=== PATIENT | female | born 1990 | race Caucasian/White ===

== ENCOUNTER 2022-09-09 09:25 | Outpatient (REF) | payer OTHER, SELFPAY ==
[2022-09-09 11:44] LABS: Influenza A PCR NEGATIVE (Negative); Influenza B PCR NEGATIVE (Negative); Resp Syncy Virus RNA Qual PCR NEGATIVE (Negative); SARS COV2 PCR INHOUSE NEGATIVE (Negative)
== END 2022-09-09 09:26 | disposition home or self-care (01) ==
LOC: HO.LAB 09:25
PROVIDERS: Visit Provider Nurse Practitioner Family
DX: Z20.822 Contact with and (suspected) exposure to COVID-19 (principal); R09.89 Other specified symptoms and signs involving the circulatory and respiratory systems
CPT/HCPCS: 0241U

== ENCOUNTER 2022-09-17 08:45 | Outpatient (REF) | payer OTHER, SELFPAY ==
[2022-09-17 11:15] LABS: MANUAL DIFF FLAG NO
[2022-09-17 11:39] LABS: Basophils Percent Auto 0.5 % (0-2); Eosinophils Absolute Auto 0.6 X10*3/uL (0.0-0.4); Eosinophils Percent Auto 9.4 % (0-4); Hematocrit 44.1 % (37.0-47.0); Hemoglobin 14.7 g/dl (12.0-16.0); Imm Gran Abs Auto 0.01 X10*3/uL (0.00-0.03); Imm Gran Pct Auto 0.2 % (0.0-0.4); Lymphocytes Absolute Auto 3.3 X10*3/uL (1.2-4.9); Lymphocytes Percent Auto 50.2 % (20-40); Mean Corpuscular HGB Conc 33.3 g/dl (31.0-35.0); Mean Corpuscular Hemoglobin 29.8 pg (27.0-33.0); Mean Corpuscular Volume 89.3 fL (80.0-98.0); Monocytes Absolute Auto 0.5 X10*3/uL (0.1-1.2); Monocytes Percent Auto 7.4 % (2-11); Neutrophils Absolute Auto 2.1 x10*3/uL (2.0-8.3); Neutrophils Percent Auto 32.3 % (45-73); Platelet Count 370 X10*3/uL (160-400); Red Blood Count 4.94 X10*6/uL (4.20-5.50); Red Cell Distribution Width 13.1 % (11.0-16.0); White Blood Count 6.5 X10*3/uL (4.8-10.8)
[2022-09-17 12:27] LABS: Alanine Aminotransferase 29 U/L (0-31); Alkaline Phosphatase 89 U/L (39-117); Anion Gap 13 (12-20); Aspartate Amino Transferase 28 U/L (5-31); Bilirubin Total 0.3 mg/dL (0.0-1.0); Blood Urea Nitrogen 7 mg/dL (9-16); Calcium 9.2 mg/dL (8.4-10.2); Carbon Dioxide 25 mmol/L (22-29); Chloride 109 mmol/L (96-108); Cholesterol 187 mg/dL; Estimated Glomerular Filt Rate > 60; Glucose Fasting 100 mg/dL (60-99); HDL Cholesterol 52 mg/dL; LDL Cholesterol Calculated 118 mg/dl; Potassium 4.5 mmol/L (3.3-5.1); Sodium 142 mmol/L (135-145); TSH reflex Free T4 1.92 uIU/mL (0.32-4.0); Total Protein 6.1 g/dL (6.5-8.0); Triglycerides 88 mg/dL
[2022-09-18 04:43] LABS: Syphilis Screen Nonreactive (Nonreactive)
[2022-09-18 07:20] LABS: HBS Num1 24.63 mIU/mL (0-7.99); HBc Num1 0.17 S/CO (0.00-0.79); HBsAGNum1 0.34 S/CO (0.00-0.99); HIV AB/AG Nonreactive (Nonreactive); HIV Num 1 0.08 S/CO (0.00-0.99); Hepatitis B Core Antibody Nonreactive (Nonreactive); Hepatitis B Surface Antigen Negative (Negative); ~Hepatitis B Surface Antibody REACTIVE (Nonreactive); ~Hepatitis C Antibody Nonreactive (Nonreactive)
== END 2022-09-17 08:46 | disposition home or self-care (01) ==
LOC: HO.WFDLDS 08:45
PROVIDERS: Visit Provider Family Medicine
DX: Z00.00 Encounter for general adult medical examination without abnormal findings (principal); Z11.3 Encounter for screening for infections with a predominantly sexual mode of transmission; Z11.4 Encounter for screening for human immunodeficiency virus [HIV]
CPT/HCPCS: 36415; 80053; 80061; 84443; 85025; 86704; 86706; 86780; 86803; 87340; 87389

== ENCOUNTER 2022-09-22 10:48 | Outpatient (REF) | payer OTHER, SELFPAY ==
[2022-09-23 11:17] LABS: Appearance Urine Clear; Color Urine Yellow; Glucose Urine UA Negative (Negative); Leukocyte Esterase Urine Negative (Negative); Nitrite Urine Negative (Negative); PH 7.5 (5.0-9.0); Specific Gravity - Urine 1.015 (1.005-1.025); Urine Blood Negative (Negative); Urine Ketones Negative (Negative); Urine Protein Negative (Neg-Trace)
[2022-09-23 12:10] LABS: Creatinine Urine 76.97 mg/dL; Microalbum/Creatinine Ratio Ur 11.6 ug/mg cr
== END 2022-09-22 10:49 | disposition home or self-care (01) ==
LOC: HO.LNP 10:48
PROVIDERS: Visit Provider Family Medicine
DX: Z00.00 Encounter for general adult medical examination without abnormal findings (principal); I10 Essential (primary) hypertension
CPT/HCPCS: 81003; 82043

== ENCOUNTER 2022-09-25 15:24 | Outpatient (REF) | payer OTHER, SELFPAY ==
--- NOTE | ~2022-09-25 | XR_ITS ---
EXAMINATION: XR cervical spine 2V CLINICAL INFORMATION: Cervicalgia COMPARISON: None TECHNIQUE: 4 views of the cervical spine were obtained. FINDINGS: The cervical spine is visualized to the level of C7-T1 on the lateral view. Reversal of usual cervical spine lordosis centered at C6-C7. Vertebral body heights are maintained. Mild to moderate degenerative disc disease at C6-C7, manifested by loss of disc space height and degenerative endplate spurring. Lateral masses of C1 are well aligned on C2. Visualized portion of the dens is intact. No prevertebral soft tissue swelling. XR/XR cervical spine 2V IMPRESSION: * Mild to moderate spondylosis of the cervical spine at C6-C7 with reversal of the usual cervical spine lordosis.
--- NOTE | ~2022-09-25 | XR_ITS ---
EXAMINATION: XR LUMBOSACRAL SPINE CLINICAL INFORMATION: Reason for Exam M54.16 - Radiculopathy, lumbar region COMPARISON: Lumbar spine radiographs 08/07/2021 TECHNIQUE: 3 views of the lumbar spine FINDINGS: 5 nonrib-bearing lumbar-type vertebral bodies. Status post L4-L5 posterior spinal fusion with interbody disc spacer fixating stable grade 1 anterolisthesis of L4 on L5. There is no alycia bony fusion across the vertebral bodies. No hardware fracture or perihardware lucency. Vertebral body heights are maintained. Alignment is otherwise maintained. Disc space heights are otherwise maintained. Paravertebral soft tissues are unremarkable. XR/XR lumbar spine 2-3V IMPRESSION: * Status post L4-L5 posterior spinal fusion with interbody disc spacer fixating stable grade 1 anterolisthesis of L4 on L5. No evidence of hardware fracture or complication. * Remainder of disc space heights are maintained.
--- NOTE | ~2022-09-25 | XR_ITS ---
EXAMINATION: XR CHEST CLINICAL INFORMATION: Reason for Exam F17.200 - Nicotine dependence, unspecified, uncomplicated COMPARISON: None TECHNIQUE: 2 views of the chest FINDINGS: Clear lungs. No pneumothorax or pleural effusion. Normal cardiomediastinal silhouette. XR/XR chest 2V IMPRESSION: * Clear lungs.
== END 2022-09-25 15:25 | disposition home or self-care (01) ==
LOC: HO.XRAY 15:24
PROVIDERS: PCP Family Medicine; Referring Provider Surgery Plastic and Reconstructive Surgery; Visit Provider Family Medicine
DX: M54.16 Radiculopathy, lumbar region (principal); M54.9 Dorsalgia, unspecified; F17.200 Nicotine dependence, unspecified, uncomplicated; M54.12 Radiculopathy, cervical region; M54.2 Cervicalgia
CPT/HCPCS: 71046; 72040; 72100

== ENCOUNTER 2022-10-06 09:41 | Outpatient (REF) | payer OTHER, SELFPAY ==
[2022-10-06 11:14] LABS: Partial Thromboplastin Time 36.1 SEC (26.0-36.4)
== END 2022-10-06 09:42 | disposition home or self-care (01) ==
LOC: HO.WFDLDS 09:41
PROVIDERS: Visit Provider Family Medicine
DX: Z01.818 Encounter for other preprocedural examination (principal)
CPT/HCPCS: 36415; 85610; 85730

== ENCOUNTER 2023-11-03 08:43 | Outpatient (AMB) | payer OTHER, SELFPAY ==
[2023-11-03 09:00] VITALS: BP 124/80; PULSE 109; RESP 14; TEMP 36.7; O2SAT 96; BMI 27.7
--- NOTE | 2023-11-03 09:00 | MHC.OFFWIV ---
Intake Vital Signs 11/03/23 09:00 Height 5 ft 6 in Weight 171 lb 8 oz BMI 27.7 BP 124/80 Blood Pressure Location Rt brachial Position Sitting Respiration 14 Pulse 109 H Pulse Source Pulse Oximeter Temp 98.1 F Temp Source Temporal Artery Scan Pulse Oximetry (%) 96 Oxygen Delivery Method Room Air Intake Visit Reasons: ongoing sinus issues Intake Note: Patient reports sinus concerns x6 weeks. Patient states she has seen teledoc and has tried amoxicillin, Augmentin, and benzonatate tablets with no relief. Patient reports she has also tried OTC meds sucha mucinex with no relief. Patient reports symptoms of productive cough with green mucinex, wheezing and trouble catching breath. Patient reports she has had 4 sinus infections June. 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 Reports episode in June tx w/ Augmentin In Jul got COVID and sinus infection. Tx w/ Doxy. October treated w/ Augmentin and Prednisone Augmentin 10/08/23 with Prednisone 50mg Doxycycline 07/27/23 + vaping Tessalon w/o relief for cough Using flonase and Zicam nasal spray taking allergy medication QD Today sx are wheezing, cough with sputum, green nasal discharge, feeling SOB Used KELVIN in the past but does not have on hand right now. No maintenance inhalers. [facility] Surgical History (Updated 08/14/22 @ 13:03 by Wil Nguyễn) H/O spinal fusion Social History Housing: House Patient Tobacco Use Status: Current everyday Tobacco user e-Cigarette/Vaping Use: Never Used Second Hand Smoke Exposure: No service: No Current occupational status: employed Cognitive needs: No Hearing needs: No Vision needs: No Review of Systems Const All systems reviewed & are unremarkable except as noted in HPI and below Physical Exam Vital Signs: Last Vital Signs Temp 98.1 F 11/03/23 09:00 Pulse 109 H 11/03/23 09:00 Resp 14 11/03/23 09:00 BP 124/80 11/03/23 09:00 Pulse Ox 96 11/03/23 09:00 Oxygen Delivery Method Room Air 11/03/23 09:00 BMI result Body Mass Index 27.7 Const Other: Awake alert NAD Sclera and conjunctiva clear bilat TM intact trace fluid L, clear on R Nares w/ thick mucoid d/c bilat, + frontal and max sinus tenderness bilat MMM, pharynx WNL RRR LS ins/exp wheeze throughout Assessment & Plan Assessment & Plan (1) Recurrent acute sinusitis: Comment: . Code(s): J01.91 - Acute recurrent sinusitis, unspecified Qualifiers: Sinusitis location: pansinusitis Qualified Code(s): J01.41 - Acute recurrent pansinusitis Plan: . (2) Mild intermittent asthma: Code(s): J45.20 - Mild intermittent asthma, uncomplicated Qualifiers: Asthma complication type: with acute exacerbation Qualified Code(s): J45.21 - Mild intermittent asthma with (acute) exacerbation Plan: . Plan Advised to immediately stop Flonase as she will be getting a rhinoplasty and just a few weeks. Viral swab obtained today & negative. We will treat sinus symptoms with azithromycin. We will treat her wheezing with Asmanex and as needed albuterol. This note is constructed using voice recognition software. While every effort has been made to ensure accuracy in application systems architect, still errors may have been included Sometimes, these errors may affect the content or meaning of the given sentence . Total time spent caring for the patient today was 30 minutes. This includes time spent before the visit reviewing the chart, time spent during the visit, and time spent after the visit on documentation Orders: Orders SARS-CoV2/FLU/RSV Today R09.89 - Other specified symptoms and signs involving the circulatory and respiratory systems Medications: New albuterol sulfate 90 mcg/actuation 2 puffs inhalation Q4-6H PRN 8.5 grams 0RF shortness of breath or wheezing 30 days azithromycin For 250 mg dose pack: take 500 mg today (day 1), then 250 mg for 4 days (days 2-5) PO 6 tabs 0RF 5 days mometasone 100 mcg/actuation (Asmanex HFA) 1 puff inhalation BID 13 grams 0RF Coding Level of Care Code Est Pt Level 4 (40006) Diagnoses Acute recurrent pansinusitis J01.41 Sinusitis location: pansinusitis Mild intermittent asthma with acute exacerbation J45.21 Asthma complication type: with acute exacerbation
== END 2023-11-03 09:23 | disposition home or self-care (01) ==
PROVIDERS: PCP Family Medicine; Visit Provider Nurse Practitioner Family
DX: J01.41 Acute recurrent pansinusitis (principal); J45.21 Mild intermittent asthma with (acute) exacerbation
CPT/HCPCS: 99214

== ENCOUNTER 2023-11-03 09:23 | Outpatient (REF) | payer OTHER, SELFPAY ==
[2023-11-03 12:38] LABS: Influenza A PCR NEGATIVE (Negative); Influenza B PCR NEGATIVE (Negative); Resp Syncy Virus RNA Qual PCR NEGATIVE (Negative); SARS COV2 PCR INHOUSE NEGATIVE (Negative)
== END 2023-11-03 09:24 | disposition home or self-care (01) ==
LOC: HO.LAB 09:23
PROVIDERS: Visit Provider Nurse Practitioner Family
DX: Z11.52 Encounter for screening for COVID-19 (principal); R09.89 Other specified symptoms and signs involving the circulatory and respiratory systems
CPT/HCPCS: 0241U

== ENCOUNTER 2023-11-03 11:24 | Outpatient (REF) | payer OTHER, SELFPAY | END 2023-11-03 11:25 | disposition home or self-care (01) | LOC: HO.LNP 11:24 | PROVIDERS: Visit Provider Nurse Practitioner Family | DX: Z13.89 Encounter for screening for other disorder (principal) ==

== ENCOUNTER 2023-12-23 08:23 | Outpatient (AMB) | payer OTHER, SELFPAY ==
--- NOTE | 2023-12-23 08:27 | A.OFFPC_ITS ---
Vital Signs 12/23/23 08:34 Height 5 ft 5 in Weight 162 lb 8 oz BMI 27.0 BP 117/76 Blood Pressure Location Lt brachial Position Sitting Respiration 14 Pulse 110 H Pulse Source Palpation Temp 98.7 F Temp Source Oral Pulse Oximetry (%) 97 Oxygen Delivery Method Room Air Intake Visit Reasons: Sinus Intake Note: Sore throat, sinus congestion, headache. Applied Psychology Professor Required: No Allergies No Known Allergies Allergy (Verified 12/23/23 08:28) Medication List - Last Reconciled 12/23/23 by María Hancock PA-C albuterol sulfate 90 mcg/actuation 2 puffs inhalation Q4-6H PRN 30 days atomoxetine 25 mg PO QAM budesonide 90 mcg/actuation (Pulmicort Flexhaler) 1 inh inhalation BID duloxetine (Cymbalta) 120 mg PO DAILY gabapentin 800 mg PO BEDTIME meloxicam 15 mg PO DAILY 30 days promethazine 25 mg PO Q8H PRN Tobacco use date assessed: 09/22/22 HPI Sinus HPI Details Patient is a 33-year-old female with a significant past medical history of asthma and anxiety presenting today with sinus congestion and a sore throat. She states that she is worried that she has strep throat again. She tells me it is very painful to swallow. For the last 5 days she has felt awful. She states that she has had congestion in her sinuses but also recently had a rhinoplasty 10 days ago. She states that she is having pain with swallowing, lymph nodes were swollen and she has been feverish. She is borderline tearful today in the office because she has felt sick for so long. She states that since June she has been sick every month in multiple times a month. She says it started in June with a sinus infection in which she went on antibiotics and then she had strep throat. She states that then in July she developed COVID and at some point also had the flu. She has been on antibiotics every month since August. This last month she went to [place] f or a rhinoplasty and states that when she landed she knew she had strep throat. She believes she got it from the airplane but prior to going there she had just been treated for sinus infection. She states that they delayed her surgery by a few days and gave her ?an injection of an antibiotic ?. She does not think that that was penicillin but can not tell me what she took. She says that they then gave her antibiotics while she was in the hospital for her rhinoplasty and during her surgery and then they discharged her on a form of amoxicillin. She states that she just finished her antibiotics about a week ago and then developed this sore throat and sinus congestion and feeling sick again. She also in the interim developed thrush and was given oral nystatin. She states that she still has the medication and today is her last day with a but she can still feel thrush on the tip of her tongue. She denies ever having routine illnesses like this before. She states that she knows she does not necessarily live the healthiest lifestyle with smoking but she has cut back. She does not drink alcohol. She tries to live a relatively healthy lifestyle. No unintentional weight loss, bruising, chest pain or shortness a breath. No nausea, vomiting or abdominal pain. [facility] Medical History (Updated 12/23/23 @ 10:08 by María Hancock PA-C) History of frequent upper respiratory infection Recurrent streptococcal pharyngitis Surgical History (Updated 08/14/22 @ 13:03 by Wil Nguyễn) H/O spinal fusion Social History Housing: House Patient Tobacco Use Status: Current everyday Tobacco user e-Cigarette/Vaping Use: Never Used Second Hand Smoke Exposure: No service: No Current occupational status: employed Cognitive needs: No Hearing needs: No Vision needs: No Questionnaire Thrive Questionnaire Date Thrive assessed: 08/14/22 SARAH-7 AMB Questionnaire SARAH-7 Date SARAH - 7 assessed: 08/14/22 Source: Developed by Drs. Adonay Asencio, Latesha Martel, Bairon Stanford and colleagues, with an educational elizabeth from [employer] [facility]. Physical exam (Primary Care) Vital Signs: Last Vital Signs Temp 98.7 F 12/23/23 08:34 Pulse 110 H 12/23/23 08:34 Resp 14 12/23/23 08:34 BP 117/76 12/23/23 08:34 Pulse Ox 97 12/23/23 08:34 Oxygen Delivery Method Room Air 12/23/23 08:34 BMI result Body Mass Index 27.0 Tobacco/Smoking Status: Tobacco use Status Tobacco use date assessed 09/22/22 12/23/23 08:30 Patient Tobacco Use Status Current everyday Tobacco 12/23/23 08:30 e-Cigarette/Vaping Use Never Used 12/23/23 08:30 Thrive Assessment: Date of Thrive Assessment Date Thrive assessed 08/14/22 12/23/23 08:30 Const Orientation/consciousness: patient oriented x3 HENMT Ears: hearing grossly normal bilaterally and TM's normal bilaterally General nose exam: Abnormal external nose present nasal swelling, Abnormal mucous membranes and turbinates present erythematous and Nasal discharge present clear Face and sinus: Yes sinus tenderness (Maxillary sinus tenderness present) Mouth: tongue abnormal (There is a white coating noted on the distal aspect of the tongue) Throat: Yes uvula midline, Yes abnormal tonsil (Erythematous and hypertrophied) and Yes posterior oropharynx abnormal (Erythematous) Neck Thyroid: Thyroid normal Lymphatic: lymphadenopathy (Tonsillar and cervical lymphadenopathy noted) Resp Auscultation: clear to auscultation bilaterally Cardio Rate: regular rate Rhythm: regular rhythm Heart sounds: S1 normal heart sound present and S2 normal heart sound present GI Inspection: Yes normal to inspection Palpation (GI): Soft to palpation and Other GI palpation findings present (nontender, no cva tenderness) Auscultation: normoactive bowel sounds Rectal Exam - Female: deferred Skin General skin exam: no rashes or lesions noted Neuro General: patient oriented x3, gait normal and no focal motor deficits Assessment and Plan Assessment & Plan (1) Recurrent acute sinusitis: Comment: . Code(s): J01.91 - Acute recurrent sinusitis, unspecified Qualifiers: Sinusitis location: pansinusitis Qualified Code(s): J01.41 - Acute recurrent pansinusitis (2) Recurrent streptococcal pharyngitis: Code(s): J02.0 - Streptococcal pharyngitis (3) History of frequent upper respiratory infection: Code(s): Z87.09 - Personal history of other diseases of the respiratory system (4) Thrush, oral: Code(s): B37.0 - Candidal stomatitis Plan I have referred her to ENT and Allergy and immunology. We did discuss that she may have an immune deficiency. We also discussed that with her recurrent strep she may need to be considered by ENT. Labs ordered today including CBC, CMP and TSH we will follow up pending test results. We did discuss that the CBC will likely be abnormal given her positive strep. I will start her on Levaquin for the recurrent infection. Discussed with her the risks and benefits and adverse effects of this medication including increased risk of Achilles tendon rupture, QTC prolongation, GI upset, C diff (with the numerous antibiotics) and yeast infections. Discussed that she needs to take probiotics and cannot miss this. We discussed sanitation and hygiene at home and advised her to get multiple disp osable toothbrushes and travel tothpastes and discard them and to clean her sinks, door handles etc.. Given that she still has thrush on exam I will start her on Diflucan. Again, reviewed risks and benefits and adverse effects. Advised to follow up in a couple of months to be seen in for a physical exam. Patient understands and agrees with the plan. Orders: Orders Complete Blood Count Auto Diff Today J01.41 - Acute recurrent pansinusitis, J02.0 - Streptococcal pharyngitis, Z87.09 - Personal history of other diseases of the respiratory system Comprehensive Met. Panel Today J01.41 - Acute recurrent pansinusitis, J02.0 - Streptococcal pharyngitis, Z87.09 - Personal history of other diseases of the respiratory system TSH reflex Free T4 Today J01.41 - Acute recurrent pansinusitis, J02.0 - Streptococcal pharyngitis, Z87.09 - Personal history of other diseases of the respiratory system Referrals Allergy & Immunology Referral J01.41 - Acute recurrent pansinusitis, J02.0 - Streptococcal pharyngitis, Z87.09 - Personal history of other diseases of the respiratory system Ear/Nose/Throat Referral J01.41 - Acute recurrent pansinusitis, J02.0 - S treptococcal pharyngitis, Z87.09 - Personal history of other diseases of the respiratory system Medications: New levofloxacin 750 mg PO DAILY 10 days 10 tabs 0RF fluconazole 150 mg PO DAILY 10 days 10 tabs 0RF Coding Level of Care Code Est Pt Level 4 (84634) Complex EM visit Add On G2211 Diagnoses Acute recurrent pansinusitis J01.41 Sinusitis location: pansinusitis Recurrent streptococcal pharyngitis J02.0 History of frequent upper respiratory infection Z87.09 Thrush, oral B37.0
[2023-12-23 08:34] VITALS: BP 117/76; PULSE 110; RESP 14; TEMP 37.1; O2SAT 97; BMI 27.0
== END 2023-12-23 09:21 | disposition home or self-care (01) ==
PROVIDERS: PCP Family Medicine; Visit Provider Physician Assistant
DX: J01.41 Acute recurrent pansinusitis (principal); J02.0 Streptococcal pharyngitis; Z87.09 Personal history of other diseases of the respiratory system; B37.0 Candidal stomatitis; J02.9 Acute pharyngitis, unspecified
CPT/HCPCS: 87880; 99214; G2211

== ENCOUNTER 2023-12-23 09:27 | Outpatient (REF) | payer OTHER, SELFPAY ==
[2023-12-23 11:26] LABS: MANUAL DIFF FLAG NO
[2023-12-23 11:36] LABS: Basophils Percent Auto 0.3 % (0-2); Eosinophils Absolute Auto 0.4 X10*3/uL (0.0-0.4); Eosinophils Percent Auto 3.5 % (0-4); Hemoglobin 13.6 g/dl (12.0-16.0); Imm Gran Abs Auto 0.04 X10*3/uL (0.00-0.03); Imm Gran Pct Auto 0.4 % (0.0-0.4); Lymphocytes Absolute Auto 1.6 X10*3/uL (1.2-4.9); Lymphocytes Percent Auto 13.8 % (20-40); Mean Corpuscular HGB Conc 33.2 g/dl (31.0-35.0); Mean Corpuscular Hemoglobin 30.5 pg (27.0-33.0); Mean Corpuscular Volume 91.9 fL (80.0-98.0); Mean Platelet Volume 10.2 fL (9.4-12.3); Monocytes Absolute Auto 1.1 X10*3/uL (0.1-1.2); Monocytes Percent Auto 9.9 % (2-11); Neutrophils Absolute Auto 8.2 x10*3/uL (2.0-8.3); Neutrophils Percent Auto 72.1 % (45-73); Platelet Count 399 X10*3/uL (160-400); Red Blood Count 4.46 X10*6/uL (4.20-5.50); Red Cell Distribution Width 13.1 % (11.0-16.0); White Blood Count 11.3 X10*3/uL (4.8-10.8)
[2023-12-23 12:49] LABS: Alanine Aminotransferase 12 U/L (0-31); Alkaline Phosphatase 77 U/L (39-117); Anion Gap 12 (12-20); Aspartate Amino Transferase 14 U/L (5-31); Bilirubin Total 0.3 mg/dL (0.0-1.0); Blood Urea Nitrogen 5 mg/dL (9-16); Carbon Dioxide 26 mmol/L (22-29); Chloride 107 mmol/L (96-108); Estimated Glomerular Filt Rate > 60; Glucose Random 83 mg/dL (60-115); Potassium 4.3 mmol/L (3.3-5.1); Sodium 141 mmol/L (135-145); TSH reflex Free T4 0.68 uIU/mL (0.32-4.0); Total Protein 6.7 g/dL (6.5-8.0)
== END 2023-12-23 09:28 | disposition home or self-care (01) ==
LOC: HO.WFDLDS 09:27
PROVIDERS: Visit Provider Physician Assistant
DX: J02.9 Acute pharyngitis, unspecified (principal); Z87.09 Personal history of other diseases of the respiratory system; J01.41 Acute recurrent pansinusitis
CPT/HCPCS: 36415; 80053; 84443; 85025

== ENCOUNTER 2024-09-21 10:54 | Outpatient (AMB) | payer OTHER, SELFPAY ==
--- NOTE | 2024-09-21 11:06 | A.OFFPC_ITS ---
Vital Signs 09/21/24 11:07 Height 5 ft 5 in Weight 197 lb 4 oz BMI 32.8 BP 110/64 Blood Pressure Location Lt brachial Position Sitting Respiration 14 Pulse 102 H Pulse Source Pulse Oximeter Pulse Oximetry (%) 99 Oxygen Delivery Method Room Air Intake Visit Reasons: Lumps on both legs Intake Note: Lumps on legs from knee down, both sides. 23 weeks . Supervisor Phosphoric Acid Required: No Allergies No Known Allergies Allergy (Verified 09/21/24 11:06) Medication List - Last Reconciled 09/21/24 by María Hancock PA-C albuterol sulfate 90 mcg/actuation 2 puffs inhalation Q4-6H PRN 30 days budesonide 90 mcg/actuation (Pulmicort Flexhaler) 1 inh inhalation BID duloxetine (Cymbalta) 120 mg PO DAILY gabapentin 800 mg PO BEDTIME Tobacco use date assessed: 09/21/24 Dental Screening Dental Screen Date: 10/11/24 Did you have a dental visit in the last 12 months?: Yes Did you have a dental problem in the last 6 months where you did not have access to dental care?: No Was dental information given to patient?: Patient has dentist HPI Lumps on both legs HPI Details History of Present Illness The patient is a 33-year-old female presenting with bilateral red lumps on her lower legs. The patient reports that these lumps began appearing approximately two to three months ago, coinciding with her . The nodular lesions are located on the lower legs, from the knees down, and have a tendency to resolve spontaneously, only to reappear in different areas. She describes the consistency of the lumps as hard, almost bone-like, and notes that they can be painful. The lesions sometimes resemble bruises as they fade. The patient's senior interaction designer-die stamper suggested a dermatological evaluation. The patient's medical history includes episodes of severe urticaria in the past, which were characterized by hives affecting her joints, causing pain and mobility issues. Urticaria episodes occurred twice several years ago and were significant enough to impact her daily activities, but resolved spontaneously without a definitive diagnosis or known trigger. The patient also recounts a history of pancreatitis at age 25 linked to alcohol consumption, which has since ceased. She expresses concern about potential liver damage from past alcohol use but reports no current symptoms suggestive of liver disease. She indicates experiencing severe sinus infections in the past, often requiring antibiotics, but notes improved immune function over the current year. Health Maintenance - Baby aspirin started due to age-relate d risk during . - Plan to check liver function and elect rolytes, tsh and cbc - Ensured cardiovascular risk prevention through medication review. - Discussed referral to dermatology for further evaluation and potential biopsy for erythema nodosum confirmation. 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 - Engaged, milk-li-yq- to sonia amos h a 10-year-old son. - Experiencing significant life changes due to quick engagement and . - Discusses mental health challenges dur ing early . Review of Systems - Dermatological: Reports painful, red l umps on lower legs that fade into bruise-like discolorations. - Endocrine: Denies recent weight loss o r symptoms suggestive of thyroid dysfunction. - Musculoskeletal: Denies other joint or musculoskeletal issues aside from leg lumps. Physical Exam General: Well developed, well nourished, in no acute distress. Appears stated age. Cardiac: RRR, no murmurs Lungs: clear, equal breath sounds Abdomen: soft, nontender, no CVA tenderness Extremities: no edema, There is a marble sized, firm, slightly blanching erythematous lump noted on the left anterior lower leg Neuro: alert, oriented x3, mood appropriate Plan - Conduct laboratory tests including com plete blood count, liver function tests, kidney function tests, and electrolytes to rule out systemic causes and ensure no underlying complications. - Referral to dermatology for further ev aluation of suspected erythema nodosum and potential skin biopsy for confirmation. - Monitor -related symptoms, em phasizing the management and observation of leg nodules and ensuring no obstetric complications arise. - Maintain baby aspirin usage to mitigat e age-related risk factors during . - Discussed the significance of keeping a photographic log of lesions to aid dermatological assessment and management. [facility] Medical History (Updated 09/21/24 @ 11:18 by María Hancock PA-C) Sore throat History of frequent upper respiratory infection Recurrent streptococcal pharyngitis Surgical History (Updated 08/14/22 @ 13:03 by Wil Nguyễn) H/O spinal fusion Social History Housing: House Patient Tobacco Use Status: Former Tobacco user Cigarettes Per Day: 2 Years Smoked: 17 e-Cigarette/Vaping Use: Currently Using Second Hand Smoke Exposure: No service: No Current occupational status: employed Cognitive needs: No Hearing needs: No Vision needs: No Questionnaire PHQ-9 Over the last 2 weeks, how often have you been bothered by any of the following problems? 1. Little interest or pleasure in doing things: not at all 2. Feeling down, depressed, or hopeless: not at all 3. Trouble falling or staying asleep, or sleeping too much: more than half the days 4. Feeling tired or having little energy: nearly every day 5. Poor appetite or overeating: not at all 6. Feeling bad about yourself - or that you are a failure or have let yourself or your family down: not at all 7. Trouble concentrating on things, such as reading the newspaper or watching television: several days 8. Moving or speaking so slowly that other people could have noticed. Or the opposite - being so fidgety or restless that you have been moving around a lot more than usual: not at all 9. Thoughts that you would be better off or of hurting yourself in some way: not at all Total score: 6 Source: Developed by Drs. Adonay Asencio, Latesha Martel, Bairon Stanford and colleagues, with an educational elizabeth from [employer]. Thrive Questionnaire Date Thrive assessed: 08/14/22 I am a: Patient What is your living situation today?: I have a steady place to live Within the past 12 months, did the food you bought not last and you didn't have the money to get more?: Never true Within the past 12 months, did you worry whether your food would run out before you got money to buy more?: Never true Do you have trouble paying for medicines?: No Do you have trouble getting transportation to medical appointments?: No Do you have trouble paying your heating and electricity bill?: No Do you have trouble taking care of your child, family member or friend?: No Do you have trouble with day-to-day activities such as bathing, preparing meals, shopping, managing finances, etc.?: No Are you currently unemployed and looking for a job?: No Are you interested in more education?: No Please select the resources that you would like help with: None Currently or been in a relationship where the following occur: No concerns reported THRIVE Score: 0 AUDIT C Alcohol Use Questionnaire (AUDIT-C) 1. How often do you have a drink containing alcohol?: Never Total Score: 0 SARAH-7 AMB Questionnaire SARAH-7 Date SARAH - 7 assessed: 08/14/22 Feeling nervous, anxious, or on edge: 1 = Several days Not being able to stop or control worryin = Several days Worrying too much about different things: 1 = Several days Trouble relaxin = Several days Being so restless that it is hard to sit still: 1 = Several days Becoming easily annoyed or irritable: 1 = Several days Feeling afraid as if something awful might happen: 0 = Not at all Total SARAH-7 score (0-4 normal; 5-9 mild; 10-14 moderate; 15-21 severe): 6 Source: Developed by Drs. Adonay Asencio, Latesha Martel, Bairon Stanford and colleagues, with an educational elizabeth from [employer]. Physical exam (Primary Care) Vital Signs: Last Vital Signs Pulse 102 H 09/21/24 11:07 Resp 14 09/21/24 11:07 BP 110/64 09/21/24 11:07 Pulse Ox 99 09/21/24 11:07 Oxygen Delivery Method Room Air 09/21/24 11:07 BMI result Body Mass Index 32.8 Tobacco/Smoking Status: Tobacco use Status Tobacco use date assessed 09/21/24 09/21/24 11:09 Patient Tobacco Use Status Former Tobacco user 09/21/24 11:09 e-Cigarette/Vaping Use Currently Using 09/21/24 11:09 PHQ-9: PHQ-9 Score PHQ-9: Total score 6 09/21/24 11:09 Thrive Assessment: Date of Thrive Assessment Date Thrive assessed 08/14/22 09/21/24 11:09 Currently or been in a relationship where the following occur: No concerns reported Coding Level of Care Code Est Pt Level 4 (18144) Diagnoses Skin lesion of left leg L98.9 23 weeks gestation of Z3A.23 Assessment & Plan Assessment & Plan (1) Skin lesion of left leg: Code(s): L98.9 - Disorder of the skin and subcutaneous tissue, unspecified Category: Medical Plan: Physical exam consistent with erythema nodosum. Referral to derm. Labs ordered. She will keep track of her lesions as they pop up with pictures and follow with dermatology. She will follow up sooner if anything worsens or changes or she develops any constitutional symptoms. (2) 23 weeks gestation of : Code(s): Z3A.23 - 23 weeks gestation of Category: Medical Plan: Congratulated her on . Following closely with OBGYN. Thyroid function and complete blood count. Thyroid function Orders: Orders Comprehensive Met. Panel Today L98.9 - Disorder of the skin and subcutaneous tissue, unspecified, Z3A.23 - 23 weeks gestation of Complete Blood Count Auto Diff Today L98.9 - Disorder of the skin and subcutaneous tissue, unspecified, Z3A.23 - 23 weeks gestation of TSH reflex Free T4 Today L98.9 - Disorder of the skin and subcutaneous tissue, unspecified, Z3A.23 - 23 weeks gestation of UA CC w/rflx Micro + Cult Today L98.9 - Disorder of the skin and subcutaneous tissue, unspecified, Z13.220 - Encounter for screening for lipoid disorders, Z3A.23 - 23 weeks gestation of Referrals Dermatology Referral L98.9 - Disorder of the skin and subcutaneous tissue, unspecified
[2024-09-21 11:07] VITALS: BP 110/64; PULSE 102; RESP 14; O2SAT 99; BMI 32.8
--- OUTSIDE RECORDS SUMMARY | 2024-09-21 11:39 | XMS_ITS | Encounter Summary ---
Author Organization [facility] Address [address] [place] [address] Care Team Providers Care Chair Post Machine Operator Name Role Phone Miguel Angel Cuellar MD Primary Care Provide r Reason for Visit * Reason Comments Routine Visit Encounter Details Date Type Department Care Team (Latest Contact Info) Description 09/07/2024 11:00 AM EST Routine Obstetrics and Gynecology - [address] [phone] Adrian Bird CN [address] [place] [phone] Supervision of other high risk pregnancies, second trimester (Primary Dx); Placenta previa in second trimester; 21 weeks gestation of Social History Tobacco Use Types Packs/Day Years Used Date Smoking Tobacco: Former Cigarettes Smokeless Tobacco: Never Alcohol Use Standard Drinks/Week Comments No 0 (1 standard drink = 0.6 oz pur e alcohol) Estimated Date of Delivery Comme nts Yes 01/16/2025 Based on last me nstrual period of 04/11/2024 (Exact Date) Sex and Gender Information Value Date Recorded Sex Assigned at Not on file Legal Sex Female 1:39 PM EDT Gender Identity Not on file Sexual Orientation Not on file 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 on file Not on file Not on file documented as of this encounter Last Filed Vital Signs Vital Sign Reading Time Taken Comments Blood Pressure 126/80 09/07/2024 11:08 AM EST Pulse 119 09/07/2024 11:08 AM EST Temperature - - Respiratory Rate 14 09/07/2024 11:08 AM EST Oxygen Saturation - - Inhaled Oxygen Concentration - - Weight 87.2 kg (192 lb 3.2 oz) 09/07/2024 11:08 AM EST Height - - Body Mass Index 31.02 06/20/2024 1:05 PM EST documented in this encounter Progress Notes * Adrian Bird CNM - 09/07/2024 11:00 AM EST OB Visit: Vitals BP: 126/80 Weight: 87.2 kg (192 lb 3.2 oz) Assessment Heart Rate: 140 Fundal Height (cm): 21 cm Movement: Present 33 y.o. old female at 21w2d. Doing well. Active FM. No LOF/VB/cramping. Her only new concern is none, feeling well. Discussed her follow up U/S was normal. She does have previa and declines any bleeding, she is using pelvic rest. She has follow up U/S at 32 weeks. Otherwise healthy . We dicussed her need for anesthesia consult for her spinal fusion history and this was scheduled for Tuesday 09/12 at 10:00 AM. Her BP is reviewed and is Normal. Aneuploidy screening reviewed; it is Normal. MSAFP deferred by patient. She does not require a urine drug screen. Signs and symptoms of labor reviewed including reasons to call triage. Problem List reviewed and updated. RTO 4 weeks or PRN 1. Supervision of other high risk pregnancies, second trimester 2. Placenta previa in second trimester 3. 21 weeks gestation of Adrian Bird CNM on 09/07/2024 at 11:22 AM EST documented in this encounter Plan of Treatment Upcoming Encounters Date Type Department Care Team (Late st Contact Info) Description 10/06/2024 11:00 AM EST Routine Obstetrics and Gynecology - [place] [address] [place] [phone] Adrian Bird CNM [address] [place] [address] 11/21/2024 9:00 AM EDT Ancillary Procedure Maternal Medicine [address] [phone] documented as of this encounter Visit Diagnoses Diagnosis Supervision of other high risk pregnancies, second trimester- Primary Placenta previa in second trimester 21 weeks gestation of documented in this encounter Care Teams Chair Post Machine Operator Relationship Specialty Start Date End Date Miguel Angel Cuellar MD [address] [place] [address] PCP - General Internal Medicine 03/16/19 documented as of this encounter
--- OUTSIDE RECORDS SUMMARY | 2024-09-21 11:39 | XMS_ITS | Data Portability ---
Author Organization [place] [facility] Former[facility], Allergy Address [address] [address] Care Team Providers Care Research Associate Molecular Biology Name Role Phone ANGUS BRUNSON Primary Care Provider Assessment Encounter Date Assessment Date Assessment LastModified by Organization Details LastModified Time 05/31/2024 05/31/2024 Patient with recurrent sinus and pharyngeal infections which were persisted before she had a septorhinoplasty in [place] in December. Over the summer she was well. Recent trip to [facility] and increased congestion. Examination shows no polyps or colored nasal discharge. She is now 7 weeks so we cannot perform any radiographs and try to avoid antibiotics. At the present time I do not see any need for any antibiotics have suggested saline irrigations twice daily with distilled water. We will check an immune panel. She will discuss with the cutter operator helper whether she can utilize budesonide nasal spray. [email or web address] Not available 05/31/2024 15:52:05 Plan of Treatment Reminders Order Date Submit Date Provider Last Modified By Organization Details Last Modified Time Details Appointments None recorded. Lab haemophilus influenzae B IgG Ab, quantitativ e, serum, immunoassay 2023 MAGNUS [facility], [address] [facility] , [address], [place], [address], 11:45:58 unlisted lab - pneumococca l Ab (23 serotype) 2023 MAGNUS [facility], [address] [facility] [facility] , [address], [place], [address], 11:45:58 unlisted lab - tetanus toxoid Ag response* 2023 [email or web address] [facility], [address], [address], [place], [address], 12:24:19 CBC w/ auto diff 2023 MAGNUS [facility], [address], [address], [place], [address], 11:45:57 ige, total, serum 2023 MAGNUS [facility], [address], [address], [place], [address], 11:45:59 immunoglobu sujatha iga+igg+igm , quantitativ e, serum 2023 MAGNUS [facility], [address], [address], [place], [address], 11:45:58 Referral None recorded. Procedures None recorded. Surgeries None recorded. Imaging None recorded. Medication Orders None recorded. Patient TargetsNo targets recorded. Patient InstructionsNo instructions recorded. Reason for Referral None Reported. Results Created Date Observation Date Name Description Value Unit Range Abnormal Flag Note LastModifiedBy Organization Detail LastModifiedTime 05/31/2006/01/2024 CBC WITH DIFFE RENTI AL/PL ATELE T WBC 9.9 x10e3 /uL 3.4-10 .8 normal Not Available [facility] ([facility]) [address] [place], [address], 06/07/2024 11:45:57 05/31/2006/01/2024 CBC WITH DIFFE RENTI AL/PL ATELE T RBC 4.29 x10e6 /uL 3.77-5 .28 normal Not Available [facility] ([facility]) [address] [place], [address], 06/07/2024 11:45:57 05/31/2006/01/2024 CBC WITH DIFFE RENTI AL/PL ATELE T hemoglobin 13.0 g/dL 11.1-1 5.9 normal Not Available [facility] ([facility]) [address] [facility], [place], [address], 06/07/2024 11:45:57 05/31/2006/01/2024 CBC WITH DIFFE RENTI AL/PL ATELE T hematocrit 39.3 % 34.0-4 6.6 normal Not Available [facility] ([facility]) [address] [place], [address], 06/07/2024 11:45:57 05/31/2006/01/2024 CBC WITH DIFFE RENTI AL/PL ATELE T MCV 92 fL 79-97 normal Not Available [facility] ([facility]) [address] [place], [address], 06/07/2024 11:45:57 05/31/2006/01/2024 CBC WITH DIFFE RENTI AL/PL ATELE T MCH 30.3 pg 26.6-3 3.0 normal Not Available [facility] ([facility]) [address] [place], [address], 06/07/2024 11:45:57 05/31/2006/01/2024 CBC WITH DIFFE RENTI AL/PL ATELE T MCHC 33.1 g/dL 31.5-3 5.7 normal Not Available [facility] ([facility]) [address] [place], [address], 06/07/2024 11:45:57 05/31/2006/01/2024 CBC WITH DIFFE RENTI AL/PL ATELE T RDW 12.8 % 11.7-1 5.4 Not Available [facility] ([facility]) [address] [place], [address], 06/07/2024 11:45:57 05/31/2006/01/2024 CBC WITH DIFFE RENTI AL/PL ATELE T platelets 354 x10e3 /uL 150-45 0 normal Not Available [facility] ([facility]) [address] [facility], [place], [address], 06/07/2024 11:45:57 05/31/2006/01/2024 CBC WITH DIFFE RENTI AL/PL ATELE T neutrophils 57 % not estab. normal Not Available [facility] ([facility]) [address] [facility], [place], [address], 06/07/2024 11:45:57 05/31/2006/01/2024 CBC WITH DIFFE RENTI AL/PL ATELE T lymphs 29 % not estab. normal Not Available [facility] ([facility]) [address] [facility], [place], [address], 06/07/2024 11:45:57 05/31/2006/01/2024 CBC WITH DIFFE RENTI AL/PL ATELE T monocytes 9 % not estab. normal Not Available [facility] ([facility]) [address] [facility], [place], [address], 06/07/2024 11:45:57 05/31/2006/01/2024 CBC WITH DIFFE RENTI AL/PL ATELE T eos 5 % not estab. normal Not Available [facility] ([facility]) [address] [facility], [place], [address], 06/07/2024 11:45:57 05/31/2006/01/2024 CBC WITH DIFFE RENTI AL/PL ATELE T basos 0 % not estab. normal Not Available [facility] ([facility]) [address] [facility], [place], [address], 06/07/2024 11:45:57 05/31/2006/01/2024 CBC WITH DIFFE RENTI AL/PL ATELE T immature cells DIRECTOR OF HOUSING AND ENERGY SERVICES Not Available [facility] ([facility]) [address] [facility], [place], [address], 06/07/2024 11:45:57 05/31/2006/01/2024 CBC WITH DIFFE RENTI AL/PL ATELE T neutrophils (absolute) 5.6 x10e3 /uL 1.4-7. 0 normal Not Available [facility] ([facility]) [address] [facility], [place], [address], 06/07/2024 11:45:57 05/31/2006/01/2024 CBC WITH DIFFE RENTI AL/PL ATELE T lymphs (absolute) 2.9 x10e3 /uL 0.7-3. 1 normal Not Available [facility] ([facility]) [address] [facility], [place], [address], 06/07/2024 11:45:57 05/31/2006/01/2024 CBC WITH DIFFE RENTI AL/PL ATELE T monocytes(ab solute) 0.9 x10e3 /uL 0.1-0. 9 normal Not Available [facility] ([facility]) [address] [place], [address], 06/07/2024 11:45:57 05/31/2006/01/2024 CBC WITH DIFFE RENTI AL/PL ATELE T eos (absolute) 0.5 x10e3 /uL 0.0-0. 4 above high normal Not Available [facility] ([facility]) [address] [place], [address], 06/07/2024 11:45:57 05/31/2006/01/2024 CBC WITH DIFFE RENTI AL/PL ATELE T baso (absolute) 0.0 x10e3 /uL 0.0-0. 2 normal Not Available [facility] ([facility]) [address] [place], [address], 06/07/2024 11:45:57 05/31/2006/01/2024 CBC WITH DIFFE RENTI AL/PL ATELE T immature granulocytes 0 % not estab. Not Available [facility] ([facility]) [address] [facility], [place], [address], 06/07/2024 11:45:57 05/31/2006/01/2024 CBC WITH DIFFE RENTI AL/PL ATELE T immature grans (abs) 0.0 x10e3 /uL 0.0-0. 1 Not Available [facility] ([facility]) [address] [facility], [place], [address], 06/07/2024 11:45:57 05/31/2006/01/2024 CBC WITH DIFFE RENTI AL/PL ATELE T NRBC DIRECTOR OF HOUSING AND ENERGY SERVICES Not Available [facility] ([facility]) [address] [facility], [place], [address], 06/07/2024 11:45:57 05/31/2006/01/2024 CBC WITH DIFFE RENTI AL/PL ATELE T hematology comments: DIRECTOR OF HOUSING AND ENERGY SERVICES Not Available [facility] ([facility]) [address] [facility], [place], [address], 06/07/2024 11:45:57 05/31/2006/07/2024 PNEUM OCOCC AL AB (23 SEROT YPE) pneumo Ab type 1* <0.1 ug/mL >1.3 below low normal Not Available [facility] [address] [place], [address], 06/07/2024 11:45:58 05/31/2006/07/2024 PNEUM OCOCC AL AB (23 SEROT YPE) pneumo Ab type 3* <0.1 ug/mL >1.3 below low normal Not Available [facility] [address] [place], [address], 06/07/2024 11:45:58 05/31/2006/07/2024 PNEUM OCOCC AL AB (23 SEROT YPE) pneumo Ab type 4* <0.1 ug/mL >1.3 below low normal Not Available [facility] [address] [place], [address], 06/07/2024 11:45:58 05/31/2006/07/2024 PNEUM OCOCC AL AB (23 SEROT YPE) pneumo Ab type 8* <0.3 ug/mL >1.3 below low normal Not Available [facility] [address] [place], [address], 06/07/2024 11:45:58 05/31/2006/07/2024 PNEUM OCOCC AL AB (23 SEROT YPE) pneumo Ab type 9 (9N)* <0.1 ug/mL >1.3 below low normal Not Available [facility] [address] [place], [address], 06/07/2024 11:45:58 05/31/2006/07/2024 PNEUM OCOCC AL AB (23 SEROT YPE) pneumo Ab type 12 (12F)* <0.1 ug/mL >1.3 below low normal Not Available [facility] [address] [place], [address], 06/07/2024 11:45:58 05/31/2006/07/2024 PNEUM OCOCC AL AB (23 SEROT YPE) pneumo Ab type 14* 7.4 ug/mL >1.3 Not Available [facility] [address] [place], [address], 06/07/2024 11:45:58 05/31/2006/07/2024 PNEUM OCOCC AL AB (23 SEROT YPE) pneumo Ab type 17 (17F)* <0.1 ug/mL >1.3 below low normal Not Available [facility] [address] [place], [address], 06/07/2024 11:45:58 05/31/2006/07/2024 PNEUM OCOCC AL AB (23 SEROT YPE) pneumo Ab type 19 (19F)* 0.4 ug/mL >1.3 below low normal Not Available [facility] [address] [place], [address], 06/07/2024 11:45:58 05/31/2006/07/2024 PNEUM OCOCC AL AB (23 SEROT YPE) pneumo Ab type 2* <0.2 ug/mL >1.3 below low normal Not Available [facility] [address] [place], [address], 06/07/2024 11:45:58 05/31/2006/07/2024 PNEUM OCOCC AL AB (23 SEROT YPE) pneumo Ab type 20* <0.2 ug/mL >1.3 below low normal Not Available [facility] [place], [address], 06/07/2024 11:45:58 05/31/2006/07/2024 PNEUM OCOCC AL AB (23 SEROT YPE) pneumo Ab type 22 (22F)* <0.1 ug/mL >1.3 below low normal Not Available [facility] [place], [address], 06/07/2024 11:45:58 05/31/2006/07/2024 PNEUM OCOCC AL AB (23 SEROT YPE) pneumo Ab type 23 (23F)* 0.8 ug/mL >1.3 below low normal Not Available [facility] [address] [place], [address], 06/07/2024 11:45:58 05/31/20 24 06/07/2024 PNEUM OCOCC AL AB (23 SEROT YPE) pneumo Ab type 26 (6B)* <0.1 ug/mL >1.3 below low normal Not Available [facility] [address] [place], [address], 06/07/2024 11:45:58 05/31/2006/07/2024 PNEUM OCOCC AL AB (23 SEROT YPE) pneumo Ab type 34 (10A)* 0.1 ug/mL >1.3 below low normal Not Available [facility] [address] [place], [address], 06/07/2024 11:45:58 05/31/2006/07/2024 PNEUM OCOCC AL AB (23 SEROT YPE) pneumo Ab type 43 (11A)* 0.2 ug/mL >1.3 below low normal Not Available [facility] [place], [address], 06/07/2024 11:45:58 05/31/2006/07/2024 PNEUM OCOCC AL AB (23 SEROT YPE) pneumo Ab type 5* <0.1 ug/mL >1.3 below low normal Not Available [facility] [address] [place], [address], 06/07/2024 11:45:58 05/31/2006/07/2024 PNEUM OCOCC AL AB (23 SEROT YPE) pneumo Ab type 51 (7F)* <0.1 ug/mL >1.3 below low normal Not Available [facility] [address] [place], [address], 06/07/2024 11:45:58 05/31/2006/07/2024 PNEUM OCOCC AL AB (23 SEROT YPE) pneumo Ab type 54 (15B)* 11.1 ug/mL >1.3 Not Available [facility] [address] [place], [address], 06/07/2024 11:45:58 05/31/2006/07/2024 PNEUM OCOCC AL AB (23 SEROT YPE) pneumo Ab type 56 (18C)* <0.1 ug/mL >1.3 below low normal Not Available [facility] [address] [place], [address], 06/07/2024 11:45:58 05/31/2006/07/2024 PNEUM OCOCC AL AB (23 SEROT YPE) pneumo Ab type 57 (19A)* 0.2 ug/mL >1.3 below low normal Not Available [facility] [address] [place], [address], 06/07/2024 11:45:58 05/31/2006/07/2024 PNEUM OCOCC AL AB (23 SEROT YPE) pneumo Ab type 68 (9V)* <0.1 ug/mL >1.3 below low normal Not Available [facility] [address] [place], [address], 06/07/2024 11:45:58 05/31/2006/07/2024 PNEUM OCOCC AL AB (23 SEROT YPE) pneumo Ab type 70 (33F)* 0.1 ug/mL >1.3 below low normal *This test was devel oped and its perfo rmanc e marina cteri stics deter mined by [employer]. It has not been clear ed or appro christy by the U.S. Food and Drug Admin istra tion. FLAG Inter preta tion: A = Abnor mal, H = High, L = Low Not Available [facility] [address] [place], [address], 06/07/2024 11:45:58 05/31/2006/01/2024 IMMUN OGLOB ULINS A/G/M , QN, SER immunoglobul in g, qn, serum 803 mg/dL 586-16 02 Not Available [facility] ([facility]) [address], [place], [address], 06/07/2024 11:45:58 05/31/2006/01/2024 IMMUN OGLOB ULINS A/G/M , QN, SER immunoglobul in A, qn, serum 160 mg/dL 87-352 normal Not Available [facility] ([facility]) [address] [place], [address], 06/07/2024 11:45:58 05/31/2006/01/2024 IMMUN OGLOB ULINS A/G/M , QN, SER immunoglobul in M, qn, serum 234 mg/dL 26-217 above high normal Not Available [facility] ([facility]) [address] [place], [address], 06/07/2024 11:45:58 05/31/2006/01/2024 HAEMO PHILU S INFLU ENZAE B IGG haemophilus influenzae B IgG <0.15 ug/mL NOTE: An anti- Hib level of 0.15 ug/mL is gener ally accep sachi as the minim um level for prote ction . Optim al prote ction post- vacci natio n requi res a level great er than 1.00 ug/mL . Not Available [facility] ([facility]) [address] [facility], [place], [address], 06/07/2024 11:45:58 05/31/2006/06/2024 IMMUN OGLOB ULIN E, TOTAL immunoglobul in E, total 66 IU/mL 6-495 Not Available [facility]) [address] [place], [address], 06/07/2024 11:45:59 05/31/2006/07/2024 TETAN US TOXOI D AG RESPO NSE* tetanus toxoid Ag response* COMMEN T %_X_1 00 Test Not Perfo rmed. The reque sted test was omitt tarik aguilar the billet recorder proce ss and the speci men is no longe r avail able for testi ng. [facility] will conta ct your patie nt to sched ule a time for recol lecti on. Shoul d we be unabl e to make conta ct with your patie nt, your offic e will be notif ied. Not Available [facility] [address] [place], [address], 06/07/2024 14:13:14 05/31/2006/07/[address] PROBL EM request problem COMMEN T Test Not Perfo rmed. The reque sted test was omitt tarik aguilar the billet recorder proce ss and the speci men is no longe r avail able for testi ng. [facility] will conta ct your patie nt to sched ule a time for recol lecti on. Maryul d we be unabl e to make conta ct with your patie nt, your offic e will be notif ied. TEST: [id number] Tetan us Toxoi d Ag respo nse* Not Available [facility] ([facility]) [address] [facility], [place], [address], 06/07/2024 14:13:16 06/08/2006/14/2024 TETAN US TOXOI D AG RESPO NSE* tetanus toxoid Ag response* COMMEN T %_x_1 00 Test not perfo rmed Test Not Perfo rmed; Speci men recei christy >30 hours due to late nuvia ing cynthia castillo. Notif ied kimmy munoz via email . SANJUANA RSDAVID 2023 FLAG Inter preta tion: A = Abnor mal, H = High, L = Low Not Available [facility] [address] [place], [address], 06/14/2024 14:25:50 Result Notes None recorded. Problems Name Problem SNOMED Code Status Onset Date Resolution Date Notes Provider Name and Address Organization Details Recorded Time Chronic rhinitis 95328137 Active 2023 HA SCHAEFFER MD [address] [place] [address], [facility] [place], [address], [facility] - [facility] [place] 15:50:02 Chronic sinusitis 18849322 Active 2023 HA SCHAEFFER MD [address] [address], [place], [address], [facility] - [facility] [place] 15:50:34 Immunodeficien cy disorder 814167494 Active 2023 HA SCHAEFFER MD [address] [address], [place], [address], [facility] - [facility] [place] 12:51:35 Problem Notes None recorded. Procedures Surgical History Date Name Laterality Status Provider Name and Address Organization Details Recorded Time lumbar spinal fusion completed Love valera [place] - [facility] 05/31/2024 15:35:22 Breast reduction completed Love Dillard [place] - [facility] 05/31/2024 15:35:28 rhinoseptoplasty completed Love Dillard [facility] [place] 05/31/2024 15:35:38 Imaging Results None recorded. Procedure Notes None recorded. Medical Equipment None Reported. Allergies No known drug allergies Medications Name Sig Start Date Stop Date Status Note LastModified by Organization Details LastModified Time nystatin 100,000 unit/mL oral suspension TAKE 5 ML BY MOUTH 4 TIMES A DAY USE FOR 7 DAYS DIRECTED 05/31 completed Not Available Not Available Not Available azithromyci n 250 mg tablet TAKE 2 TABLETS BY MOUTH TODAY, THEN TAKE 1 TABLET DAILY FOR 4 DAYS DIRECTED 05/31 completed Not Available Not Available Not Available fluconazole 150 mg tablet TAKE 1 TABLET BY MOUTH DAILY FOR 10 DAYS 05/31 completed Not Available Not Available Not Available benzonatate 200 mg capsule TAKE 1 CAPSULE BY MOUTH THREE TIMES A DAY NEEDED 05/31 completed Not Available Not Available Not Available meloxicam 15 mg tablet TAKE 1 TABLET BY MOUTH EVERY DAY 05/31 completed Not Available Not Available Not Available doxycycline monohydrate 100 mg tablet TAKE 1 TAB(S) ORAL 2 TIMES A DAY 05/31 completed Not Available Not Available Not Available gabapentin 800 mg tablet TAKE 1 TABLET BY MOUTH THREE TIMES A DAY 2023 active Not Available Not Available Not Avai lable prednisone 50 mg tablet TAKE 1 TABLET BY MOUTH EVERY DAY 05/31 completed Not Available Not Available Not Available levofloxaci n 750 mg tablet TAKE 1 TABLET BY MOUTH EVERY DAY FOR 10 DAYS 05/31 completed Not Available Not Available Not Available fluticasone propionate 50 mcg/actuati on nasal spray,suspe nsion SPRAY 1 SPRAY INTO EACH NOSTRIL EVERY DAY 05/31 completed Not Available Not Available Not Available amoxicillin 875 mg-potassiu m clavulanate 125 mg tablet TAKE 1 TABLET BY MOUTH EVERY 12 HOURS 05/31 completed Not Available Not Available Not Available Ventolin HFA 90 mcg/actuati on aerosol inhaler USE 2 PUFFS INHALED EVERY 4 TO 6 HOURS NEEDED FOR SHORTNESS OF BREATH OR WHEEZING FOR 30 DAYS 05/31 completed Not Available Not Available Not Available oxycodone 5 mg tablet TAKE 2 TABLETS BY MOUTH EVERY 6 HOURS NEEDED FOR PAIN FOR 3 DAYS 05/31 completed Not Available Not Available Not Available nitrofurant oin monohydrate /macrocryst als 100 mg capsule TAKE 1 CAPSULE BY MOUTH TWICE A DAY 05/31 completed Not Available Not Available Not Available duloxetine 60 mg capsule,del ayed release TAKE 2 CAPSULES BY MOUTH EVERY DAY active Not Available Not Available No t Available active Not Available Not Avai lable Not Available Pulmicort Flexhaler 90 mcg/actuati on breath activated TAKE 1 PUFF INHALED 2 TIMES A DAY 05/31 completed Not Available Not Available Not Available Allergy 25 mg tablet Take 1 tablet every 4 hours by oral route. active Not Available Not Available No t Available Vitals Date Recorded Body height Body weight Provider Name and Address Organization Details Last Updated DateTime 05/31/2024 167.64 cm 08401.26 g Love Dillard [place] [facility] 05/31/2024 15:32:53 Social History None recorded. Functional Status None recorded. Mental Status None recorded. Family History Nothing Reported. Medical History Condition Response Arthritis Y Anxiety Y Depression Y Gynecological HistoryNo gynecological history recorded. Obstetrics History GPAL:G 0 P 0 0 0 0 Past Encounters Encounter ID Performer Location Encounter Start Date Encounter Closed Date Diagnosis/Indication Diagnosis SNOMED-CT Code Diagnosis ICD10 Code Diagnosis Note [id number] HA RODRIGUEZ MD [facility] [address] [place] [address] 05/31/2024 14:49:47 05/31/2024 15:55:16 Chronic rhinitis 55319227 J31.0 82710090 Z33.1 Chronic sinusitis 893866 00 J32.9 Health Concerns Section Related Observation LastModified by Organization Detai ls LastModified Time None Recorded Concern Status LastModified by Organization Details LastModified Time None Recorded Advance Directives Directive None Recorded Payers Encounter Date Sequence Insurance Name Policy Number Policy Billy Covered Member ID Billy Member ID Guarantor Name 05/31/2024 1 [facility] NET PLAN (MEDICAID HMO) [id number] Stacia Conde [id number] Stacia Conde Notes Date Note Type Note Provider Name and Address Organization Details Recorded Time 05/31/2024 text/html Hx of septorhino plasty in [place] December 08, 2023. Sinus infections monthly before the SRP in [place]. Had been treated with multiple abx. Hx of strep around the time of surgery. [facility] well [facility] [facility] Now 7 weeks . Seeing OBHaving morning sickness HA BRYANT MD [address] [address], [place], [address], [facility] - [facility] 05/31/2024 15:54:09 OBGyn Episode No OBEpisode recorded.
--- OUTSIDE RECORDS SUMMARY | 2024-09-21 11:39 | XMS_ITS | Clinical Summary ---
Author Organization [facility] Address [address] [place] [address] Care Team Providers Care Automobile Bumper Straightener Name Role Phone Tatiana Bauer APRN Primary Care Provider [phone] Allergies No known active allergies Medications Medication Sig Dispensed Refills Start Date End Date Status diclofenac enteric coated (VOLTAREN) 50 MG EC tablet 04/06/2021 Active DULoxetine (CYMBALTA) 30 MG capsule Take 30 mg by mouth. Active gabapentin (NEURONTIN) 800 MG tablet 03/30/2021 Active norethindrone-ethinyl estradiol (ORTHO-NOVUM 1-35 TAB,NORTREL 1-35 TAB) 1-35 MG-MCG per tablet Take 1 tablet by mouth. Active oxyCODONE-acetaminophe n (PERCOCET) 5-325 mg per tablet Take 1 tablet by mouth every 4 (four) hours as needed. 05/03/2020 Active sertraline (ZOLOFT) 100 MG tablet Take 100 mg by mouth. Active traMADol (ULTRAM) 50 MG tablet 03/23/2021 Active TiZANidine (ZANAFLEX) 4 MG capsule Take 4 mg by mouth. 05/03/2020 Active Active Problems Problem Noted Date Diagnosed Date Lumbar radiculopathy 04/18/2021 Lumbar spondylosis 04/18/2021 Social History Tobacco Use Types Packs/Day Years Used Date Smoking Tobacco: Every Day Cigarettes Sex and Gender Information Value Date Recorded Sex Assigned at Not on file Gender Identity Not on file Sexual Orientation Not on file Last Filed Vital Signs Vital Sign Reading Time Taken Comments Blood Pressure - - Pulse - - Temperature 36.9 ??C (98.5 ??F) 04/18/2021 10:25 AM E DT Respiratory Rate - - Oxygen Saturation - - Inhaled Oxygen Concentration - - Weight 78.9 kg (174 lb) 04/18/2021 10:25 AM EDT Height 165.1 cm (5' 5 ) 04/18/2021 10:25 AM EDT Body Mass Index 28.96 04/18/2021 10:25 AM EDT Plan of Treatment Health Maintenance Due Date Last Done Comments Hepatitis C Virus Screening 1988 HIV Screening 2001 DTaP/Tdap/Td Vaccines (1 - Tdap) 10/20/2007 Hepatitis B Vaccines (1 of 3 - 19+ 3-dose series) 10/20/2007 Pap Smear (Ages 21-65) 2009 Influenza Vaccine 03/09/2024 05/11/2020 COVID-19 Vaccine (1 - 2023-2 5 season) 2024 HPV Vaccines Aged Out No longer eligi ble based on patient's age to complete this topic Pneumococcal Vaccine: Pediat giselle (0-5 Years) and At-Risk Patients (6 to 49 Years) Aged Out No longer eligible b ased on patient's age to complete this topic Care Teams Automobile Bumper Straightener Relationship Specialty Start Date End Date Tatiana Bauer APRN PCP - General Emergency Medicine 02/28/21
--- OUTSIDE RECORDS SUMMARY | 2024-09-21 11:39 | XMS_ITS | Encounter Summary ---
Author Organization [facility] Address [address] [place] [address] Care Team Providers Care Custom Feed Mill Operator Helper Name Role Phone Miguel Angel Cuellar MD Primary Care Provide r Reason for Visit * Imaging (Routine) - Pending Review Specialty Diagnoses / Procedures Referred By Dax munoz Referred To Contact Radiology Diagnoses Encounter for anatomic survey Procedures US OB Detailed Single or First Gestation Adrian Bird, RIKKI [address] [place] [address] Phone: tel: fax: [address] Phone: tel: Referral ID Status Reason Start Date Expiration Date V isits Requested Visits Authorized [id number] Pending Review 07/04/2024 07/04/2025 1 1 Encounter Details Date Type Department Care Team (Latest Contact Info) Description 08/23/2024 8:00 AM EST Ancillary Procedure Maternal Medicine - [address] [phone] Encounter for anatomic survey Social History Tobacco Use Types Packs/Day Years [...] 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 [address] [place] [address] 11/21/2024 9:00 AM EDT Ancillary Procedure Maternal Medicine - [address] [phone] documented as of this encounter Procedures Procedure Name Priority Date/Time Associated Diagnosis Comments US OB DETAILED SINGLE OR FIRST GESTATION Routine 08/23/2024 9:07 AM EST Encounter for anatomic survey documented in this encounter Results * US OB Detailed Single or First Gestation (08/23/2024 9:07 AM EST) Anatomical Region Laterality Modality Body Ultrasound 08/23/2024 8:06 AM EST Narrative 08/23/2024 9:44 AM EST OBSTETRICS REPORT ? (Signed Final 08/23/2024 09:44 am) PATIENT INFO: ID #: ? [id number] ? : ??[birth year] (33 yrs)(F) Name: ? ROSALVA SANDHU ? Visit Date: 08/23/2024 08:06 am PERFORMED BY: Attending: ?Christy Morgan MD Performed By: ? Aiden Valdivia RDMS Referred By: ?Adrian Bird CNM Ref. Address: ? [address] ? [place] [address] Location: ? [facility] SERVICE(S) PROVIDED: US Level II complete (Targeted OB) ?55135 INDICATIONS: Advanced maternal age in nullipara, second ?O09.512 trimester Complete placenta previa without ?O44.02 hemorrhage, 2nd trimester Drug use complicating , second ? O99.322 trimester Smoking (tobacco) complicating , ? O99.332 second trimester Medication exposure, second trimester ? O09.892 Encounter for screening for ? Z36.3 malformations 19 weeks gestation of ? Z3A.19 TECHNIQUE/SCAN QUALITY: Technique: ?? Transabdominal & Transvaginal Scan ? Satisfactory Quality: OB HISTORY: : ?1 ? Term: ?? 0 VITAL SIGNS: Weight (lb) ?? Height ?BMI 174 ? 5'6 ?28.08 EVALUATION: Number Of Fetuses: ? 1 Cardiac Activity: ?Observed Presentation: ?Breech Placenta Location: ?Posterior Appearance: ?Grade 1 Relation to CVX: ? Previa- See comments Cord Insertion: ?Normal appearance Amniotic Fluid HERACLIO FV: ?Within Normal Limits Comment: ?A 2 x 2 cm pocket of fluid is noted. BIOMETRY: BPD: ?47.4 ??mm ? G.Age: ?? 20w 2d ?91 ?? % HC: ?171.4 ??mm ? G.Age: ?? 19w 5d ?71 ?? % AC: ?144 ??mm ? G.Age: ?? 19w 5d ?66 ?? % FL: ? 29.9 ??mm ? G.Age: ?? 19w 2d ?46 ?? % HUM: ?29.6 ??mm ? G.Age: ?? 19w 5d ?65 ?? % CER: ?19.2 ??mm ? G.Age: ?? 18w 4d ?35 ?? % NFT: ?3.86 ??mm LV: ?7.4 ??mm CM: ?5.6 ??mm CI: ? 76.73 ??% ? 70 - 86 FL/HC: ? 17.4 ??% ? 16.1 - 18.3 HC/AC: ? 1.19 ?1.09 - 1.39 FL/BPD: ?63.1 ??% FL/AC: ? 20.8 ??% ? Est. FW: ? 299 ?? gm ?0 lb 11 oz ? 70 ??% GESTATIONAL AGE: LMP: ? 19w 1d ?Date: ??04/11/24 ? DEANNE: ?01/16/25 U/S Today: ? 19w 5d ?DEANNE: ?01/12/25 Best: ?19w 1d ?? Det. By: ??LMP ??(04/11/24) ?DEANNE: ?01/16/25 DETAILED ANATOMY: Head / Neck Cranial Vault: ? Normal appearance Cavum Septi Pellucidi: ?? Normal appearance Parenchyma: ?Normal appearance R. Lat. Ventricle: ? Normal appearance L. Lat. Ventricle: ? Normal appearance Corpus Callosum: ? Normal appearance Midline Falx: ?Normal appearance R. Choroid Plexus: ? Normal appearance L. Choroid Plexus.: ?Normal appearance Cerebellum: ?Normal appearance CCisterna Magna: ? Normal appearance Nuchal Fold: ? Normal appearance Neck: ?Normal appearance Face Face Profile: ?Suboptimal views Nasal Bone: ?Suboptimal views Coronal Face: ?Suboptimal views Lips: ?Suboptimal views Nose: ?Suboptimal views Lenses: ?Suboptimal views Orbits: ?Suboptimal views Palate: ?Suboptimal views Heart Cardiac Activity: ?Normal appearance Cardiac Rhythm: ?Normal appearance 4 Chamber View: ?Suboptimal views R. Outflow Tract: ?Suboptimal views L. Outflow Tract: ?Suboptimal views Interventr. Septum: ?Normal appearance 3 Vessel View: ? Suboptimal views 3V Trachea View: ? Suboptimal views Cardiac Situs: ? Normal appearance Aortic ??Arch: ?Normal appearance SVC: ? Normal appearance IVC: ? Normal appearance Ductal ??Arch: ?Normal appearance Crossing G. Ves.: ?Normal appearance Thorax Lungs: ? Normal appearance Cardiac [place]: ?Suboptimal views Diaphragm: ? Suboptimal views Thoracic Contour: ?Normal appearance Abdomen Situs: ? Normal appearance Stomach: ? Normal appearance Bowel: ? Normal appearance Liver: ? Normal appearance Abdominal Wall: ?Normal appearance Urinary Bladder: ? Normal appearance R. Kidney: ? Normal appearance L. Kidney: ? Normal appearance R. Renal Artery: ? Normal appearance L. Renal Artery: ? Normal appearance Umbilical Cord: ?Normal Appearance UC Vessel Num.: ?Normal 3VC Cord Insertion: ?Normal appearance Spine Cervical: ?Normal appearance Thoracic: ?Normal appearance Lumbar: ?Normal appearance Sacral: ?Normal appearance Shape / Curvature: ? Normal appearance Over. Soft Tissue: ? Normal appearance Vertebral Body: ?Normal appearance Extremities R. Humerus: ?Normal appearance L. Humerus: ?Normal appearance R. Forearm: ?Normal appearance L. Forearm: ?Normal appearance R. Hand: ? Normal appearance L. Hand: ? Normal appearance R. Femur: ?Normal appearance L. Femur: ?Normal appearance R. Lower Leg: ?Normal appearance L. Lower Leg: ?Normal appearance R. Foot: ? Normal appearance L. Foot: ? Normal appearance Other Genitalia: ? Female CERVIX UTERUS ADNEXA: Cervix Length: ? 3.78 ??cm. Long and closed Uterus Myometrium homogeneous, no lesions identified. Right Ovary Not visualized. Left Ovary Not visualized. COMMENTS: Ms. Sandhu is being seen for a detailed ultrasound for advanced maternal age. - Her medical history is significant for history of chronic back pain, spinal fusion surgery, prior history of alcohol abuse, cigarette smoking, vapes nicotine, marijuana use, anxiety, depression, ADHD, and asthma. She was taking trizepatide and stopped after she found out that she was . She takes Kratom, 120mg Cymbalta and 800 mg Gabapentin daily. Her surgical history is significant for breast reduction, cervical and lumbar spinal fusions. - She had cell free DNA screening. ??Results were low-risk for all conditions assessed. - Ultrasound findings: The biometry is appropriate for the gestational age. ??Views of the heart, face and diaphragm are suboptimal. ??The remainder of the detailed ultrasound seen is normal. ??- The cervix was assessed for risk of and placental location with vaginal ultrasound. ??The cervix is long and closed without funneling or dynamic changes. ??The placenta is a previa at this time. There is an anterior and posterior lobe, with a thin bridge of tissue connecting them over the cervix. The placental cord insertion is on the posterior lobe and appears normal. - Counseling: A placenta previa was seen on today's ultrasound. There is an anterior and posterior lobe of the placenta, and the two lobes are connected with a thin tissue bridge over the cervix. While most placenta previas seen at this gestational age resolve by term, this is a complete previa and there is an increased chance of this persisting. In addition, due to the small amount of tissue in the bridge over the cervix, there is the possibility of this evolving into a vasa previa. If the placenta previa were to persist or evolve into a vasa previa, then delivery would be recommended. Ms. Sandhu has already been planning to deliver via electively. Pelvic rest is recommended. Ms. Sandhu should present to triage in the event of bleeding. If this were to becoem a vasa previa, then inpatient admission for several weeks prior to delivery would be recommended. - Ms. Sandhu reports using Kratom. While data on Kratom use in is sparse, there is concern for withdrawal. In addition, as it is a stimulant, there is the theoretical concern for maternal vasoconstriction leading to impaired placental perfusion. The patient reports that she is cutting down on Kratom, has quit cigarettes, and is cutting down on vaping. She was congratulated for her efforts and encouraged to continue quitting. She states that the Kratom is an analgesic that has been helpful for her chronic back pain. We discussed stretching, yoga, and physical therapy, which Ms. Sandhu states she will try. - Plan: She has been scheduled to return in 2 weeks to complete the detailed ultrasound. - She also has been scheduled to return at 32 weeks to reassess placental location. - Continued cutting down and cessation of Kratom, vaping, and marijuana. - anesthesiology consult is recommended due to spinal fusion surgery. - Christy Morgan MD Electronically Signed Final Report ?? 08/23/2024 09:44 am Procedure Note Christy Morgan MD - 08/23/2024 OBSTETRICS REPORT (Signed Final 08/23/2024 09:44 am) PATIENT INFO: ID #: [id number] : [birth year] (33 yrs)(F) Name: ROSALVA SANDHU Visit Date: 08/23/2024 08:06 am PERFORMED BY: Attending: Christy Morgan MD Performed By: Aiden Valdivia [facility] Referred By: Adrian Bird [facility] Ref. Address: [address] [place] [address] Location: [facility] SERVICE(S) PROVIDED: Level II complete (Targeted OB) 95175 INDICATIONS: Advanced maternal age in nullipara, second O09.512 trimester Complete placenta previa without O44.02 hemorrhage, 2nd trimester Drug use complicating , second O99.322 trimester Smoking (tobacco) complicating , O99.332 second trimester Medication exposure, second trimester O09.892 Encounter for screening for Z36.3 malformations 19 weeks gestation of Z3A.19 TECHNIQUE/SCAN QUALITY: Technique: Transabdominal & Transvaginal Scan Satisfactory Quality: OB HISTORY: : 1 Term: 0 VITAL SIGNS: Weight (lb) Height BMI 174 5'6 28.08 EVALUATION: Number Of Fetuses: 1 Cardiac Activity: Observed Presentation: Breech Placenta Location: Posterior Appearance: Grade 1 Relation to CVX: Previa- See comments Cord Insertion: Normal appearance Amniotic Fluid HERACLIO FV: Within Normal Limits Comment: A 2 x 2 cm pocket of fluid is noted. BIOMETRY: BPD: 47.4 mm G.Age: 20w 2d 91 % HC: 171.4 mm G.Age: 19w 5d 71 % AC: 144 mm G.Age: 19w 5d 66 % FL: 29.9 mm G.Age: 19w 2d 46 % HUM: 29.6 mm G.Age: 19w 5d 65 % CER: 19.2 mm G.Age: 18w 4d 35 % NFT: 3.86 mm LV: 7.4 mm CM: 5.6 mm CI: 76.73 % 70 - 86 FL/HC: 17.4 % 16.1 - 18.3 HC/AC: 1.19 1.09 - 1.39 FL/BPD: 63.1 % FL/AC: 20.8 % 20 - 24 Est. FW: 299 gm 0 lb 11 oz 70 % GESTATIONAL AGE: LMP: 19w 1d Date: 04/11/24 DEANNE: 01/16/25 U/S Today: w 5d DEANNE: 01/12/25 Best: 19w 1d Det. By: LMP (04/11/24) DEANNE: 01/16/25 DETAILED ANATOMY: Head / Neck Cranial Vault: Normal appearance Cavum Septi Pellucidi: Normal appearance Parenchyma: Normal appearance R. Lat. Ventricle: Normal appearance L. Lat. Ventricle: Normal appearance Corpus Callosum: Normal appearance Midline Falx: Normal appearance R. Choroid Plexus: Normal appearance L. Choroid Plexus.: Normal appearance Cerebellum: Normal appearance CCisterna Magna: Normal appearance Nuchal Fold: Normal appearance Neck: Normal appearance Face Face Profile: Suboptimal views Nasal Bone: Suboptimal views Coronal Face: Suboptimal views Lips: Suboptimal views Nose: Suboptimal views Lenses: Suboptimal views Orbits: Suboptimal views Palate: Suboptimal views Heart Cardiac Activity: Normal appearance Cardiac Rhythm: Normal appearance 4 Chamber View: Suboptimal views R. Outflow Tract: Suboptimal views L. Outflow Tract: Suboptimal views Interventr. Septum: Normal appearance 3 Vessel View: Suboptimal views 3V Trachea View: Suboptimal views Cardiac Situs: Normal appearance Aortic Arch: Normal appearance SVC: Normal appearance IVC: Normal appearance Ductal Arch: Normal appearance Crossing G. Ves.: Normal appearance Thorax Lungs: Normal appearance Cardiac [place]: Suboptimal views Diaphragm: Suboptimal views Thoracic Contour: Normal appearance Abdomen Situs: Normal appearance Stomach: Normal appearance Bowel: Normal appearance Liver: Normal appearance Abdominal Wall: Normal appearance Urinary Bladder: Normal appearance R. Kidney: Normal appearance L. Kidney: Normal appearance R. Renal Artery: Normal appearance L. Renal Artery: Normal appearance Umbilical Cord: Normal Appearance UC Vessel Num.: Normal 3VC Cord Insertion: Normal appearance Spine Cervical: Normal appearance Thoracic: Normal appearance Lumbar: Normal appearance Sacral: Normal appearance Shape / Curvature: Normal appearance Over. Soft Tissue: Normal appearance Vertebral Body: Normal appearance Extremities R. Humerus: Normal appearance L. Humerus: Normal appearance R. Forearm: Normal appearance L. Forearm: Normal appearance R. Hand: Normal appearance L. Hand: Normal appearance R. Femur: Normal appearance L. Femur: Normal appearance R. Lower Leg: Normal appearance L. Lower Leg: Normal appearance R. Foot: Normal appearance L. Foot: Normal appearance Other Genitalia: Female CERVIX UTERUS ADNEXA: Cervix Length: 3.78 cm. Long and closed Uterus Myometrium homogeneous, no lesions identified. Right Ovary Not visualized. Left Ovary Not visualized. COMMENTS: Ms. Sandhu is being seen for a detailed ultrasound for advanced maternal age. - Her medical history is significant for history of chronic back pain, spinal fusion surgery, prior history of alcohol abuse, cigarette smoking, vapes nicotine, marijuana use, anxiety, depression, ADHD, and asthma. She was taking trizepatide and stopped after she found out that she was . She takes Kratom, 120mg Cymbalta and 800 mg Gabapentin daily. Her surgical history is significant for breast reduction, cervical and lumbar spinal fusions. - She had cell free DNA screening. Results were low-risk for all conditions assessed. - Ultrasound findings: The biometry is appropriate for the gestational age. Views of the heart, face and diaphragm are suboptimal. The remainder of the detailed ultrasound seen is normal. - The cervix was assessed for risk of and placental location with vaginal ultrasound. The cervix is long and closed without funneling or dynamic changes. The placenta is a previa at this time. There is an anterior and posterior lobe, with a thin bridge of tissue connecting them over the cervix. The placental cord insertion is on the posterior lobe and appears normal. - Counseling: A placenta previa was seen on today's ultrasound. There is an anterior and posterior lobe of the placenta, and the two lobes are connected with a thin tissue bridge over the cervix. While most placenta previas seen at this gestational age resolve by term, this is a complete previa and there is an increased chance of this persisting. In addition, due to the small amount of tissue in the bridge over the cervix, there is the possibility of this evolving into a vasa previa. If the placenta previa were to persist or evolve into a vasa previa, then delivery would be recommended. Ms. Sandhu has already been planning to deliver via electively. Pelvic rest is recommended. Ms. Sandhu should present to triage in the event of bleeding. If this were to becoem a vasa previa, then inpatient admission for several weeks prior to delivery would be recommended. - Ms. Sandhu reports using Kratom. While data on Kratom use in is sparse, there is concern for withdrawal. In addition, as it is a stimulant, there is the theoretical concern for maternal vasoconstriction leading to impaired placental perfusion. The patient reports that she is cutting down on Kratom, has quit cigarettes, and is cutting down on vaping. She was congratulated for her efforts and encouraged to continue quitting. She states that the Kratom is an analgesic that has been helpful for her chronic back pain. We discussed stretching, yoga, and physical therapy, which Ms. Sandhu states she will try. - Plan: She has been scheduled to return in 2 weeks to complete the detailed ultrasound. - She also has been scheduled to return at 32 weeks to reassess placental location. - Continued cutting down and cessation of Kratom, vaping, and marijuana. - anesthesiology consult is recommended due to spinal fusion surgery. - Christy Morgan MD Electronically Signed Final Report 08/23/2024 09:44 am us Adrian Bird [facility] IMG OB US PROCEDURES Final Res ult documented in this encounter Visit Diagnoses Diagnosis Encounter for anatomic survey documented in this encounter Care Teams Custom Feed Mill Operator Helper Relationship Specialty Start Date End Date Miguel Angel Cuellar MD [address] [place] [address] PCP - General Internal Medicine 03/16/19 documented as of this encounter
--- OUTSIDE RECORDS SUMMARY | 2024-09-21 11:39 | XMS_ITS | Encounter Summary ---
Author Organization [facility] Address [address] [place] [address] Care Team Providers Care Confectionery Drops Machine Operator Name Role Phone Miguel Angel Cuellar MD Primary Care Provide r Reason for Visit * Imaging (Routine) - Pending Review Specialty Diagnoses / Procedures Referred By Dax munoz Referred To Contact Radiology Diagnoses Follow-up exam Procedures US OB Followup per Fetus Adrian Bird, [facility] [place] [address] Phone: tel: fax: [facility] [address] [place] [address] Phone: tel: Referral ID Status Reason Start Date Expiration Date V isits Requested Visits Authorized [id number] Pending Review 08/23/2024 08/23/2025 1 1 Encounter Details Date Type Department Care Team (Late Contact Info) Description 09/05/2024 9:00 AM EST Ancillary Procedure Maternal Medicine - [address] [phone] Follow-up exam Social History Tobacco Use Types Packs/Day Years [...] 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 Not on file documented as of this encounter Plan of Treatment Upcoming Encounters Date Type Department Care Team (Late st Contact Info) Description 10/06/2024 11:00 AM EST Routine Obstetrics and Gynecology - [place] [address] [place] [address] Pelon Adrian, [facility] [address] [place] [address] 11/21/2024 9:00 AM EDT Ancillary Procedure Maternal Medicine - [address] [address] documented as of this encounter Procedures Procedure Name Priority Date/Time Associated Diagnosis Comments US OB FOLLOWUP PER FETUS Routine 09/05/2024 12:25 PM EST Follow-up exam documented in this encounter Results * US OB Followup per Fetus (09/05/2024 12:25 PM EST) Anatomical Region Laterality Modality Body Ultrasound 09/05/2024 12:2 5 PM EST Narrative 09/05/2024 2:22 PM EST OBSTETRICS REPORT ?(Signed Final 09/05/2024 02:22 pm) PATIENT INFO: ID #: ? [id number] ? : ??[birth year] (33 yrs)(F) Name: ? ROSALVA SANDHU ? Visit Date: 09/05/2024 12:25 pm PERFORMED BY: Attending: ?Michelle Flores MD Performed By: ? Christy Robles RDMS Referred By: ?Adrian Bird CNM Ref. Address: ? [address] ? [place] [address] Location: ? [facility] SERVICE(S) PROVIDED: OB Follow up ?[id number] INDICATIONS: Advanced maternal age in multigravida, ? O09.522 second trimester Medication exposure, second trimester ?O09.892 Smoking (tobacco) complicating , ?O99.332 second trimester Drug use complicating , second ?O99.322 trimester Encounter for other screening ?Z36.2 follow-up 21 weeks gestation of ?Z3A.21 TECHNIQUE/SCAN QUALITY: Technique: ?? Transabdominal Scan ? Satisfactory Quality: OB HISTORY: : ?1 ? Term: ?? 0 VITAL SIGNS: Weight (lb) ?? Height ?BMI 174 ? 5'6 ?28.08 EVALUATION: Number Of Fetuses: ? 1 Heart Rate(bpm): ?? 138 Cardiac Activity: ?Regular rhythm Presentation: ?Vertex Placenta Location: ?Posterior Appearance: ?Grade 1 Relation to CVX: ? Previa- See comments Amniotic Fluid HERACLIO FV: ?Within Normal Limits BIOMETRY: OOD: ?33.9 ??mm ? G.Age: ?? 20w 2d ?48 ??% GESTATIONAL AGE: LMP: ? 21w 0d ?Date: ??04/11/24 ? DEANNE: ?? 01/16/25 Best: ?21w 0d ?? Det. By: ??LMP ??(04/11/24) ?DEANNE: ?? 01/16/25 DETAILED ANATOMY: Head / Neck Cranial Vault: ?Normal appearance Cavum Septi Pellucidi: ??Normal appearance Face Face Profile: ? Normal appearance Nasal Bone: ? Normal appearance Lips: ? Normal appearance Lenses: ? Normal appearance Orbits: ? Normal appearance Heart 4 Chamber View: ? Normal appearance R. Outflow Tract: ? Normal appearance L. Outflow Tract: ? Normal appearance Interventr. Septum: ? Normal appearance 3 Vessel View: ?Normal appearance 3V Trachea View: ?Normal appearance Aortic ??Arch: ? Normal appearance SVC: ?Normal appearance IVC: ?Normal appearance Thorax Diaphragm: ?Normal appearance Abdomen Stomach: ?Normal appearance COMMENTS: Ms. Sandhu is being seen to complete the detailed ultrasound (4CH, RVOT, LVOT, 3VTV, diaphragm, profile/NB, nose/lips and lenses/orbits). - This is complicated by placenta previa. - Her medical history is significant for chronic back pain, spinal fusion surgery, prior [...] for all conditions assessed. - Ultrasound findings: biometry was not obtained on today's ultrasound. The amniotic fluid volume is appropriate for the gestational age. Views of 4CH, RVOT, LVOT, 3VTV, diaphragm, profile/NB, nose/lips and lenses/orbits were obtained and appeared normal. The detailed ultrasound is now complete. - Plan: The patient has been scheduled to return at 32 weeks for a follow-up assessment of growth and placental location. Michelle Flores MD Electronically Signed Final Report ?? 09/05/2024 02:22 pm Procedure Note Michelle Flores MD - 09/05/2024 OBSTETRICS REPORT (Signed Final 09/05/2024 02:22 pm) PATIENT INFO: ID #: [id number] : [birth year] (33 yrs)(F) Name: ORSALVA Hall Date: 09/05/2024 12:25 pm PERFORMED BY: Attending: Michelle Flores MD Performed By: Christy Robles [facility] Referred By: Adrian Bird [facility] Ref. Address: [address] [place] [id number] Location: [facility] SERVICE(S) PROVIDED: [place] [id number] INDICATIONS: Advanced maternal age in multigravida, O09.522 second trimester Medication exposure, second trimester O09.892 Smoking (tobacco) complicating , O99.332 second trimester Drug use complicating , second O99.322 trimester Encounter for other screening Z36.2 follow-up 21 weeks gestation of Z3A.21 TECHNIQUE/SCAN QUALITY: Technique: Transabdominal Scan Satisfactory Quality: OB HISTORY: : 1 Term: 0 VITAL SIGNS: Weight (lb) Height BMI 174 5'6 28.08 EVALUATION: Number Of Fetuses: 1 Heart Rate(bpm): 138 Cardiac Activity: Regular rhythm Presentation: Vertex Placenta Location: Posterior Appearance: Grade 1 Relation to CVX: Previa- See comments Amniotic Fluid HERACLIO FV: Within Normal Limits BIOMETRY: OOD: 33.9 mm G.Age: 20w 2d 48 % GESTATIONAL AGE: LMP: 21w 0d Date: 04/11/24 DEANNE: 01/16/25 Best: 21w 0d Det. By: LMP (04/11/24) DEANNE: 01/16/25 DETAILED ANATOMY: Head / Neck Cranial Vault: Normal appearance Cavum Septi Pellucidi: Normal appearance Face Face Profile: Normal appearance Nasal Bone: Normal appearance Lips: Normal appearance Lenses: Normal appearance Orbits: Normal appearance Heart 4 Chamber View: Normal appearance R. Outflow Tract: Normal appearance L. Outflow Tract: Normal appearance Interventr. Septum: Normal appearance 3 Vessel View: Normal appearance 3V Trachea View: Normal appearance Aortic Arch: Normal appearance SVC: Normal appearance IVC: Normal appearance Thorax Diaphragm: Normal appearance Abdomen Stomach: Normal appearance COMMENTS: Ms. Sandhu is being seen to complete the detailed ultrasound (4CH, RVOT, LVOT, 3VTV, diaphragm, profile/NB, nose/lips and lenses/orbits). - This is complicated by placenta previa. - Her medical history is significant for chronic back pain, spinal fusion surgery, prior [...] for all conditions assessed. - Ultrasound findings: biometry was not obtained on today's ultrasound. The amniotic fluid volume is appropriate for the gestational age. Views of 4CH, RVOT, LVOT, 3VTV, diaphragm, profile/NB, nose/lips and lenses/orbits were obtained and appeared normal. The detailed ultrasound is now complete. - Plan: The patient has been scheduled to return at 32 weeks for a follow-up assessment of growth and placental location. Michelle Flores MD Electronically Signed Final Report 09/05/2024 02:22 pm us Adrian Bird CN IMG OB US PROCEDURES Final Res ult documented in this encounter Visit Diagnoses Diagnosis Follow-up exam Unspecified follow-up examination documented in this encounter Orders Imaging Orders Without Results Count Last Order ed Date First Ordered Date US OB TRANSVAGINAL 1 09/05/2024 documented in this encounter Care Teams Confectionery Drops Machine Operator Relationship Specialty Start Date End Date Miguel Angel Cuellar MD [address] [place] [address] PCP - General Internal Medicine 03/16/19 documented as of this encounter
--- OUTSIDE RECORDS SUMMARY | 2024-09-21 11:39 | XMS_ITS | Encounter Summary ---
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 Pt agrees. Has follow up u/s and next OB visit scheduled. All questions answered. * Eunice Corinna - 08/24/2024 9:07 AM EST Call from pt, states she had an ultrasound yesterday and may have placenta previa? Pt is traveling next month and is concerned if ok to travel? Please advise documented in this encounter Plan of Treatment Upcoming Encounters Date Type Department Care Team (Late st Contact Info) Description 10/06/2024 11:00 AM EST Routine Obstetrics and Gynecology - [place] [address] [place] [address] Adrian Bird, [facility] [address] [place] [address] 11/21/2024 9:00 AM EDT Ancillary Procedure Maternal Medicine - [address] [address] documented as of this encounter Visit Diagnoses Not on filedocumented in this encounter Care Teams Hydroelectric Plant Operator Relationship Specialty Start Date End Date Miguel Angel Cuellar MD [address] [place] [address] PCP - General Internal Medicine 03/16/19 documented as of this encounter
--- OUTSIDE RECORDS SUMMARY | 2024-09-21 11:39 | XMS_ITS | Encounter Summary ---
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 30 tablet 7 06/22/2024 DULoxetine (CYMBALTA) [address] capsule Take 1 capsule (60 mg total) by mouth 2 (two) times a day. DULoxetine (CYMBALTA) [address] capsule 2 capsules (120 mg total). 06/07/2021 fluticasone propionate (FLONASE) 50 mcg/actuation nasal spray Administer 1 spray into each nostril 1 (one) time each day. 06/24/2023 gabapentin (NEURONTIN) 800 mg tablet Take 1 Tab by mouth 4 times daily for 360 days. 05/02/2019 gabapentin (NEURONTIN) 800 mg tablet Take by mouth. 08/31/2018 Pulmicort Flexhaler 90 mcg/actuation inhaler TAKE 1 PUFF INHALED 2 TIMES A DAY 02/28/2024 Ventolin HFA 90 mcg/actuation inhaler USE 2 PUFFS INHALED EVERY 4 TO 6 HOURS NEEDED FOR SHORTNESS OF BREATH OR WHEEZING FOR 30 DAYS 11/03/2023 documented as of this encounter Discharge Disposition Disposition Code Departure Means Destination Home or Self Care documented in this encounter Progress Notes * Christy Morgan MD - 08/23/2024 8:30 AM EST Ms. Conde is being seen at 19w1d for a detailed ultrasound for advanced maternal age. - Her medical history is significant for history of chronic back pain, spinal fusion surgery, prior history of alcohol abuse, cigarette smoking, vapes nicotine, marijuana use, anxiety, depression, ADHD, and asthma. She was taking trizepatide and stopped after she found out that she was . She takes Kratom,120mg Cymbalta and 800 mg Gabapentin daily. Her [...] thin bridge of tissue connecting them over thecervix. The placental cord insertion is on the [...] a complete previa and there is an in creased chance of this persisting. In addition, due to the small amount of tissue in the bridge over the cervix, there is the possibility of this evolving into a vasa previa. If the placenta previa were to persist or evolve into a vasa previa, then delivery would be recommended. Ms. Conde has already been planning to deliver via electively. Pelvic rest is recommended. Ms. Conde should present to triage in the event of bleeding. If this were to becoem a vasa previa, then inpatient admission for several weeks prior to delivery would be recommended. - Ms. Conde reports using Kratom. While data on Kratom [...] that the Kratom is an analgesic that hasbeen helpful for her chronic back pain. We discussed stretching, yoga, and physical therapy, which Ms. Conde states she will try. - Plan: She has been scheduled to return in 2 weeks to complete the detailed ultrasound. - She also has been scheduled to return at 32 weeks to reassess placental location. - Continued cutting down and cessation of Kratom, vaping, and marijuana. - anesthesiology consult is recommended due to spinal fusion surgery. - 20 minutes were spent on counseling and documentation ([id number]). 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
--- OUTSIDE RECORDS SUMMARY | 2024-09-21 11:40 | XMS_ITS | Clinical Summary ---
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 Referred By: Adrian Bird CNM Ref. Address: [address] [place] [address] Location: [facility] SERVICE(S) PROVIDED: US Level II complete (Targeted OB) 51102 INDICATIONS: Advanced maternal age in nullipara, second [...] 1.39 FL/BPD: 63.1 % FL/AC: 20.8 % Est. FW: 299 gm 0 lb 11 oz 70 % GESTATIONAL AGE: LMP: 19w 1d Date: 04/11/24 DEANNE: 01/16/25 U/S Today: 5d DEANNE: 01/12/25 Best: 19w 1d Det. [...] Normal appearance Thorax Lungs: Normal appearance Cardiac Perry: Suboptimal views Diaphragm: Suboptimal views Thoracic Contour: [...] stretching, yoga, and physical therapy, which Ms. Sadnhu states she will try. - Plan: She [...] Electronically Signed Final Report 08/23/2024 09:44 am Adrian Bird CNM IMG OB US PROCEDURES Final Res ult * Trichomonas vaginalis antigen (07/07/2024 10:25 AM EST) Trichomonas vaginalis Negative Negative 07/07/2024 6:13 PM EST [facility] Swab Vaginal structure / Unknown Non-blood Collection / Unknown 07/07/2024 10:25 AM EST 07/07/2024 10:26 AM EST Adrian Bird CNM LAB MICROBIOLOGY - GENERAL ORD ERABLES Final Result [facility] [address] [place] [address], [place] [phone] * Chlamydia trachomatis and Neisseria gonorrhoeae molecular study (07/07/2024 10:25 AM EST) Neisseria gonorrhoeae PCR Negative Negative LAB MOLECULAR DIAGNOSTICS METHOD 07/08/2024 9:07 AM EST [facility] Chlamydia trachomatis PCR Negative Negative LAB MOLECULAR DIAGNOSTICS METHOD 07/08/2024 9:07 AM [facility] Swab Cervix uteri structure / Unknown Non-blood Collection / Unknown 07/07/2024 10:25 AM EST 07/07/2024 10:26 AM EST us Adrian CONKILN LAB MICROBIOLOGY - GENERAL ORD ERABLES Final Result [facility] [address] [place] [address], [place] [phone] * US OB Less 14 Wks Nuchal Measurement (07/04/2024 10:05 AM EST) Anatomical Region Laterality Modality Body Ultrasound 07/04/2024 9:52 AM EST Narrative 07/04/2024 12:15 PM EST OBSTETRICS REPORT ?(Signed Final 07/04/2024 12:15 pm) PATIENT INFO: ID #: ? [id number] ? : ??[birth year] (33 yrs)(F) Name: ? STACIA SANDHU ? Visit Date: 07/04/2024 09:52 am PERFORMED BY: Attending: ?Michelle Flores MD Performed By: ? Aiden Valdivia RDMS Referred By: ?Adrian Bird CNM Ref. Address: ? [address] ? [place] [address] Location: ? [facility]) SERVICE(S) PROVIDED: US < 14 weeks Abdominal Ultrasound ?47435 US Nuchal Translucency ?21759 INDICATIONS: Advanced Maternal Age in multigravida, first ?? O09.521 trimester Medication exposure, first trimester ? O09.891 Smoking (tobacco) complicating , ?O99.331 first trimester Drug use complicating , first ? O99.321 trimester Encounter for screening for nuchal ?? Z36.82 translucency Encounter for screening for ?Z36.3 malformations 12 weeks gestation of ?Z3A.12 TECHNIQUE/SCAN QUALITY: Technique: ?? Transabdominal Scan ? Satisfactory Quality: OB HISTORY: : ?1 ? Term: ?? 0 VITAL SIGNS: Weight (lb) ?? Height ?BMI 162 ? 5'6 ?26.14 EVALUATION: Number Of Fetuses: ? 1 Heart Rate(bpm): ?? 154 Cardiac Activity: ?Observed Presentation: ?Variable Placenta Location: ?Posterior Appearance: ?Grade 0 Cord Insertion: ?Visualized BIOMETRY: GESTATIONAL AGE: LMP: ? 12w 0d ?Date: ??04/11/24 ? DEANNE: ?? 01/16/25 Best: ?12w 0d ?? Det. By: ??LMP ??(04/11/24) ?DEANNE: ?? 01/16/25 1ST TRIMESTER GENETIC SONOGRAM SCREENING: CRL: ? 65.68 ??mm ? G.Age: ?? 12w 6d ? DEANNE: ?? 01/10/25 Nuc Trans: ? 1.4 ??mm STANDARD ANATOMY: Cranium: ?Normal appearance Choroid Plexus: ? Normal appearance Stomach: ?Normal appearance Abdominal Wall: ? Normal appearance Cord Vessels: ? Normal 3-Vessel Cord Bladder: ?Normal appearance Upper Extremities: ?Seen Lower Extremities: ?Seen CERVIX UTERUS ADNEXA: Uterus Size(cm) ? 10.8 ?? x ?? 8.22 ?? x ??7.75 Uterus Vol(ml): ?360.24 Anteverted, anteflexed. Myometrium homogeneous, no lesions identified. Right Ovary Size(cm) ? 2.55 ?? x ?? 2.32 ?? x ??1.7 ? Vol(ml): 5.27 Normal in size and appearance. It is found between the uterus and the pelvic sidewall. Left Ovary Size(cm) ? 1.43 ?? x ?? 1.61 ?? x ??0.74 ?Vol(ml): 0.89 Normal in size and appearance. It is found between the uterus and the pelvic sidewall. Cul De Sac There is no free fluid in the cul de sac. Adnexa Both adnexae appear unremarkable. COMMENTS: Ms. Sandhu is being seen for first trimester screening for aneuploidy. - Her medical history is significant for history of alcohol abuse, cigarette smoker, vapes nicotine, marijuana use, anxiety, depression, advanced maternal age, ADHD and asthma. She was taking trizepatide and stopped after she found out that she was . She takes Kratom, 120mg Cymbalta and 800 mg Gabapentin daily. Her surgical history is significant for breast reduction, cervical and lumbar spinal fusions. - She had cell free DNA screening. ??Results were low-risk for all conditions assessed. - Ultrasound findings: The nuchal translucency measurement is < 95th% for the gestational age. - biometry is consistent with dates. ??Assessment of the anatomy is appropriate for the gestational age. There are no ultrasound findings to suggest aneuploidy. - Plan: 1. A detailed ultrasound (AMA & medication exposure) and cervical length screening for risk of have been scheduled. - 2. The patient should be offered second trimester MSAFP only, to assess for risk of an open neural tube defect. Michelle Flores MD Electronically Signed Final Report ?? 07/04/2024 12:15 pm Procedure Note Michelle Flores MD - 07/04/2024 OBSTETRICS REPORT (Signed Final 07/04/2024 12:15 pm) PATIENT INFO: ID #: [id number] : [birth year] (33 yrs)(F) Name: STACIA SANDHU Visit Date: 07/04/2024 09:52 am PERFORMED BY: Attending: Michelle Flores MD Performed By: Aiden Valdivia RDCA Referred By: Adrian Bird [facility] Ref. Address: [address] [place], [place] [address] Location: [facility]) SERVICE(S) PROVIDED: US < 14 weeks Abdominal Ultrasound 80261 US Nuchal Translucency 95395 INDICATIONS: Advanced Maternal Age in multigravida, first O09.521 trimester Medication exposure, first trimester O09.891 Smoking (tobacco) complicating , O99.331 first trimester Drug use complicating , first O99.321 trimester Encounter for screening for nuchal Z36.82 translucency Encounter for screening for Z36.3 malformations 12 weeks gestation of Z3A.12 TECHNIQUE/SCAN QUALITY: Technique: Transabdominal Scan Satisfactory Quality: OB HISTORY: : 1 Term: 0 VITAL SIGNS: Weight (lb) Height BMI 162 5'6 26.14 EVALUATION: Number Of Fetuses: 1 Heart Rate(bpm): 154 Cardiac Activity: Observed Presentation: Variable Placenta Location: Posterior Appearance: Grade 0 Cord Insertion: Visualized BIOMETRY: GESTATIONAL AGE: LMP: 12w 0d Date: 04/11/24 DEANNE: 01/16/25 Best: 12w 0d Det. By: LMP (04/11/24) DEANNE: 01/16/25 1ST TRIMESTER GENETIC SONOGRAM SCREENING: CRL: 65.68 mm G.Age: 12w 6d DEANNE: 01/10/25 Nuc Trans: 1.4 mm STANDARD ANATOMY: Cranium: Normal appearance Choroid Plexus: Normal appearance Stomach: Normal appearance Abdominal Wall: Normal appearance Cord Vessels: Normal 3-Vessel Cord Bladder: Normal appearance Upper Extremities: Seen Lower Extremities: Seen CERVIX UTERUS ADNEXA: Uterus Size(cm) 10.8 x 8.22 x 7.75 Uterus Vol(ml): 360.24 Anteverted, anteflexed. Myometrium homogeneous, no lesions identified. Right Ovary Size(cm) 2.55 x 2.32 x 1.7 Vol(ml): 5.27 Normal in size and appearance. It is found between the uterus and the pelvic sidewall. Left Ovary Size(cm) 1.43 x 1.61 x 0.74 Vol(ml): 0.89 Normal in size and appearance. It is found between the uterus and the pelvic sidewall. Cul De Sac There is no free fluid in the cul de sac. Adnexa Both adnexae appear unremarkable. COMMENTS: Ms. Sandhu is being seen for first trimester screening for aneuploidy. - Her medical history is significant for history of alcohol abuse, cigarette smoker, vapes nicotine, marijuana use, anxiety, depression, advanced maternal age, ADHD and asthma. She was taking trizepatide and stopped after she found out that she was . She takes Kratom, 120mg Cymbalta and 800 mg Gabapentin daily. Her surgical history is significant for breast reduction, cervical and lumbar spinal fusions. - She had cell free DNA screening. Results were low-risk for all conditions assessed. - Ultrasound findings: The nuchal translucency measurement is < 95th% for the gestational age. - biometry is consistent with dates. Assessment of the anatomy is appropriate for the gestational age. There are no ultrasound findings to suggest aneuploidy. - Plan: 1. A detailed ultrasound (AMA & medication exposure) and cervical length screening for risk of have been scheduled. - 2. The patient should be offered second trimester MSAFP only, to assess for risk of an open neural tube defect. Michelle Flores MD Electronically Signed Final Report 07/04/2024 12:15 pm us Adrian Bird CNM IMG OB US PROCEDURES Final Res ult * US OB Less 14 Wks Single or First Gestation (07/04/2024 10:05 AM EST) Anatomical Region Laterality Modality Body Ultrasound 07/04/2024 9:52 AM EST Narrative 07/04/2024 12:15 PM EST OBSTETRICS REPORT ?(Signed Final 07/04/2024 12:15 pm) PATIENT INFO: ID #: ? [id number] ? : ??[birth year] (33 yrs)(F) Name: ? STACIA SANDHU ? Visit Date: 07/04/2024 09:52 am PERFORMED BY: Attending: ?Michelle Flores MD Performed By: ? Aiden Valdivia RDMS Referred By: ?Adrian Bird CNM Ref. Address: ? [address] ? [place] [address] Location: ? [facility] SERVICE(S) PROVIDED: US < 14 weeks Abdominal Ultrasound ?52936 US Nuchal Translucency ?59204 INDICATIONS: Advanced Maternal Age in multigravida, first ?? O09.521 trimester Medication exposure, first trimester ? O09.891 Smoking (tobacco) complicating , ?O99.331 first trimester Drug use complicating , first ? O99.321 trimester Encounter for screening for nuchal ?? Z36.82 translucency Encounter for screening for ?Z36.3 malformations 12 weeks gestation of ?Z3A.12 TECHNIQUE/SCAN QUALITY: Technique: ?? Transabdominal Scan ? Satisfactory Quality: OB HISTORY: : ?1 ? Term: ?? 0 VITAL SIGNS: Weight (lb) ?? Height ?BMI 162 ? 5'6 ?26.14 EVALUATION: Number Of Fetuses: ? 1 Heart Rate(bpm): ?? 154 Cardiac Activity: ?Observed Presentation: ?Variable Placenta Location: ?Posterior Appearance: ?Grade 0 Cord Insertion: ?Visualized BIOMETRY: GESTATIONAL AGE: LMP: ? 12w 0d ?Date: ??04/11/24 ? DEANNE: ?? 01/16/25 Best: ?12w 0d ?? Det. By: ??LMP ??(04/11/24) ?DEANNE: ?? 01/16/25 1ST TRIMESTER GENETIC SONOGRAM SCREENING: CRL: ? 65.68 ??mm ? G.Age: ?? 12w 6d ? DEANNE: ?? 01/10/25 Nuc Trans: ? 1.4 ??mm STANDARD ANATOMY: Cranium: ?Normal appearance Choroid Plexus: ? Normal appearance Stomach: ?Normal appearance Abdominal Wall: ? Normal appearance Cord Vessels: ? Normal 3-Vessel Cord Bladder: ?Normal appearance Upper Extremities: ?Seen Lower Extremities: ?Seen CERVIX UTERUS ADNEXA: Uterus Size(cm) ? 10.8 ?? x ?? 8.22 ?? x ??7.75 Uterus Vol(ml): ?360.24 Anteverted, anteflexed. Myometrium homogeneous, no lesions identified. Right Ovary Size(cm) ? 2.55 ?? x ?? 2.32 ?? x ??1.7 ? Vol(ml): 5.27 Normal in size and appearance. It is found between the uterus and the pelvic sidewall. Left Ovary Size(cm) ? 1.43 ?? x ?? 1.61 ?? x ??0.74 ?Vol(ml): 0.89 Normal in size and appearance. It is found between the uterus and the pelvic sidewall. Cul De Sac There is no free fluid in the cul de sac. Adnexa Both adnexae appear unremarkable. COMMENTS: Ms. Sandhu is being seen for first trimester screening for aneuploidy. - Her medical history is significant for history of alcohol abuse, cigarette smoker, vapes nicotine, marijuana use, anxiety, depression, advanced maternal age, ADHD and asthma. She was taking trizepatide and stopped after she found out that she was . She takes Kratom, 120mg Cymbalta and 800 mg Gabapentin daily. Her surgical history is significant for breast reduction, cervical and lumbar spinal fusions. - She had cell free DNA screening. ??Results were low-risk for all conditions assessed. - Ultrasound findings: The nuchal translucency measurement is < 95th% for the gestational age. - biometry is consistent with dates. ??Assessment of the anatomy is appropriate for the gestational age. There are no ultrasound findings to suggest aneuploidy. - Plan: 1. A detailed ultrasound (AMA & medication exposure) and cervical length screening for risk of have been scheduled. - 2. The patient should be offered second trimester MSAFP only, to assess for risk of an open neural tube defect. Michelle Flores MD Electronically Signed Final Report ?? 07/04/2024 12:15 pm Procedure Michelle Felder MD - 07/04/2024 OBSTETRICS REPORT (Signed Final 07/04/2024 12:15 pm) PATIENT INFO: ID #: [id number] : [birth year] (33 yrs)(F) Name: STACIA SANDHU Visit Date: 07/04/2024 09:52 am PERFORMED BY: Attending: Michelle Flores MD Performed By: Aiden Valdivia [facility] Referred By: Adrian CONKLIN Ref. Address: [address] [place] [address] Location: [facility] SERVICE(S) PROVIDED: US < 14 weeks Abdominal Ultrasound 80066 US Nuchal Translucency 55790 INDICATIONS: Advanced Maternal Age in multigravida, first O09.521 trimester Medication exposure, first trimester O09.891 Smoking (tobacco) complicating , O99.331 first trimester Drug use complicating , first O99.321 trimester Encounter for screening for nuchal Z36.82 translucency Encounter for screening for Z36.3 malformations 12 weeks gestation of Z3A.12 TECHNIQUE/SCAN QUALITY: Technique: Transabdominal Scan Satisfactory Quality: OB HISTORY: : 1 Term: 0 VITAL SIGNS: Weight (lb) Height BMI 162 5'6 26.14 EVALUATION: Number Of Fetuses: 1 Heart Rate(bpm): 154 Cardiac Activity: Observed Presentation: Variable Placenta Location: Posterior Appearance: Grade 0 Cord Insertion: Visualized BIOMETRY: GESTATIONAL AGE: LMP: 12w 0d Date: 04/11/24 DEANNE: 01/16/25 Best: 12w 0d Det. By: LMP (04/11/24) DEANNE: 01/16/25 1ST TRIMESTER GENETIC SONOGRAM SCREENING: CRL: 65.68 mm G.Age: 12w 6d DEANNE: 01/10/25 Nuc Trans: 1.4 mm STANDARD ANATOMY: Cranium: Normal appearance Choroid Plexus: Normal appearance Stomach: Normal appearance Abdominal Wall: Normal appearance Cord Vessels: Normal 3-Vessel Cord Bladder: Normal appearance Upper Extremities: Seen Lower Extremities: Seen CERVIX UTERUS ADNEXA: Uterus Size(cm) 10.8 x 8.22 x 7.75 Uterus Vol(ml): 360.24 Anteverted, anteflexed. Myometrium homogeneous, no lesions identified. Right Ovary Size(cm) 2.55 x 2.32 x 1.7 Vol(ml): 5.27 Normal in size and appearance. It is found between the uterus and the pelvic sidewall. Left Ovary Size(cm) 1.43 x 1.61 x 0.74 Vol(ml): 0.89 Normal in size and appearance. It is found between the uterus and the pelvic sidewall. Cul De Sac There is no free fluid in the cul de sac. Adnexa Both adnexae appear unremarkable. COMMENTS: Ms. Sandhu is being seen for first trimester screening for aneuploidy. - Her medical history is significant for history of alcohol abuse, cigarette smoker, vapes nicotine, marijuana use, anxiety, depression, advanced maternal age, ADHD and asthma. She was taking trizepatide and stopped after she found out that she was . She takes Kratom, 120mg Cymbalta and 800 mg Gabapentin daily. Her surgical history is significant for breast reduction, cervical and lumbar spinal fusions. - She had cell free DNA screening. Results were low-risk for all conditions assessed. - Ultrasound findings: The nuchal translucency measurement is < 95th% for the gestational age. - biometry is consistent with dates. Assessment of the anatomy is appropriate for the gestational age. There are no ultrasound findings to suggest aneuploidy. - Plan: 1. A detailed ultrasound (AMA & medication exposure) and cervical length screening for risk of have been scheduled. - 2. The patient should be offered second trimester MSAFP only, to assess for risk of an open neural tube defect. Michelle Flores MD Electronically Signed Final Report 07/04/2024 12:15 pm Adrian Bird CNM IMG OB US PROCEDURES Final Res ult * Hepatitis C antibody (06/20/2024 2:16 PM EST) Pathologist [facility] Hepatitis C Antibody Negative Negative LAB CHEMISTRY METHOD 06/20/2024 5:16 PM EST [facility] Blood Venous blood specimen / Unknown Venipuncture / Unknown 06/20/2024 2:16 PM EST 06/20/2024 2:16 PM EST Adrian Bird CNM LAB BLOOD ORDERABLES Final Res ult [facility] [address] [place] [address], * HIV 1,2 antibody, p24 antigen with reflex to differentiation (06/20/2024 2:16 PM EST) Pathologist [facility] HIV Combo AB/AG Negative Negative LAB CHEMISTRY METHOD 06/20/2024 5:17 PM EST [facility] Blood Venous blood specimen / Unknown Venipuncture / Unknown 06/20/2024 2:16 PM EST 06/20/2024 2:16 PM EST Narrative [facility] - 06/20/2024 5:17 PM EST This assay is a 4th generation assay allowing for earlier detection of HIV infection by detecting the presence of the HIV-1 p24 antigen as well as the traditional antibodies to HIV type 1 (including group O) and type 2. ??Use of a 4th generation assay is the current CDC recommendation for HIV screening. Adrian Bird CN LAB BLOOD ORDERABLES Final Res ult [facility] [address] [place] [address], [place] [phone] * Cervical Cancer Screening: HPV (11/11/2023) Pathologist [facility] Cervical Cancer Screening: HPV abstracted, negative Historical Provider HEALTH MAINTENANCE Final Result * (ABNORMAL) Lipid panel (09/05/2015) LDL/HDL Ratio 3 0 - 4 Triglycerides 108 0 - 150 mg/dL Cholesterol 195 0 - 200 mg/dL HDL 66 >=40 mg/dL LDL Cholesterol 107(A) 0 - 100 mg/dL Blood Venous blood specimen / Unknown Historical Provider LAB BLOOD ORDERABLES Jessica l Result from Last 3 Months or Most Recently Relevant to Health Maintenance Insurance [facility] Care Teams 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
--- OUTSIDE RECORDS SUMMARY | 2024-09-21 11:40 | XMS_ITS | Clinical Summary ---
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 30 g 1 04/22/2020 Active DULoxetine (CYMBALTA) DR capsule 60 mg 120 mg daily. 0 06/07/2021 Active gabapentin (NEURONTIN) 800 MG tablet 800 mg 4 (four) times a day. 0 05/12/2021 Active methocarbamol (ROBAXIN) 750 MG tablet Take 1 tablet (750 mg total) by mouth every 6 (six) hours as needed. 56 tablet 0 06/18/2021 Active oxyCODONE-acetamino phen (PERCOCET) 7.5-325 MG per tablet 0 07/11/2021 Active hydrOXYzine (VISTARIL) 25 MG capsule Take 1 capsule (25 mg total) by mouth 3 (three) times a day as needed for itching. 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 Family History Medical History Relation Name Comments Anxiety disorder Brother Drug abuse Brother Arthritis Father Bipolar disorder Father Depression Father Kidney disease Father No Sig Med Hx Mother Relation Name Status Comments Brother Alive Father Alive Maternal Grandfather Maternal Grandmother Mother Alive Paternal Grandfather Paternal Grandmother Alive Social History Tobacco Use Types Packs/Day Years Used Date Smoking Tobacco: Former Cigarettes 1 Nicotine Inhalation Smokeless Tobacco: Never Comments:2 drags mikayla aguilar 06/17/21 Alcohol Use Standard Drinks/Week Comments No 0 (1 standard drink = 0.6 oz pur e alcohol) Sex and Gender Information Value Date Recorded Sex Assigned at Female 05/09/2019 10:46 AM EDT Gender Identity Not on file Sexual Orientation Not on file Job Start Date Occupation Industry Not on file Not on file Not on file Last Filed Vital Signs Vital Sign Reading Time Taken Comments Blood Pressure 151/106 07/25/2021 9:25 AM EST Pulse 112 07/25/2021 9:25 AM EST Temperature 36.4 ??C (97.6 ??F) 07/25/2021 9:25 AM ES T Respiratory Rate 16 06/18/2021 9:37 AM EST Oxygen Saturation 97% 07/25/2021 9:25 AM EST Inhaled Oxygen Concentration - - Weight 81.9 kg (180 lb 8.9 oz) 07/25/2021 9:25 A M EST Height 167.6 cm (5' 6 ) 07/25/2021 9:25 AM EST Body Mass Index 29.14 07/25/2021 9:25 AM EST Plan of Treatment Health Maintenance Due Date Last Done Comments Hepatitis B Vaccines (1 of 3 - 3-dose series) 1988 Hepatitis C Screening 1988 COVID-19 Vaccine (#1) 04/21/1989 Pneumococcal Vaccine (1 of 2 - PCV) 1994 DTap / Tdap / Td (1 - Tdap) 10/20/2007 Cervical Cancer Screening (P ap Smear) 2009 BMI Counseling 07/27/2020 07/27/2019 Depression Screening 07/27/2020 07/27/2019 Preventative Health Evaluation 07/27/2020 07/27/2019 Tobacco Cessation Counseling 07/27/2020 07/27/2019 Influenza Vaccine (#1) 2024 RSV Ped < 20 months Aged Out No longe r eligible based on patient's age to complete this topic Medical Devices Implanted Type Area Assistant Professor Of Radiology Device Identifier Shelf Expiration Date Model / Serial / Lot Shell Short Flarehawk 25mm Fh9 Intg-Manu [id number] - [id number] Implanted:Qty: 1 on 06/17/2021 by Asa Guaman MD at [facility] [place] [facility] Posterior: Spine Lumbar [employer] [id number] / / Cage Spinal Flarehawk 6 D L23 [id number] - [id number] Implanted:Qty: 1 on 06/17/2021 by Asa Guaman MD at [facility] [place] [facility] Posterior: Spine Lumbar [employer] [id number] / / Bone Alrgft Canc Chip 1-8 15cc Stry-Obio [id number] - [id number] Implanted:Qty: 1 on 06/17/2021 by Asa Guaman MD at [facility] [place] [facility] Posterior: Spine Lumbar [employer] 11/03/2025 [id number] / [id number] / Erick Spnl Contr 5.5x45mm Stry-K2m [id number] - [id number] Implanted:Qty: 2 on 06/17/2021 by Asa Guaman MD at [facility] [place] and Med Posterior: Spine Lumbar [employer] [id number] / / Screw Set Cylinder Stry-K2m [id number] - [id number] Implanted:Qty: 4 on 06/17/2021 by Asa Guaman MD at [facility] [place] and Med Posterior: Spine Lumbar [employer] [id number] / / Screw Spnl Poly 6.5x45mm Stry-K2m [id number] - [id number] Implanted:Qty: 2 on 06/17/2021 by Asa Guaman MD at [facility] [place] and Med Posterior: Spine Lumbar [employer] [id number] / / Screw Spnl Poly 6.5x50mm Stry-K2m [id number] - [id number] Implanted:Qty: 2 on 06/17/2021 by Asa Guaman MD at [facility] [place] and Med Posterior: Spine Lumbar [employer] [id number] / / Explanted Type Area Assistant Professor Of Radiology Device Identifier Shelf Expiration Date Model / Serial / Lot Screw Schanz Disposable Ao 4mm [facility] [id number] - [id number] Explanted:Qty: 2 on 06/17/2021 by Asa Guaman MD at [facility] [place] [facility] Right Posterior: Hip [id number] / / Advance Directives For more information, please contact: [phone] Latest Code Status on File Code Status Date Activated Date Inactivated Comments Full Code 06/17/2021 9:31 AM 06/18/2021 7:00 PM This code status was ascertained in the following way: discussion with patient .
--- OUTSIDE RECORDS SUMMARY | 2024-09-21 11:40 | XMS_ITS ---
Author Name [facility] Organization Unknown History of Medication Use Medication Directions Dispensed Refills Start Date End Date Stat us fluticasone propionate (FLONASE) 50 mcg/actuation nasal spray Administer 1 spray into each nostril 1 (one) time each day. 06/24/2023 active DULoxetine (CYMBALTA) [address] capsule Take 1 capsule (60 mg total) by mouth 2 (two) times a day. active gabapentin (NEURONTIN) 800 mg tablet Take 1 Tab by mouth 4 times daily for 360 days. 08/31/2018 active Pulmicort Flexhaler 90 mcg/actuation inhaler TAKE 1 PUFF INHALED 2 TIMES A DAY 02/28/2024 active aspirin 81 mg EC tablet Take 1 tablet (81 mg total) by mouth 1 (one) time each day. 06/22/2024 active Ventolin HFA 90 mcg/actuation inhaler USE 2 PUFFS INHALED EVERY 4 TO 6 HOURS NEEDED FOR SHORTNESS OF BREATH OR WHEEZING FOR 30 DAYS 11/03/2023 active DULoxetine (CYMBALTA) [address] capsule 2 capsules (120 mg total). 06/07/2021 active Problems Problem Status Onset Date Problem Type Date of Resolution Source Lumbar degenerative disc disease active 2024-06-20 ProblemAct [facility] Placenta previa in second trimester active 2024-08-23 ProblemAct [facility] Rash, skin active 2024-06-20 ProblemAct [facility] Tobacco use disorder active 2011-02-06 ProblemAct [facility] ADHD (attention deficit hyperactivity disorder) active 2011-01-23 ProblemAct [facility] Anxiety disorder active 2024-06-20 ProblemAct C T_THSFRAN Depression active 2013-11-08 ProblemAct [facility] Radiculopathy, multiple sites in spine active 2007-10-10 ProblemAct [facility] Vapes nicotine containing substance active 2024-07-04 ProblemAct [facility] Arthralgia active 2024-06-20 ProblemAct [facility] Encounter for supervision of normal first in first trimester active 2024-06-20 ProblemAct [facility] Multigravida of advanced maternal age in first trimester active 2024-06-20 ProblemAct [facility] Cervical radiculopathy active 2024-05-25 ProblemAct [facility] Lumbago active 2007-10-05 ProblemAct [facility] AN Thyroid nodule active 2019-04-24 ProblemAct [facility]_ THS[facility] Chronic rhinitis active 2024-05-31 ProblemAct C T_THSFRAN Lumbar spondylosis active 2021-04-18 ProblemAct [facility] 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, antepartum (CMS/HCC) active EncounterDiagnosisAct CT_THSFRAN Idiopathic scoliosis and kyphoscoliosis active 2024-05-25 ProblemAct [facility]_THSFRA N Lumbar radiculopathy active 2021-04-18 ProblemAct [facility] Alcohol abuse, episodic drinking behavior active 2016-11-17 ProblemAct [facility] Multinodular goiter active 2024-06-20 ProblemAct [facility] H/O spinal fusion active 2024-07-07 ProblemAct [facility] 19 weeks gestation of active EncounterDiagnosisAct CT_THS CHET Asthma active 2024-05-25 ProblemAct [facility] AN Immunizations Vaccine Date Source Lot Number Status Influenza trivalent, with pr eservative (Fluzone; Afluria) 6mo and older 06/05/2015 [facility]_THSFRAN [id number] completed Influenza Quadravalent, MDCK , 0.5ml, preservative free (Flucelvax) 6mo and older 06/17/2022 [facility]_THSFRAN [id number] completed OPV 02/19/1989 [facility]_THS[facility]AN completed MMR, measles mumps and rubel la Live (Priorix; M-M-R II) 12mo and older 01/26/1990 [facility]_THSFRAN completed Varicella live (Varivax) 12mo and older 08/09/1991 [facility]_THSF RAN completed DTP 1988 CT_SFRAN completed Influenza trivalent, with pr eservative (Fluzone; Afluria) 6mo and older 07/24/2013 CT_SFRAN [id number] completed DTP 04/29/1990 CT_ROBERTSFRAN completed Influenza trivalent, MDCK, 0 .5mL, preservative free (Flucelvax) 6mo and older 07/07/2024 CT_SFRAN [id number] completed Hepatitis B Pediatric (Enger ix B; Recombivax HB) to less than 20 yo 11/15/2000 [facility]_THSFRAN completed Influenza Quadrivalent, 0.5m l, preservative free (Fluarix; FluLaval; Fluzone) ages 6mo and older (Afluria) 3yo and older 05/17/2021 CT_SFRLIZANDRO [id number] completed Td Tetanus diptheria (Tdvax) 7yo and older 11/15/2000 CT_T HSFRAN completed Hepatitis B Pediatric (Enger ix B; Recombivax HB) to less than 20 yo 06/16/2001 [facility]_SFRAN completed Tdap Tetanus diptheria acell ular pertussis (Boostrix; Adacel) 7yo and older 03/11/2007 CT_SFRLIZANDRO [id number] completed OPV 1988 CT_SFRAN completed [id number]-[id number]-GQD (Pentacel) 2mo to less than 5yo 04/29/1990 [facility]_SFRAN completed Hepatitis B Pediatric (Enger ix B; Recombivax HB) to less than 20 yo 07/09/2000 CT_THSFRAN completed DTP 02/19/1989 [facility]_SFRAN completed Influenza trivalent, with pr eservative (Fluzone; Afluria) 6mo and older 08/23/2012 [facility]_SFRLIZANDRO [id number] completed HPV, Quadrivalent 11/08/2006 CT_SFRAN [id number] complet ed OPV 12/09/1993 CT_SFRAN completed HPV, Quadrivalent 03/11/2007 CT_SFRAN 0927U complet ed PPD Test 07/09/2010 CT_SFRLIZANDRO [id number] completed Hib (HbOC) 04/29/1990 CT_SFRAN completed DTP 12/09/1993 [facility]_S[facility]AN completed Meningococcal MCV4P 03/11/2007 CT_SFRLIZANDRO [id number] compl eted DTP 04/23/1989 CT_SFRLIZANDRO completed MMR, measles mumps and rubel la Live (Priorix; M-M-R II) 12mo and older 12/21/1995 [facility]_SFRLIZANDRO completed HPV, Quadrivalent 09/08/2006 CT_SFRLIZANDRO [id number] complet ed Influenza Quadrivalent, 0.5m l, preservative free (Fluarix; FluLaval; Fluzone) ages 6mo and older (Afluria) 3yo and older 05/25/2023 CT_SFRLIZANDRO [id number] completed OPV 04/29/1990 CT_MAHSA completed
--- OUTSIDE RECORDS SUMMARY | 2024-09-21 11:40 | XMS_ITS | Encounter Summary ---
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 Pt agrees. * Nery Jc - 09/20/2024 10:32 AM EST Pt is 23 weeks states she used a foot peel the other day and noticed it had loki acid in it- has questions about this- please call documented in this encounter Plan of Treatment Upcoming Encounters Date Type Department Care Team (Late st Contact Info) Description 10/06/2024 11:00 AM EST Routine Obstetrics and Gynecology - [place] [address] [place] [address] Adrian Bird [facility] [address] [place] [address] 11/21/2024 9:00 AM EDT Ancillary Procedure Maternal Medicine - [address] [address] documented as of this encounter Visit Diagnoses Not on filedocumented in this encounter Care Teams Corn Chip Maker Relationship Specialty Start Date End Date Miguel Angel Cuellar MD [address] [place] [address] PCP - General Internal Medicine 03/16/19 documented as of this encounter
--- OUTSIDE RECORDS SUMMARY | 2024-09-21 11:40 | XMS_ITS | Encounter Summary ---
Author Organization 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 Pt agrees. * Joanie Axel - 09/07/2024 2:29 PM EST Chief Complaint/problem: patient was in this morning to see Adrian Bird this morning and she forgot to ask about getting an order for a breast pump. Please call How long has the patient had this problem? - Pt???s DOOR CLAMP OPERATOR provider: Adrian Bird CNM Last menstrual period (LMP) or EDC (due date): - documented in this encounter Plan of Treatment Upcoming Encounters Date Type Department Care Team (Late st Contact Info) Description 10/06/2024 11:00 AM EST Routine Obstetrics and Gynecology - [place] [address] [place] [address] Adrian Bird, [facility] [address] [place] [address] 11/21/2024 9:00 AM EDT Ancillary Procedure Maternal Medicine - [address] [address] documented as of this encounter Visit Diagnoses Not on filedocumented in this encounter Care Teams Cartography Teacher Relationship Specialty Start Date End Date Miguel Angel Cuellar MD [address] [place] [address] PCP - General Internal Medicine 03/16/19 documented as of this encounter
--- OUTSIDE RECORDS SUMMARY | 2024-09-21 11:40 | XMS_ITS | Encounter Summary ---
Author Organization [facility] Address [address] [place] [address] Care Team Providers Care Technology Applications Engineer Name Role Phone Miguel Angel Cuellar MD Primary Care Provide r Encounter Details Date Type Department Care Team (Latest Contact Info) Description 09/12/2024 10:00 AM EST - 09/12/2024 11:59 PM [facility] Hospital Encounter [facility] L&D Procedure [address] [place] [address] Discharge Disposition: Home or Self Care Anesthesia Record Procedure Summary Procedure Name Responsible Anesthesiologist Anesthesia Start Time Anesthesia Stop Time Labor Consult Events No events on file. Meds * Agents No agents on file. * Blood No blood administrations on file. Lines, Drains, and Airways No LDAs on file. 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 Not [...] or Self Care documented in this encounter Plan of Treatment Upcoming Encounters Date Type Department Care Team (Late st Contact Info) Description 10/06/2024 11:00 AM EST Routine Obstetrics and Gynecology - [place] [address] [place] [address] Adrian Bird, [facility] [address] [place] [address] 11/21/2024 9:00 AM EDT Ancillary Procedure Maternal Medicine - [address] [address] documented as of this encounter Visit Diagnoses Not on filedocumented in this encounter Care Teams Technology Applications Engineer Relationship Specialty Start Date End Date Miguel Angel Cuellar MD [address] [place] [address] PCP - General Internal Medicine 03/16/19 documented as of this encounter
== END 2024-09-21 11:22 | disposition home or self-care (01) ==
PROVIDERS: PCP Family Medicine; Visit Provider Physician Assistant
DX: L98.9 Disorder of the skin and subcutaneous tissue, unspecified (principal); Z3A.23 23 weeks gestation of pregnancy

== ENCOUNTER → 2024-09-21 10:54 | Outpatient (BNVA) | payer OTHER, SELFPAY | PROVIDERS: PCP Family Medicine; Visit Provider Physician Assistant | DX: O09.512 Supervision of elderly primigravida, second trimester (principal); O26.892 Other specified pregnancy related conditions, second trimester; L98.9 Disorder of the skin and subcutaneous tissue, unspecified; Z3A.23 23 weeks gestation of pregnancy | CPT/HCPCS: 99212 ==

== ENCOUNTER 2024-09-21 11:51 | Outpatient (REF) | payer OTHER, SELFPAY ==
--- OUTSIDE RECORDS SUMMARY | 2024-09-21 12:18 | XMS_ITS | Encounter Summary ---
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 [...] AM EST Routine Obstetrics and Gynecology - [place] [address] [place] [phone] Adrian Bird CNM [address] [place] [address] 11/21/2024 9:00 AM EDT Ancillary Procedure Maternal Medicine [address] [address] documented as of this encounter Visit Diagnoses Diagnosis Supervision of other high risk pregnancies, second trimester- Primary Placenta previa in second trimester 21 weeks gestation of documented in this encounter Care Teams Rack Room Worker Relationship Specialty Start Date End Date Miguel Angel Cuellar MD [address] [place] [address] PCP - General Internal Medicine 03/16/19 documented as of this encounter
--- OUTSIDE RECORDS SUMMARY | 2024-09-21 12:18 | XMS_ITS | Clinical Summary ---
Author Organization [facility] Address [address] [place] [address] Care Team Providers Care Cota Name Role Phone Tatiana Bauer APRN Primary Care Provider [phone] Allergies No known active allergies Medications Medication [...] age to complete this topic Care Teams Cota Relationship Specialty Start Date End Date Tatiana Bauer APRN PCP - General Emergency Medicine 02/28/21
--- OUTSIDE RECORDS SUMMARY | 2024-09-21 12:18 | XMS_ITS | Clinical Summary ---
Author Organization [facility] Address [address] [place] [address] Care Team Providers Care Technology Solutions Architect Name Role Phone Unavailable Primary Care Provider [...] this topic Medical Devices Implanted Type Area Coil Winder Repair Device Identifier Shelf Expiration Date Model / Serial / Lot Shell Short Flarehawk 25mm Fh9 Intg-Manu [id number] - [id number] Implanted:Qty: 1 on 06/17/2021 by Asa Guaman MD at [facility] and [facility] Posterior: Spine Lumbar [employer]TE[employer] [id number] / / Cage Spinal Flarehawk 6 D L23 IntOhio State University Wexner Medical [id number] - [id number] Implanted:Qty: 1 on 06/17/2021 by Asa Guaman MD at [facility] and [facility] Posterior: Spine Lumbar [employer] IM[employer]ANT[employer] [id number] / / Bone Alrgft Canc Chip 1-8 15cc Stry-Obio [id number] - [id number] Implanted:Qty: 1 on 06/17/2021 by Asa Guaman MD at [facility] and [facility] Posterior: Spine Lumbar [employer] 11/03/2025 [id number] / [id number] / Erick Spnl Contr 5.5x45mm Stry-K2m [id number] - [id number] Implanted:Qty: 2 on 06/17/2021 by Asa Guaman MD at [facility] and Med Posterior: Spine Lumbar VIN [employer]INE [id number] / / Screw Set [place] Stry-K2m [id number] - [id number] Implanted:Qty: 4 on 06/17/2021 by Asa Guaman MD at [facility] and Med Posterior: Spine Lumbar V[employer]INE [id number] / / Screw Spnl Poly 6.5x45mm Stry-K2m [id number] - [id number] Implanted:Qty: 2 on 06/17/2021 by Asa Guaman MD at [facility] and Med Posterior: Spine Lumbar VIN [employer]INE [id number] / / Screw Spnl Poly 6.5x50mm Stry-K2m [id number] - [id number] Implanted:Qty: 2 on 06/17/2021 by Asa Guaman MD at [facility] and Med Posterior: Spine Lumbar VIN SPINE [id number] / / Explanted Type Area Coil Winder Repair Device Identifier Shelf Expiration Date Model / Serial / Lot Screw Schanz Disposable Ao 4mm [facility] [id number] - [id number] Explanted:Qty: 2 on 06/17/2021 by Asa Guaman MD at [facility] and [facility] Right Posterior: Hip [employer] [id number] / / Advance Directives For more information, please contact: [phone] Latest Code Status on File Code Status Date Activated Date Inactivated Comments Full Code 06/17/2021 9:31 AM 06/18/2021 7:00 PM This code status was ascertained in the following way: discussion with patient .
--- OUTSIDE RECORDS SUMMARY | 2024-09-21 12:18 | XMS_ITS | Encounter Summary ---
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
--- OUTSIDE RECORDS SUMMARY | 2024-09-21 12:18 | XMS_ITS | Encounter Summary ---
Author Organization [facility] Address [address] [place] [address] Care Team Providers Care Lithopone Charger Name Role Phone Miguel Angel Cuellar MD Primary Care Provide r Encounter Details Date Type Department Care Team (Latest Contact Info) Description 08/23/2024 8:30 AM EST - 08/23/2024 11:59 PM EST Hospital Encounter [facility] OB Ultrasound [address] [place] [phone] Christy Morgan MD [address] [address] Placenta previa in second trimester (Primary Dx); [...] minutes were spent on counseling and documentation ([id number]). 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
--- OUTSIDE RECORDS SUMMARY | 2024-09-21 12:18 | XMS_ITS | Encounter Summary ---
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 - Pt???s INSIDE SALES TRAINER provider: Adrian Bird CNM Last menstrual period (LMP) or EDC (due date): - documented in this encounter Plan of Treatment Upcoming Encounters Date Type Department Care Team (Late st Contact Info) Description 10/06/2024 11:00 AM EST Routine Obstetrics and Gynecology - [place] [address] [place] [address] Adrian Bird, [facility] [address] [place] [address] 11/21/2024 9:00 AM EDT Ancillary Procedure Maternal Medicine - [address] [address] documented as of this encounter Visit Diagnoses Not on filedocumented in this encounter Care Teams Tunnel Drier Operator Relationship Specialty Start Date End Date Miguel Angel Cuellar MD [address] [place] [address] PCP - General Internal Medicine 03/16/19 documented as of this encounter
--- OUTSIDE RECORDS SUMMARY | 2024-09-21 12:18 | XMS_ITS | Clinical Summary ---
Author Organization [facility] [address] [facility] lding Address [address] [place] [address] Phone Care Team Providers Care Pants Cutter Name Role Phone Miguel Angel Cuellar MD [...] in first trimester 06/20/2024 Overview (07/07/2024): 1. [facility] site: [place] 2. Delivery site: [facility] 3. Mobile Mommas: NO 4. Dating criteria: [...] Team Description 09/20/2024 Telephone Obstetrics and Gynecology [address] [address] Julianne Mckeon CNM Problem 09/12/2024 10:00 AM EST - 09/12/2024 11:59 PM EST Hospital Encounter [facility] L&D Procedure [address] [place] [address] Discharge Disposition: Home or Self Care 09/07/2024 11:00 AM EST Routine Obstetrics and Gynecology - [place] [address] [place] [address] Adrian Bird CNM Supervision of other high risk pregnancies, second trimester (Primary Dx); Placenta previa in second trimester; 21 weeks gestation of 09/07/2024 Telephone Obstetrics and Gynecology - [place] [address] [place] [address] Adrian Bird CNM Request For Order(s) 09/05/2024 9:00 AM EST Ancillary Procedure Maternal Medicine - [place] [address] [place] [address] Follow-up exam 08/24/2024 Telephone Obstetrics and Gynecology - [place] [address] [place] [address] Julianne Mckeon CNM Results 08/23/2024 8:30 AM EST - 08/23/2024 11:59 PM EST Hospital Encounter [facility] OB Ultrasound [address] [place] [address] Christy Morgan MD Placenta previa in second trimester (Primary Dx); 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, antepartum ([facility] 19 weeks gestation of Discharge Disposition: Home or Self Care 08/23/2024 8:00 AM EST Ancillary Procedure Maternal Medicine - [place] [address] [place] [address] Encounter for anatomic survey 08/01/2024 10:15 AM EST Routine Obstetrics and Gynecology - [place] [address] [place] [address] Julianne Mckeon CNM Supervision of high risk in second trimester (Primary Dx); 16 weeks gestation of 07/19/2024 Telephone Obstetrics and Gynecology - [place] [address] [place] [address] Julianne Mckeon CNM 07/07/2024 9:30 AM EST Initial Obstetrics and Gynecology - [address] [phone] Adrian Bird CNM GA: 12w3d 07/05/2024 Telephone Obstetrics and Gynecology - [address] [phone] Renea Eid [place] 07/04/2024 9:00 AM EST Ancillary Procedure Maternal Medicine - [address] [address] Encounter for supervision of normal first in first trimester from Last 3 Months Immunizations Name Administration Dates Next Due DTP 12/09/1993, 0,04/23/1989,02/19,1988 [id number] (Pentacel) 2mo to less than 5yo 04/29/1990 [...] Surgery Date Site/Laterality Comments APPENDECTOMY 2018 PROCEDURE: [place] APPENDECTOMY OTHER SURGICAL HISTORY 2017 PROCEDURE: DECOMPRESS DISC RF LUMBAR BREAST REDUCTION 04/2023 Bilateral PROCEDURE: [place] BREAST REDUCTION OTHER SURGICAL HISTORY PROCEDURE: [place] RHINOPLASTY PRIMARY W/MAJOR SEPTAL REPAIR OTHER SURGICAL HISTORY PROCEDURE: [place] UNLISTED PROCEDURE EYELIDS; COMMENT: eyelid lift OTHER SURGICAL HISTORY 2023 PROCEDURE: [place] SUCTION ASSISTED LIPECTOMY TRUNK Medical History Medical [...] Status Comments Brother 1 Brother 2 Alive [id number] [place] Father Alive [id number] Father's side Aunt Alive Maternal Grandfather Maternal Grandmother Mother Alive [id number] Paternal Grandfather Paternal Grandmother Alive Social History [...] 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 Progress Notes - Routine Pre - 08/01/2024 [...] NOT received a flu vaccine for the 3968-6232 YES ?? Denies history of Guillain-[place]umpy Point Syndrome (severe muscle weakness). YES ?? Acknowledges [...] the first trimester and how to contact gerontology aide provider. Discussed the benefits of breast feeding and strongly encouraged to consider this. Counseled regarding the diagnosis of anomalies. She was offered a referral to maternal medicine for nuchal lucency/[place] testing. She accepted the referral. RTO 4 weeks. She has her anatomy scan on 08/23/2023 and should be having an MFM consult as well. The patient does require anesthesia consult. For spinal fusion history This patient's VTE risk status is low. Flint Depression Scale: In the Past 7 Days [...] harming myself has occurred to me.: Never [place] Depression Scale Total: 14 Feeling much better, [...] Sandhu has also been informed of the flanger provider recommendation for first trimester nuchal lucency testing to be performed during her . Stacia Sandhu has also been made aware of the time sensitive nature for this testing to be completed. . The patient now has a gestational age of 23w3d. The patient has agreed that she does want nuchal lucency testing. Ethnicity Based Genetic Testing has been reviewed and the [employer] information sheet has been provided to the [...] AM EST Routine Obstetrics and Gynecology - [place] [address] [place] [address] Adrian Bird, [facility] [address] [place] [address] 11/21/2024 9:00 AM EDT Ancillary Procedure Maternal Medicine - [place] [address] [place] [address] Health Maintenance Due Date Last Done Comments [...] this topic Medical Devices Implanted Type Area Microfilm Clerk Device Identifier Shelf Expiration Date Model / Serial / Lot Shell Short Flarehawk 25mm Fh9 Intg-Manu [id number] Implanted:Qty: 1 on 06/17/2021 by Asa Guaman MD N/A: Spine Lumbar [employer] [id number] / / Cage Spinal Flarehawk 6 D L23 Intg-Manu [id number] Implanted:Qty: 1 on 06/17/2021 by Asa Guaman MD N/A: Spine Lumbar [employer] [id number] / / Bone Alrgft Can Chip 1-8 15cc Stry-Obio [id number] - [id number] Implanted:Qty: 1 on 06/17/2021 by Asa Guaman MD N/A: Spine Lumbar [employer] 11/03/2025 [id number] / [id number] / Erick Spnl Contr 5.5x45mm Stry-K2m [id number] Implanted:Qty: 2 on 06/17/2021 by Asa Guaman MD N/A: Spine Lumbar [employer] [id number] / / Screw Set [place]ab Stry-K2m [id number] Implanted:Qty: 4 on 06/17/2021 by Asa Guaman MD N/A: Spine Lumbar [employer] [id number] / / Screw Spnl Poly 6.5x45mm Stry-K2m [id number] Implanted:Qty: 2 on 06/17/2021 by Asa Guaman MD N/A: Spine Lumbar [employer] [id number] / / Screw Spnl Poly 6.5x50mm Stry-K2m [id number] Implanted:Qty: 2 on 06/17/2021 by Asa Guaman MD N/A: Spine Lumbar [employer] [id number] / / Procedures Procedure Name Priority Date/Time [...] 02:22 pm) PATIENT INFO: ID #: ? [id number] ? : ??[birth year] (33 yrs)(F) Name: ? STACIA SANDHU ? Visit Date: 09/05/2024 12:25 pm PERFORMED BY: Attending: ?Michelle Flores MD Performed By: ? Christy Robles RDMS Referred By: ?Adrian Bird CNM Ref. Address: ? [address] ? [place] [address] Location: ? [place] [facility] ([facility]) SERVICE(S) PROVIDED: OB Follow up ?[address]96 INDICATIONS: Advanced maternal age in multigravida, ? [...] 09/05/2024 02:22 pm) PATIENT INFO: ID #: [id number] : [birth year] (33 yrs)(F) Name: STACIA SANDHU Visit Date: 09/05/2024 12:25 pm PERFORMED BY: Attending: Michelle Flores MD Performed By: Christy Robles RDMS Referred By: Adrian Bird [facility] Ref. Address: [address] [place] [address] Location: [place] [facility] ([facility]) SERVICE(S) [place]: [place] [address] INDICATIONS: Advanced maternal age in multigravida, O09.522 [...] follow-up assessment of growth and placental location. Mihcelle Flores MD Electronically Signed Final Report 09/05/2024 02:22 pm us Adrian Bird CNM IMG OB US PROCEDURES Final Res ult * US OB Detailed Single or First Gestation (08/23/2024 9:07 AM EST) Anatomical Region Laterality Modality Body Ultrasound 08/23/2024 8:06 AM EST Narrative 08/23/2024 9:44 AM EST OBSTETRICS REPORT ? (Signed Final 08/23/2024 09:44 am) PATIENT INFO: ID #: ? [id number] ? : ??[birth year] (33 yrs)(F) Name: ? STACIA SANDHU ? Visit Date: 08/23/2024 08:06 am PERFORMED BY: Attending: ?Christy Morgan MD Performed By: ? Aiden Valdivia RDMS Referred By: ?Adrian Bird CNM Ref. Address: ? [address] ? [place] [address] Location: ? [place] [facility] ([facility]) SERVICE(S) PROVIDED: US Level II complete (Targeted OB) ?80984 INDICATIONS: Advanced maternal age in nullipara, second [...] appearance Thorax Lungs: ? Normal appearance Cardiac Radford: ?Suboptimal views Diaphragm: ? Suboptimal views Thoracic [...] 08/23/2024 09:44 am) PATIENT INFO: ID #: [id number] : [birth year] (33 yrs)(F) Name: STACIA SANDHU Visit Date: 08/23/2024 08:06 am PERFORMED BY: Attending: Christy Morgan MD Performed By: Aiden Valdivia RDMS Referred By: Adrian Bird CNM Ref. Address: [address] [place] [address] Location: [place] [facility] ([facility]) SERVICE(S) PROVIDED: US Level II complete (Targeted OB) 53863 INDICATIONS: Advanced maternal age in nullipara, second [...] Normal appearance Thorax Lungs: Normal appearance Cardiac Radford: Suboptimal views Diaphragm: Suboptimal views Thoracic Contour: [...] vaginalis Negative Negative 07/07/2024 6:13 PM EST [facility] Swab Vaginal structure / Unknown Non-blood Collection / Unknown 07/07/2024 10:25 AM EST 07/07/2024 10:26 AM EST Ardian Bird CNM LAB MICROBIOLOGY - GENERAL ORD ERABLES Final Result [facility] [address] [place] [address], [place] [phone] * Chlamydia trachomatis and Neisseria gonorrhoeae molecular study (07/07/2024 10:25 AM EST) Neisseria gonorrhoeae PCR Negative Negative LAB MOLECULAR DIAGNOSTICS METHOD 07/08/2024 9:07 AM EST [facility] Chlamydia trachomatis PCR Negative Negative LAB MOLECULAR DIAGNOSTICS METHOD 07/08/2024 9:07 AM [facility] Swab Cervix uteri structure / Unknown Non-blood Collection / Unknown 07/07/2024 10:25 AM EST 07/07/2024 10:26 AM EST us Adrian CONKLIN LAB MICROBIOLOGY - GENERAL ORD ERABLES Final Result [facility] [address] [place] [address], [place] [phone] * US OB Less 14 Wks Nuchal Measurement (07/04/2024 10:05 AM EST) Anatomical Region Laterality Modality Body Ultrasound 07/04/2024 9:52 AM EST Narrative 07/04/2024 12:15 PM EST OBSTETRICS REPORT ?(Signed Final 07/04/2024 12:15 pm) PATIENT INFO: ID #: ? [id number] ? : ??[birth year] (33 yrs)(F) Name: ? STACIA SANDHU ? Visit Date: 07/04/2024 09:52 am PERFORMED BY: Attending: ?Michelle Flores MD Performed By: ? Aiden Valdivia RDMS Referred By: ?Adrian Bird CNM Ref. Address: ? [address] ? [place] [address] Location: ? [place] [facility] ([facility]) SERVICE(S) PROVIDED: US < 14 weeks Abdominal Ultrasound ?55224 US Nuchal Translucency ?60145 INDICATIONS: Advanced Maternal Age in multigravida, first [...] 07/04/2024 12:15 pm) PATIENT INFO: ID #: [id number] : [birth year] (33 yrs)(F) Name: STACIA SANDHU Visit Date: 07/04/2024 09:52 am PERFORMED BY: Attending: Michelle Flores MD Performed By: Aiden Valdivia RDID Referred By: Adrian Bird [facility] Ref. Address: [address] [place], [place] [address] Location: [place] [facility] ([facility]) SERVICE(S) PROVIDED: US < 14 weeks Abdominal Ultrasound 60317 US Nuchal Translucency 96955 INDICATIONS: Advanced Maternal Age in multigravida, first [...] 12:15 pm) PATIENT INFO: ID #: ? [id number] ? : ??[birth year] (33 yrs)(F) Name: ? STACIA SANDHU ? Visit Date: 07/04/2024 09:52 am PERFORMED BY: Attending: ?Michelle Flores MD Performed By: ? Aiden Valdivia RDMS Referred By: ?Adrian Bird CNM Ref. Address: ? [address] ? [place] [address] Location: ? [place] [facility] ([facility]) SERVICE(S) PROVIDED: US < 14 weeks Abdominal Ultrasound ?95009 US Nuchal Translucency ?74875 INDICATIONS: Advanced Maternal Age in multigravida, first [...] 07/04/2024 12:15 pm) PATIENT INFO: ID #: [id number] : [birth year] (33 yrs)(F) Name: STACIA SANDHU Visit Date: 07/04/2024 09:52 am PERFORMED BY: Attending: Michelle Flores MD Performed By: Aiden Valdivia [facility] Referred By: Adrian CONKLIN Ref. Address: [address] [place] [address] Location: [place] [facility] ([facility]) SERVICE(S) PROVIDED: US < 14 weeks Abdominal Ultrasound 86899 US Nuchal Translucency 42121 INDICATIONS: Advanced Maternal Age in multigravida, first [...] C antibody (06/20/2024 2:16 PM EST) Pathologist [facility] Hepatitis C Antibody Negative Negative LAB CHEMISTRY METHOD 06/20/2024 5:16 PM EST [facility] Blood Venous blood specimen / Unknown Venipuncture / Unknown 06/20/2024 2:16 PM EST 06/20/2024 2:16 PM EST Adrian Bird CNM LAB BLOOD ORDERABLES Final Res ult [facility] [address] [place] [address], * HIV 1,2 antibody, p24 antigen with reflex to differentiation (06/20/2024 2:16 PM EST) Pathologist [facility] HIV Combo AB/AG Negative Negative LAB CHEMISTRY METHOD 06/20/2024 5:17 PM EST [facility] Blood Venous blood specimen / Unknown Venipuncture / Unknown 06/20/2024 2:16 PM EST 06/20/2024 2:16 PM EST Narrative [facility] - 06/20/2024 5:17 PM EST [...] LAB BLOOD ORDERABLES Final Res ult [facility] [address] [place] [address], [place] [phone] * Cervical Cancer Screening: HPV (11/11/2023) Pathologist [facility] Cervical Cancer Screening: HPV abstracted, negative [...] Most Recently Relevant to Health Maintenance Insurance [facility] [employer] [facility] Care Teams Pants Cutter Relationship Specialty Start Date End Date Miguel Angel Cuellar MD [address] [place] [address] PCP - General Internal Medicine 03/16/19
--- OUTSIDE RECORDS SUMMARY | 2024-09-21 12:18 | XMS_ITS | Encounter Summary ---
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
--- OUTSIDE RECORDS SUMMARY | 2024-09-21 12:18 | XMS_ITS | Encounter Summary ---
Author Organization [facility] Address [address] [place] [address] Care Team Providers Care Miller First Name Role Phone Miguel Angel Cuellar MD Primary Care Provide r Reason for Visit * Imaging (Routine) - Pending Review Specialty Diagnoses / Procedures Referred By Dax munoz Referred To Contact Radiology Diagnoses Encounter for anatomic survey Procedures US OB Detailed Single or First Gestation Adrian Bird, [facility] [address] [place] [address] Phone: tel: fax: [address] Phone: tel: Referral ID Status Reason Start Date Expiration Date V isits Requested Visits Authorized [id number] Pending Review 07/04/2024 07/04/2025 1 1 Encounter Details Date Type Department Care Team (Latest Contact Info) Description 08/23/2024 8:00 AM EST Ancillary Procedure Maternal Medicine - [address] [phone] Encounter for anatomic survey Social History Tobacco [...] 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 [id number] ? : ??[birth year] (33 yrs)(F) Name: ? ROSALVA SANDHU ? Visit Date: 08/23/2024 08:06 am PERFORMED BY: Attending: ?Christy Morgan MD Performed By: ? Aiden Valdivia RDMS Referred By: ?Adrian Bird CNM Ref. Address: ? [address] ? [place] [address] Location: ? [place] [facility] (RVB) SERVICE(S) PROVIDED: US Level II complete (Targeted OB) ?11929 INDICATIONS: Advanced maternal age in nullipara, second [...] appearance Thorax Lungs: ? Normal appearance Cardiac Warner: ?Suboptimal views Diaphragm: ? Suboptimal views Thoracic [...] 08/23/2024 09:44 am) PATIENT INFO: ID #: [id number] : [birth year] (33 yrs)(F) Name: ROSALVA SANDHU Visit Date: 08/23/2024 08:06 am PERFORMED BY: Attending: Christy Morgan MD Performed By: Aiden Valdivia [facility] Referred By: Adrian Bird [facility] Ref. Address: [address] [place] [address] Location: [place] [facility] (RVB) SERVICE(S) PROVIDED: Level II complete (Targeted OB) 28915 INDICATIONS: Advanced maternal age in nullipara, second [...] Normal appearance Thorax Lungs: Normal appearance Cardiac Warner: Suboptimal views Diaphragm: Suboptimal views Thoracic Contour: [...] Report 08/23/2024 09:44 am us Adrian Bird [facility] IMG OB US PROCEDURES Final Res ult documented in this encounter Visit Diagnoses Diagnosis Encounter for anatomic survey documented in this encounter Care Teams Miller First Relationship Specialty Start Date End Date Miguel Angel Cuellar MD [address] [place] [address] PCP - General Internal Medicine 03/16/19 documented as of this encounter
--- OUTSIDE RECORDS SUMMARY | 2024-09-21 12:18 | XMS_ITS | Encounter Summary ---
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
--- OUTSIDE RECORDS SUMMARY | 2024-09-21 12:18 | XMS_ITS | Encounter Summary ---
Author Organization [facility] Address [address] [place] [address] Care Team Providers Care Recenterer Name Role Phone Miguel Angel Cuellar MD Primary Care Provide r Reason for Visit * Imaging (Routine) - Pending Review Specialty Diagnoses / Procedures Referred By Dax munoz Referred To Contact Radiology Diagnoses Follow-up exam Procedures US OB Followup per Fetus Adrian Bird, [place] [address] [place] [address] Phone: tel: fax: [facility] [address] [place] [address] Phone: tel: Referral ID Status Reason Start Date Expiration Date V isits Requested Visits Authorized [id number] Pending Review 08/23/2024 08/23/2025 1 1 Encounter Details Date Type Department Care Team (Late Contact Info) Description 09/05/2024 9:00 AM EST Ancillary Procedure Maternal Medicine - [address] [phone] Follow-up exam Social History Tobacco Use Types [...] AM EST Routine Obstetrics and Gynecology - [place] [address] [place] [address] Pelon Adrian, [facility] [address] [place] [address] 11/21/2024 9:00 AM EDT Ancillary Procedure Maternal Medicine - [address] [address] documented as of this encounter Procedures Procedure [...] 02:22 pm) PATIENT INFO: ID #: ? [id number] ? : ??[birth year] (33 yrs)(F) Name: ? ROSALVA SANDHU ? Visit Date: 09/05/2024 12:25 pm PERFORMED BY: Attending: ?Michelle Flores MD Performed By: ? Christy Robles RDMS Referred By: ?Adrian Bird CNM Ref. Address: ? [address] ? [facility] [address] Location: ? [place] [facility] (RVB) SERVICE(S) PROVIDED: [place] up ?[address] INDICATIONS: Advanced maternal age in multigravida, ? [...] 09/05/2024 02:22 pm) PATIENT INFO: ID #: [id number] : [birth year] (33 yrs)(F) Name: ROSALVA Hall Date: 09/05/2024 12:25 pm PERFORMED BY: Attending: Michelle Flores MD Performed By: Christy Robles [facility] Referred By: Adrian Bird [facility] Ref. Address: [address] [place] [address] Location: [place] [facility] ([facility]) SERVICE(S) PROVIDED: [place] [address] INDICATIONS: Advanced maternal age in multigravida, O09.522 [...] 09/05/2024 documented in this encounter Care Teams Recenterer Relationship Specialty Start Date End Date Miguel Angel Cuellar MD [address] [place] [address] PCP - General Internal Medicine 03/16/19 documented as of this encounter
[2024-09-21 14:05] LABS: MANUAL DIFF FLAG NO
[2024-09-21 14:06] LABS: Appearance Urine Clear; Color Urine Yellow; Glucose Urine UA Negative (Negative); Leukocyte Esterase Urine Negative (Negative); Nitrite Urine Negative (Negative); PH 7.5 (5.0-9.0); Urine Blood Negative (Negative); Urine Ketones Negative (Negative); Urine Protein Negative (Neg-Trace)
[2024-09-21 14:16] LABS: Basophils Percent Auto 0.3 % (0-2); Eosinophils Absolute Auto 0.4 X10*3/uL (0.0-0.4); Eosinophils Percent Auto 3.9 % (0-4); Hematocrit 36.2 % (37.0-47.0); Imm Gran Abs Auto 0.09 X10*3/uL (0.00-0.03); Imm Gran Pct Auto 0.8 % (0.0-0.4); Lymphocytes Absolute Auto 1.7 X10*3/uL (1.2-4.9); Lymphocytes Percent Auto 15.3 % (20-40); Mean Corpuscular HGB Conc 33.1 g/dl (31.0-35.0); Mean Corpuscular Hemoglobin 30.3 pg (27.0-33.0); Mean Corpuscular Volume 91.4 fL (80.0-98.0); Mean Platelet Volume 10.7 fL (9.4-12.3); Monocytes Absolute Auto 0.8 X10*3/uL (0.1-1.2); Monocytes Percent Auto 7.3 % (2-11); Neutrophils Absolute Auto 8.3 x10*3/uL (2.0-8.3); Neutrophils Percent Auto 72.4 % (45-73); Platelet Count 260 X10*3/uL (160-400); Red Blood Count 3.96 X10*6/uL (4.20-5.50); White Blood Count 11.4 X10*3/uL (4.8-10.8)
[2024-09-21 14:36] LABS: Alanine Aminotransferase 12 U/L (0-31); Albumin Level 3.1 g/dL (3.5-5.0); Alkaline Phosphatase 74 U/L (39-117); Anion Gap 10 (12-20); Aspartate Amino Transferase 21 U/L (5-31); Bilirubin Total 0.3 mg/dL (0.0-1.0); Blood Urea Nitrogen 7 mg/dL (9-16); Calcium 8.8 mg/dL (8.4-10.2); Carbon Dioxide 24 mmol/L (22-29); Chloride 107 mmol/L (96-108); Estimated Glomerular Filt Rate > 60; Glucose Random 77 mg/dL (60-115); Sodium 137 mmol/L (135-145); Total Protein 6.2 g/dL (6.5-8.0)
[2024-09-21 14:53] LABS: TSH reflex Free T4 1.18 uIU/mL (0.32-4.0)
== END 2024-09-21 11:52 | disposition home or self-care (01) ==
LOC: HO.WFDLDS 11:51
PROVIDERS: Visit Provider Physician Assistant
DX: L98.9 Disorder of the skin and subcutaneous tissue, unspecified (principal); Z3A.23 23 weeks gestation of pregnancy; Z13.220 Encounter for screening for lipoid disorders
CPT/HCPCS: 36415; 80053; 81003; 84443; 85025

== ENCOUNTER 2025-01-23 13:15 | Outpatient (REF) | payer OTHER, SELFPAY ==
[2025-01-23 17:34] LABS: MANUAL DIFF FLAG NO
[2025-01-23 17:52] LABS: Basophils Percent Auto 0.3 % (0-2); Eosinophils Absolute Auto 0.7 X10*3/uL (0.0-0.4); Eosinophils Percent Auto 11.4 % (0-4); Hematocrit 38.7 % (37.0-47.0); Hemoglobin 12.5 g/dl (12.0-16.0); Imm Gran Abs Auto 0.01 X10*3/uL (0.00-0.03); Imm Gran Pct Auto 0.2 % (0.0-0.4); Lymphocytes Absolute Auto 2.1 X10*3/uL (1.2-4.9); Lymphocytes Percent Auto 35.8 % (20-40); Mean Corpuscular HGB Conc 32.3 g/dl (31.0-35.0); Mean Corpuscular Hemoglobin 27.9 pg (27.0-33.0); Mean Corpuscular Volume 86.4 fL (80.0-98.0); Mean Platelet Volume 10.2 fL (9.4-12.3); Monocytes Absolute Auto 0.8 X10*3/uL (0.1-1.2); Neutrophils Absolute Auto 2.2 x10*3/uL (2.0-8.3); Neutrophils Percent Auto 38.3 % (45-73); Platelet Count 350 X10*3/uL (160-400); Red Blood Count 4.48 X10*6/uL (4.20-5.50); Red Cell Distribution Width 14.8 % (11.0-16.0); White Blood Count 5.8 X10*3/uL (4.8-10.8)
[2025-01-23 18:13] LABS: Iron 64 mcg/dL (30-160); Percent Iron Saturation 22 % (15-50); Total Iron Binding Capacity 292 mcg/dL (228-428); Unsaturated Iron Binding 228 ug/dL
[2025-01-23 18:20] LABS: TSH reflex Free T4 0.92 uIU/mL (0.32-4.0)
== END 2025-01-23 13:16 | disposition home or self-care (01) ==
LOC: HO.WFDLDS 13:15
PROVIDERS: PCP Family Medicine; Visit Provider Internal Medicine
DX: L73.2 Hidradenitis suppurativa (principal); L74.9 Eccrine sweat disorder, unspecified; G56.03 Carpal tunnel syndrome, bilateral upper limbs; F42.4 Excoriation (skin-picking) disorder
CPT/HCPCS: 36415; 83540; 84443; 85025; 99212

== ENCOUNTER 2025-01-23 13:15 | Outpatient (AMB) | payer OTHER, SELFPAY ==
--- NOTE | 2025-01-23 13:18 | MHC.PC.OV ---
Vital Signs 01/23/25 13:25 Height 5 ft 5 in Weight 194 lb BMI 32.3 BP 138/84 Blood Pressure Location Lt brachial Respiration 12 Pulse 100 Pulse Source Pulse Oximeter Temp 97.3 F Temp Source Oral Pulse Oximetry (%) 97 Oxygen Delivery Method Room Air Intake Visit Reasons: wound check Intake Note: Wound check. Was recently discharged from [facility]. Wound is on caesarean section. Spots on left arm pit. Nasal congestion, daughter was diagnowsed on 01/18/25 with the flu. Senior Cytogenetic Technologist Required: No Allergies No Known Allergies Allergy (Verified 01/23/25 13:23) Tobacco use date assessed: 01/23/25 Dental Screening Dental Screen Date: 01/23/25 Did you have a dental visit in the last 12 months?: Yes Did you have a dental problem in the last 6 months where you did not have access to dental care?: No Was dental information given to patient?: Patient has dentist HPI HPI Comments History of Present Illness Details 34 year old with a past medical history of asthma, skin picking, post op wound dehinscene/hematoma presenting for follow up Wound check. Was recently discharged from [facility]. Wound is on caesarean section. This is healed She developed painful lumps/spots on left arm pit consistent with HS. Has used hibiclens in the past She has anxiety/ocd, is following with psych. 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 She is using ketamine infusion for post which is helping tremendously She has severe CTS. Taking care of her infant increasing the pain. Did receive shots with some relief. Would like a refill on oxycodone. ROS see HPI PHYSICAL EXAM: GENERAL: Alert and oriented x 3. NAD EYES: EOMI. Anicteric. HENT: Moist mucous membranes. No scleral icterus. No cervical lymphadenopathy. LUNGS: Clear to auscultation bilaterally. CARDIOVASCULAR: Regular rate and rhythm. No murmur. No JVD. ABDOMEN: Soft, non-tender +bs. low traverse c/s well healing EXTREMITIES: No edema. Non-tender. SKIN:left axillary hidradenitis NEUROLOGIC: No focal neurological deficits. CN II-XII grossly intact PSYCHIATRIC: Cooperative. Appropriate mood and affect [facility] Medical History (Updated 01/23/25 @ 13:49 by Ewelina Chau MD) Sore throat History of frequent upper respiratory infection Recurrent streptococcal pharyngitis Surgical History (Updated 01/23/25 @ 13:33 by Cynthia Sabillon CMA) H/O section H/O spinal fusion Social History Housing: House Alcohol intake: current Patient Tobacco Use Status: Former Tobacco user Cigarettes Per Day: 2 Years Smoked: 17 e-Cigarette/Vaping Use: Currently Using Second Hand Smoke Exposure: No Substance Use Type: Marijuana service: No Current occupational status: employed Cognitive needs: No Hearing needs: No Vision needs: No Questionnaire Thrive Questionnaire Date Thrive assessed: 09/21/24 I am a: Patient What is your living situation today?: I have a steady place to live Within the past 12 months, did the food you bought not last and you didn't have the money to get more?: Never true Within the past 12 months, did you worry whether your food would run out before you got money to buy more?: Never true Do you have trouble paying for medicines?: No Do you have trouble getting transportation to medical appointments?: No Do you have trouble paying your heating and electricity bill?: No Do you have trouble taking care of your child, family member or friend?: No Do you have trouble with day-to-day activities such as bathing, preparing meals, shopping, managing finances, etc.?: No Are you currently unemployed and looking for a job?: No Are you interested in more education?: No Please select the resources that you would like help with: None Currently or been in a relationship where the following occur: No concerns reported THRIVE Score: 0 AUDIT C Alcohol Use Questionnaire (AUDIT-C) 3. How often do you have six or more drinks on one occasion?: Never Total Score: 0 SARAH-7 AMB Questionnaire SARAH-7 Date SARAH - 7 assessed: 08/14/22 Source: Developed by Drs. Adonay Asencio, Latesha Martel, Bairon Stanford and colleagues, with an educational elizabeth from [employer]. Physical exam (Primary Care) Vital Signs: Last Vital Signs Temp 97.3 F 01/23/25 13:25 Pulse 100 01/23/25 13:25 Resp 12 01/23/25 13:25 BP 138/84 01/23/25 13:25 Pulse Ox 97 01/23/25 13:25 Oxygen Delivery Method Room Air 01/23/25 13:25 BMI result Body Mass Index 32.3 Tobacco/Smoking Status: Tobacco use Status Tobacco use date assessed 09/21/24 09/21/24 11:09 Patient Tobacco Use Status Former Tobacco user 09/21/24 11:09 e-Cigarette/Vaping Use Currently Using 09/21/24 11:09 Thrive Assessment: Date of Thrive Assessment Date Thrive assessed 09/21/24 01/16/25 12:16 Currently or been in a relationship where the following occur: No concerns reported Coding Level of Care Code Est Pt Level 4 (55182) Complex EM visit Add On G2211 Diagnoses Sweating abnormality L74.9 Bilateral carpal tunnel syndrome G56.03 Laterality: bilateral Hidradenitis suppurativa L73.2 Assessment & Plan Assessment & Plan (1) Sweating abnormality: Code(s): L74.9 - Eccrine sweat disorder, unspecified Category: Medical (2) CTS (carpal tunnel syndrome): Code(s): G56.00 - Carpal tunnel syndrome, unspecified upper limb Category: Medical Qualifiers: Laterality: bilateral Qualified Code(s): G56.03 - Carpal tunnel syndrome, bilateral upper limbs (3) Hidradenitis suppurativa: Code(s): L73.2 - Hidradenitis suppurativa Category: Medical Plan HS-doxycycline x 10 days then transition to minocycline at lower dose Hyperhidrosis-check iron r/o HH. TSH CTS-oxycodone refilled. Advised against long term care pharmacist use Orders: Orders IRON PROFILE Today L74.9 - Eccrine sweat disorder, unspecified Complete Blood Count Auto Diff Today L74.9 - Eccrine sweat disorder, unspecified TSH reflex Free T4 Today L74.9 - Eccrine sweat disorder, unspecified Medications: New oxycodone Partial Fill upon patient request. 5 mg PO BID 28 days PRN 56 tabs 0RF pain G56.00 - Carpal tunnel syndrome, unspecified upper limb doxycycline hyclate then start minocycline 100 mg PO BID 20 tabs 0RF minocycline 50 mg PO BID 180 tabs 3RF
[2025-01-23 13:25] VITALS: BP 138/84; PULSE 100; RESP 12; TEMP 36.3; O2SAT 97; BMI 32.3
--- OUTSIDE RECORDS SUMMARY | 2025-01-23 15:08 | XMS_ITS | Clinical Summary ---
Author Organization [facility] Address [address] [place] [address] Care Team Providers Care Federal Agent Name Role Phone Juancarlos Tatiana Cruz APRN Primary Care Provider [phone] Allergies No known active allergies Medications diclofenac enteric coated (VOLTAREN) 50 MG EC tablet 04/06/2021 Active DULoxetine (CYMBALTA) 30 MG capsule Take 30 mg by mouth. Active gabapentin (NEURONTIN) 800 MG tablet 03/30/2021 Active norethindrone-et hinyl estradiol (ORTHO-NOVUM 1-35 TAB,NORTREL 1-35 TAB) 1-35 MG-MCG per tablet Take 1 tablet by mouth. Active oxyCODONE-acetam inophen (PERCOCET) 5-325 mg per tablet Take 1 [...] Used Date Smoking Tobacco: Every Day Cigarettes Comments Unknown Sex and Gender Information Value Date Recorded Sex Assigned at Not on file Legal Sex Female 1:40 PM EDT Gender Identity Not on file [...] series) 10/20/2007 Pap Smear (Ages 21-65) 2009 COVID-19 Vaccine ( - 2023-2 5 season) 2024 Influenza Vaccine 03/09/2025 05/11/2020 HPV Vaccines Aged Out No longer eligi ble based on patient's age to complete this topic Pneumococcal Vaccine: Pediat giselle (0-5 Years) and At-Risk Patients (6 to 49 Years) Aged Out No longer eligible b ased on patient's age to complete this topic Insurance [facility] - O BLUE CROSS OUT [facility] - PPO Care Teams Federal Agent Relationship Specialty Start Date End Date Tatiana Bauer, LEAD MANUFACTURING TECHNICIAN PCP - General Emergency Medicine 02/28/21
== END 2025-01-23 13:46 | disposition home or self-care (01) ==
LOC: HO.HMCFM 13:17
PROVIDERS: PCP Family Medicine; Visit Provider Internal Medicine
DX: L74.9 Eccrine sweat disorder, unspecified (principal); G56.03 Carpal tunnel syndrome, bilateral upper limbs; L73.2 Hidradenitis suppurativa

== ENCOUNTER 2025-04-02 13:37 | Outpatient (REF) | payer OTHER, SELFPAY ==
[2025-04-03 04:18] LABS: Bacterial Vaginosis PCR POSITIVE (Negative); Candida Group PCR NOT DETECTED (Not Detect); Candida glab krusei PCR NOT DETECTED (Not Detect); Trichomonas vaginalis PCR NOT DETECTED (Not Detect)
== END 2025-04-02 13:38 | disposition home or self-care (01) ==
LOC: HO.LAB 13:37
PROVIDERS: PCP Family Medicine; Visit Provider Nurse Practitioner Family
DX: M54.16 Radiculopathy, lumbar region (principal); R30.0 Dysuria; R39.15 Urgency of urination; Z32.02 Encounter for pregnancy test, result negative; Z79.899 Other long term (current) drug therapy
CPT/HCPCS: 81025; 81515; 87086; 99212

== ENCOUNTER 2025-04-02 13:37 | Outpatient (AMB) | payer OTHER, SELFPAY ==
--- NOTE | 2025-04-02 13:41 | MHC.OFFWIV ---
Intake Vital Signs 04/02/25 13:44 Height 5 ft 5 in Weight 191 lb 2 oz BMI 31.8 BP 132/72 Blood Pressure Location Lt brachial Position Sitting Respiration 12 Pulse 76 Pulse Source Pulse Oximeter Temp 97.2 F Temp Source Oral Pulse Oximetry (%) 99 Oxygen Delivery Method Room Air Intake Visit Reasons: UTI Sx Intake Note: Patient c/o burning when urinating x 4days. Patient Tobacco Use Status: Former Tobacco user Metal Furrer Required: No Is last menstrual period known: Yes Last menstrual period: 03/23/25 Allergies No Known Allergies Allergy (Verified 04/02/25 14:01) Medication List - Last Reconciled 04/02/25 by Chana Peraza, COMPENSATION SPECIALIST- albuterol sulfate 90 mcg/actuation 2 puffs inhalation Q4-6H PRN 30 days budesonide 90 mcg/actuation (Pulmicort Flexhaler) 1 inh inhalation BID doxycycline hyclate 100 mg PO BID duloxetine (Cymbalta) 120 mg PO DAILY gabapentin 800 mg PO TID PRN minocycline 50 mg PO BID oxycodone 5 mg PO BID PRN 28 days Do you need a note to return to daycare/school/sports/work: No HPI HPI Comments History of Present Illness Details History of Present Illness - The patient is a 34-year-old female presenting with urinary tract infection symptoms. - Symptoms [place] the [place] , characterized by urgenc, dysuria & some itching. - No fever, chills, nausea, vomiting, or flank pain. - Notable obstetric history with recent delivery in December. Regular periods. - No vaginal discharge, itching, or concern for STD. 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 Last RX x 2 Dr Santillan Review of Systems - Genitourinary: Reports dysuria, urinary urgency; Denies fever, chills, nausea, vomiting, flank pain, vaginal discharge, and itching. - Musculoskeletal: Reports chronic lower back pain exacerbated recently. - Neurological: Denies radicular symptoms. Physical Exam General: Well developed, well nourished, in no acute distress. Appears stated age. Head: Normocephalic, atraumatic. Eyes: Pupils are equal, round and reactive to light and accommodation. Conjunctivae are clear. Lungs: Clear to auscultation bilaterally. No rales, rhonchi or wheeze noted. Good air flow in all pillai. Heart: Regular rate and rhythm. No murmurs, click, rubs or gallops are noted. Abdomen: Bowel sounds present in all quadrants. The abdomen is soft, nontender, with no masses or organomegaly noted. No hernias are noted. No suprapubic tenderness or CVAT bilat Musculoskeletal: Joints are nontender, without swelling, redness, or effusions. Reports chronic back pain, possibly related to mattress use and previous lumbar surgery. Psych: Mood and affect appropriate. Results - Labs: Urine dipstick normal; culture pending. - BV self collected; results pending Discussion Notes I advised sending the urine sample for culture to ensure accurate diagnosis. We reviewed the patient?s chronic lower back pain management. I acknowledged her concerns regarding medication management, confirming I would send a request for a refill of oxycodone to Dr. Chau. I also provided instructions for self-swabbing to rule out bacterial vaginosis or yeast infection. Arrangements were made to communicate urine culture results via the patient portal, enabling timely treatment if required. Patient was given time to ask questions. All questions were answered to their satisfaction. Assessment and Plan 1. Urinary Tract Infection Symptoms - Urine culture sent; treat with antibiotics if results are positive. - BV swab obtained, results pending 2. Chronic Lower Back Pain - Gabapentin continuation; oxycodone requested from Dr. Chau. Patient Instructions - Watch for symptoms of worsening infection like fever or severe pain. - Use portal to check results, contact office if necessary. - Hydrate liberally; Vaginal hygeine. Consent Patient was informed and verbally consented to the use of an ambient scribe for clinic note documentation during this visit. Total time spent caring for the patient today was 30 minutes. This includes time spent before the visit reviewing the chart, time spent during the visit, and time spent after the visit on documentation, reviewing laboratory results, diagnostic imaging, medications, performing a medically necessary evaluation, counseling on diagnoses, care coordination, ordering appropriate tests, ordering appropriate medications, review of tests performed by other providers, reporting test results with the patient, communication with other healthcare providers. [facility] Medical History (Updated 04/02/25 @ 14:07 by Chana Peraza, [facility]) History of frequent upper respiratory infection Recurrent streptococcal pharyngitis Sore throat Surgical History (Updated 01/23/25 @ 13:33 by Cynthia Sabillon CMA) H/O section H/O spinal fusion Social History (Updated 01/23/25 @ 13:33 by Cynthia Sabillon CMA) Housing: House Alcohol intake: current Patient Tobacco Use Status: Former Tobacco user Cigarettes Per Day: 2 Years Smoked: 17 e-Cigarette/Vaping Use: Currently Using Second Hand Smoke Exposure: No Substance Use Type: Marijuana service: No Current occupational status: employed Cognitive needs: No Hearing needs: No Vision needs: No Female Reproductive History Menstrual Date of last menstrual period: 03/23/25 Physical Exam Vital Signs: Last Vital Signs Temp 97.2 F 04/02/25 13:44 Pulse 76 04/02/25 13:44 Resp 12 04/02/25 13:44 BP 132/72 04/02/25 13:44 Pulse Ox 99 04/02/25 13:44 Oxygen Delivery Method Room Air 04/02/25 13:44 BMI result Body Mass Index 31.8 Results AMB Urinalysis, Automated UA Leukoctes 0 Gage/uL Last Edit by Cristo Marvin MA on 04/02/25 14:03 UA Nitrite Negative Last Edit by Cristo Marvin MA on 04/02/25 14:03 UA Urobilinogen 3.5 mg/dL Last Edit by Cristo Marvin MA on 04/02/25 14:03 UA Protein 0 mg/dL Last Edit by Cristo Marvin MA on 04/02/25 14:03 UA pH 7.0 Last Edit by Cristo Marvin MA on 04/02/25 14:03 UA Blood 0 Carlos/uL Last Edit by Cristo Marvin MA on 04/02/25 14:03 UA Specific [place] 1.010 Last Edit by Cristo Marvin MA on 04/02/25 14:03 UA Ketone Negative Last Edit by Cristo Marvin MA on 04/02/25 14:03 UA Bilirubin 0 mg/dL Last Edit by Cristo Marvin MA on 04/02/25 14:03 UA Glucose 0 mg/dL Last Edit by Cristo Marvin MA on 04/02/25 14:03 AMB Test Urine AMB Test Urine Negative Last Edit by Cristo Marvin MA on 04/02/25 14:04 Assessment & Plan Assessment & Plan (1) UTI symptoms: Code(s): R39.9 - Unspecified symptoms and signs involving the genitourinary system (2) Lumbar radiculopathy: Code(s): M54.16 - Radiculopathy, lumbar region Plan . Orders: Orders AMB Urinalysis Automated Today Z13.9 - Encounter for screening, unspecified Bacterial Vaginosis Panel Today R39.9 - Unspecified symptoms and signs involving the genitourinary system AMB HCG Urine Test Today Z32.02 - Encounter for test, result negative Urine Culture Today R39.9 - Unspecified symptoms and signs involving the genitourinary system Coding Level of Care Code Est Pt Level 4 (90586) Diagnoses UTI symptoms R39.9 Lumbar radiculopathy M54.16
[2025-04-02 13:44] VITALS: BP 132/72; PULSE 76; RESP 12; TEMP 36.2; O2SAT 99; BMI 31.8
--- OUTSIDE RECORDS SUMMARY | 2025-04-02 14:55 | XMS_ITS | Clinical Summary ---
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 blamed myself unnecessarily when things went wrong.: Yes, some of the time I have been anxious or worried for no good reason.: Yes, very often I have felt scared or panicky for no good reason.: Yes, quite a lot Things have been getting on top of me.: Yes, sometimes I haven't been coping as well as usual I have been so unhappy that I have had difficulty sleeping.: Not at all I have felt sad or miserable.: Yes, quite often I have been so unhappy that I have been crying.: Only occasionally The thought of harming myself has occurred to me.: Never [place] Depression Scale Total: 18 Adrian Bird CNM Progress Notes - Visit - 01/08/2025 - [place]: 01/08/2025 - Julianne Mckeon CNM S: pt presents for bp check s/p pp visit last wk O: bp 110/82 A; 34yo female with nl bp on nifedipine for ghtn P; f/u routinely Progress Notes - Visit - 01/05/2025 - GA: 01/05/2025 - Muriel Kimbrough CNM S: Stacia reports two major concerns today: 1) although she is taking Cymbalta and Xanax and Vistaril prn, she feels very anxious and depressed, states she thinks she has psychosis. Living with her ffezme-gy-kyj who has dementia and is challenging to be around, Stacia is very irritable, states she has no filter, and flies off the handle easily. Stopped drinking 6 months ago but had two drinks on Wednesday in order to cope. EPDS 22, answered never to Q10 and denies SI/HI at this time. Psychiatrist is away this week has appt on Wednesday, also has appt for ketamine tx on Wednesday. Going to [place] this to get away from mjzqlv-hb-bwi and hoping she will feel better 2) Taking Nifedipine 30mg daily as rx'd by [facility], Bps at home have been slightly elevated (DBPs in 90s). Denies headache, visual changes, and epigastric pain. O: BP 126/74 Pt appears alert and oriented x 3, in touch with reality Abdominal hematoma healing well A: at very high risk of depression Elevated blood pressures at home, normotensive in office P: Advised pt that if she feels as if she is losing touch with reality or has any thoughts of harm to self or others that she should present to the ED. I also advised her to call with headache, visual changes, or epigastric pain. RTO Wednesday for BP and mental health check. Discussed that getting some time away from her afucvh-yr-qeh may be beneficial. Advised to keep appt with psychiatrist on Wednesday to discuss medication mgmt. Pt verbalized understanding and agreement with plan. Progress Notes - Hospital En counter - 12/29/2024 - GA: 12/29/2024 - Kristie Martel LSW Hand Packager- Progress Note Patient continues to require acute level hospital care. DEANNE: 12/29/24 Barriers: none Disposition: HOME HEALTH- [facility] secured for wound care management. director of radio services will remain available to assess, support, provide advocacy and assist with discharge planning as appropriate. 12/29/2024 - Mady Barreto RN Patient needs at home nursing visits for wound care. 12/29/2024 - Jose Shannon DO Obstetrical Triage Note Reason for Triage Observation: Hematoma She is a 34-year-old P1 who delivered via low-transverse section. She presented to the office 2 days ago and was noted to have a wound seroma/hematoma. She was brought to OB triage for drainage. Area was drained and packed with iodoform. She returns today for repacking. She has no questions or concerns at this time. Assessment Wound care Triage Testing revealed n/a Patient's complaints have improved. Plan Discharge home. Subjective History of Present Stacia Conde is a 34 y.o. gravid, female. Patient's last menstrual period was 04/11/2024 (exact date). with an Estimated Date of Delivery of Not found., who is now Unknown gestation. The patient's blood type is O Positive. Triage Course: Wound was examined and packing was removed. There is no obvious drainage or bleeding. Palpation of the base of the wound shows the fascia to be intact. Wound was repacked with iodoform. She is being discharged home with referral to geriatric social worker for home wound care. She is given a prescription for 10 oxycodones after which she needs to get any narcotic prescriptions from her spine physician. Objective Recent Vital Signs: BP (!) 134/93 (BP Location: Left arm, Patient Position: Lying) Pulse 88 Temp 36.5 C (97.7 F) (Temporal) Resp 16 Ht 1.676 m (66 ) Wt 85.3 kg BMI 30.34 kg/m BP & Temp Min/Max Last 24 Hours: BP Min: 134/93 Min taken time: 12/29/24 1104 Max: 134/93 Max taken time: 12/29/24 1104 Temp Av.5 C (97.7 F) Min: 36.5 C (97.7 F) Min taken time: 12/29/24 1104 Max: 36.5 C (97.7 F) Max taken time: 12/29/24 1104 Physical Examination: Abdomen is soft, appropriately tender. There is a healing Pfannenstiel skin incision with ecchymosis superiorly and inferiorly. Does not appear that the hematoma has reformed. The wound site is approximately 1 cm located in the left lateral aspect of the incision. Progress Notes - Hospital En counter - 12/27/2024 - GA: 12/27/2024 - Bill White MD Triage Note Subjective: Patient sent to triage for evaluation of swelling at her incision. S/p via pfannensteil on 12/11 (at [facility]). Noticed some swelling on her incision as early as POD#3-4, but the whole incision was swollen. Denies any discharge from incision. No fevers, chills. Known GHTN. Denies headache, vision changes, RUQ/epigastric pain. Prescribed nifedipine 30mg and took it today. Objective Vitals: 12/27/24 1545 12/27/24 1546 BP: (!) 142/95 (!) 142/96 Pulse: 90 91 Resp: 18 18 Temp: 36.7 C (98 F) TempSrc: Temporal NAD Normal heart rate Normal inspiratory effort No abdominal tenderness/distension. Pfannensteil incision intact with 4cm area of fluctuance at extreme left aspect of incision. No overlying erythema. Nontender to palpation No results found for this or any previous visit (from the past 12 hours). Procedure: Bedside wound exploration, drainage of hematoma The skin was prepped with betadine and the underlying dermis infiltrated with 5ml 1% plain lidocaine. During infiltration, a small amount of dark red blood extruded from the incision under high pressure. A cotton swab was used to gently probe the incision 1cm from its left laternal endpoint. Fascia noted to be intact. A small amount of dark red blood was evacuated from the 1cm defeect. The cavity was then flushed with saline and packed with iodoform gauze. The patient tolerated the procedure well. Assessment/Plan 34 P1 2 weeks post-op s/p delivery with new diagnosis of incisional hematoma. 1) Incisional hematoma - s/p bedside exploration and drainage - packed with iodoform gauze - no s/s superimposed infection - patient to return in 48 hours for wound check, re-packing. - infection precautions reviewed 2) GHTN - mild-range Bps - continue prescribed nifedipine - asymptomatic Bria White MD Last Filed Vital Signs Vital Sign Reading Time Taken Comments Blood Pressure 128/92 01/18/2025 2:40 PM EDT Pulse 85 01/18/2025 2:20 PM EDT Temperature 36.5 C (97.7 F) 12/29/2024 11:04 AM EDT Respiratory Rate 16 12/29/2024 11:04 AM EDT Oxygen Saturation 100% 12/29/2024 11:04 AM EDT Inhaled Oxygen Concentration - - Weight 87.5 kg (193 lb) 01/18/2025 2:20 PM EDT Height 167.6 cm (5' 6 ) 12/29/2024 11:04 AM EDT Body Mass Index 31.15 12/29/2024 11:04 AM EDT Plan of Treatment Health Maintenance Due Date Last Done Comments Hepatitis A Vaccines (1 of 2 - Risk 2-dose series) 10/20/2007 Pneumococcal Vaccine: Pediatrics (0 to 5 Years) and At-Risk Patients (6 to 49 Years) (1 of 2 - PCV) 10/20/2007 Cholesterol Screening (Lipid Panel) 07/17/2022 09/05/2015 COVID-19 Vaccine ( season) 2024 05/25/2023, 06/17/2022, 07/11/2021, Additional history exists Influenza Vaccine (#1) 2025 , 05/25/2023, 06/17/2022, Additional history exists Social Influencers of Health Screening 12/29/2025 12/29/2024 Cervical Cancer Screening: HPV 11/10/2028 11/11/2023 DTaP,Tdap,and Td Vaccines (10 - Td or Tdap) 10/27/2034 10/27/2024, 01/01/2022, 03/11/2007, Additional history exists HIB Vaccines Completed 04/29/1990, 04/29/1990 Varicella Vaccines Aged Out 08/09/1991 No longer eligible based on patient's age to complete this topic IPV Vaccines Completed 12/09/1993, 04/10, 04/29/1990, Additional history exists MMR Vaccines Completed 12/21/1995, 01/26/1990 Hepatitis B Vaccines Completed 06/16/2001, 11/15/2000, 07/09/2000 HPV Vaccines Completed 03/11/2007, 09/2006, 09/08/2006 Meningococcal ACWY Vaccine Completed 03/11/2007 HIV Screening Completed 06/20/2024, 11/11/2023 Hepatitis C Screening Completed 06/20/2024, 024 Depression Screening Completed 01/11/2025 Meningococcal B Vaccine Aged Out No l onger eligible based on patient's age to complete this topic RSV Immunization Patients Under 20 months Aged Out No longer eligible based on patient's age to complete this topic Medical Devices Implanted Type Area Field Service Representative Device Identifier Shelf Expiration Date Model / Serial / Lot Shell Short Flarehawk 25mm Fh9 Intg-Manu [id number] Implanted:Qty: 1 on 06/17/2021 by Asa Guaman MD N/A: Spine Lumbar [employer] [id number] / / Cage Spinal Flarehawk 6 D L23 Intg-Manu [id number] Implanted:Qty: 1 on 06/17/2021 by Asa Guaman MD N/A: Spine Lumbar [employer] [id number] / / Bone Alrgft Can Chip 1-8 15cc Stry-Obio [id number] - [id number] Implanted:Qty: 1 on 06/17/2021 by Asa Guaman MD N/A: Spine Lumbar [employer] 11/03/2025 [id number] / Erick Spnl Contr 5.5x45mm Stry-K2m [id number] Implanted:Qty: 2 on 06/17/2021 by Asa Guaman MD N/A: Spine Lumbar [employer] [id number] / / Screw Set Isabella Stry-K2m [id number] Implanted:Qty: 4 on 06/17/2021 by Asa Guaman MD N/A: Spine Lumbar [employer] / / Screw Spnl Poly 6.5x45mm Stry-K2m [id number] Implanted:Qty: 2 on 06/17/2021 by Asa Guaman MD N/A: Spine Lumbar [employer] [id number] / / Screw Spnl Poly 6.5x50mm Stry-K2m [id number] Implanted:Qty: 2 on 06/17/2021 by Asa Guaman MD N/A: Spine Lumbar [employer] [id number] / / Procedures Procedure Name Priority Date/Time Associated Diagnosis Comments HEPATITIS C ANTIBODY Routine 06/20/2024 2:16 PM EST Encounter for supervision of normal first in first trimester HIV 1, 2 ANTIBODY, P24 ANTIGEN WITH REFLEX TO DIFFERENTIATION Routine 06/20/2024 2:16 PM EST Encounter for supervision of normal first in first trimester HM HPV Routine 11/11/2023 LIPID PANEL Routine 09/05/2015 from Last 3 Months or Most Recently Relevant to Health Maintenance Results * Hepatitis C antibody (06/20/2024 2:16 PM EST) Hepatitis C Antibody Negative Negative LAB CHEMISTRY METHOD 06/20/2024 5:16 PM EST [facility] Blood Venous blood specimen / Unknown Venipuncture / Unknown 06/20/2024 2:16 PM EST 06/20/2024 2:16 PM EST us Adrian Bird CNM LAB BLOOD ORDERABLES Final Res ult [facility] [address] [place] [address], [place] [phone] * HIV 1,2 antibody, p24 antigen with reflex to differentiation (06/20/2024 2:16 PM EST) [facility] HIV Combo AB/AG Negative Negative LAB CHEMISTRY METHOD 06/20/2024 5:17 PM EST [facility] Blood Venous blood specimen / Unknown Venipuncture / Unknown 06/20/2024 2:16 PM EST 06/20/2024 2:16 PM EST Narrative [facility] - 06/20/2024 5:17 PM EST This assay is a 4th generation assay allowing for earlier detection of HIV infection by detecting the presence of the HIV-1 p24 antigen as well as the traditional antibodies to HIV type 1 (including group O) and type 2. Use of a 4th generation assay is the current CDC recommendation for HIV screening. Adrian Bird CNM LAB BLOOD ORDERABLES Final Res ult [facility] [address] [place] [address], [place] [phone] * Cervical Cancer Screening: HPV (11/11/2023) [facility] Cervical Cancer Screening: HPV abstracted, negative Historical Provider HEALTH MAINTENANCE Final Result * (ABNORMAL) Lipid panel (09/05/2015) [facility] LDL/HDL Ratio 3 0 - 4 Triglycerides 108 0 - 150 mg/dL Cholesterol 195 0 - 200 mg/dL HDL 66 >=40 mg/dL LDL Cholesterol 107(A) 0 - 100 mg/dL Blood Venous blood specimen / Unknown Historical Provider LAB BLOOD ORDERABLES Jessica l Result from Last 3 Months or Most Recently Relevant to Health Maintenance Insurance ([address] [phone] [employer] Care Teams Tdp Displays Analyst Relationship Specialty Start Date End Date Miguel Angel Cuellar MD [address] [place] [address] PCP - General Internal Medicine 03/16/19
--- OUTSIDE RECORDS SUMMARY | 2025-04-02 14:55 | XMS_ITS ---
Author Name [facility] Organization Unknown History of Medication Use Medication Directions Dispensed Refills Start Date End Date Stat aspirin 81 mg EC tablet Take 1 tablet (81 mg total) by mouth 1 (one) time each day. 06/22/2024 active Pulmicort Flexhaler 90 mcg/actuation inhaler TAKE 1 PUFF INHALED 2 TIMES A DAY 02/28/2024 active Ventolin HFA 90 mcg/actuation inhaler USE 2 PUFFS INHALED EVERY 4 TO 6 HOURS NEEDED FOR SHORTNESS OF BREATH OR WHEEZING FOR 30 DAYS 11/03/2023 active fluticasone propionate (FLONASE) 50 mcg/actuation nasal spray Administer 1 spray into each nostril 1 (one) time each day. 06/24/2023 active DULoxetine (CYMBALTA) [address] capsule 2 capsules (120 mg total). 06/07/2021 active gabapentin (NEURONTIN) 800 mg tablet Take 1 Tab by mouth 4 times daily for 360 days. 08/31/2018 active DULoxetine (CYMBALTA) [address] capsule Take 1 capsule (60 mg total) by mouth 2 (two) times a day. active Problems Problem Status Onset Date Problem Type Date of Resolution Source Encounter for supervision of normal first in first trimester active 2024-06-[address] [facility] [facility] Multigravida of advanced maternal age in first trimester active 2024-06-20 ProblemAct [facility] Radiculopathy, multiple sites in spine active 2007-10-10 ProblemAct [facility] Lumbar radiculopathy active 2021-04-18 ProblemAct [facility] Rash, skin active 2024-06-20 ProblemAct [facility] 19 weeks gestation of active EncounterDiagnosisAct [facility] Tobacco use disorder active 2011-02-06 ProblemAct [facility] Alcohol abuse, episodic drinking behavior active 2016-11-17 ProblemAct [facility] Lumbar spondylosis active 2021-04-18 ProblemAct [facility] Asthma active 2024-05-25 ProblemAct [facility] Anxiety disorder active 2024-06-20 ProblemAct C [facility] Arthralgia active 2024-06-20 ProblemAct [facility] Thyroid nodule active 2019-04-[address] [facility] Chronic rhinitis active 2024-05-31 ProblemAct C T_[facility] Cervical radiculopathy active 2024-05-25 ProblemAct [facility] H/O spinal fusion active 2024-07-07 ProblemAct [facility] Multinodular goiter active 2024-06-20 ProblemAct [facility] Vapes nicotine containing substance active 2024-07-04 ProblemAct [facility] Idiopathic scoliosis and kyphoscoliosis active 2024-05-25 ProblemAct [facility] N Placenta previa in second trimester active 2024-08-23 ProblemAct [facility] ADHD (attention deficit hyperactivity disorder) active 2011-01-23 ProblemAct [facility] Depression active 2013-11-08 ProblemAct [facility] Lumbago active 2007-10-05 ProblemAct [facility] 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, antepartum ([facility] active EncounterDiagnosisAct [facility] Lumbar degenerative disc disease active 2024-06-20 ProblemAct [facility] Immunizations Vaccine Date Source Lot Number Status Influenza trivalent, MDCK, 0 .5mL, preservative free (Flucelvax) 6mo and older 07/07/2024 [facility] [id number] completed Influenza Quadrivalent, 0.5m l, preservative free (Fluarix; FluLaval; Fluzone) ages 6mo and older (Afluria) 3yo and older 05/25/2023 [facility] [id number] completed Influenza Quadravalent, MDCK , 0.5ml, preservative free (Flucelvax) 6mo and older 06/17/2022 [facility] [id number] completed Influenza Quadrivalent, 0.5m l, preservative free (Fluarix; FluLaval; Fluzone) ages 6mo and older (Afluria) 3yo and older 05/17/2021 [id number] completed Influenza trivalent, with pr eservative (Fluzone; Afluria) 6mo and older 06/05/2015 [facility] [id number] completed Influenza trivalent, with pr eservative (Fluzone; Afluria) 6mo and older 07/24/2013 [facility] [id number] completed Influenza trivalent, with pr eservative (Fluzone; Afluria) 6mo and older 08/23/2012 [facility] [id number] completed PPD Test 07/09/2010 [facility] [id number] completed HPV, Quadrivalent 03/11/2007 [facility] complet ed Meningococcal MCV4P 03/11/2007 [facility] [id number] compl eted Tdap Tetanus diptheria acell ular pertussis (Boostrix; Adacel) 7yo and older 03/11/2007 [facility] [id number] completed HPV, Quadrivalent 11/08/2006 [facility] complet ed HPV, Quadrivalent 09/08/2006 [facility] complet ed Hepatitis B Pediatric (Enger ix B; Recombivax HB) to less than 20 yo 06/16/2001 [facility] completed Hepatitis B Pediatric (Enger ix B; Recombivax HB) to less than 20 yo 11/15/2000 [facility] completed Td Tetanus diptheria (Tdvax) 7yo and older 11/15/2000 [facility] completed Hepatitis B Pediatric (Enger ix B; Recombivax HB) to less than 20 yo 07/09/2000 [facility] completed MMR, measles mumps and rubel la Live (Priorix; M-M-R II) 12mo and older 12/21/1995 [facility] completed DTP 12/09/1993 [facility] completed OPV 12/09/1993 [facility] completed Varicella live (Varivax) 12mo and older 08/09/1991 [facility] completed EWyU-OPS-QBQ (Pentacel) 2mo to less than 5yo 04/29/1990 [facility] completed DTP 04/29/1990 [facility] completed Hib (HbOC) 04/29/1990 [facility] completed OPV 04/29/1990 [facility] completed MMR, measles mumps and rubel la Live (Priorix; M-M-R II) 12mo and older 01/26/1990 [facility] completed DTP 04/23/1989 [facility] completed DTP 02/19/1989 [facility] completed OPV 02/19/1989 [facility] completed DTP 1988 [facility] completed OPV 1988 [facility] completed Encounters Encounter Type Encounter Reason Primary Diagnosis Location Date Ambulatory Complete placenta previa nos or without hemorrhage, second trimester Complete placenta previa nos or without hemorrhage, second trimester [facility] 08/23/2024 Ambulatory [facility] 05/19/2024 Care Team Organization Name Specialty Phone Email Start Date End Da te [facility] 12/02/2024 [facility] 09/12/2024 [facility] 08/23/2024 Dipak [facility] 07/14/2022 03/27/2024 [facility] DIPAK ELLIS, Primary Care
--- OUTSIDE RECORDS SUMMARY | 2025-04-02 14:55 | XMS_ITS | Clinical Summary ---
Author Organization [facility] Address [address] [place] [address] Care Team Providers Care Mold Unloader Name Role Phone Unavailable Primary Care Provider [...] 112 07/25/2021 9:25 AM EST Temperature 36.4 C (97.6 F) 07/25/2021 9:25 AM EST Respiratory Rate 16 06/18/2021 9:37 AM EST [...] Cessation Counseling 07/27/2020 07/27/2019 Influenza Vaccine (#1) 2025 RSV Ped < 20 months Aged Out No longe r eligible based on patient's age to complete this topic Medical Devices Implanted Type Area Forensic Locksmith Device Identifier Shelf Expiration Date Model / Serial / Lot Shell Short Flarehawk 25mm Fh9 [id number] - [id number] Implanted:Qty: 1 on 06/17/2021 by Asa Guaman MD at [facility] Posterior: Spine Lumbar [employer] [id number] / / Cage Spinal Flarehawk 6 D L23 [facility] [id number] - [id number] Implanted:Qty: 1 on 06/17/2021 by Asa Guaman MD at [facility] Posterior: Spine Lumbar [employer] [id number] / / Bone Alrgft Canc Chip 1-8 15cc Stry-Obio [id number] - [id number] Implanted:Qty: 1 on 06/17/2021 by Asa Guaman MD at [facility] Posterior: Spine Lumbar [employer] 11/03/2025 [id number] / Erick Spnl Contr 5.5x45mm Stry-K2m [id number] - [id number] Implanted:Qty: 2 on 06/17/2021 by Asa Guaman MD at [facility] Posterior: Spine Lumbar [employer] [id number] / / Screw Set [place] Stry-K2m [id number] - [id number] Implanted:Qty: 4 on 06/17/2021 by Asa Guaman MD at [facility] Posterior: Spine Lumbar [employer] [id number] / / Screw Spnl Poly 6.5x45mm Stry-K2m [id number] - [id number] Implanted:Qty: 2 on 06/17/2021 by Asa Guaman MD at [facility] Posterior: Spine Lumbar [employer] [id number] / / Screw Spnl Poly 6.5x50mm Stry-K2m [id number] - [id number] Implanted:Qty: 2 on 06/17/2021 by Asa Guaman MD at [facility] Posterior: Spine Lumbar [employer] [id number] / / Explanted Type Area Forensic Locksmith Device Identifier Shelf Expiration Date Model / Serial / Lot Screw Schanz Disposable Ao 4mm nl-Manu [id number] - [id number] Explanted:Qty: 2 on 06/17/2021 by Asa Guaman MD at [facility] Right Posterior: Hip [employer] [id number] / / Advance Directives For more information, please contact: [phone] Latest Code Status on File Code Status Date Activated Date Inactivated Comments Full Code 06/17/2021 9:31 AM 06/18/2021 7:00 PM This code status was ascertained in the following way: discussion with patient .
--- OUTSIDE RECORDS SUMMARY | 2025-04-02 14:55 | XMS_ITS | Clinical Summary ---
Author Organization [facility] Address [address] [place] [address] Care Team Providers Care Test Borer Name Role Phone Juancarlos Tatiana Cruz APRN Primary Care Provider [phone] Allergies No known active allergies Medications diclofenac [...] - - Pulse - - Temperature 36.9 C (98.5 F) 04/18/2021 10:25 AM EDT Respiratory Rate - - Oxygen Saturation - [...] series) 10/20/2007 Pap Smear (Ages 21-65) 2009 HPV Vaccines (1 - 3-dose SCD M series) 10/20/2015 COVID-19 Vaccine ( - 2023-2 5 season) 2024 Influenza Vaccine 03/09/2025 05/11/2020 Pneumococcal Vaccine: Pediat giselle (0-5 Years) and At-Risk Patients (6 to 49 Years) Aged Out No longer eligible b ased on patient's age to complete this topic Insurance [facility] P[facility] Care Teams Test Borer Relationship Specialty Start Date End Date Tatiana Bauer, PRODUCTION HAND PCP - General Emergency Medicine 02/28/21
== END 2025-04-02 14:13 | disposition home or self-care (01) ==
LOC: HO.HMCFM 13:38
PROVIDERS: PCP Family Medicine; Visit Provider Nurse Practitioner Family
DX: R39.9 Unspecified symptoms and signs involving the genitourinary system (principal); M54.16 Radiculopathy, lumbar region; Z32.02 Encounter for pregnancy test, result negative

== ENCOUNTER 2025-06-15 12:56 | Outpatient (AMB) | payer OTHER, SELFPAY ==
--- NOTE | 2025-06-15 13:01 | MHC.PC.OV ---
Vital Signs 06/15/25 13:10 Height 5 ft 5 in Weight 182 lb 6 oz BMI 30.3 BP 116/72 Blood Pressure Location Rt brachial Position Sitting Respiration 12 Pulse 97 Pulse Source Pulse Oximeter Temp 98.4 F Temp Source Temporal Artery Scan Pulse Oximetry (%) 99 Oxygen Delivery Method Room Air Intake Visit Reasons: [facility] /[facility] hos Intake Note: Stacia presents in the office today for a Hospital Discharge Follow up. Emergency Surgery in [place]. Allergies No Known Allergies Allergy (Verified 06/15/25 13:05) Medication List - Last Reconciled 06/15/25 by Carlos Quick MD albuterol sulfate 90 mcg/actuation 2 puffs inhalation Q4-6H PRN 30 days budesonide 90 mcg/actuation (Pulmicort Flexhaler) 1 inh inhalation BID duloxetine 120 mg (2 x 60 mg) PO DAILY 90 days gabapentin 800 mg PO TID PRN hydromorphone (Dilaudid) 4 mg PO Q4-6H PRN lamotrigine (Lamictal) 25 mg PO DAILY metronidazole 0.75%(37.5mg/5gram) 1 appful vaginal DAILY 5 days oxycodone ER (OxyContin) 20 mg PO BID Tobacco use date assessed: 06/15/25 Dental Screening Dental Screen Date: 06/15/25 Did you have a dental visit in the last 12 months?: Yes Did you have a dental problem in the last 6 months where you did not have access to dental care?: No Was dental information given to patient?: Patient has dentist HPI [facility] /[facility] hos HPI Details Patient presents for follow-up from hospital discharge [facility] in [place]. Patient has a longstanding history of low back pain and history of spinal fusion. She notes that over the past few months her back pain has been worsening significantly. She had gone with family to [place] and had severe pain while on airplane. She says she was taken to the hospital by ambulance with inability to walk and changes in sensation and bladder control. Exam at hospital was consistent with lumbar radiculopathy. MRI showed abnormalities at L3-L4 and L5-S1 Neurology was consulted. Patient was brought to surgery for a Minimally invasive left L5-S1 transforaminal lumbar interbody fusion and revision surgery lumbar 4-5, with replacement of hardware at these levels. As patient does not live in [place], he was discharged with medication and advised to follow-up with her PCP to arrange for further care and treatment. Discharge paperwork shows she had been given hydromorphone 2 mg every 6-8 hours. Oxycodone ER 20 mg b.i.d. Patient is still has oxycodone and is in significant pain. Has complaints of numbness and weakness in legs. She is using walker. Patient also has history of anxiety and depression. She notes family history of bipolar disorder. She says she has had a psychiatrist in past but has not felt like they are helping lately. She is taking duloxetine 120 mg daily, lamotrigine 25 mg daily. [facility] Medical History (Updated 06/15/25 @ 13:21 by Carlos Quick MD) Sore throat History of frequent upper respiratory infection Recurrent streptococcal pharyngitis Surgical History (Updated 06/15/25 @ 13:20 by Carlos Quick MD) H/O section H/O spinal fusion Social History (Updated 06/15/25 @ 13:10 by Jocelyn Gates [facility]) Housing: House Alcohol intake: current Patient Tobacco Use Status: Former Tobacco user Cigarettes Per Day: 2 Years Smoked: 17 e-Cigarette/Vaping Use: Currently Using Second Hand Smoke Exposure: No Substance Use Type: Marijuana service: No Current occupational status: employed Cognitive needs: No Hearing needs: No Vision needs: No Questionnaire Thrive Questionnaire Date Thrive assessed: 09/21/24 I am a: Patient What is your living situation today?: I have a steady place to live Within the past 12 months, did the food you bought not last and you didn't have the money to get more?: Never true Within the past 12 months, did you worry whether your food would run out before you got money to buy more?: Never true Do you have trouble paying for medicines?: No Do you have trouble getting transportation to medical appointments?: No Do you have trouble paying your heating and electricity bill?: No Do you have trouble taking care of your child, family member or friend?: No Do you have trouble with day-to-day activities such as bathing, preparing meals, shopping, managing finances, etc.?: No Are you currently unemployed and looking for a job?: No Are you interested in more education?: No Please select the resources that you would like help with: None Currently or been in a relationship where the following occur: No concerns reported THRIVE Score: 0 SARAH-7 AMB Questionnaire SARAH-7 Date SARAH - 7 assessed: 08/14/22 Source: Developed by Drs. Adonya Asencio, Latesha Martel, Bairon Stanford and colleagues, with an educational elizabeth from [employer]. Review of Systems Const Denies chills, Denies fatigue, Denies fever(s), Denies headache(s) and Reports weakness ENT Denies dizziness and Denies headache(s) Card Denies dyspnea Resp Denies cough, Denies dyspnea, Denies wheezing and Denies other ( shortness of breath) Musc Reports numbness and Reports tingling Neuro Details: Using walker Denies dizziness, Denies headache(s), Reports numbness, Reports tingling, Reports paresthesias and Reports weakness Psych Denies anxiety and Denies depression Endo Denies fatigue Aller/Immun Denies wheezing Physical exam (Primary Care) Vital Signs: Last Vital Signs Temp 98.4 F 06/15/25 13:10 Pulse 97 06/15/25 13:10 Resp 12 06/15/25 13:10 BP 116/72 06/15/25 13:10 Pulse Ox 99 06/15/25 13:10 Oxygen Delivery Method Room Air 06/15/25 13:10 BMI result Body Mass Index 30.3 Tobacco/Smoking Status: Tobacco use Status Tobacco use date assessed 06/15/25 06/15/25 13:14 Patient Tobacco Use Status Former Tobacco user 06/15/25 13:10 e-Cigarette/Vaping Use Currently Using 06/15/25 13:10 Thrive Assessment: Date of Thrive Assessment Date Thrive assessed 09/21/24 06/15/25 13:04 Currently or been in a relationship where the following occur: No concerns reported Const General: no acute distress and well developed Nutritional Appearance: well nourished Orientation/consciousness: patient oriented x3 HENMT Head: Yes normocephalic and Yes atraumatic Eyes General: appearance normal, both eyes and all related structures Pupils: Equal, round and reactive pupils present EOM: EOMs intact bilaterally Resp Effort & Inspection: normal respiratory effort Back/Spine/Pelvis Other: Pain at low back and radiating to buttocks and legs. Skin Other: Stitches in place. No evidence of infection. Neuro Other: Lower extremity weakness and unsteady gait. Using walker. General: patient oriented x3 and No gait normal Cranial nerves: Yes Equal, round and reactive pupils present Psych Affect: normal affect Coding Level of Care Code Est Pt Level 5 (99273) Diagnoses Fusion of spine of lumbosacral region M43.27 Anxiety with depression F41.8 Back pain M54.9 Lumbar radiculopathy M54.16 Assessment & Plan Assessment & Plan (1) Fusion of spine of lumbosacral region: Code(s): M43.27 - Fusion of spine, lumbosacral region Category: Medical Plan: 34-year-old female with history of back pain and L4-5 spinal fusion as well as history of mood disorder and opioid dependence/withdrawal who presented to the emergency department with left lower extremity weakness and change in bladder function. Previously, patient was being seen by Prior PCP in [place]: Monica Kurtz at [facility]. Patient says she has had longstanding back pain. She says that she had a pain contract with this PCP. She says she has not had much physical therapy or consistent treatment by Neurosurgery. Patient says that it has not worked into her schedule will and she was not following up well apparently. She says by this point she already had decreased sensation and feeling of legs Her 1st surgery was an emergency surgery in 2017 Had gone to ED x 4 after back flips and says had steroids x 3 then on 4th return to the ED she was admitted and had a lumbar disectomy 2017. She had been referred to a neurosurgeon by 2020. 2nd surgery Jun [address] [place]a [place] Per pt f/u was cumbersome - may not have followed through. Patient had complaints of worsening back pain over the past several months. This was acutely exacerbated while flying to [place] in May. She was brought to [facility] in [place]. Per hospital notes, her symptoms were consistent with lumbar radiculopathy though she did have some decreased effort/cooperation noted. MRI showed: L5-S1 central/left paracentral inferior migrated extrusion, partially effacing left lateral recess and impinging descending S1 nerve root. Moderate to severe left foraminal stenosis at this level as well L3-4 bulging annulus and annular fissure with severe left foraminal stenosis and moderate right stenosis. 06/08/2025 Patient underwent: Minimally invasive left L5-S1 transforaminal lumbar interbody fusion and revision surgery lumbar 4-5, with replacement of hardware at these levels. Patient was discharged with hydromorphone 2 mg to 6-8 hours and oxycodone ER 20 mg q.12 hours. Currently on oxycodone ER 20 mg twice a day which is 60 morphine mg equivalents. Will change to oxycodone ER 10 mg twice a day with oxycodone IR 5 mg q.8 hours for a total of 52.5MMEs Meloxicam 15 mg daily Continue duloxetine and gabapentin Will refer her to neuro spine to consult for additional care. Will refer her to pain management We discussed goals including walking without a walker and being able to work. We discussed goal of weaning off of all opiate medications. Patient understands and agrees to these goals. Dr Mota, Psychiatry. Patient does not feel that she is getting any help from her psychiatrist. She is tearful and frustrated in the office today. She would like an urgent referral to Psychiatry. Will refer to [facility] outpatient psychiatric consult team (2) Anxiety with depression: Code(s): F41.8 - Other specified anxiety disorders Category: Medical (3) Back pain: Code(s): M54.9 - Dorsalgia, unspecified Category: Medical (4) Lumbar radiculopathy: Code(s): M54.16 - Radiculopathy, lumbar region Category: Medical Plan 34-year-old female with history of back pain and L4-5 spinal fusion as well as history of mood disorder and opioid dependence/withdrawal who presented to the emergency department with left lower extremity weakness and change in bladder function. Previously, patient was being seen by Prior PCP in [place]: Monica Kurtz at [facility]. Patient says she has had longstanding back pain. She says that she had a pain contract with this PCP. She says she has not had much physical therapy or consistent treatment by Neurosurgery. Patient says that it has not worked into her schedule will and she was not following up well apparently. She says by this point she already had decreased sensation and feeling of legs Her 1st surgery was an emergency surgery in 2017 Had gone to ED x 4 after back flips and says had steroids x 3 then on return to the ED she was admitted and had a lumbar disectomy 2016. She had been referred to a neurosurgeon by 2020. 2nd surgery Jun [address] [place] Per pt f/u was cumbersome - may not have followed through. Patient had complaints of worsening back pain over the past several months. This was acutely exacerbated while flying to [place] in May. She was brought to [facility] in [place]. Per hospital notes, her symptoms were consistent with lumbar radiculopathy though she did have some decreased effort/cooperation noted. MRI showed: L5-S1 central/left paracentral inferior migrated extrusion, partially effacing left lateral recess and impinging descending S1 nerve root. Moderate to severe left foraminal stenosis at this level as well L3-4 bulging annulus and annular fissure with severe left foraminal stenosis and moderate right stenosis. 06/08/2025 Patient underwent: Minimally invasive left L5-S1 transforaminal lumbar interbody fusion and revision surgery lumbar 4-5, with replacement of hardware at these levels. Patient was discharged with hydromorphone 2 mg to 6-8 hours and oxycodone ER 20 mg q.12 hours. Currently on oxycodone ER 20 mg twice a day which is 60 morphine mg equivalents. Will change to oxycodone ER 10 mg twice a day with oxycodone IR 5 mg q.8 hours for a total of 52.5MMEs Meloxicam 15 mg daily Continue duloxetine and gabapentin Will refer her to neuro spine to consult for additional care. Will refer her to pain management We discussed goals including walking without a walker and being able to work. We discussed goal of weaning off of all opiate medications. Patient understands and agrees to these goals. She will come back in about 7-10 days to have stitches removed and follow-up on pain control. Will check urine drug screen and pill count. Patient was advised to bring her pills with her. Prior psychiatrist: Dr Mota. Patient does not feel that she is getting any help from her psychiatrist. She is tearful and frustrated in the office today. She would like an urgent referral to Psychiatry. Will refer to [facility] outpatient psychiatric consult team Orders: Referrals Psychiatry Outpatient Consultation Service F41.8 - Other specified anxiety disorders Neurosurgery Referral M43.27 - Fusion of spine, lumbosacral region, M54.16 - Radiculopathy, lumbar region Pain Management Referral M54.16 - Radiculopathy, lumbar region Medications: New oxycodone ER [employer] Verified. Partial Fill upon patient request. 10 mg PO Q12H 60 tabs 0RF 30 days oxycodone-acetaminophen 5-325 mg (Percocet) Partial Fill upon patient request. 1 tab PO Q8H PRN 90 tabs 0RF pain 30 days meloxicam 15 mg PO DAILY 30 tabs 2RF 30 days
[2025-06-15 13:10] VITALS: BP 116/72; PULSE 97; RESP 12; TEMP 36.9; O2SAT 99; BMI 30.3
--- OUTSIDE RECORDS SUMMARY | 2025-06-15 15:08 | XMS_ITS | Clinical Summary ---
Author Organization [facility] Address [address] [place] [address] Care Team Providers Care System Planning Engineer Name Role Phone Unavailable Primary Care [...] this topic Medical Devices Implanted Type Area Journeyman Millwright Device Identifier Shelf Expiration Date Model / Serial / Lot Shell Short Flarehawk 25mm Fh9 [id number] - [id number] Implanted:Qty: 1 on 06/17/2021 by Asa Guaman MD at [facility] Posterior: Spine Lumbar [employer] [id number] / / Cage Spinal Flarehawk 6 D L23 [facility] [id number] - [id number] Implanted:Qty: 1 on 06/17/2021 by Asa Guaman MD at [facility] and [facility] Posterior: Spine Lumbar [employer] [id number] / / Bone Alrgft Canc Chip 1-8 15cc Stry-Obio [id number] - [id number] Implanted:Qty: 1 on 06/17/2021 by Asa Guaman MD at [facility] and [facility] Posterior: Spine Lumbar [employer] 11/03/2025 [id number] / [id number] / Erick Spnl Contr 5.5x45mm Stry-K2m [id number] - [id number] Implanted:Qty: 2 on 06/17/2021 by Asa Guaman MD at [facility] and [facility] Posterior: Spine Lumbar [employer] [id number] / / Screw Set Chacon Stry-K2m [id number] - [id number] Implanted:Qty: 4 on 06/17/2021 by Asa Guaman MD at [facility] and [facility] Posterior: Spine Lumbar [employer] [id number] / / Screw Spnl Poly 6.5x45mm Stry-K2m [id number] - [id number] Implanted:Qty: 2 on 06/17/2021 by Asa Guaman MD at [facility] and [facility] Posterior: Spine Lumbar [employer] [id number] / / Screw Spnl Poly 6.5x50mm Stry-K2m [id number] - [id number] Implanted:Qty: 2 on 06/17/2021 by Asa Guaman MD at [facility] and [facility] Posterior: Spine Lumbar [employer] [id number] / / Explanted Type Area Journeyman Millwright Device Identifier Shelf Expiration Date Model / Serial / Lot Screw Schanz Disposable Ao 4mm nl-Manu [id number] - [id number] Explanted:Qty: 2 on 06/17/2021 by Asa Guaman MD at [facility] [place] Posterior: Hip [id number] / / Advance Directives For more information, please contact: [phone] Latest Code Status on File Code Status Date Activated Date Inactivated Comments Full Code 06/17/2021 9:31 AM 06/18/2021 7:00 PM This code status was ascertained in the following way: discussion with patient .
--- OUTSIDE RECORDS SUMMARY | 2025-06-15 15:08 | XMS_ITS | Clinical Summary ---
Author Organization [facility] Address [address] [place] [address] Care Team Providers Care Marine Diesel Technician Name Role Phone Juancarlos Tatiana Cruz APRN Primary Care Provider [phone] Allergies No known active allergies Medications diclofenac [...] Pap Smear (Ages 21-65) 2009 Influenza Vaccine 03/09/2025 05/11/2020 COVID-19 Vaccine (1 - 2023-2 5 season) 2025 HPV Vaccines (No Doses Required) Completed Pneumococcal Vaccine: Pediat giselle (0-5 Years) and At-Risk Patients (6 to 49 Years) Aged Out No longer eligible b ased on patient's age to complete this topic Insurance [facility] - PPO Care Teams Marine Diesel Technician Relationship Specialty Start Date End Date Tatiana Bauer APRN PCP - General Emergency Medicine 02/28/21
--- OUTSIDE RECORDS SUMMARY | 2025-06-15 15:08 | XMS_ITS | Data Portability ---
Author Organization [place] [facility], Allergy Address [address] [address] Care Team Providers Care Eligibility Clerk Name Role Phone KIMBERLITARIQEMMYANGUS Primary Care Provider Assessment Encounter Date Assessment Date Assessment LastModified by Organization Details LastModified Time 05/31/2024 05/31/2024 Patient with recurrent sinus and pharyngeal infections which were persisted before she had a septorhinoplasty in [place] in December. Over the summer she was well. Recent trip to [facility] and increased congestion. Examination shows no polyps or colored nasal discharge. She is now 7 weeks so we cannot perform any radiographs and try to avoid antibiotics. At the present time I do not see any need for any antibiotics have suggested saline irrigations twice daily with distilled water. We will check an immune panel. She will discuss with the proof machine operator whether she can utilize budesonide nasal spray. [email or web address] Not available 05/31/2024 15:52:05 Plan of Treatment Reminders Order Date Submit Date Provider Last Modified By Organization Details Last Modified Time Details Appointments None recorded. Lab haemophilus influenzae B IgG Ab, quantitativ e, serum, immunoassay 2023 MAGNUS [facility] (Centralized Electronic Ordering - All Locations), Patient Can Go To The Location Of Their Choice, [address] 11:45:58 unlisted lab - pneumococca l Ab (23 serotype) 2023 MAGNUS [facility] (Centralized Electronic Ordering - All Locations), Patient Can Go To The Location Of Their Choice, [address] 11:45:58 unlisted lab - tetanus toxoid Ag response* 2023 gilmar s32 [facility] (Centralized Electronic Ordering - All Locations), Patient Can Go To The Location Of Their Choice, [address] 12:24:19 CBC w/ auto diff 2023 MAGNUS [facility] (Centralized Electronic Ordering - All Locations), Patient Can Go To The Location Of Their Choice, 11:45:57 ige, total, serum 2023 HENLEY [facility] (Centralized Electronic Ordering - All Locations), Patient Can Go To The Location Of Their Choice, 11:45:59 immunoglobu sujatha iga+igg+igm , quantitativ e, serum 2023 HENLEY [facility] (Centralized Electronic Ordering - All Locations), Patient Can Go To The Location Of Their Choice, 11:45:58 Referral None recorded. Procedures None recorded. [...] /uL 3.4-10 .8 normal Not Available [facility] ([facility]) [address] [place], [address], 06/07/2024 11:45:57 05/31/2006/01/2024 CBC WITH DIFFE RENTI AL/PL ATELE T RBC 4.29 x10e6 /uL 3.77-5 .28 normal Not Available [facility] ([facility]) [address] [facility], [place], [address], 06/07/2024 11:45:57 05/31/2006/01/2024 CBC WITH DIFFE RENTI AL/PL ATELE T hemoglobin 13.0 g/dL 11.1-1 5.9 normal Not Available [facility] ([facility]) [address] [place], [address], 06/07/2024 11:45:57 05/31/2006/01/2024 CBC WITH DIFFE RENTI AL/PL ATELE T hematocrit 39.3 % 34.0-4 6.6 normal Not Available [facility] ([facility]) [address] [facility], [place], [address], 06/07/2024 11:45:57 05/31/2006/01/2024 CBC WITH DIFFE RENTI AL/PL ATELE T MCV 92 fL 79-97 normal Not Available [facility] ([facility]) [address] [facility], [place], [address], 06/07/2024 11:45:57 05/31/2006/01/2024 CBC WITH DIFFE RENTI AL/PL ATELE T MCH 30.3 pg 26.6-3 3.0 normal Not Available [facility] ([facility]) [address] [place], [address], 06/07/2024 11:45:57 05/31/2006/01/2024 CBC WITH DIFFE RENTI AL/PL ATELE T MCHC 33.1 g/dL 31.5-3 5.7 normal Not Available [facility] ([facility]) [address] [place], [address], 06/07/2024 11:45:57 05/31/2006/01/2024 CBC WITH DIFFE RENTI AL/PL ATELE T RDW 12.8 % 11.7-1 5.4 Not Available [facility] ([facility]) [address] [place], [address], 06/07/2024 11:45:57 05/31/2006/01/2024 CBC WITH DIFFE RENTI AL/PL ATELE T platelets 354 x10e3 /uL 150-45 0 normal Not Available [facility] ([facility]) [address] [facility], [place], [address], 06/07/2024 11:45:57 05/31/2006/01/2024 CBC WITH DIFFE RENTI AL/PL ATELE T neutrophils 57 % not estab. normal Not Available [facility] ([facility]) [address] [facility], [place], [address], 06/07/2024 11:45:57 05/31/2006/01/2024 CBC WITH DIFFE RENTI AL/PL ATELE T lymphs 29 % not estab. normal Not Available [facility] ([facility]) [address] [facility], [place], [address], 06/07/2024 11:45:57 05/31/2006/01/2024 CBC WITH DIFFE RENTI AL/PL ATELE T monocytes 9 % not estab. normal Not Available [facility] ([facility]) [address] [facility], [place], [address], 06/07/2024 11:45:57 05/31/2006/01/2024 CBC WITH DIFFE RENTI AL/PL ATELE T eos 5 % not estab. normal Not Available [facility] ([facility]) [address] [facility], [place], [address], 06/07/2024 11:45:57 05/31/2006/01/2024 CBC WITH DIFFE RENTI AL/PL ATELE T basos 0 % not estab. normal Not Available [facility] ([facility]) [address] [facility], [place], [address], 06/07/2024 11:45:57 05/31/2006/01/2024 CBC WITH DIFFE RENTI AL/PL ATELE T immature cells ROAD TRAIN DRIVER Not Available [facility] ([facility]) [address] [facility], [place], [address], 06/07/2024 11:45:57 05/31/2006/01/2024 CBC WITH DIFFE RENTI AL/PL ATELE T neutrophils (absolute) 5.6 x10e3 /uL 1.4-7. 0 normal Not Available [facility] ([facility]) [address] [place], [address], 06/07/2024 11:45:57 05/31/2006/01/2024 CBC WITH DIFFE RENTI AL/PL ATELE T lymphs (absolute) 2.9 x10e3 /uL 0.7-3. 1 normal Not Available [facility] ([facility]) [address] [place], [address], 06/07/2024 11:45:57 05/31/2006/01/2024 CBC WITH DIFFE RENTI AL/PL ATELE T monocytes(ab solute) 0.9 x10e3 /uL 0.1-0. 9 normal Not Available [facility] ([facility]) [address] [facility], [place], [address], 06/07/2024 11:45:57 05/31/2006/01/2024 CBC WITH DIFFE RENTI AL/PL ATELE T eos (absolute) 0.5 x10e3 /uL 0.0-0. 4 above high normal Not Available [facility] ([facility]) [address] [place], [address], 06/07/2024 11:45:57 05/31/2006/01/2024 CBC WITH DIFFE RENTI AL/PL ATELE T baso (absolute) 0.0 x10e3 /uL 0.0-0. 2 normal Not Available [facility] ([facility]) [address] [place], [address], 06/07/2024 11:45:57 05/31/2006/01/2024 CBC WITH DIFFE RENTI AL/PL ATELE T immature granulocytes 0 % not estab. Not Available [facility] ([facility]) [address] [facility], [place], [address], 06/07/2024 11:45:57 05/31/2006/01/2024 CBC WITH DIFFE RENTI AL/PL ATELE T immature grans (abs) 0.0 x10e3 /uL 0.0-0. 1 Not Available [facility] ([facility]) [address] [facility], [place], [address], 06/07/2024 11:45:57 05/31/2006/01/2024 CBC WITH DIFFE RENTI AL/PL ATELE T NRBC ROAD TRAIN DRIVER Not Available [facility] ([facility]) [address] [facility], [place], [address], 06/07/2024 11:45:57 05/31/2006/01/2024 CBC WITH DIFFE RENTI AL/PL ATELE T hematology comments: ROAD TRAIN DRIVER Not Available [facility] ([facility]) [address] [facility], [place], [address], 06/07/2024 11:45:57 05/31/2006/07/2024 PNEUM OCOCC AL AB (23 SEROT YPE) pneumo Ab type 1* <0.1 ug/mL >1.3 below low normal Not Available [facility] [address] [place], [address], 06/07/2024 11:45:58 05/31/2006/07/2024 PNEUM OCOCC AL AB (23 SEROT YPE) pneumo Ab type 3* <0.1 ug/mL >1.3 below low normal Not Available [facility] [address] [place], [address], 06/07/2024 11:45:58 05/31/2006/07/2024 PNEUM OCOCC AL AB (23 SEROT YPE) pneumo Ab type 4* <0.1 ug/mL >1.3 below low normal Not Available [facility] [address] [place], [address], 06/07/2024 11:45:58 05/31/2006/07/2024 PNEUM OCOCC AL AB (23 SEROT YPE) pneumo Ab type 8* <0.3 ug/mL >1.3 below low normal Not Available [facility] [address] [place], [address], 06/07/2024 11:45:58 05/31/2006/07/2024 PNEUM OCOCC AL AB (23 SEROT YPE) pneumo Ab type 9 (9N)* <0.1 ug/mL >1.3 below low normal Not Available [facility] [address] [place], [address], 06/07/2024 11:45:58 05/31/2006/07/2024 PNEUM OCOCC AL AB (23 SEROT YPE) pneumo Ab type 12 (12F)* <0.1 ug/mL >1.3 below low normal Not Available [facility] [address] [place], [address], 06/07/2024 11:45:58 05/31/2006/07/2024 PNEUM OCOCC AL AB (23 SEROT YPE) pneumo Ab type 14* 7.4 ug/mL >1.3 Not Available [facility] [address] [place], [address], 06/07/2024 11:45:58 05/31/2006/07/2024 PNEUM OCOCC AL AB (23 SEROT YPE) pneumo Ab type 17 (17F)* <0.1 ug/mL >1.3 below low normal Not Available [facility] [address] [place], [address], 06/07/2024 11:45:58 05/31/2006/07/2024 PNEUM OCOCC AL AB (23 SEROT YPE) pneumo Ab type 19 (19F)* 0.4 ug/mL >1.3 below low normal Not Available [facility] [address] [place], [address], 06/07/2024 11:45:58 05/31/2006/07/2024 PNEUM OCOCC AL AB (23 SEROT YPE) pneumo Ab type 2* <0.2 ug/mL >1.3 below low normal Not Available [facility] [address] [place], [address], 06/07/2024 11:45:58 05/31/2006/07/2024 PNEUM OCOCC AL AB (23 SEROT YPE) pneumo Ab type 20* <0.2 ug/mL >1.3 below low normal Not Available [facility] [place] [place], [address], 06/07/2024 11:45:58 05/31/2006/07/2024 PNEUM OCOCC AL AB (23 SEROT YPE) pneumo Ab type 22 (22F)* <0.1 ug/mL >1.3 below low normal Not Available [facility] [address] [place], [address], 06/07/2024 11:45:58 05/31/2006/07/2024 PNEUM OCOCC AL AB (23 SEROT YPE) pneumo Ab type 23 (23F)* 0.8 ug/mL >1.3 below low normal Not Available [facility] [address] [place], [address], 06/07/2024 11:45:58 05/31/20 24 06/07/2024 PNEUM OCOCC AL AB (23 SEROT YPE) pneumo Ab type 26 (6B)* <0.1 ug/mL >1.3 below low normal Not Available [facility] [address] [place], [address], 06/07/2024 11:45:58 05/31/2006/07/2024 PNEUM OCOCC AL AB (23 SEROT YPE) pneumo Ab type 34 (10A)* 0.1 ug/mL >1.3 below low normal Not Available [facility] [address] [place], [address], 06/07/2024 11:45:58 05/31/2006/07/2024 PNEUM OCOCC AL AB (23 SEROT YPE) pneumo Ab type 43 (11A)* 0.2 ug/mL >1.3 below low normal Not Available [facility] [address] [place], [address], 06/07/2024 11:45:58 05/31/2006/07/2024 PNEUM OCOCC AL AB (23 SEROT YPE) pneumo Ab type 5* <0.1 ug/mL >1.3 below low normal Not Available [facility] [address] [place], [address], 06/07/2024 11:45:58 05/31/2006/07/2024 PNEUM OCOCC AL AB (23 SEROT YPE) pneumo Ab type 51 (7F)* <0.1 ug/mL >1.3 below low normal Not Available [facility] [address] [place], [address], 06/07/2024 11:45:58 05/31/2006/07/2024 PNEUM OCOCC AL AB (23 SEROT YPE) pneumo Ab type 54 (15B)* 11.1 ug/mL >1.3 Not Available [facility] [address] [place], [address], 06/07/2024 11:45:58 05/31/2006/07/2024 PNEUM OCOCC AL AB (23 SEROT YPE) pneumo Ab type 56 (18C)* <0.1 ug/mL >1.3 below low normal Not Available [facility] [address] [place], [address], 06/07/2024 11:45:58 05/31/2006/07/2024 PNEUM OCOCC AL AB (23 SEROT YPE) pneumo Ab type 57 (19A)* 0.2 ug/mL >1.3 below low normal Not Available [facility] [address] [place], [address], 06/07/2024 11:45:58 05/31/2006/07/2024 PNEUM OCOCC AL AB (23 SEROT YPE) pneumo Ab type 68 (9V)* <0.1 ug/mL >1.3 below low normal Not Available [facility] [address] [place], [address], 06/07/2024 11:45:58 05/31/2006/07/2024 PNEUM OCOCC AL AB [...] Laboratories [address] [place], [address], 06/07/2024 11:45:58 05/31/2006/01/2024 IMMUN OGLOB ULINS A/G/M , QN, SER immunoglobul in g, qn, serum 803 mg/dL 586-16 02 Not Available [facility] ([facility]) [address] [facility], [place], [address], 06/07/2024 11:45:58 05/31/2006/01/2024 IMMUN OGLOB ULINS A/G/M , QN, SER immunoglobul in A, qn, serum 160 mg/dL 87-352 normal Not Available [facility] ([facility]) [address] [facility], [place], [address], 06/07/2024 11:45:58 05/31/2006/01/2024 IMMUN OGLOB ULINS A/G/M , QN, SER immunoglobul in M, qn, serum 234 mg/dL 26-217 above high normal Not Available [facility] ([facility]) [address] [facility], [place], [address], 06/07/2024 11:45:58 05/31/2006/01/2024 HAEMO PHILU S INFLU ENZAE B IGG haemophilus influenzae B IgG <0.15 ug/mL NOTE: An anti- Hib level of 0.15 ug/mL is gener ally accep sachi as the minim um level for prote ction . Optim al prote ction post- vacci natio n requi res a level great er than 1.00 ug/mL . Not Available [facility] ([facility]) [address] [facility], [place], [address], 06/07/2024 11:45:58 05/31/2006/06/2024 IMMUN OGLOB ULIN E, TOTAL immunoglobul in E, total 66 IU/mL 6-495 Not Available [facility]) [address] [facility], [place], [address], 06/07/2024 11:45:59 05/31/2006/07/2024 TETAN US TOXOI D AG RESPO NSE* tetanus toxoid Ag response* COMMEN T %_X_1 00 Test Not Perfo rmed. The reque sted test was omitt tarik aguilar the repair order clerk proce ss and the speci men is no longe r avail able for testi ng. [facility] will conta ct your patie nt to sched ule a time for recol lecti on. Shoul d we be unabl e to make conta ct with your patie nt, your offic e will be notif ied. Not Available [facility] [address] [place], [address], 06/07/2024 14:13:14 05/31/20 24 06/07/[address] PROBL EM request problem COMMEN T Test Not Perfo rmed. The reque sted test was omitt tarik aguilar the repair order clerk proce ss and the speci men is no longe r avail able for testi ng. [facility] will conta ct your patie nt to sched ule a time for recol lecti on. Shoul d we be unabl e to make conta ct with your patie nt, your offic e will be notif ied. TEST: 01903 9 Tetan us Toxoi d Ag respo nse* Not Available [facility] ([facility]) [address] [facility], [place], [address], 06/07/2024 14:13:16 06/08/20 24 06/14/2024 TETAN US TOXOI D AG RESPO NSE* tetanus toxoid Ag response* COMMEN T %_x_1 00 Test not perfo rmed Test Not Perfo rmed; Speci men recei christy >30 hours due to late nuvia ing couri michael castillo. Notif ied clien t via email . VANDE RSON 2023 FLAG Inter preta tion: A = Abnor mal, H = High, L = Low Not Available [facility] [address] [place], [address], 06/14/2024 14:25:50 Result Notes None recorded. Problems Name Problem SNOMED Code Status Onset Date Resolution Date Notes Provider Name and Address Organization Details Recorded Time Chronic rhinitis 21749308 Active 2023 HA SCHAEFFER MD [address] [place] [address], [phone], [facility] - [facility] 15:50:02 Chronic sinusitis 46540903 Active 2023 HA SCHAEFFER MD [address] [facility] [address], [place], [address], [facility] - [facility] 15:50:34 Immunodeficien cy disorder 685275961 Active 2023 HA SCHAEFFER MD [address] [facility] [address], [place], [address], [facility] - [facility] 12:51:35 Problem Notes None recorded. Procedures Surgical History Date Name Laterality Status Provider Name and Address Organization Details Recorded Time lumbar spinal fusion completed Love valera [place] - [facility] 05/31/2024 15:35:22 Breast reduction completed Love Dillard [facility] 05/31/2024 15:35:28 rhinoseptoplasty completed Love Dillard [facility] 05/31/2024 15:35:38 Imaging Results None recorded. Procedure [...] Details Last Updated DateTime 05/31/2024 167.64 cm 70997.26 g Love Dillard [place] - [facility] 05/31/2024 15:32:53 Social History None recorded. Functional Status None recorded. Mental Status None recorded. Family History Nothing Reported. Medical History Condition Response Arthritis Y Anxiety Y Depression Y Gynecological HistoryNo gynecological history recorded. Obstetrics History GPAL:G 0 P 0 0 0 0 Past Encounters Encounter ID Performer Location Encounter Start Date Encounter Closed Date Diagnosis/Indication Diagnosis SNOMED-CT Code Diagnosis ICD10 Code Diagnosis IMO Codes Diagnosis Note [id number] HA RODRIGUEZ MD [facility] [address] [place] [address] 05/31/2024 14:49:47 05/31/2024 15:55:16 Chronic rhinitis 37342818 J31.0 09035299 Z33.1 Chronic sinusitis 262957 00 J32.9 Health Concerns Section Related Observation LastModified by Organization Detai ls LastModified Time None Recorded Concern Status LastModified by Organization Details LastModified Time None Recorded Advance Directives Directive None Recorded Payers Insurance Date Sequence Insurance Name Policy Number Policy Billy Covered Member ID Billy Member ID Guarantor Name 05/31/2024 1 [employer] Stacia Botellocotte [id number] Stacia Elton 05/31/2024 1 [facility] - HEALTH NET PLAN (MEDICAID HMO) [id number] Stacia Elton [id number] Stacia Elton Notes Date Note Type Note Provider Name and Address Organization Details Recorded Time 05/31/2024 text/html Hx of septorhinoplasty in [place] December 08, 2023. Sinus infections monthly before the SRP in [place]. Had been treated with multiple abx. Hx of strep around the time of surgery. [facility] Now [facility] weeks . Seeing OBHaving morning sickness HA BRYANT MD [address] [place] [address], [place], [address], [facility] - [facility] 05/31/2024 15:54:09 OBGyn Episode No OBEpisode recorded.
== END 2025-06-15 14:21 | disposition home or self-care (01) ==
LOC: HO.HMCFM 12:57
PROVIDERS: PCP Family Medicine; Visit Provider Family Medicine
DX: M43.27 Fusion of spine, lumbosacral region (principal); M54.16 Radiculopathy, lumbar region; F41.8 Other specified anxiety disorders; M54.9 Dorsalgia, unspecified

== ENCOUNTER → 2025-06-15 12:56 | Outpatient (BNVA) | payer OTHER, SELFPAY | PROVIDERS: PCP Family Medicine; Visit Provider Family Medicine | DX: M43.27 Fusion of spine, lumbosacral region (principal); M54.16 Radiculopathy, lumbar region; M54.9 Dorsalgia, unspecified; F41.8 Other specified anxiety disorders | CPT/HCPCS: 99212 ==

== ENCOUNTER 2025-06-20 08:57 | Outpatient (REF) | payer OTHER, SELFPAY ==
--- NOTE | ~2025-06-20 | XR_ITS ---
EXAMINATION: XR LUMBOSACRAL SPINE 4 VIEW CLINICAL INFORMATION: M54.16 - Radiculopathy, lumbar region COMPARISON: Previous x-ray September 2022 TECHNIQUE: AP, lateral and flexion and extension views FINDINGS: There is postsurgical change with posterior fusion hardware and bilateral transpedicular screws at L4, L5 and S1 and disc interspace appears at the L4-5 and L5-S1 levels. Postsurgical changes at L5-S1 are new in the interval from 2022. There is mild anterior subluxation of L5 4 with respect to L5 measuring 5 mm. This is similar to prior exam and similar on flexion and extension views. There is 6 mm anterior subluxation of L3 with respect to L4. This is new or increased from previous exam. This is similar on flexion and extension views. Bone alignment is otherwise normal. No fracture or dislocation. Disc spaces otherwise normal. XR/XR lumbar spine 4V min IMPRESSION: Postsurgical changes from L4 to S1. Mild 5 mm anterior subluxation of L4 with respect to L5 similar to September 2022 exam. This is stable on flexion and extension views. New or increased 6 mm anterior subluxation of L3 with respect to L4 that is stable on flexion and extension views. Electronically signed by: Mana Nair MD 06/20/2025 04:23 PM [facility]
== END 2025-06-20 08:58 | disposition home or self-care (01) ==
LOC: HO.HOSX 08:57
PROVIDERS: Visit Provider Physician Assistant
DX: Z47.89 Encounter for other orthopedic aftercare (principal); M54.16 Radiculopathy, lumbar region; Z98.1 Arthrodesis status
CPT/HCPCS: 72110; 99202

== ENCOUNTER 2025-06-20 14:50 | Outpatient (AMB) | payer OTHER, SELFPAY ==
--- NOTE | 2025-06-20 14:57 | HO.SPINEOV ---
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 She was down in [place] visiting her brother however lives in [place] and her PCP is part of [facility]. Dr. Quick asked if we can see her for postoperative care as she cannot travel back down to [place] for postop visits. Based on her hospital documents that she brought it in sounds like she presented to [facility] [place] with severe left leg pain and a 2/5 left footdrop. She was found to have a large disc herniation at L5-S1. She also reported an episode of urinary incontinence 2 days prior to presenting to the ED. They ended up doing a same day TLIF and extended her new fusion up to the previous fusion she had back in 2020 at L4-5 to treat her disc herniation. She reports that since her surgery she has had equal to if not worse left-sided leg pain and continued numbness down the posterior aspect of her left leg. She is very frustrated with this and feels that she still has significant nerve compression in her lumbar spine. When describing her pain she states it starts in her low back shoots into her left posterior buttocks and shoots all the way down the backside of her left leg terminating at the bottom of her foot. She expressed extreme dissatisfaction with the surgical team in [place] and asked several questions regarding the standard of care for potential malpractice lawsuit. I answered all of these questions to the best of my ability. Imaging: X-ray imaging completed at outside hospital (patient brought disc) shows stable fusion construct L4-S1. We also obtained x-ray imaging today in our clinic, which shows stable placement of surgical construct compared to x-ray images she brought into the office today. I also reviewed her preoperative MRI imaging with my attending neurosurgeon Dr. Castellanos. This shows her old surgical construct in a left-sided paracentral disc herniation at L5-S1 causing severe left-sided lateral recess stenosis. Exam: The patient has about 2/5 strength with right dorsiflexion, 3/5 strength with left dorsiflexion, 2/5 strength with right plantar flexion, and about 4/5 strength elsewhere in the lower extremities bilaterally. Her upper extremity strength is 5/5. She ambulates slightly hunched over utilizing a walker for support. She has hypoesthesia in the S1 dermatome of the left lower extremity. No other significant sensational deficits during examination. (-) Shankar's, (-) clonus, (-) bilateral straight leg raise. Her posterior incision sites are closed and well healing, approximated with subcutaneous absorbable sutures. Plan: 34-year-old female comes in today to establish care with our practice after having emergency surgery in [place] on 06/07/2025. Given that her disc herniation was below her previous fusion construct, this disc herniation therefore has higher risk of recurrence and the standard of care can be to treat these with lumbar fusion. I believe her previous surgical team did follow the standard of care to the best of their ability based on reviewing her imaging and their operative notes and documents. Dr. Quick has sent in narcotic pain control medication for her. I will defer to her PCP to handle pain management. We will continue to follow her as she heals from her surgery and see her again for a wound check in 6 weeks with another set of X-rays. In the interim I would like to order a lumbar MRI with and without contrast to evaluate for continued left-sided nerve impingement at L5-S1 given her continued left leg pain and numbness. The total time spent with this visit with this patient was 50 minutes reviewing history, physical exam, MRI / XR imaging review, and implementation of treatment plan or further diagnostic testing Carl Castellanos MD,PhD [facility] Orders: Orders MR lumbar spine wo/w con Today M54.16 - Radiculopathy, lumbar region XR lumbar spine 4V min Today M54.16 - Radiculopathy, lumbar region, Z98.1 - Arthrodesis status Medications: Discontinued oxycodone ER [employer] Verified. Partial Fill upon patient request. Discontinued Reason: Doctor's Order 10 mg PO Q12H 30 days 60 tabs 0RF Coding Level of Care Code New Pt Level 4 (47057) Diagnoses Lumbar radiculopathy M54.16
--- OUTSIDE RECORDS SUMMARY | 2025-06-20 18:14 | XMS_ITS | Clinical Summary ---
Author Organization Formerly [facility] Address [address] [place] [address] Care Team Providers Care Pulp Plant Supervisor Name Role Phone Juancarlos Tatiana Cruz APRN Primary Care Provider [phone] Allergies No known active allergies Medications diclofenac [...] patient's age to complete this topic Insurance [facility] - PPO Care Teams Pulp Plant Supervisor Relationship Specialty Start Date End Date Tatiana Bauer APRN PCP - General Emergency Medicine 02/28/21
--- OUTSIDE RECORDS SUMMARY | 2025-06-20 18:14 | XMS_ITS | Data Portability ---
Author Organization [place] [facility], Allergy Address [address] [address] Care Team Providers Care Data Management Analyst Name Role Phone KIMBERLITARIQEMMYANGUS Primary Care Provider Assessment Encounter Date Assessment Date Assessment LastModified by Organization Details LastModified Time 05/31/2024 05/31/2024 Patient with recurrent sinus and pharyngeal infections which were persisted before she had a septorhinoplasty in [place] in December. Over the summer she was well. Recent trip to [facility] and increased congestion. Examination shows no polyps or colored nasal discharge. She is now 7 weeks so we cannot perform any radiographs and try to avoid antibiotics. At the present time I do not see any need for any antibiotics have suggested saline irrigations twice daily with distilled water. We will check an immune panel. She will discuss with the fulling mill operator whether she can utilize budesonide nasal spray. [email or web address] Not available 05/31/2024 15:52:05 Plan of Treatment Reminders Order Date Submit Date Provider Last Modified By Organization Details Last Modified Time Details Appointments None recorded. Lab haemophilus influenzae B IgG Ab, quantitativ e, serum, immunoassay 2023 MAGNUS [facility] (Centralized Electronic Ordering - All Locations), Patient Can Go To The Location Of Their Choice, [address] 11:45:58 unlisted lab - pneumococca l Ab (23 serotype) 2023 MAGNUS [facility] (Centralized Electronic Ordering - All Locations), Patient Can Go To The Location Of Their Choice, [address] 11:45:58 unlisted lab - tetanus toxoid Ag response* 2023 gilmar s32 [facility] (Centralized Electronic Ordering - All Locations), Patient Can Go To The Location Of Their Choice, [address] 12:24:19 CBC w/ auto diff 2023 MAGNUS [facility] (Centralized Electronic Ordering - All Locations), Patient Can Go To The Location Of Their Choice, 11:45:57 ige, total, serum 2023 [place] [facility] (Centralized Electronic Ordering - All Locations), Patient Can Go To The Location Of Their Choice, 11:45:59 immunoglobu sujatha iga+igg+igm , quantitativ e, serum 2023 [place] [facility] (Centralized Electronic Ordering - All Locations), [...] /uL 3.4-10 .8 normal Not Available [facility] ([facility]) [address] [place], [address], 06/07/2024 11:45:57 05/31/2006/01/2024 CBC WITH DIFFE RENTI AL/PL ATELE T RBC 4.29 x10e6 /uL 3.77-5 .28 normal Not Available [facility] ([facility]) [address] [facility], [place], [address], 06/07/2024 11:45:57 05/31/2006/01/2024 CBC WITH DIFFE RENTI AL/PL ATELE T hemoglobin 13.0 g/dL 11.1-1 5.9 normal Not Available [facility] ([facility]) [address] [place], [address], 06/07/2024 11:45:57 05/31/2006/01/2024 CBC WITH DIFFE RENTI AL/PL ATELE T hematocrit 39.3 % 34.0-4 6.6 normal Not Available [facility] ([facility]) [address] [facility], [place], [address], 06/07/2024 11:45:57 05/31/2006/01/2024 CBC WITH DIFFE RENTI AL/PL ATELE T MCV 92 fL 79-97 normal Not Available [facility] ([facility]) [address] [facility], [place], [address], 06/07/2024 11:45:57 05/31/2006/01/2024 CBC WITH DIFFE RENTI AL/PL ATELE T MCH 30.3 pg 26.6-3 3.0 normal Not Available [facility] ([facility]) [address] [place], [address], 06/07/2024 11:45:57 05/31/2006/01/2024 CBC WITH DIFFE RENTI AL/PL ATELE T MCHC 33.1 g/dL 31.5-3 5.7 normal Not Available [facility] ([facility]) [address] [place], [address], 06/07/2024 11:45:57 05/31/2006/01/2024 CBC WITH DIFFE RENTI AL/PL ATELE T RDW 12.8 % 11.7-1 5.4 Not Available [facility] ([facility]) [address] [place], [address], 06/07/2024 11:45:57 05/31/2006/01/2024 CBC WITH DIFFE RENTI AL/PL ATELE T platelets 354 x10e3 /uL 150-45 0 normal Not Available [facility] ([facility]) [address] [facility], [place], [address], 06/07/2024 11:45:57 05/31/2006/01/2024 CBC WITH DIFFE RENTI AL/PL ATELE T neutrophils 57 % not estab. normal Not Available [facility] ([facility]) [address] [facility], [place], [address], 06/07/2024 11:45:57 05/31/2006/01/2024 CBC WITH DIFFE RENTI AL/PL ATELE T lymphs 29 % not estab. normal Not Available [facility] ([facility]) [address] [facility], [place], [address], 06/07/2024 11:45:57 05/31/2006/01/2024 CBC WITH DIFFE RENTI AL/PL ATELE T monocytes 9 % not estab. normal Not Available [facility] ([facility]) [address] [facility], [place], [address], 06/07/2024 11:45:57 05/31/2006/01/2024 CBC WITH DIFFE RENTI AL/PL ATELE T eos 5 % not estab. normal Not Available [facility] ([facility]) [address] [facility], [place], [address], 06/07/2024 11:45:57 05/31/2006/01/2024 CBC WITH DIFFE RENTI AL/PL ATELE T basos 0 % not estab. normal Not Available [facility] ([facility]) [address] [facility], [place], [address], 06/07/2024 11:45:57 05/31/2006/01/2024 CBC WITH DIFFE RENTI AL/PL ATELE T immature cells AIRCRAFT CAPTAIN Not Available [facility] ([facility]) [address] [facility], [place], [address], 06/07/2024 11:45:57 05/31/2006/01/2024 CBC WITH DIFFE RENTI AL/PL ATELE T neutrophils (absolute) 5.6 x10e3 /uL 1.4-7. 0 normal Not Available [facility] ([facility]) [address] [place], [address], 06/07/2024 11:45:57 05/31/2006/01/2024 CBC WITH DIFFE RENTI AL/PL ATELE T lymphs (absolute) 2.9 x10e3 /uL 0.7-3. 1 normal Not Available [facility] ([facility]) [address] [place], [address], 06/07/2024 11:45:57 05/31/2006/01/2024 CBC WITH DIFFE RENTI AL/PL ATELE T monocytes(ab solute) 0.9 x10e3 /uL 0.1-0. 9 normal Not Available [facility] ([facility]) [address] [facility], [place], [address], 06/07/2024 11:45:57 05/31/2006/01/2024 CBC WITH DIFFE RENTI AL/PL ATELE T eos (absolute) 0.5 x10e3 /uL 0.0-0. 4 above high normal Not Available [facility] ([facility]) [address] [place], [address], 06/07/2024 11:45:57 05/31/2006/01/2024 CBC WITH DIFFE RENTI AL/PL ATELE T baso (absolute) 0.0 x10e3 /uL 0.0-0. 2 normal Not Available [facility] ([facility]) [address] [place], [address], 06/07/2024 11:45:57 05/31/2006/01/2024 CBC WITH DIFFE RENTI AL/PL ATELE T immature granulocytes 0 % not estab. Not Available [facility] ([facility]) [address] [facility], [place], [address], 06/07/2024 11:45:57 05/31/2006/01/2024 CBC WITH DIFFE RENTI AL/PL ATELE T immature grans (abs) 0.0 x10e3 /uL 0.0-0. 1 Not Available [facility] ([facility]) [address] [facility], [place], [address], 06/07/2024 11:45:57 05/31/2006/01/2024 CBC WITH DIFFE RENTI AL/PL ATELE T NRBC AIRCRAFT CAPTAIN Not Available [facility] ([facility]) [address] [facility], [place], [address], 06/07/2024 11:45:57 05/31/2006/01/2024 CBC WITH DIFFE RENTI AL/PL ATELE T hematology comments: AIRCRAFT CAPTAIN Not Available [facility] ([facility]) [address] [facility], [place], [address], 06/07/2024 11:45:57 05/31/2006/07/2024 PNEUM OCOCC AL AB (23 SEROT YPE) pneumo Ab type 1* <0.1 ug/mL >1.3 below low normal Not Available [facility] [address] [place], [address], 06/07/2024 11:45:58 05/31/2006/07/2024 PNEUM OCOCC AL AB (23 SEROT YPE) pneumo Ab type 3* <0.1 ug/mL >1.3 below low normal Not Available [facility] [address] [place], [address], 06/07/2024 11:45:58 05/31/2006/07/2024 PNEUM OCOCC AL AB (23 SEROT YPE) pneumo Ab type 4* <0.1 ug/mL >1.3 below low normal Not Available [facility] [address] [place], [address], 06/07/2024 11:45:58 05/31/2006/07/2024 PNEUM OCOCC AL AB (23 SEROT YPE) pneumo Ab type 8* <0.3 ug/mL >1.3 below low normal Not Available [facility] [address] [place], [address], 06/07/2024 11:45:58 05/31/2006/07/2024 PNEUM OCOCC AL AB (23 SEROT YPE) pneumo Ab type 9 (9N)* <0.1 ug/mL >1.3 below low normal Not Available [facility] [address] [place], [address], 06/07/2024 11:45:58 05/31/2006/07/2024 PNEUM OCOCC AL AB (23 SEROT YPE) pneumo Ab type 12 (12F)* <0.1 ug/mL >1.3 below low normal Not Available [facility] [address] [place], [address], 06/07/2024 11:45:58 05/31/2006/07/2024 PNEUM OCOCC AL AB (23 SEROT YPE) pneumo Ab type 14* 7.4 ug/mL >1.3 Not Available [facility] [address] [place], [address], 06/07/2024 11:45:58 05/31/2006/07/2024 PNEUM OCOCC AL AB (23 SEROT YPE) pneumo Ab type 17 (17F)* <0.1 ug/mL >1.3 below low normal Not Available [facility] [address] [place], [address], 06/07/2024 11:45:58 05/31/2006/07/2024 PNEUM OCOCC AL AB (23 SEROT YPE) pneumo Ab type 19 (19F)* 0.4 ug/mL >1.3 below low normal Not Available [facility] [address] [place], [address], 06/07/2024 11:45:58 05/31/2006/07/2024 PNEUM OCOCC AL AB (23 SEROT YPE) pneumo Ab type 2* <0.2 ug/mL >1.3 below low normal Not Available [facility] [address] [place], [address], 06/07/2024 11:45:58 05/31/2006/07/2024 PNEUM OCOCC AL AB (23 SEROT YPE) pneumo Ab type 20* <0.2 ug/mL >1.3 below low normal Not Available [facility] [place], [address], 06/07/2024 11:45:58 05/31/2006/07/2024 PNEUM OCOCC AL AB (23 SEROT YPE) pneumo Ab type 22 (22F)* <0.1 ug/mL >1.3 below low normal Not Available [facility] [address] [place], [address], 06/07/2024 11:45:58 05/31/2006/07/2024 PNEUM OCOCC AL AB (23 SEROT YPE) pneumo Ab type 23 (23F)* 0.8 ug/mL >1.3 below low normal Not Available [facility] [address] [place], [address], 06/07/2024 11:45:58 05/31/20 24 06/07/2024 PNEUM OCOCC AL AB (23 SEROT YPE) pneumo Ab type 26 (6B)* <0.1 ug/mL >1.3 below low normal Not Available [facility] [address] [place], [address], 06/07/2024 11:45:58 05/31/2006/07/2024 PNEUM OCOCC AL AB (23 SEROT YPE) pneumo Ab type 34 (10A)* 0.1 ug/mL >1.3 below low normal Not Available [facility] [address] [place], [address], 06/07/2024 11:45:58 05/31/2006/07/2024 PNEUM OCOCC AL AB (23 SEROT YPE) pneumo Ab type 43 (11A)* 0.2 ug/mL >1.3 below low normal Not Available [facility] [address] [place], [address], 06/07/2024 11:45:58 05/31/2006/07/2024 PNEUM OCOCC AL AB (23 SEROT YPE) pneumo Ab type 5* <0.1 ug/mL >1.3 below low normal Not Available [facility] [address] [place], [address], 06/07/2024 11:45:58 05/31/2006/07/2024 PNEUM OCOCC AL AB (23 SEROT YPE) pneumo Ab type 51 (7F)* <0.1 ug/mL >1.3 below low normal Not Available [facility] [address] [place], [address], 06/07/2024 11:45:58 05/31/2006/07/2024 PNEUM OCOCC AL AB (23 SEROT YPE) pneumo Ab type 54 (15B)* 11.1 ug/mL >1.3 Not Available [facility] [address] [place], [address], 06/07/2024 11:45:58 05/31/2006/07/2024 PNEUM OCOCC AL AB (23 SEROT YPE) pneumo Ab type 56 (18C)* <0.1 ug/mL >1.3 below low normal Not Available [facility] [address] [place], [address], 06/07/2024 11:45:58 05/31/2006/07/2024 PNEUM OCOCC AL AB (23 SEROT YPE) pneumo Ab type 57 (19A)* 0.2 ug/mL >1.3 below low normal Not Available [facility] [address] [place], [address], 06/07/2024 11:45:58 05/31/2006/07/2024 PNEUM OCOCC AL AB (23 SEROT YPE) pneumo Ab type 68 (9V)* <0.1 ug/mL >1.3 below low normal Not Available [facility] [address] [place], [address], 06/07/2024 11:45:58 05/31/2006/07/2024 PNEUM OCOCC AL AB (23 SEROT YPE) pneumo Ab type 70 (33F)* 0.1 ug/mL >1.3 below low normal *This test was devel oped and its perfo rmanc e marina cteri stics deter mined by [employer] [facility]. It has not been clear ed or appro hcristy by the U.S. Food and Drug Admin istra tion. FLAG Inter preta tion: A = Abnor mal, H = High, L = Low Not Available [facility] [address] [place], [address], 06/07/2024 11:45:58 05/31/2006/01/2024 IMMUN OGLOB ULINS A/G/M , QN, SER immunoglobul in g, qn, serum 803 mg/dL 586-16 02 Not Available [facility] ([facility]) [address] [facility], [place], [address], 06/07/2024 11:45:58 05/31/2006/01/2024 IMMUN OGLOB ULINS A/G/M , QN, SER immunoglobul in A, qn, serum 160 mg/dL 87-352 normal Not Available [facility] ([facility]) [address] [facility], [place], [address], 06/07/2024 11:45:58 05/31/2006/01/2024 IMMUN OGLOB ULINS A/G/M , QN, SER immunoglobul in M, qn, serum 234 mg/dL 26-217 above high normal Not Available [facility] ([facility]) [address] [facility], [place], [address], 06/07/2024 11:45:58 05/31/2006/01/2024 HAEMO PHILU S INFLU ENZAE B IGG haemophilus influenzae B IgG <0.15 ug/mL NOTE: An anti- Hib level of 0.15 ug/mL is gener ally accep sachi as the minim um level for prote ction . Optim al prote ction post- vacci natio n requi res a level great er than 1.00 ug/mL . Not Available [facility] ([facility]) [address] [facility], [place], [address], 06/07/2024 11:45:58 05/31/2006/06/2024 IMMUN OGLOB ULIN E, TOTAL immunoglobul in E, total 66 IU/mL 6-495 Not Available [facility] ([facility]) [address] [facility], [place], [address], 06/07/2024 11:45:59 05/31/2006/07/2024 TETAN US TOXOI D AG RESPO NSE* tetanus toxoid Ag response* COMMEN T %_X_1 00 Test Not Perfo rmed. The reque sted test was omitt tarik aguilar the work order detailer proce ss and the speci men is no longe r avail able for testi ng. [facility] will conta ct your patie nt to sched ule a time for recol lecti on. Shoul d we be unabl e to make conta ct with your patie nt, your offic e will be notif ied. Not Available [facility] [address] [place], [address], 06/07/2024 14:13:14 05/31/20 24 06/07/[address] PROBL EM request problem COMMEN T Test Not Perfo rmed. The reque sted test was omitt tarik aguilar the work order detailer proce ss and the speci men is no longe r avail able for testi ng. [facility] will conta ct your patie nt to sched ule a time for recol lecti on. Shoul d we be unabl e to make conta ct with your patie nt, your offic e will be notif ied. TEST: [id number] 9 Tetan us Toxoi d Ag respo nse* Not Available [facility] ([facility]) [address] [facility], [place], [address], 06/07/2024 14:13:16 06/08/20 24 06/14/2024 TETAN US [...] Laboratories [address] [place], [address], 06/14/2024 14:25:50 Result Notes None recorded. Problems Name Problem SNOMED Code Status Onset Date Resolution Date Notes Provider Name and Address Organization Details Recorded Time Chronic rhinitis 93653281 Active 2023 HA SCHAEFFER MD [address] [place] [address], [address], [facility] 15:50:02 Chronic sinusitis 19928892 Active 2023 HA SCHAEFFER MD [address] [facility] [address], [place], [address], [facility] - [facility] 15:50:34 Immunodeficien cy disorder 749654232 Active 2023 HA SCHAEFFER MD [address] [facility] [address], [place], [address], [facility] [place] 12:51:35 Problem Notes None recorded. Procedures Surgical History Date Name Laterality Status Provider Name and Address Organization Details Recorded Time lumbar spinal fusion completed Love valera [place] - [facility] 05/31/2024 15:35:22 Breast reduction completed Love Dillard [facility] 05/31/2024 15:35:28 rhinoseptoplasty completed Love Dillard [facility] 05/31/2024 15:35:38 Imaging Results None recorded. [...] Details Last Updated DateTime 05/31/2024 167.64 cm 85915.26 g Love Dillard [place] - [facility] 05/31/2024 15:32:53 Social History None recorded. [...] ICD10 Code Diagnosis IMO Codes Diagnosis Note [id number] HA RODRIGUEZ MD [facility] [address] [place] [address] 05/31/2024 14:49:47 05/31/2024 15:55:16 Chronic rhinitis 82100387 J31.0 05902830 Z33.1 Chronic sinusitis 075229 00 J32.9 Health Concerns Section Related Observation LastModified by Organization Detai ls LastModified Time None Recorded Concern Status LastModified by Organization Details LastModified Time None Recorded Advance Directives Directive None Recorded Payers Insurance Date Sequence Insurance Name Policy Number Policy Billy Covered Member ID Billy Member ID Guarantor Name 05/31/2024 1 [employer] Stacia Botellocotte [id number] Stacia Elton 05/31/2024 1 [facility] NET PLAN (MEDICAID HMO) [id number] Stacia Elton [id number] Stacia Elton Notes Date Note Type Note Provider Name and Address Organization Details Recorded Time 05/31/2024 text/html Hx of septorhinoplasty in [place] December 08, 2023. Sinus infections monthly before the SRP in [place]. Had been treated with multiple abx. Hx of strep around the time of surgery. [facility] [place] [facility] [facility] Now 7 weeks . Seeing OBHaving morning sickness HA BRYANT MD [address] [place] [address], [place], [address], [facility] - [facility] 05/31/2024 15:54:09 OBGyn Episode No OBEpisode recorded.
--- OUTSIDE RECORDS SUMMARY | 2025-06-20 18:14 | XMS_ITS | Clinical Summary ---
Author Organization [facility] Address [address] [place] [address] Care Team Providers Care Catering Sous Chef Name Role Phone Unavailable Primary Care Provider [...] this topic Medical Devices Implanted Type Area Oreman Device Identifier Shelf Expiration Date Model / Serial / Lot Shell Short Flarehawk 25mm Fh9 [id number] - [id number] Implanted:Qty: 1 on 06/17/2021 by Asa Guaman MD at [facility] Posterior: Spine Lumbar [employer] [id number] / / Cage Spinal Flarehawk 6 D L23 [facility] [id number] - [id number] Implanted:Qty: 1 on 06/17/2021 by Asa Guaman MD at [facility] and [facility] Posterior: Spine Lumbar INTEGR[employer] IMPLANT[employer] [id number] / / Bone Alrgft Canc Chip 1-8 15cc Stry-Obio [id number] - [id number] Implanted:Qty: 1 on 06/17/2021 by Asa Guaman MD at [facility] and [facility] Posterior: Spine Lumbar [employer] 11/03/2025 [id number] / [id number] / Erick Spnl Contr 5.5x45mm Stry-K2m [id number] - [id number] Implanted:Qty: 2 on 06/17/2021 by Asa Guaman MD at [facility] Posterior: Spine Lumbar VIN [employer] [id number] / / Screw Set [place] Stry-K2m [id number] - [id number] Implanted:Qty: 4 on 06/17/2021 by Asa Guaman MD at [facility] Posterior: Spine Lumbar VIN [employer]INE [id number] / / Screw Spnl Poly 6.5x45mm Stry-K2m [id number] - [id number] Implanted:Qty: 2 on 06/17/2021 by Asa Guaman MD at [facility] Posterior: Spine Lumbar V[employer] [id number] / / Screw Spnl Poly 6.5x50mm Stry-K2m [id number] - [id number] Implanted:Qty: 2 on 06/17/2021 by Asa Guaman MD at [facility] Posterior: Spine Lumbar VIN SPINE [id number] / / Explanted Type Area Oreman Device Identifier Shelf Expiration Date Model / Serial / Lot Screw Schanz Disposable Ao 4mm nl-Manu [id number] - [id number] Explanted:Qty: 2 on 06/17/2021 by Asa Guaman MD at [facility] [place] Right Posterior: Hip [id number] / / Advance Directives For more information, please contact: [phone] Latest Code Status on File Code Status Date Activated Date Inactivated Comments Full Code 06/17/2021 9:31 AM 06/18/2021 7:00 PM This code status was ascertained in the following way: discussion with patient .
== END 2025-06-20 16:02 | disposition home or self-care (01) ==
LOC: HO.HNS 14:51
PROVIDERS: PCP Family Medicine; Referring Provider Family Medicine; Visit Provider Physician Assistant
DX: M54.16 Radiculopathy, lumbar region (principal)
CPT/HCPCS: 99204

== ENCOUNTER → 2025-06-20 14:57 | Outpatient (BNV) | payer OTHER, SELFPAY | PROVIDERS: Visit Provider Radiology Diagnostic Radiology | DX: M54.16 Radiculopathy, lumbar region (principal) | CPT/HCPCS: 72110 ==

== ENCOUNTER 2025-06-27 10:51 | Outpatient (AMB) | payer OTHER, SELFPAY ==
--- NOTE | 2025-06-27 11:14 | MHC.PC.OV ---
Vital Signs 06/27/25 11:18 Height 5 ft 5 in Weight 177 lb 9 oz BMI 29.5 BP 130/80 Blood Pressure Location Rt brachial Position Sitting Respiration 14 Pulse 95 Pulse Source Pulse Oximeter Temp 97.9 F Temp Source Oral Pulse Oximetry (%) 100 Oxygen Delivery Method Room Air Intake Visit Reasons: 10 day follow up Intake Note: follow up Pneumatic Jack Operator Required: No Allergies No Known Allergies Allergy (Verified 06/27/25 11:16) Tobacco use date assessed: 06/15/25 Dental Screening Dental Screen Date: 06/15/25 HPI 10 day follow up HPI Details 34 y/o female presents to f/u chronic condition, pain control. S/p fusion of spine of lumbosacral region. She has been following up with neurospine. MRI scheduled tomorrow. She describes ongoing significant pain. Has been using meloxicam, oxycodone. Pt had not been able to receive long acting opiate as insurance had declined these. [facility] Medical History (Updated 06/22/25 @ 17:02 by Carlos Quick MD) Sore throat History of frequent upper respiratory infection Recurrent streptococcal pharyngitis Surgical History (Updated 06/15/25 @ 13:20 by Carlos Quick MD) H/O section H/O spinal fusion Social History (Updated 06/15/25 @ 13:10 by Jocelyn Gates CMA) Housing: House Alcohol intake: current Patient Tobacco Use Status: Former Tobacco user Cigarettes Per Day: 2 Years Smoked: 17 e-Cigarette/Vaping Use: Currently Using Second Hand Smoke Exposure: No Substance Use Type: Marijuana service: No Current occupational status: employed Cognitive needs: No Hearing needs: No Vision needs: No Questionnaire Thrive Questionnaire Date Thrive assessed: 09/21/24 I am a: Patient What is your living situation today?: I have a steady place to live Within the past 12 months, did the food you bought not last and you didn't have the money to get more?: Never true Within the past 12 months, did you worry whether your food would run out before you got money to buy more?: Never true Do you have trouble paying for medicines?: No Do you have trouble getting transportation to medical appointments?: No Do you have trouble paying your heating and electricity bill?: No Do you have trouble taking care of your child, family member or friend?: No Do you have trouble with day-to-day activities such as bathing, preparing meals, shopping, managing finances, etc.?: No Are you currently unemployed and looking for a job?: No Are you interested in more education?: No Please select the resources that you would like help with: None Currently or been in a relationship where the following occur: No concerns reported THRIVE Score: 0 SARAH-7 AMB Questionnaire SARAH-7 Date SARAH - 7 assessed: 08/14/22 Source: Developed by Drs. Adonay Asencio, Latesha Martel, Bairon Stanford and colleagues, with an educational elizabeth from [employer]. Review of Systems Const Denies chills, Denies fatigue, Denies fever(s), Denies headache(s) and Denies weakness ENT Denies dizziness and Denies headache(s) Card Denies dyspnea Resp Denies cough, Denies dyspnea, Denies wheezing and Denies other (shortness of breath) Musc Reports back pain, Denies numbness and Denies tingling Neuro Denies dizziness, Denies headache(s), Denies numbness, Denies tingling and Denies weakness Psych Denies anxiety and Denies depression Endo Denies fatigue Aller/Immun Denies wheezing Physical exam (Primary Care) Vital Signs: Last Vital Signs Temp 97.9 F 06/27/25 11:18 Pulse 95 06/27/25 11:18 Resp 14 06/27/25 11:18 BP 130/80 06/27/25 11:18 Pulse Ox 100 06/27/25 11:18 Oxygen Delivery Method Room Air 06/27/25 11:18 BMI result Body Mass Index 29.5 Tobacco/Smoking Status: Tobacco use Status Tobacco use date assessed 06/15/25 06/27/25 11:17 Patient Tobacco Use Status Former Tobacco user 06/27/25 11:17 e-Cigarette/Vaping Use Currently Using 06/27/25 11:17 Thrive Assessment: Date of Thrive Assessment Date Thrive assessed 09/21/24 06/27/25 11:17 Currently or been in a relationship where the following occur: No concerns reported Const General: well developed; No acute distress Nutritional Appearance: well nourished Orientation/consciousness: patient oriented x3 HENMT Head: Yes normocephalic and Yes atraumatic Eyes General: appearance normal, both eyes and all related structures Pupils: Equal, round and reactive pupils present EOM: EOMs intact bilaterally Resp Effort & Inspection: normal respiratory effort Neuro General: patient oriented x3 and gait normal Cranial nerves: Yes Equal, round and reactive pupils present Psych Affect: normal affect Coding Level of Care Code Est Pt Level 4 (37695) Diagnoses Fusion of spine of lumbosacral region M43.27 Lumbar radiculopathy M54.16 Back pain M54.9 Assessment & Plan Assessment & Plan (1) Fusion of spine of lumbosacral region: Code(s): M43.27 - Fusion of spine, lumbosacral region Category: Medical (2) Lumbar radiculopathy: Code(s): M54.16 - Radiculopathy, lumbar region Category: Medical (3) Back pain: Code(s): M54.9 - Dorsalgia, unspecified Category: Medical Plan Patient has complaints of ongoing severe low back pain MRI scheduled for tomorrow. She was seen by neuro spine and has follow-up. I had also referred her to pain management she has an appointment in about 2 weeks. Had provided scripts for: - Oxycodone ER 10 mg twice a day with oxycodone IR 5 mg q.8 hours for a total of 52.5MMEs -Meloxicam 15 mg daily - And Continue duloxetine and gabapentin Patient was unable to receive long-acting opiate. Had tried several other medications and insurance declined these as well. Patient had requested Dilaudid however this is not a long-acting opioid medication. Working on prior authorization today for a long-acting medication. Will Send today after PA or will provide additional pain control with additional short term medication for a short period of time and follow up. Medications: New hydromorphone (Dilaudid) MassPat Verified. Partial Fill upon patient request. 2 mg PO BID 3 days PRN 6 tabs 0RF pain M54.16 - Radiculopathy, lumbar region
[2025-06-27 11:18] VITALS: BP 130/80; PULSE 95; RESP 14; TEMP 36.6; O2SAT 100; BMI 29.5
--- OUTSIDE RECORDS SUMMARY | 2025-06-27 21:26 | XMS_ITS | Data Portability ---
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 Over the summer she was well. Recent trip to [facility] and increased congestion. Examination shows no polyps or colored nasal discharge. She is now 7 weeks so we cannot perform any radiographs and try to avoid antibiotics. At the present time I do not see any need for any antibiotics have suggested saline irrigations twice daily with distilled water. We will check an immune panel. She will discuss with the bench loom weaver whether she can utilize budesonide nasal spray. [email or web address] Not available 05/31/2024 15:52:05 Plan of Treatment Reminders Order Date Submit Date Provider Last Modified By Organization Details Last Modified Time Details Appointments None recorded. Lab haemophilus influenzae B IgG Ab, quantitativ e, serum, immunoassay 2023 MAGNUS [facility] (Centralized Electronic Ordering - All Locations), Patient Can Go To The Location Of Their Choice, [address] 11:45:58 unlisted lab - pneumococca l Ab (23 serotype) 2023 MAGNUS [facility] (Centralized Electronic Ordering - All Locations), Patient Can Go To The Location Of Their Choice, [address] 11:45:58 unlisted lab - tetanus toxoid Ag response* 2023 gilmar s32 [facility] (Centralized Electronic Ordering - All Locations), Patient Can Go To The Location Of Their Choice, [address] 12:24:19 CBC w/ auto diff 2023 MAGNUS [facility] (Centralized Electronic Ordering - All Locations), Patient Can Go To The Location Of Their Choice, 11:45:57 ige, total, serum 2023 BREMO BLUFF [facility] (Centralized Electronic Ordering - All Locations), Patient Can Go To The Location Of Their Choice, 11:45:59 immunoglobu sujatha iga+igg+igm , quantitativ e, serum 2023 BREMO BLUFF [facility] (Centralized Electronic Ordering - All Locations), [...] /uL 3.4-10 .8 normal Not Available [facility] ([facility]) [address] [place], [address], 06/07/2024 11:45:57 05/31/2006/01/2024 CBC WITH DIFFE RENTI AL/PL ATELE T RBC 4.29 x10e6 /uL 3.77-5 .28 normal Not Available [facility] ([facility]) [address] [facility], [place], [address], 06/07/2024 11:45:57 05/31/2006/01/2024 CBC WITH DIFFE RENTI AL/PL ATELE T hemoglobin 13.0 g/dL 11.1-1 5.9 normal Not Available [facility] ([facility]) [address] [place], [address], 06/07/2024 11:45:57 05/31/2006/01/2024 CBC WITH DIFFE RENTI AL/PL ATELE T hematocrit 39.3 % 34.0-4 6.6 normal Not Available [facility] ([facility]) [address] [facility], [place], [address], 06/07/2024 11:45:57 05/31/2006/01/2024 CBC WITH DIFFE RENTI AL/PL ATELE T MCV 92 fL 79-97 normal Not Available [facility] ([facility]) [address] [facility], [place], [address], 06/07/2024 11:45:57 05/31/2006/01/2024 CBC WITH DIFFE RENTI AL/PL ATELE T MCH 30.3 pg 26.6-3 3.0 normal Not Available [facility] ([facility]) [address] [place], [address], 06/07/2024 11:45:57 05/31/2006/01/2024 CBC WITH DIFFE RENTI AL/PL ATELE T MCHC 33.1 g/dL 31.5-3 5.7 normal Not Available [facility] ([facility]) [address] [place], [address], 06/07/2024 11:45:57 05/31/2006/01/2024 CBC WITH DIFFE RENTI AL/PL ATELE T RDW 12.8 % 11.7-1 5.4 Not Available [facility] ([facility]) [address] [place], [address], 06/07/2024 11:45:57 05/31/2006/01/2024 CBC WITH DIFFE RENTI AL/PL ATELE T platelets 354 x10e3 /uL 150-45 0 normal Not Available [facility] ([facility]) [address] [facility], [place], [address], 06/07/2024 11:45:57 05/31/2006/01/2024 CBC WITH DIFFE RENTI AL/PL ATELE T neutrophils 57 % not estab. normal Not Available [facility] ([facility]) [address] [facility], [place], [address], 06/07/2024 11:45:57 05/31/2006/01/2024 CBC WITH DIFFE RENTI AL/PL ATELE T lymphs 29 % not estab. normal Not Available [facility] ([facility]) [address] [facility], [place], [address], 06/07/2024 11:45:57 05/31/2006/01/2024 CBC WITH DIFFE RENTI AL/PL ATELE T monocytes 9 % not estab. normal Not Available [facility] ([facility]) [address] [facility], [place], [address], 06/07/2024 11:45:57 05/31/2006/01/2024 CBC WITH DIFFE RENTI AL/PL ATELE T eos 5 % not estab. normal Not Available [facility] ([facility]) [address] [facility], [place], [address], 06/07/2024 11:45:57 05/31/2006/01/2024 CBC WITH DIFFE RENTI AL/PL ATELE T basos 0 % not estab. normal Not Available [facility] ([facility]) [address] [facility], [place], [address], 06/07/2024 11:45:57 05/31/2006/01/2024 CBC WITH DIFFE RENTI AL/PL ATELE T immature cells CONVEYOR BELT REPAIRER Not Available [facility] ([facility]) [address] [facility], [place], [address], 06/07/2024 11:45:57 05/31/2006/01/2024 CBC WITH DIFFE RENTI AL/PL ATELE T neutrophils (absolute) 5.6 x10e3 /uL 1.4-7. 0 normal Not Available [facility] ([facility]) [address] [place], [address], 06/07/2024 11:45:57 05/31/2006/01/2024 CBC WITH DIFFE RENTI AL/PL ATELE T lymphs (absolute) 2.9 x10e3 /uL 0.7-3. 1 normal Not Available [facility] ([facility]) [address] [place], [address], 06/07/2024 11:45:57 05/31/2006/01/2024 CBC WITH DIFFE RENTI AL/PL ATELE T monocytes(ab solute) 0.9 x10e3 /uL 0.1-0. 9 normal Not Available [facility] ([facility]) [address] [facility], [place], [address], 06/07/2024 11:45:57 05/31/2006/01/2024 CBC WITH DIFFE RENTI AL/PL ATELE T eos (absolute) 0.5 x10e3 /uL 0.0-0. 4 above high normal Not Available [facility] ([facility]) [address] [place], [address], 06/07/2024 11:45:57 05/31/2006/01/2024 CBC WITH DIFFE RENTI AL/PL ATELE T baso (absolute) 0.0 x10e3 /uL 0.0-0. 2 normal Not Available [facility] ([facility]) [address] [place], [address], 06/07/2024 11:45:57 05/31/2006/01/2024 CBC WITH DIFFE RENTI AL/PL ATELE T immature granulocytes 0 % not estab. Not Available [facility] ([facility]) [address] [facility], [place], [address], 06/07/2024 11:45:57 05/31/2006/01/2024 CBC WITH DIFFE RENTI AL/PL ATELE T immature grans (abs) 0.0 x10e3 /uL 0.0-0. 1 Not Available [facility] ([facility]) [address] [facility], [place], [address], 06/07/2024 11:45:57 05/31/2006/01/2024 CBC WITH DIFFE RENTI AL/PL ATELE T NRBC CONVEYOR BELT REPAIRER Not Available [facility] ([facility]) [address] [facility], [place], [address], 06/07/2024 11:45:57 05/31/2006/01/2024 CBC WITH DIFFE RENTI AL/PL ATELE T hematology comments: CONVEYOR BELT REPAIRER Not Available [facility] ([facility]) [address] [facility], [place], [address], 06/07/2024 11:45:57 05/31/2006/07/2024 PNEUM OCOCC AL AB (23 SEROT YPE) pneumo Ab type 1* <0.1 ug/mL >1.3 below low normal Not Available [facility] [address] [place], [address], 06/07/2024 11:45:58 05/31/2006/07/2024 PNEUM OCOCC AL AB (23 SEROT YPE) pneumo Ab type 3* <0.1 ug/mL >1.3 below low normal Not Available [facility] [address] [place], [address], 06/07/2024 11:45:58 05/31/2006/07/2024 PNEUM OCOCC AL AB (23 SEROT YPE) pneumo Ab type 4* <0.1 ug/mL >1.3 below low normal Not Available [facility] [address] [place], [address], 06/07/2024 11:45:58 05/31/2006/07/2024 PNEUM OCOCC AL AB (23 SEROT YPE) pneumo Ab type 8* <0.3 ug/mL >1.3 below low normal Not Available [facility] [address] [place], [address], 06/07/2024 11:45:58 05/31/2006/07/2024 PNEUM OCOCC AL AB (23 SEROT YPE) pneumo Ab type 9 (9N)* <0.1 ug/mL >1.3 below low normal Not Available [facility] [address] [place], [address], 06/07/2024 11:45:58 05/31/2006/07/2024 PNEUM OCOCC AL AB (23 SEROT YPE) pneumo Ab type 12 (12F)* <0.1 ug/mL >1.3 below low normal Not Available [facility] [address] [place], [address], 06/07/2024 11:45:58 05/31/2006/07/2024 PNEUM OCOCC AL AB (23 SEROT YPE) pneumo Ab type 14* 7.4 ug/mL >1.3 Not Available [facility] [address] [place], [address], 06/07/2024 11:45:58 05/31/2006/07/2024 PNEUM OCOCC AL AB (23 SEROT YPE) pneumo Ab type 17 (17F)* <0.1 ug/mL >1.3 below low normal Not Available [facility] [address] [place], [address], 06/07/2024 11:45:58 05/31/2006/07/2024 PNEUM OCOCC AL AB (23 SEROT YPE) pneumo Ab type 19 (19F)* 0.4 ug/mL >1.3 below low normal Not Available [facility] [address] [place], [address], 06/07/2024 11:45:58 05/31/2006/07/2024 PNEUM OCOCC AL AB (23 SEROT YPE) pneumo Ab type 2* <0.2 ug/mL >1.3 below low normal Not Available [facility] [address] [place], [address], 06/07/2024 11:45:58 05/31/2006/07/2024 PNEUM OCOCC AL AB (23 SEROT YPE) pneumo Ab type 20* <0.2 ug/mL >1.3 below low normal Not Available [facility] [place], [address], 06/07/2024 11:45:58 05/31/2006/07/2024 PNEUM OCOCC AL AB (23 SEROT YPE) pneumo Ab type 22 (22F)* <0.1 ug/mL >1.3 below low normal Not Available [facility] [address] [place], [address], 06/07/2024 11:45:58 05/31/2006/07/2024 PNEUM OCOCC AL AB (23 SEROT YPE) pneumo Ab type 23 (23F)* 0.8 ug/mL >1.3 below low normal Not Available [facility] [address] [place], [address], 06/07/2024 11:45:58 05/31/20 24 06/07/2024 PNEUM OCOCC AL AB (23 SEROT YPE) pneumo Ab type 26 (6B)* <0.1 ug/mL >1.3 below low normal Not Available [facility] [address] [place], [address], 06/07/2024 11:45:58 05/31/2006/07/2024 PNEUM OCOCC AL AB (23 SEROT YPE) pneumo Ab type 34 (10A)* 0.1 ug/mL >1.3 below low normal Not Available [facility] [address] [place], [address], 06/07/2024 11:45:58 05/31/2006/07/2024 PNEUM OCOCC AL AB (23 SEROT YPE) pneumo Ab type 43 (11A)* 0.2 ug/mL >1.3 below low normal Not Available [facility] [address] [place], [address], 06/07/2024 11:45:58 05/31/2006/07/2024 PNEUM OCOCC AL AB (23 SEROT YPE) pneumo Ab type 5* <0.1 ug/mL >1.3 below low normal Not Available [facility] [address] [place], [address], 06/07/2024 11:45:58 05/31/2006/07/2024 PNEUM OCOCC AL AB (23 SEROT YPE) pneumo Ab type 51 (7F)* <0.1 ug/mL >1.3 below low normal Not Available [facility] [address] [place], [address], 06/07/2024 11:45:58 05/31/2006/07/2024 PNEUM OCOCC AL AB (23 SEROT YPE) pneumo Ab type 54 (15B)* 11.1 ug/mL >1.3 Not Available [facility] [address] [place], [address], 06/07/2024 11:45:58 05/31/2006/07/2024 PNEUM OCOCC AL AB (23 SEROT YPE) pneumo Ab type 56 (18C)* <0.1 ug/mL >1.3 below low normal Not Available [facility] [address] [place], [address], 06/07/2024 11:45:58 05/31/2006/07/2024 PNEUM OCOCC AL AB (23 SEROT YPE) pneumo Ab type 57 (19A)* 0.2 ug/mL >1.3 below low normal Not Available [facility] [address] [place], [address], 06/07/2024 11:45:58 05/31/2006/07/2024 PNEUM OCOCC AL AB (23 SEROT YPE) pneumo Ab type 68 (9V)* <0.1 ug/mL >1.3 below low normal Not Available [facility] [address] [place], [address], 06/07/2024 11:45:58 05/31/2006/07/2024 PNEUM OCOCC AL AB [...] Laboratories [address] [place], [address], 06/07/2024 11:45:58 05/31/2006/01/2024 IMMUN OGLOB ULINS A/G/M , QN, SER immunoglobul in g, qn, serum 803 mg/dL 586-16 02 Not Available [facility] ([facility]) [address] [facility], [place], [address], 06/07/2024 11:45:58 05/31/2006/01/2024 IMMUN OGLOB ULINS A/G/M , QN, SER immunoglobul in A, qn, serum 160 mg/dL 87-352 normal Not Available [facility] ([facility]) [address] [facility], [place], [address], 06/07/2024 11:45:58 05/31/2006/01/2024 IMMUN OGLOB ULINS A/G/M , QN, SER immunoglobul in M, qn, serum 234 mg/dL 26-217 above high normal Not Available [facility] ([facility]) [address] [facility], [place], [address], 06/07/2024 11:45:58 05/31/2006/01/2024 HAEMO PHILU S INFLU ENZAE B IGG haemophilus influenzae B IgG <0.15 ug/mL NOTE: An anti- Hib level of 0.15 ug/mL is gener ally accep sachi as the minim um level for prote ction . Optim al prote ction post- vacci natio n requi res a level great er than 1.00 ug/mL . Not Available [facility] ([facility]) [address] [facility], [place], [address], 06/07/2024 11:45:58 05/31/2006/06/2024 IMMUN OGLOB ULIN E, TOTAL immunoglobul in E, total 66 IU/mL 6-495 Not Available [facility] ([facility]) [address] [facility], [place], [address], 06/07/2024 11:45:59 05/31/2006/07/2024 TETAN US TOXOI D AG RESPO NSE* tetanus toxoid Ag response* COMMEN T %_X_1 00 Test Not Perfo rmed. The reque sted test was omitt tarik aguilar the order desk clerk proce ss and the speci men [...] Laboratories [address] [place], [address], 06/07/2024 14:13:14 05/31/20 24 06/07/[address] PROBL EM request problem COMMEN T Test Not Perfo rmed. The reque sted test was omitt tarik aguilar the order desk clerk proce ss and the speci men is no longe r avail able for testi ng. [facility] will conta ct your patie nt to sched ule a time for recol lecti on. Shoul d we be unabl e to make conta ct with your patie nt, your offic e will be notif ied. TEST: [id number] 9 Tetan us Toxoi d Ag respo nse* Not Available [facility] ([facility]) [address] [facility], [place], [address], 06/07/2024 14:13:16 06/08/20 24 06/14/2024 TETAN US [...] Laboratories [address] [place], [address], 06/14/2024 14:25:50 Result Notes None recorded. Problems Name Problem SNOMED Code Status Onset Date Resolution Date Notes Provider Name and Address Organization Details Recorded Time Chronic rhinitis 94257300 Active 2023 HA SCHAEFFER MD [address] [place] [address], [address], [facility] - [facility] 15:50:02 Chronic sinusitis 83862194 Active 2023 HA SCHAEFFER MD [address] [facility] [address], [place], [address], [facility] - [facility] 15:50:34 Immunodeficien cy disorder 594537048 Active 2023 HA SCHAEFFER MD [address] [facility] [address], [place], [address], [facility] - [facility] [place] 12:51:35 Problem Notes None recorded. Procedures Surgical History Date Name Laterality Status Provider Name and Address Organization Details Recorded Time lumbar spinal fusion completed Love valera [place] - [facility] 05/31/2024 15:35:22 Breast reduction completed Love Dillard [facility] 05/31/2024 15:35:28 rhinoseptoplasty completed Love Dillard [facility] 05/31/2024 15:35:38 Imaging Results None recorded. Procedure [...] Details Last Updated DateTime 05/31/2024 167.64 cm 23948.26 g Love Dillard [place] - [facility] 05/31/2024 15:32:53 Social History None recorded. Functional [...] ICD10 Code Diagnosis IMO Codes Diagnosis Note 05470 HA RODRIGUEZ MD [facility] [address] [place] [address] 05/31/2024 14:49:47 05/31/2024 15:55:16 Chronic rhinitis 94848728 J31.0 29509994 Z33.1 Chronic sinusitis 152661 00 J32.9 Health Concerns Section Related Observation LastModified by Organization Detai ls LastModified Time None Recorded Concern Status LastModified by Organization Details LastModified Time None Recorded Advance Directives Directive None Recorded Payers Insurance Date Sequence Insurance Name Policy Number Policy Billy Covered Member ID Blily Member ID Guarantor Name 05/31/2024 1 [employer] Stacia Botellocotte [id number] Stacia Elton 05/31/2024 1 [facility] - HEALTH NET PLAN (MEDICAID HMO) [id number] Stacia Elton [id number] Stacia Elton Notes Date Note Type Note Provider Name and Address Organization Details Recorded Time 05/31/2024 text/html Hx of septorhinoplasty in [place] December 08, 2023. Sinus infections monthly before the SRP in [place]. Had been treated with multiple abx. Hx of strep around the time of surgery. [facility] Now [facility] . Seeing OBHaving morning sickness HA BRYANT MD [address] [place] [address], [place], [address], [facility] - [facility] 05/31/2024 15:54:09 OBGyn Episode No OBEpisode recorded.
== END 2025-06-27 11:49 | disposition home or self-care (01) ==
LOC: HO.HMCFM 10:52
PROVIDERS: PCP Family Medicine; Visit Provider Family Medicine
DX: M43.27 Fusion of spine, lumbosacral region (principal); M54.16 Radiculopathy, lumbar region; M54.9 Dorsalgia, unspecified

== ENCOUNTER → 2025-06-27 10:51 | Outpatient (BNVA) | payer OTHER, SELFPAY | PROVIDERS: PCP Family Medicine; Visit Provider Family Medicine | DX: M43.27 Fusion of spine, lumbosacral region (principal); M54.16 Radiculopathy, lumbar region; M54.9 Dorsalgia, unspecified | CPT/HCPCS: 99212 ==

== ENCOUNTER 2025-06-28 14:54 | Outpatient (REF) | payer OTHER, SELFPAY ==
--- OUTSIDE RECORDS SUMMARY | 2025-06-24 23:59 | XMS_ITS | Continuity of Care Document ---
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 Date(s): 05/25/25 - 06/24/25 [facility] Surgery [address] [place], [place] [address] Attending Physician: Piedad Dial Admitting Physician: Piedad Dial Referring Physician: Piedad Dial Encounter Type: Triage Allergies, Adverse Reactions, Alerts No Known Allergies Medications acetaminophen 325 mg oral capsule 1 capsule = 325 mg, By Mouth, Every 4 hours, PRN as needed for fever, # 90 capsule, 0 Refills, Maintenance, 12/15/24 2:19:00 PM EDT, Capsule, [facility], Partial fill upon patient requestif the prescription is for a schedule II opioid drug., 168, cm, 12/15/24 11:16:00 EDT, Height, 104.1, kg, 12/06/24 9:06:00 EDT, Dry Weight Start Date: 12/15/24 Status: Ordered Medication Dispense Status: Completed Quantity: 90.0 Unit: capsule Total Allowed Fills: 1 Fills Dispensed: 0 ALPRAZolam 0.5 mg oral tablet 0.5 mg, 1, tablet, By Mouth, Daily, PRN, Refills 0, Maintenance, as needed for anxiety, 12/04/24 9:43:00 PM EDT, Partial fill upon patient request if the prescription is for a schedule II opioid drug. Start Date: 12/04/24 Status: Ordered Medication Dispense Status: Completed Total Allowed Fills: 1 Fills Dispensed: 0 Alyacen 1/35 oral tablet 1 tablet, By Mouth, Daily, 0 Refills, Maintenance, 01/23/21 10:02:00 PM EDT, Partial fill upon patient request if the prescription is for a schedule II opioid drug. Start Date: 01/23/21 Status: Ordered Medication Dispense Status: Completed Total Allowed Fills: 1 Fills Dispensed: 0 Blood Pressure Monitor See Instructions, # 1 each, Maintenance, Please prescribe 1 blood cuff and monitor, 12/15/24 2:59:00 PM EDT, Supply, 168, cm, 12/15/24 11:16:00 EDT, Height, 104.1, kg, 12/06/24 9:06:00 EDT, Dry Weight Start Date: 12/15/24 Status: Ordered Medication Dispense Status: Completed Quantity: 1.0 Unit: each Total Allowed Fills: 1 Fills Dispensed: 0 Cymbalta 60 mg oral enteric coated capsule 2 capsule = 120 mg, By Mouth, Daily, do not crush or chew, # 60 capsule, 0 Refills, Maintenance, 01/23/21 10:02:00 PM EDT, CR Capsule, Partial fill upon patient request if the prescription is for a schedule II opioid drug. Start Date: 01/23/21 Status: Ordered Medication Dispense Status: Completed Quantity: 60.0 Unit: capsule Total Allowed Fills: 1 Fills Dispensed: 0 furosemide 20 mg oral tablet 1, capsule, By Mouth, Once, # 3 tablet, Refills 0, Tot. Refills 0, Soft Stop, 12/16/24 2:51:00 PM EDT, Route to Pharmacy Electronically, [facility]/pharmacy #[id number], Partial fill upon patient request if the prescription is for a schedule II opioid drug., 168, cm, 12/15/24 11:16:00 EDT, Height, 104.1, kg, 12/06/24 9:06:00 EDT, Dry Weight Start Date: 12/16/24 Status: Ordered Medication Dispense Status: Completed Quantity: 3.0 Unit: tablet Total Allowed Fills: 1 Fills Dispensed: 0 gabapentin 300 mg oral capsule 300 mg, 1, capsule, By Mouth, 3 times a day, # 270 capsule, Refills 0, Tot. Refills 0, Maintenance,12/15/24 2:19:00 PM EDT, Route to Pharmacy Electronically, [facility], Partial fill upon patient request if the prescription is for a schedule II opioid drug., 168, cm, 12/15/24 11:16:00 EDT, Height, 104.1, kg, 12/06/24 9:06:00 EDT, Dry Weight Start Date: 12/15/24 Status: Ordered Medication Dispense Status: Completed Quantity: 270.0 Unit: capsule Total Allowed Fills: 1 Fills Dispensed: 0 gabapentin 800 mg oral tablet 1 tablet = 800 mg, By Mouth, 3 times a day, # 90 tablet, 0 Refills, Maintenance, 01/23/21 10:00:00 PM EDT, Tablet, Partial fill upon patient request if the prescription is for a schedule II opioid drug. Start Date: 01/23/21 Status: Ordered Medication Dispense Status: Completed Quantity: 90.0 Unit: tablet Total Allowed Fills: 1 Fills Dispensed: 0 hydrOXYzine hydrochloride 25 mg oral tablet 1-2 tabs as needed, 0 Refills, Maintenance, 01/04/25 9:54:00 AM EDT, Partial fill upon patient request if the prescription is for a schedule II opioid drug. Start Date: 01/04/25 Status: Ordered Medication Dispense Status: Completed Total Allowed Fills: 1 Fills Dispensed: 0 ibuprofen 800 mg oral tablet 800 mg, 1, tablet, By Mouth, Every 8 hours, # 90 tablet, Refills 0, Tot. Refills 0, Maintenance, 12/15/24 2:19:00 PM EDT, Route to Pharmacy Electronically, [facility], Partial fill upon patient request if the prescription is for a schedule II opioid drug., 168, cm, 12/15/24 11:16:00 EDT, Height, 104.1, kg, 12/06/24 9:06:00 EDT, Dry Weight Start Date: 12/15/24 Status: Ordered Medication Dispense Status: Completed Quantity: 90.0 Unit: tablet Total Allowed Fills: 1 Fills Dispensed: 0 MiraLax oral powder for reconstitution = 17 Gm, By Mouth, Daily, dissolve in water before taking, # 255 Gm, 0 Refills, Maintenance, :19:00 PM EDT, REC Powder, [facility], Partial fill upon patient request if the prescription is for a schedule II opioid drug., 17 Gm By Mouth Daily,Instr:dissolve in water before taking, 168, cm, 12/15/24 11:16:00 EDT, Height, 104.1, kg, 12/06/24 9:06:00 EDT, Dry Weight Start Date: 12/15/24 Status: Ordered Medication Dispense Status: Completed Quantity: 255.0 Unit: g Total Allowed Fills: 1 Fills Dispensed: 0 NIFEdipine 30 mg oral tablet, extended release 30 mg, 1, tablet, By Mouth, Daily, # 30 tablet, Refills 0, Tot. Refills 0, Maintenance, 12/16/24 2:51:00 PM EDT, Route to Pharmacy Electronically, [facility]/pharmacy #[id number], Partial fill upon patient requestif the prescription is for a schedule II opioid drug., 168, cm, 12/15/24 11:16:00 EDT, Height, 104.1, kg, 12/06/24 9:06:00 EDT, Dry Weight Start Date: 12/16/24 Status: Ordered Medication Dispense Status: Completed Quantity: 30.0 Unit: tablet Total Allowed Fills: 1 Fills Dispensed: 0 oxyCODONE 5 mg oral capsule 2 capsule = 10 mg, By Mouth, Every 6 hours, PRN as needed for pain, # 12 capsule, 0 Refills, Maintenance, 12/15/24 2:19:00 PM EDT, [facility]apsule[facility], Partial fill upon patient request if the prescription is for a schedule II opioid drug., 168, cm, 12/15/24 11:16:00 EDT, Height, 104.1,kg, 12/06/24 9:06:00 EDT, Dry Weight Start Date: 12/15/24 Status: Ordered Medication Dispense Status: Completed Quantity: 12.0 Unit: capsule Total Allowed Fills: 1 Fills Dispensed: 0 ParaGard intrauterine device 0 Refills, Maintenance, 01/04/25 9:54:00 AM EDT, Partial fill upon patient request if the prescription is for a schedule II opioid drug. Start Date: 01/04/25 Status: Ordered Medication Dispense Status: Completed Total Allowed Fills: 1 Fills Dispensed: 0 tiZANidine 4 mg oral tablet 8 mg, 2, tablet, By Mouth, Daily at bedtime, Refills 0, Maintenance, 01/23/21 10:01:00 PM EDT, Partial fill upon patient request if the prescription is for a schedule II opioid drug. Start Date: 01/23/21 Status: Ordered Medication Dispense Status: Completed Total Allowed Fills: 1 Fills Dispensed: 0 traMADol 50 mg oral tablet 1 tablet = 50 mg, By Mouth, Every 6 hours, PRN for pain, # 60 tablet, 0 Refills, Maintenance, 01/23/21 10:01:00 PM EDT, Tablet, Partial fill upon patient request if the prescription is for a schedule II opioid drug. Start Date: 01/23/21 Status: Ordered Medication Dispense Status: Completed Quantity: 60.0 Unit: tablet Total Allowed Fills: 1 Fills Dispensed: 0 traZODone 100 mg oral tablet 100 mg, 1, tablet, By Mouth, PRN, Refills 0, Maintenance, Sleep, 12/04/24 9:30:00 PM EDT, Partial fill upon patient request if the prescription is for a schedule II opioid drug. Start Date: 12/04/24 Status: Ordered Medication Dispense Status: Completed Total Allowed Fills: 1 Fills Dispensed: 0 Problem List Condition Confirmation Course Effective Dates Status Health St atus Informant Anxiety Confirmed Active ADHD Confirmed Active Carpal tunnel syndrome, bilateral Confirmed Active Gestational diabetes mellitus, class A1 Confirmed Active History of spinal fusion Confirmed Active Large for gestational age fetus affecting mother, antepartum Confirmed Active Marijuana use during Confirmed Active Tobacco use in Confirmed Active Vasa previa Confirmed Active Social History Social History Type Response Smoking Status Current every day aramis tidwell entered on: 09/18/14 Sex Sex Representation Female (finding) Patient Care team information Care Team Personnel Name: Muriel Meza Position: S Outreach Member Role: Lifetime Consulting Physician Name: Carlos Quick MD Position: S Outreach Member Role: PCP Address: [address] [place] [address] Telecom: Care Team Related Persons Name: LUIS JAMES Name: CUAUHTEMOC JAMES Name: OMAR SANDHU Insurance Providers Guarantor name: ROSALVA SANDHU Health Plan Information #: 1 Payer: [employer] Payer Identifier: NA Member Number: [id number] Group Number: [id number] Subscriber Identifier: NA Relationship to Subscriber: self Coverage Type: Other Private Insurance Coverage Verification Date: NA Telecom: NA Address:
--- OUTSIDE RECORDS SUMMARY | 2025-06-24 23:59 | XMS_ITS | Continuity of Care Document ---
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 Name Role Phone Abdelrahman MCELROY, Carlos Granado Primary Care Physician [place] [facility] [id number] Date(s): 05/10/25 - 06/24/25 [facility] Surgery [address] [place], [place] [address] Attending Physician: Darren Burt MD Referring Physician: Colin Moyer MD Encounter Type: Pre Office Visit Allergies, Adverse Reactions, Alerts No Known Allergies Medications acetaminophen 325 mg oral capsule 1 capsule = 325 mg, By Mouth, Every 4 hours, PRN as needed for fever, # 90 capsule, 0 Refills, Maintenance, 12/15/24 2:19:00 PM EDT, Capsule, [facility], Partial fill upon patient [...] 2:51:00 PM EDT, Route to Pharmacy Electronically, [facility]/pharmacy #[id number], Partial fill upon patient request if the [...] 2:19:00 PM EDT, Route to Pharmacy Electronically, [facility], Partial fill upon patient request [...] 2:19:00 PM EDT, Route to Pharmacy Electronically, [facility], Partial fill upon patient request if [...] Refills, Maintenance, :19:00 PM EDT, REC Powder, [facility], Partial fill upon patient request [...] 2:51:00 PM EDT, Route to Pharmacy Electronically, [facility]/pharmacy #[id number], Partial fill upon patient requestif the prescription [...] Refills, Maintenance, 12/15/24 2:19:00 PM EDT, Capsule, [facility], Partial fill upon patient request if [...] Consulting Physician Name: Carlos Quick MD Position: [facility] Outreach Member Role: PCP Address: [address] [place] [address]- Telecom: Care Team Related Persons Name: LUIS JAMES Name: CUAUHTEMOC JAMES Name: OMAR SANDHU Insurance Providers Guarantor name: ROSALVA SANDHU Health Plan Information #: 1 Payer: [employer] Payer Identifier: NA Member Number: [id number] Group Number: [id number] Subscriber Identifier: [id number] Relationship to Subscriber: self Coverage Type: Other Private Insurance Coverage Verification Date: NA Telecom: NA Address: NA
--- NOTE | ~2025-06-28 | MR_ITS ---
CLINICAL HISTORY: M54.16 - Radiculopathy, lumbar region --- Additional Notes or Special Instructions: Patient has left leg pain and left leg numbness s p L5-S1 lumbar fusion MR lumbar spine with and without gadolinium Comparison: DX/VT/SR - XR LUMBAR SPINE 4 OR MORE VIEWS - 06/20/25 14:57 EST Findings: Postoperative changes including posterior hardware fusion from L4-S1 resulting in susceptibility artifact and disc prosthesis at L4-5 and L5-S1. Mild grade 1 anterolisthesis at L4-5 and otherwise alignment is maintained. Vertebral body height is maintained. No definite bone marrow edema. L1-2 and L2-3 discs are unremarkable. At L3-4 there is disc desiccation and mild degeneration. Distal conus appears unremarkable terminating at L1-2. L1-2 and L2-3 levels are unremarkable. At L3-4 spondylotic disc bulge and facet arthropathy resulting in moderate bilateral neural foraminal stenosis. At L4-5 grade 1 anterolisthesis with no significant disc bulge or focal disc herniation with mild bilateral foraminal stenosis. At L5-S1 disc bulge with no focal disc herniation. Mild stenosis of right neural foramen. Evaluation of left neural foramen limited by susceptibility artifact. Postcontrast images demonstrate no abnormal enhancement in the spinal canal. Evaluation however is limited in the operative levels from susceptibility artifact. Paraspinal soft tissues within normal limits. IMPRESSION: 1. Postoperative changes including L4-S1 posterior hardware fusion resulting in significant susceptibility artifact and L4-5 and L5-S1 disc prosthesis. 2. Within this limitation no focal disc herniation is identified. 3. L3-4 disc bulge with moderate bilateral foraminal stenosis. 4. L4-5 grade 1 anterolisthesis and mild bilateral foraminal stenosis. 5. Evaluation for abnormal enhancement is significantly limited due to the artifact. This document has been electronically signed by: Abi Rubin MD on 06/28/2025 17:25:20
--- OUTSIDE RECORDS SUMMARY | 2025-06-28 20:25 | XMS_ITS | Clinical Summary ---
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 Name Role Phone Unavailable Primary Care Provider [...] this topic Medical Devices Implanted Type Area Office Clerk Device Identifier Shelf Expiration Date Model / Serial / Lot Shell Short Flarehawk 25mm Fh9 [id number] - [id number] Implanted:Qty: 1 on 06/17/2021 by Asa Guaman [place] [facility] Posterior: Spine Lumbar [employer]TE[employer] [id number] / / Cage Spinal Flarehawk 6 D L23 [facility] [id number] - [id number] Implanted:Qty: 1 on 06/17/2021 by Asa Guaman [place] [facility] Posterior: Spine Lumbar INTE[employer] IMPL[employer] [id number] / / Bone Alrgft Canc Chip 1-8 15cc Stry-Obio [id number] - [id number] Implanted:Qty: 1 on 06/17/2021 by Asa Guaman [place] [facility] Posterior: Spine Lumbar [employer] 11/03/2025 [id number] / [id number] / Erick Spnl Contr 5.5x45mm Stry-K2m [id number] - [id number] Implanted:Qty: 2 on 06/17/2021 by Asa Guaman MD at [facility] Posterior: Spine Lumbar [employer] [id number] / / Screw Set [place] Stry-K2m [id number] - [id number] Implanted:Qty: 4 on 06/17/2021 by Asa Guaman MD at [facility] Posterior: Spine Lumbar [employer] [id number] / / Screw Spnl Poly 6.5x45mm Stry-K2m [id number] - [id number] Implanted:Qty: 2 on 06/17/2021 by Asa Guaman MD at [facility] Posterior: Spine Lumbar [employer] [id number] / / Screw Spnl Poly 6.5x50mm Stry-K2m [id number] - [id number] Implanted:Qty: 2 on 06/17/2021 by Asa Guaman [place] [facility] Posterior: Spine Lumbar [employer] [id number] / / Explanted Type Area Office Clerk Device Identifier Shelf Expiration Date Model / Serial / Lot Screw Schanz Disposable Ao 4mm nl-Manu [id number] - [id number] Explanted:Qty: 2 on 06/17/2021 by Asa Guaman MD at [facility] [place] Posterior: Hip [id number] / / Advance Directives For more information, please contact: [phone] Latest Code Status on File Code Status Date Activated Date Inactivated Comments Full Code 06/17/2021 9:31 AM 06/18/2021 7:00 PM This code status was ascertained in the following way: discussion with patient .
--- OUTSIDE RECORDS SUMMARY | 2025-06-28 20:25 | XMS_ITS | Clinical Summary ---
Author Organization [facility] [address] [facility] [address] Address [address] [place] [address] Phone Care Team Providers Care Ticket Writer Name Role Phone Miguel Angel Cuellar MD [...] management several weeks prior to delivery. Because [facility] does not admit patients for management transfer to [facility] is recommended at this time. Carpal tunnel [...] 3- hr GTT Forward chart to P [id number] ([facility]): completed Nutrition: November 02 at 2:30pm with Fariba Domingo RD Diabetic teaching and visit with diabetic provider (Adrian or Nery): Adrian Bird CNM at [address] [place] [address]. 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 [facility] site: [place] 2. Delivery site: [facility] 3. Mobile Mommas: NO 4. Dating [...] deficiency syndrome (CMS/HCC V24) 06/07/20 24 11/21/2024 Immunizations Immunization Administration Dates Next Due DTP 12/09/1993, 0,04/23/1989,02/19,1988 [id number] (Pentacel) 2mo to less than 5yo 04/29/1990 [...] Surgery Date Site/Laterality Comments APPENDECTOMY 2018 PROCEDURE: IN APPENDECTOMY OTHER SURGICAL HISTORY 2017 PROCEDURE: DECOMPRESS DISC RF LUMBAR BREAST REDUCTION 04/2023 Bilateral PROCEDURE: IN BREAST REDUCTION OTHER SURGICAL HISTORY PROCEDURE: IN RHINOPLASTY PRIMARY W/MAJOR SEPTAL REPAIR OTHER SURGICAL HISTORY PROCEDURE: IN UNLISTED PROCEDURE EYELIDS; COMMENT: eyelid lift OTHER SURGICAL HISTORY 2023 PROCEDURE: IN SUCTION ASSISTED LIPECTOMY TRUNK Medical History Medical [...] Status Comments Brother 1 Brother 2 Alive [id number] [facility] Father Alive [id number] Father's side Aunt Alive Maternal Grandfather Maternal Grandmother Mother Alive [id number] Paternal Grandfather Paternal Grandmother Alive Social History [...] care for your loved ones. For example, children's ministries director or elderly care for an older adult? [...] Date Recorded What is your living situation? Unrecognized valu e 12/29/2024 Interpersonal Safety Answer Date Record ed Physical Abuse Unrecognized value 12/29/2024 Verbal Abuse Unrecognized value 12/29/2024 Comments No Sex and Gender Information [...] ranv Livin g Parrish Delivery Location:Hospital A ([facility]) Summary Episode Dates Number of Fetuses Estimated Date of Delivery 12/27/2024 - Present (06/28/2025) Unknown Dating Summary Based On DEANNE GA Diff Last Menstrual Period on 04/11/2024 (Exact Date) 01/16/2025 Vitals Pregravid Weight Height TWG (As of 06/28/2025) Pregrav id BMI 1.676 m (66 ) [...] almost 6 weeks s/p PCS delivery at [facility] due to previa. She is bottle feeding without difficulty. Lochia stopped but then she started her menstrual cycle she has Copper IUD in place. Has not yet had intercourse. Mood is okay EPDS 18 no thoughts of harming herself or others. She has been seeing her psychiatrist who confirmed she was not in PP psychosis. Patient has decided to start ketamine transfusions at [facility] for her mental health. 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 Had been in partial inpatient at [facility], no current meds. Currently in couns [facility] PETS: 2 cats/ 1 dog 03/24/2013 IS now back in the same unhealthy relationship off & on x 4yrs. Cont to receive outpatient counseling as needed. No current homicidal/suicidal thoughts. [facility] 04/17/2015 In a new relationship x 12 mo , denies ant issues of IPV 06/08/19: She lives with her parents she just moved back from [place] in March. She has started to see her ex boyfriend for the past year, feels safe in her relationship, denies IPV. She is currently working for [employer]. She does smoke cigarettes daily, denies drug use, she is sober from alcohol. Currently being referred out to [facility] for her anxiety/depression. 08/16/2020: Just got new puppy; She lives with her parents. Working from [employer] for [employer]. She is in an on and off again relationship with one male partner for the past 6 years. She feels safe and happy in her relationship, denies IPV. She is not exercising routinely. 11/11/2023: She lives home with her parents, feels safe and happy. She is in a new relationship for about 1 month feels safe. 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 Trying to exercise more, [...] with: 1. Contraception-has Copper IUD placed at [facility] 2. Discussed nutrition, exercise, sexual activity, control methods, locomotive firer/fireman care, S&S of PPD and referral information. [...] BP check 4. AE in one year Zamora Depression Scale: In the Past 7 Days [...] harming myself has occurred to me.: Never Zamora Depression Scale Total: 18 Adrian Bird CNM [...] thinks she has psychosis. Living with her gyfwit-uy-mod who has dementia and is challenging to [...] for ketamine tx on Wednesday. Going to [place] this weekend to get away from xdipcd-kj-hna and hoping she will feel better 2) Taking Nifedipine 30mg daily as rx'd by [facility], Bps at home have been slightly elevated [...] that getting some time away from her wpdepq-od-rtj may be beneficial. Advised to keep appt with psychiatrist on Wednesday to discuss medication mgmt. Pt verbalized understanding and agreement with plan. Progress Notes - Hospital En counter - 12/29/2024 - GA: 12/29/2024 - Kristie Martel LSW Farm Equipment Assembler- Progress Note Patient continues to require acute level hospital care. DEANNE: 12/29/24 Barriers: none Disposition: HOME HEALTH- [facility] secured for wound care management. administrative services coordinator will remain available to assess, support, provide [...] is being discharged home with referral to psychotherapist social worker for home wound care. She [...] incision. S/p via pfannensteil on 12/11 (at [facility]). Noticed some swelling on her incision as [...] Panel) 07/17/2022 09/05/2015 COVID-19 Vaccine ( season) 2025 05/25/2023, 06/17/2022, 07/11/2021, Additional history exists Influenza Vaccine (#1) 2025 , 05/25/2023, 06/17/2022, Additional history exists Social Influencers of Health Screening 12/29/2025 12/29/2024 Cervical Cancer Screening: HPV 11/10/2028 11/11/2023 DTaP,Tdap,and Td Vaccines (10 - Td or Tdap) 10/27/2034 10/27/2024, 01/01/2022, 03/11/2007, Additional history exists RSV Immunization Adult Patients (1 - 1-dose 75+ series) 10/20/2063 HIB Vaccines Completed 04/29/1990, 04/29/1990 Varicella Vaccines [...] this topic Medical Devices Implanted Type Area Oracle Ebs Developer Device Identifier Shelf Expiration Date Model / Serial / Lot Shell Short Flarehawk 25mm Fh9 [id number] Implanted:Qty: 1 on 06/17/2021 by Asa Guaman MD N/A: Spine Lumbar [employer] [id number] / / Cage Spinal Flarehawk 6 D L23 [facility] [id number] Implanted:Qty: 1 on 06/17/2021 by Asa Guaman MD N/A: Spine Lumbar [employer] [id number] / / Bone Alrgft Canc Chip 1-8 15cc Stry-Obio [id number] - [id number] Implanted:Qty: 1 on 06/17/2021 by Asa Guaman MD N/A: Spine Lumbar [employer] 11/03/2025 [id number] / [id number] / Erick Spnl Contr 5.5x45mm Stry-K2m [id number] Implanted:Qty: 2 on 06/17/2021 by Asa Guaman MD N/A: Spine Lumbar [employer] [id number] / / Screw Set [place] Stry-K2m [id number] Implanted:Qty: 4 on 06/17/2021 by Asa Guaman MD N/A: Spine Lumbar [employer] [id number] / / Screw Spnl Poly 6.5x45mm Stry-K2m [id number] Implanted:Qty: 2 on 06/17/2021 by Asa Guaman MD N/A: Spine Lumbar [employer] [id number] / / Screw Spnl Poly 6.5x50mm Stry-K2m [id number] Implanted:Qty: 2 on 06/17/2021 by Asa Guaman MD N/A: Spine Lumbar [employer] [id number] / / Procedures Procedure Name Priority Date/Time [...] LAB CHEMISTRY METHOD 06/20/2024 5:16 PM EST [facility] Blood Venous blood specimen / Unknown Venipuncture / Unknown 06/20/2024 2:16 PM EST 06/20/2024 2:16 PM EST Adrian Bird [facility] BLOOD ORDERABLES Final Res ult [facility] [address] [place] [address], * HIV 1,2 antibody, p24 antigen with reflex to differentiation (06/20/2024 2:16 PM EST) HIV Combo AB/AG Negative Negative LAB CHEMISTRY METHOD 06/20/2024 5:17 PM EST [facility] Blood Venous blood specimen / Unknown Venipuncture / Unknown 06/20/2024 2:16 PM EST 06/20/2024 2:16 PM EST Narrative [facility] - 06/20/2024 5:17 PM EST This assay is a 4th generation assay allowing for earlier detection of HIV infection by detecting the presence of the HIV-1 p24 antigen as well as the traditional antibodies to HIV type 1 (including group O) and type 2. Use of a 4th generation assay is the current CDC recommendation for HIV screening. Adrian Bird [facility] BLOOD ORDERABLES Final Res ult [facility] [address] [place] [address], [place] [phone] * Cervical Cancer Screening: HPV (11/11/2023) Cervical Cancer Screening: HPV abstracted, negative Historical [...] Recently Relevant to Health Maintenance Insurance [facility] [address] Care Teams Ticket Writer Relationship Specialty Start Date End Date Miguel Angel Cuellar MD [address] [place] [address] PCP - General Internal Medicine 03/16/19
--- OUTSIDE RECORDS SUMMARY | 2025-06-28 20:25 | XMS_ITS | Clinical Summary ---
Author Organization [facility] Address [address] [place] [address] Care Team Providers Care Development Technician Name Role Phone Juancarlos Tatiana Cruz APRN Primary Care Provider [phone] Allergies No known active allergies Medications diclofenac [...] patient's age to complete this topic Insurance [facility] - PPO Care Teams Development Technician Relationship Specialty Start Date End Date Tatiana Bauer APRN PCP - General Emergency Medicine 02/28/21
== END 2025-06-28 14:55 | disposition home or self-care (01) ==
LOC: HO.MRI 14:54
PROVIDERS: PCP Family Medicine; Visit Provider Physician Assistant
DX: M54.16 Radiculopathy, lumbar region (principal)
CPT/HCPCS: 72158; A9585

== ENCOUNTER → 2025-06-28 14:54 | Outpatient (BNV) | payer OTHER, SELFPAY | PROVIDERS: PCP Family Medicine; Visit Provider Specialist | DX: M54.16 Radiculopathy, lumbar region (principal); M99.63 Osseous and subluxation stenosis of intervertebral foramina of lumbar region | CPT/HCPCS: 72158 ==

== ENCOUNTER 2025-07-03 23:29 | Inpatient (IN) | payer OTHER, SELFPAY ==
--- OUTSIDE RECORDS SUMMARY | 2025-06-28 23:59 | XMS_ITS | Continuity of Care Document ---
Author Organization [facility] Address [address] [place] [address]- Care Team Providers Care Hydraulic Press Operator Name Role Phone Abdelrahman MCELROY, Carlos Granado Primary Care Physician Encounter [facility] [id number] Date(s): 05/29/25 - 06/28/25 [facility] [address] [place] [address]- Encounter Type: Triage Allergies, Adverse Reactions, Alerts No Known Allergies Medications acetaminophen 325 mg oral capsule 1 capsule = 325 mg, By Mouth, Every 4 hours, PRN as needed for fever, # 90 capsule, 0 Refills, Maintenance, 12/15/24 2:19:00 PM EDT, Capsule, [facility], Partial fill upon patient [...] 2:51:00 PM EDT, Route to Pharmacy Electronically, [facility]/pharmacy #[id number], Partial fill upon patient request if the [...] 2:19:00 PM EDT, Route to Pharmacy Electronically, [facility], Partial fill upon patient request [...] 2:19:00 PM EDT, Route to Pharmacy Electronically, [facility], Partial fill upon patient request if the prescription is for a schedule II opioid drug., 168, cm, 12/15/24 11:16:00 EDT, Height, 104.1, kg, 12/06/24 9:06:00 EDT, Dry Weight Start Date: 12/15/24 Status: Ordered Medication Dispense Status: Completed Quantity: 90.0 Unit: tablet Total Allowed Fills: 1 Fills Dispensed: 0 meloxicam 5 mg oral capsule 1 capsule = 5 mg, By Mouth, Daily, # 30 capsule, 0 Refills, Maintenance, 06/25/25 1:27:00 PM EST, Capsule, Partial fill upon patient request if the prescription is for a schedule II opioid drug. Start Date: 06/25/25 Status: Ordered Medication Dispense Status: Completed Quantity: 30.0 Unit: capsule Total Allowed Fills: 1 Fills Dispensed: 0 MiraLax oral powder for reconstitution = 17 Gm, By Mouth, Daily, dissolve in water before taking, # 255 Gm, 0 Refills, Maintenance, 252:19:00 PM EDT, REC Powder, [facility], Partial fill upon patient request if [...] 2:51:00 PM EDT, Route to Pharmacy Electronically, [facility]/pharmacy #[id number], Partial fill upon patient requestif the prescription [...] Refills, Maintenance, 12/15/24 2:19:00 PM EDT, Capsule, [facility], Partial fill upon patient request if [...] Care team information Care Team Personnel Name: RomeonathankamarMuriel gonzales Position: [facility] Outreach Member Role: Lifetime Consulting Physician Name: Carlos Quick MD Position: [facility] Outreach Member Role: PCP Address: [address] [place] [id number] Telecom: Care Team Related Persons Name: JACOB LUIS Name: CUAUHTEMOC JAMES Name: OMAR SANDHU Insurance Providers Guarantor name: ROSALVA SANDHU Health Plan Information #: 1 Payer: [employer] Payer Identifier: NA Member Number: [id number] Group Number: [id number] Subscriber Identifier: NA Relationship to Subscriber: self Coverage Type: Other Private Insurance Coverage Verification Date: Telecom: NA Address:
--- OUTSIDE RECORDS SUMMARY | 2025-07-02 23:59 | XMS_ITS | Continuity of Care Document ---
Author Organization [facility] Address [address] [place] [address] [address] [place] [address]- Care Team Providers Care Labor Crew Supervisor Name Role Phone Abdelrahman MCELROY, Carlos Granado Primary Care Physician [phone] [facility] [id number] Date(s): 06/25/25 - 07/02/25 [facility] [address] [place] [address]- Attending Physician: Darren Burt MD Referring Physician: Carlos Quick MD Encounter Type: Office Visit Allergies, Adverse Reactions, Alerts No Known Allergies Functional Status Functional Status Assessment Assessment Assessment Component Result Effecti ve Date Disability status [CUBS] I'm Vulnerable - I sometimes or periodically have acute or chronic symptoms affecting housing, employment, social interactions, etc. 06/25/25 Because of a physica l, mental, or emotional condition, do you have serious difficulty concentrating, remembering, or making decisions Choose Not to Answer 06/25/25 Difficulty Reading O r Writing Choose Not to Answer 06/25/25 Are you blind, or do you have serious difficulty seeing, even when wearing glasses Choose Not to Answer 06/25/25 Difficulty communica ting in usual language Choose Not to Answer 06/25/25 Are you deaf, or do you have serious difficulty hearing Choose Not to Answer 06/25/25 Because of a physica l, mental, or emotional condition, do you have difficulty doing errands alone such as visiting a physician's office or shopping Choose Not to Answer 06/25/25 Do you have difficul ty dressing or bathing Choose Not to Answer 06/25/25 Do you need any additional assistance or accommodations during your visit Choose Not to Answer 06/25/25 Do you have serious difficulty walking or climbing stairs Choose Not to Answer 06/25/25 Medications acetaminophen 325 mg oral capsule 1 capsule = 325 mg, By Mouth, Every 4 hours, PRN as needed for fever, # 90 capsule, 0 Refills, Maintenance, 12/15/24 2:19:00 PM EDT, Capsule, [facility], Partial fill upon patient [...] 2:51:00 PM EDT, [id number], Partial fill upon patient request if the [...] 2:19:00 PM EDT, Route to Pharmacy Electronically, [facility], Partial fill upon patient [...] 2:19:00 PM EDT, Route to Pharmacy Electronically, [facility], Partial fill upon patient [...] Refills, Maintenance, :19:00 PM EDT, REC Powder, [facility], Partial fill upon patient [...] 2:51:00 PM EDT, Route to Pharmacy Electronically, [facility]/pharmacy #[id number], Partial fill upon patient requestif the prescription [...] Refills, Maintenance, 12/15/24 2:19:00 PM EDT, Capsule, [facility], Partial fill upon patient request [...] in Confirmed Active Vasa previa Confirmed Active Vital Signs Most recent to oldest [Reference Range]: 1 Height 168 cm (06/25/25 11:44 AM) Weight 79.4 kg (06/25/25 11:44 AM) Body Mass Index [18.5-24.99 kg/m2] 28.13 kg/m2 *H* (06/25/25 11:44 AM) Weight Obtained Via Standing scale (06/25/25 11:44 AM) Social History Social History Type Response Smoking Status Current every day aramis tidwell entered on: 09/18/14 Sex Sex Representation Female (finding) Patient Care team information Care Team Personnel Name: Muriel Meza Position: [facility] Outreach Member Role: Lifetime Consulting Physician Name: Carlos Quick MD Position: [facility] Outreach Member Role: PCP Address: [address] [place] [address] Telecom: Care Team Related Persons Name: LUIS JAMES Name: CUAUHTEMOC JAMES Name: OMAR SANDHU Insurance Providers Guarantor name: ROSALVA MAYE Health Plan Information #: 1 Payer: [employer] Payer Identifier: NA Member Number: [id number] Group Number: NA Subscriber Identifier: NA Relationship to Subscriber: self Coverage Type: Self-pay (Includes applicants for insurance and Medicaid applicants) Coverage Verification Date: NA Telecom: NA Address: NA
--- OUTSIDE RECORDS SUMMARY | 2025-07-03 23:33 | XMS_ITS | Clinical Summary ---
Author Organization [facility] Address [address] [place] [address] Care Team Providers Care Manager Employee Benefits Name Role Phone Unavailable Primary Care Provider [...] this topic Medical Devices Implanted Type Area Lens Cutter Device Identifier Shelf Expiration Date Model / Serial / Lot Shell Short Flarehawk 25mm Fh9 [facility] [id number] - [id number] Implanted:Qty: 1 on 06/17/2021 by Asa Guaman MD at [facility] Posterior: Spine Lumbar [employer] [id number] / / Cage Spinal Flarehawk 6 D L23 [facility] [id number] - [id number] Implanted:Qty: 1 on 06/17/2021 by Asa Guaman MD at [facility] Posterior: Spine Lumbar [employer] [id number] / / Bone Alrgft Canc Chip 1-8 15cc Stry-Obio [id number] - [id number] Implanted:Qty: 1 on 06/17/2021 by Asa Guaman MD at [facility] Posterior: Spine Lumbar [employer] 11/03/2025 [id number] / Erick Spnl Contr 5.5x45mm Stry-K2m [id number] - [id number] Implanted:Qty: 2 on 06/17/2021 by Asa Guaman MD at [facility] Posterior: Spine Lumbar [employer] [id number] / / Screw Set [place] Stry-K2m [id number] - [id number] Implanted:Qty: 4 on 06/17/2021 by Asa Guaman MD at [facility] Posterior: Spine Lumbar [employer] [id number] / / Screw Spnl Poly 6.5x45mm Stry-K2m [id number] - [id number] Implanted:Qty: 2 on 06/17/2021 by Asa Guaman MD at [facility] Posterior: Spine Lumbar [employer] [id number] / / Screw Spnl Poly 6.5x50mm Stry-K2m [id number] - [id number] Implanted:Qty: 2 on 06/17/2021 by Asa Guaman MD at [facility] Posterior: Spine Lumbar [employer] [id number] / / Explanted Type Area Lens Cutter Device Identifier Shelf Expiration Date Model / Serial / Lot Screw Schanz Disposable Ao 4mm nl-Manu [id number] - [id number] Explanted:Qty: 2 on 06/17/2021 by [place] [facility] [place] Posterior: Hip [id number] / / Advance Directives For more information, please contact: [phone] Latest Code Status on File Code Status Date Activated Date Inactivated Comments Full Code 06/17/2021 9:31 AM 06/18/2021 7:00 PM This code status was ascertained in the following way: discussion with patient .
--- OUTSIDE RECORDS SUMMARY | 2025-07-03 23:33 | XMS_ITS | Clinical Summary ---
Author Organization [facility] [address] [facility] lding Address [address] [place] [address] Phone Care Team Providers Care Rivet Catcher Name Role Phone Miguel Angel Cuellar MD [...] management several weeks prior to delivery. Because [facility] does not admit patients for management transfer to [facility] is recommended at this time. Carpal [...] 3- hr GTT Forward chart to P [id number] ([facility]): completed Nutrition: November 02 at 2:30pm with Fariba Domingo RD Diabetic teaching and visit with diabetic provider (Adrian or Nery): Adrian Bird CNM at [address] [place] [id number]. 4 times per day testing (fasting and 2 hour postprandial) to be reviewed weekly Goals: fasting <95, 2 hr PP <120 If > or = 1/3 elevated, send to diabetic provider for insulin therapy IF DIAGNOSED ON EARLY SCREENING: order a echocardiogram between 22-24 weeks: n/a Serial growth ultrasounds after diagnosis: Optician Manager on shoulder dystocia Deliver by 40 6/7 [...] 06/20/2024 12/04/2024 Overview (07/07/2024): 1. [facility] site: [place] 2. Delivery site: [facility] 3. Mobile Mommas: NO 4. Dating [...] Administration Dates Next Due DTP 12/09/1993, 0,04/23/1989,02/19,1988 [id number] (Pentacel) 2mo to less than 5yo 04/29/1990 [...] Surgery Date Site/Laterality Comments APPENDECTOMY 2018 PROCEDURE: ND APPENDECTOMY OTHER SURGICAL HISTORY 2017 PROCEDURE: DECOMPRESS DISC RF LUMBAR BREAST REDUCTION 04/2023 Bilateral PROCEDURE: ND BREAST REDUCTION OTHER SURGICAL HISTORY PROCEDURE: ND RHINOPLASTY PRIMARY W/MAJOR SEPTAL REPAIR OTHER SURGICAL HISTORY PROCEDURE: ND UNLISTED PROCEDURE EYELIDS; COMMENT: eyelid lift OTHER SURGICAL HISTORY 2023 PROCEDURE: ND SUCTION ASSISTED LIPECTOMY TRUNK Medical History Medical [...] Status Comments Brother 1 Brother 2 Alive [id number] [facility] Father Alive [id number] Father's side Aunt Alive Maternal Grandfather Maternal Grandmother Mother Alive [id number] Paternal Grandfather Paternal Grandmother Alive Social History [...] care for your loved ones. For example, school childcare attendant or elderly care for an older adult? 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 Not on file Not on file Not on file Obstetrics History Para Term AB IAB SAB Ectopic Multiple Livin g Live Births 2 1 0 1 0 0 1 1 Date Outcome GA Total Labor Labor/2nd/3rd Weight Sex Type Anes PTL Swapna A1 A5 Name Clin 025 34w 6d 3033 g (107 oz) F CS-LT ranv Livin g Parrish Delivery Location:Hospital A ([facility]) Summary Episode Dates Number of Fetuses Estimated Date of Delivery 12/27/2024 - Present (07/03/2025) Unknown Dating Summary Based On DEANNE [place] Diff Last Menstrual Period on 04/11/2024 (Exact Date) 01/16/2025 Vitals Pregravid Weight Height TWG (As of 07/03/2025) Pregrav id BMI 1.676 m (66 ) [...] almost 6 weeks s/p PCS delivery at [facility] due to previa. She is bottle [...] has decided to start ketamine transfusions at [facility] for her mental health. 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 Had been in partial inpatient at [facility], no current meds. Currently in couns [facility] @ [facility] PETS: 2 cats/ 1 dog 03/24/2013 IS now back in the same unhealthy relationship off & on x 4yrs. Cont to receive outpatient counseling as needed. No current homicidal/suicidal thoughts. [facility] [employer] 04/17/2015 In a new relationship x 12 mo , denies ant issues of IPV 06/08/19: She lives with her parents she just moved back from [place] in March. She has started to see her ex boyfriend for the past year, feels safe in her relationship, denies IPV. She is currently working for [employer]. She does smoke cigarettes daily, denies drug use, she is sober from alcohol. Currently being referred out to [facility] for her anxiety/depression. 08/16/2020: Just got new puppy; She lives with her parents. Working from [employer] for [employer]. She is in an on and off again relationship with one male partner for the past 6 years. She feels safe and happy in her relationship, denies IPV. She is not exercising routinely. 11/11/2023: She lives home with her parents, feels safe and happy. She is in a new relationship for about 1 month feels safe. 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 Trying to exercise more, [...] with: 1. Contraception-has Copper IUD placed at [facility] 2. Discussed nutrition, exercise, sexual activity, control methods, manager cleaning care, S&S of PPD and referral information. [...] BP check 4. AE in one year Guadalupe Depression Scale: In the Past 7 Days [...] harming myself has occurred to me.: Never Guadalupe Depression Scale Total: 18 Adrian Bird CNM [...] thinks she has psychosis. Living with her uffxde-ry-hfd who has dementia and is challenging to [...] for ketamine tx on Wednesday. Going to [place] this weekend to get away from utlowy-cl-oeo and hoping she will feel better 2) Taking Nifedipine 30mg daily as rx'd by [facility], Bps at home have been slightly [...] that getting some time away from her aijxfb-ua-zbn may be beneficial. Advised to keep appt with psychiatrist on Wednesday to discuss medication mgmt. Pt verbalized understanding and agreement with plan. Progress Notes - Hospital En counter - 12/29/2024 - GA: 12/29/2024 - Kristie Martel LSW Oncology Technician- Progress Note Patient continues to require acute level hospital care. DEANNE: 12/29/24 Barriers: none Disposition: HOME HEALTH- [facility] secured for wound care management. director of student financial services will remain available to assess, support, [...] is being discharged home with referral to director social welfare for home wound care. She is given [...] incision. S/p via pfannensteil on 12/11 (at [facility]). Noticed some swelling on her incision [...] this topic Medical Devices Implanted Type Area Catshovel Driver Device Identifier Shelf Expiration Date Model / Serial / Lot Shell Short Flarehawk 25mm [id number] [id number] Implanted:Qty: 1 on 06/17/2021 by Asa Guaman MD N/A: Spine Lumbar [employer] [id number] / / Cage Spinal Flarehawk 6 D L23 [facility] [id number] Implanted:Qty: 1 on 06/17/2021 by Asa Guaman MD N/A: Spine Lumbar [employer] [id number] / / Bone Alrgft Canc Chip 1-8 15cc Stry-Obio [id number] - [id number] Implanted:Qty: 1 on 06/17/2021 by Asa Guaman MD N/A: Spine Lumbar [employer] 11/03/2025 [id number] / [id number] / Erick Spnl Contr 5.5x45mm Stry-K2m [id number] Implanted:Qty: 2 on 06/17/2021 by Asa Guaman MD N/A: Spine Lumbar [employer] [id number] / / Screw Set Harrah Stry-K2m [id number] Implanted:Qty: 4 on 06/17/2021 by Asa Guaman MD N/A: Spine Lumbar [employer] [id number] / / Screw Spnl Poly 6.5x45mm Stry-K2m [id number] Implanted:Qty: 2 on 06/17/2021 by Asa Guaman MD N/A: Spine Lumbar [employer] [id number] / / Screw Spnl Poly 6.5x50mm Stry-K2m [id number] Implanted:Qty: 2 on 06/17/2021 by Asa Guaman MD N/A: Spine Lumbar [employer] [id number] / / Procedures Procedure Name Priority Date/Time [...] LAB CHEMISTRY METHOD 06/20/2024 5:16 PM EST [facility] Blood Venous blood specimen / Unknown Venipuncture / Unknown 06/20/2024 2:16 PM EST 06/20/2024 2:16 PM EST Adrian Bird [facility] BLOOD ORDERABLES Final Res ult [facility] [address] [place] [address], * HIV 1,2 antibody, p24 antigen with reflex to differentiation (06/20/2024 2:16 PM EST) HIV Combo AB/AG Negative Negative LAB CHEMISTRY METHOD 06/20/2024 5:17 PM EST [facility] Blood Venous blood specimen / Unknown Venipuncture / Unknown 06/20/2024 2:16 PM EST 06/20/2024 2:16 PM EST Narrative [facility] - 06/20/2024 5:17 PM EST This assay is a 4th generation assay allowing for earlier detection of HIV infection by detecting the presence of the HIV-1 p24 antigen as well as the traditional antibodies to HIV type 1 (including group O) and type 2. Use of a 4th generation assay is the current CDC recommendation for HIV screening. Adrian Bird [facility] BLOOD ORDERABLES Final Res ult [facility] [address] [place] [address], [place] [phone] * Cervical Cancer Screening: HPV (11/11/2023) Cervical [...] Most Recently Relevant to Health Maintenance Insurance [facility] Care Teams Rivet Catcher Relationship Specialty Start Date End Date Miguel Angel Cuellar MD [address] [place] [address] PCP - General Internal Medicine 03/16/19
--- OUTSIDE RECORDS SUMMARY | 2025-07-03 23:33 | XMS_ITS | Clinical Summary ---
Author Organization [facility] Address [address] [place] [address] Care Team Providers Care Diagrammer And Seamer Name Role Phone Juancarlos Tatiana Cruz APRN Primary Care Provider [phone] Allergies No known active allergies Medications diclofenac [...] patient's age to complete this topic Insurance [facility] P[facility] Care Teams Diagrammer And Seamer Relationship Specialty Start Date End Date Tatiana Bauer APRN PCP - General Emergency Medicine 02/28/21
--- OUTSIDE RECORDS SUMMARY | 2025-07-03 23:34 | XMS_ITS | Data Portability ---
Author Organization [place] - [facility], Allergy Address [address] [address] Care Team Providers Care Urgent Care Nurse Practitioner Name Role Phone KIMBERLITARIQEMMYANGUS Primary Care Provider Assessment Encounter Date Assessment Date Assessment LastModified by Organization Details LastModified Time 05/31/2024 05/31/2024 Patient with recurrent sinus and pharyngeal infections which were persisted before she had a septorhinoplasty in [place] in December. Over the summer she was well. Recent trip to [facility] and increased congestion. Examination shows no polyps or colored nasal discharge. She is now 7 weeks so we cannot perform any radiographs and try to avoid antibiotics. At the present time I do not see any need for any antibiotics have suggested saline irrigations twice daily with distilled water. We will check an immune panel. She will discuss with the transfer knitter whether she can utilize budesonide nasal spray. [email or web address] Not available 05/31/2024 15:52:05 Plan of Treatment Reminders Order Date Submit Date Provider Last Modified By Organization Details Last Modified Time Details Appointments None recorded. Lab haemophilus influenzae B IgG Ab, quantitativ e, serum, immunoassay 2023 MAGNUS [facility] (Centralized Electronic Ordering - All Locations), Patient Can Go To The Location Of Their Choice, [id number] 11:45:58 unlisted lab - pneumococca l Ab (23 serotype) 2023 AMGNUS [facility] (Centralized Electronic Ordering - All Locations), Patient Can Go To The Location Of Their Choice, [address] 11:45:58 unlisted lab - tetanus toxoid Ag response* 2023 gilmar s32 [facility] (Centralized Electronic Ordering - All Locations), Patient Can Go To The Location Of Their Choice, [address] 12:24:19 CBC w/ auto diff 2023 MAGNUS [facility] (Centralized Electronic Ordering - All Locations), Patient Can Go To The Location Of Their Choice, 11:45:57 ige, total, serum 2023 ELIZABETH [facility] (Centralized Electronic Ordering - All Locations), Patient Can Go To The Location Of Their Choice, 11:45:59 immunoglobu sujatha iga+igg+igm , quantitativ e, serum 2023 ELIZABETH [facility] (Centralized Electronic Ordering - All Locations), [...] [facility]) [address] [place], [address], 06/07/2024 11:45:57 05/31/2006/01/2024 CBC WITH DIFFE RENTI AL/PL ATELE T RBC 4.29 x10e6 /uL 3.77-5 .28 normal Not Available [facility] ([facility]) [address] [facility], [place], [address], 06/07/2024 11:45:57 05/31/2006/01/2024 CBC WITH DIFFE RENTI AL/PL ATELE T hemoglobin 13.0 g/dL 11.1-1 5.9 normal Not Available [facility] ([facility]) [address] [place], [address], 06/07/2024 11:45:57 05/31/2006/01/2024 CBC WITH DIFFE RENTI AL/PL ATELE T hematocrit 39.3 % 34.0-4 6.6 normal Not Available [facility] ([facility]) [address] [facility], [place], [address], 06/07/2024 11:45:57 05/31/2006/01/2024 CBC WITH DIFFE RENTI AL/PL ATELE T MCV 92 fL 79-97 normal Not Available [facility] ([facility]) [address] [facility], [place], [address], 06/07/2024 11:45:57 05/31/2006/01/2024 CBC WITH DIFFE RENTI AL/PL ATELE T MCH 30.3 pg 26.6-3 3.0 normal Not Available [facility] ([facility]) [address] [place], [address], 06/07/2024 11:45:57 05/31/2006/01/2024 CBC WITH DIFFE RENTI AL/PL ATELE T MCHC 33.1 g/dL 31.5-3 5.7 normal Not Available [facility] ([facility]) [address] [place], [address], 06/07/2024 11:45:57 05/31/2006/01/2024 CBC WITH DIFFE RENTI AL/PL ATELE T RDW 12.8 % 11.7-1 5.4 Not Available [facility] ([facility]) [address] [place], [address], 06/07/2024 11:45:57 05/31/2006/01/2024 CBC WITH DIFFE RENTI AL/PL ATELE T platelets 354 x10e3 /uL 150-45 0 normal Not Available [facility] ([facility]) [address] [facility], [place], [address], 06/07/2024 11:45:57 05/31/2006/01/2024 CBC WITH DIFFE RENTI AL/PL ATELE T neutrophils 57 % not estab. normal Not Available [facility] ([facility]) [address] [facility], [place], [address], 06/07/2024 11:45:57 05/31/2006/01/2024 CBC WITH DIFFE RENTI AL/PL ATELE T lymphs 29 % not estab. normal Not Available [facility] ([facility]) [address] [facility], [place], [address], 06/07/2024 11:45:57 05/31/2006/01/2024 CBC WITH DIFFE RENTI AL/PL ATELE T monocytes 9 % not estab. normal Not Available [facility] ([facility]) [address] [facility], [place], [address], 06/07/2024 11:45:57 05/31/2006/01/2024 CBC WITH DIFFE RENTI AL/PL ATELE T eos 5 % not estab. normal Not Available [facility] ([facility]) [address] [facility], [place], [address], 06/07/2024 11:45:57 05/31/2006/01/2024 CBC WITH DIFFE RENTI AL/PL ATELE T basos 0 % not estab. normal Not Available [facility] ([facility]) [address] [facility], [place], [address], 06/07/2024 11:45:57 05/31/2006/01/2024 CBC WITH DIFFE RENTI AL/PL ATELE T immature cells PANEL MAKER Not Available [facility] ([facility]) [address] [facility], [place], [address], 06/07/2024 11:45:57 05/31/2006/01/2024 CBC WITH DIFFE RENTI AL/PL ATELE T neutrophils (absolute) 5.6 x10e3 /uL 1.4-7. 0 normal Not Available [facility] ([facility]) [address] [place], [address], 06/07/2024 11:45:57 05/31/2006/01/2024 CBC WITH DIFFE RENTI AL/PL ATELE T lymphs (absolute) 2.9 x10e3 /uL 0.7-3. 1 normal Not Available [facility] ([facility]) [address] [place], [address], 06/07/2024 11:45:57 05/31/2006/01/2024 CBC WITH DIFFE RENTI AL/PL ATELE T monocytes(ab solute) 0.9 x10e3 /uL 0.1-0. 9 normal Not Available [facility] ([facility]) [address] [facility], [place], [address], 06/07/2024 11:45:57 05/31/2006/01/2024 CBC WITH DIFFE RENTI AL/PL ATELE T eos (absolute) 0.5 x10e3 /uL 0.0-0. 4 above high normal Not Available [facility] ([facility]) [address] [place], [address], 06/07/2024 11:45:57 05/31/2006/01/2024 CBC WITH DIFFE RENTI AL/PL ATELE T baso (absolute) 0.0 x10e3 /uL 0.0-0. 2 normal Not Available [facility] ([facility]) [address] [place], [address], 06/07/2024 11:45:57 05/31/2006/01/2024 CBC WITH DIFFE RENTI AL/PL ATELE T immature granulocytes 0 % not estab. Not Available [facility] ([facility]) [address] [facility], [place], [address], 06/07/2024 11:45:57 05/31/2006/01/2024 CBC WITH DIFFE RENTI AL/PL ATELE T immature grans (abs) 0.0 x10e3 /uL 0.0-0. 1 Not Available [facility] ([facility]) [address] [facility], [place], [address], 06/07/2024 11:45:57 05/31/2006/01/2024 CBC WITH DIFFE RENTI AL/PL ATELE T NRBC PANEL MAKER Not Available [facility] ([facility]) [address] [facility], [place], [address], 06/07/2024 11:45:57 05/31/2006/01/2024 CBC WITH DIFFE RENTI AL/PL ATELE T hematology comments: PANEL MAKER Not Available [facility] ([facility]) [address] [facility], [place], [address], 06/07/2024 11:45:57 05/31/2006/07/2024 PNEUM OCOCC AL AB (23 SEROT YPE) pneumo Ab type 1* <0.1 ug/mL >1.3 below low normal Not Available [facility] [address] [place], [address], 06/07/2024 11:45:58 05/31/2006/07/2024 PNEUM OCOCC AL AB (23 SEROT YPE) pneumo Ab type 3* <0.1 ug/mL >1.3 below low normal Not Available [facility] [address] [place], [address], 06/07/2024 11:45:58 05/31/2006/07/2024 PNEUM OCOCC AL AB (23 SEROT YPE) pneumo Ab type 4* <0.1 ug/mL >1.3 below low normal Not Available [facility] [address] [place], [address], 06/07/2024 11:45:58 05/31/2006/07/2024 PNEUM OCOCC AL AB (23 SEROT YPE) pneumo Ab type 8* <0.3 ug/mL >1.3 below low normal Not Available [facility] [address] [place], [address], 06/07/2024 11:45:58 05/31/2006/07/2024 PNEUM OCOCC AL AB (23 SEROT YPE) pneumo Ab type 9 (9N)* <0.1 ug/mL >1.3 below low normal Not Available [facility] [address] [place], [address], 06/07/2024 11:45:58 05/31/2006/07/2024 PNEUM OCOCC AL AB (23 SEROT YPE) pneumo Ab type 12 (12F)* <0.1 ug/mL >1.3 below low normal Not Available [facility] [address] [place], [address], 06/07/2024 11:45:58 05/31/2006/07/2024 PNEUM OCOCC AL AB (23 SEROT YPE) pneumo Ab type 14* 7.4 ug/mL >1.3 Not Available [facility] [address] [place], [address], 06/07/2024 11:45:58 05/31/2006/07/2024 PNEUM OCOCC AL AB (23 SEROT YPE) pneumo Ab type 17 (17F)* <0.1 ug/mL >1.3 below low normal Not Available [facility] [address] [place], [address], 06/07/2024 11:45:58 05/31/2006/07/2024 PNEUM OCOCC AL AB (23 SEROT YPE) pneumo Ab type 19 (19F)* 0.4 ug/mL >1.3 below low normal Not Available [facility] [address] [place], [address], 06/07/2024 11:45:58 05/31/2006/07/2024 PNEUM OCOCC AL AB (23 SEROT YPE) pneumo Ab type 2* <0.2 ug/mL >1.3 below low normal Not Available [facility] [address] [place], [address], 06/07/2024 11:45:58 05/31/2006/07/2024 PNEUM OCOCC AL AB (23 SEROT YPE) pneumo Ab type 20* <0.2 ug/mL >1.3 below low normal Not Available [facility] [place], [address], 06/07/2024 11:45:58 05/31/2006/07/2024 PNEUM OCOCC AL AB (23 SEROT YPE) pneumo Ab type 22 (22F)* <0.1 ug/mL >1.3 below low normal Not Available [facility] [address] [place], [address], 06/07/2024 11:45:58 05/31/2006/07/2024 PNEUM OCOCC AL AB (23 SEROT YPE) pneumo Ab type 23 (23F)* 0.8 ug/mL >1.3 below low normal Not Available [facility] [address] [place], [address], 06/07/2024 11:45:58 05/31/20 24 06/07/2024 PNEUM OCOCC AL AB (23 SEROT YPE) pneumo Ab type 26 (6B)* <0.1 ug/mL >1.3 below low normal Not Available [facility] [address] [place], [address], 06/07/2024 11:45:58 05/31/2006/07/2024 PNEUM OCOCC AL AB (23 SEROT YPE) pneumo Ab type 34 (10A)* 0.1 ug/mL >1.3 below low normal Not Available [facility] [address] [place], [address], 06/07/2024 11:45:58 05/31/2006/07/2024 PNEUM OCOCC AL AB (23 SEROT YPE) pneumo Ab type 43 (11A)* 0.2 ug/mL >1.3 below low normal Not Available [facility] [address] [place], [address], 06/07/2024 11:45:58 05/31/2006/07/2024 PNEUM OCOCC AL AB (23 SEROT YPE) pneumo Ab type 5* <0.1 ug/mL >1.3 below low normal Not Available [facility] [address] [place], [address], 06/07/2024 11:45:58 05/31/2006/07/2024 PNEUM OCOCC AL AB (23 SEROT YPE) pneumo Ab type 51 (7F)* <0.1 ug/mL >1.3 below low normal Not Available [facility] [address] [place], [address], 06/07/2024 11:45:58 05/31/2006/07/2024 PNEUM OCOCC AL AB (23 SEROT YPE) pneumo Ab type 54 (15B)* 11.1 ug/mL >1.3 Not Available [facility] [address] [place], [address], 06/07/2024 11:45:58 05/31/2006/07/2024 PNEUM OCOCC AL AB (23 SEROT YPE) pneumo Ab type 56 (18C)* <0.1 ug/mL >1.3 below low normal Not Available [facility] [address] [place], [address], 06/07/2024 11:45:58 05/31/2006/07/2024 PNEUM OCOCC AL AB (23 SEROT YPE) pneumo Ab type 57 (19A)* 0.2 ug/mL >1.3 below low normal Not Available [facility] [address] [place], [address], 06/07/2024 11:45:58 05/31/2006/07/2024 PNEUM OCOCC AL AB (23 SEROT YPE) pneumo Ab type 68 (9V)* <0.1 ug/mL >1.3 below low normal Not Available [facility] [address] [place], [address], 06/07/2024 11:45:58 05/31/2006/07/2024 PNEUM OCOCC AL AB [...] Laboratories [address] [place], [address], 06/07/2024 11:45:58 05/31/2006/01/2024 IMMUN OGLOB ULINS A/G/M , QN, SER immunoglobul in g, qn, serum 803 mg/dL 586-16 02 Not Available [facility] ([facility]) [address] [facility], [place], [address], 06/07/2024 11:45:58 05/31/2006/01/2024 IMMUN OGLOB ULINS A/G/M , QN, SER immunoglobul in A, qn, serum 160 mg/dL 87-352 normal Not Available [facility] ([facility]) [address] [facility], [place], [address], 06/07/2024 11:45:58 05/31/2006/01/2024 IMMUN OGLOB ULINS A/G/M , QN, SER immunoglobul in M, qn, serum 234 mg/dL 26-217 above high normal Not Available [facility] ([facility]) [address] [facility], [place], [address], 06/07/2024 11:45:58 05/31/2006/01/2024 HAEMO PHILU S INFLU [...] [facility]) [address] [facility], [place], [address], 06/07/2024 11:45:58 05/31/2006/06/2024 IMMUN OGLOB ULIN E, TOTAL immunoglobul in E, total 66 IU/mL 6-495 Not Available [facility] ([facility]) [address] [facility], [place], [address], 06/07/2024 11:45:59 05/31/2006/07/2024 TETAN US TOXOI D AG RESPO NSE* tetanus toxoid Ag response* COMMEN T %_X_1 00 Test Not Perfo rmed. The reque sted test was omitt tarik aguilar the court orderly proce ss and the speci men is no longe r avail able for testi ng. [facility] will conta ct your patie nt to sched ule a time for recol lecti on. Shoul d we be unabl e to make conta ct with your patie nt, your offic e will be notif ied. Not Available [facility] [address] [place], [address], 06/07/2024 14:13:14 05/31/20 24 06/07/[address] PROBL EM request problem COMMEN T Test Not Perfo rmed. The reque sted test was omitt tarik aguilar the court orderly proce ss and the speci men is no longe r avail able for testi ng. [facility] will conta ct your patie nt to sched ule a time for recol lecti on. Shoul d we be unabl e to make conta ct with your patie nt, your offic e will be notif ied. TEST: [id number] 9 Tetan us Toxoi d Ag respo nse* Not Available [facility] ([facility]) [address] [facility], [place], [address], 06/07/2024 14:13:16 06/08/20 24 06/14/2024 TETAN US [...] Laboratories [address] [place], [address], 06/14/2024 14:25:50 Result Notes None recorded. Problems Name Problem SNOMED Code Status Onset Date Resolution Date Notes Provider Name and Address Organization Details Recorded Time Chronic rhinitis 34656075 Active 2023 HA SCHAEFFER MD [address] [place] [address], [phone], [facility] - [facility] 15:50:02 Chronic sinusitis 39862888 Active 2023 HA SCHAEFFER MD [address] [facility] [address], [place], [address], [facility] - [facility] 15:50:34 Immunodeficien cy disorder 730312786 Active 2023 HA SCHAEFFER MD [address] [facility] [address], [place], [address], [facility] - [facility] [place] 12:51:35 Problem Notes None recorded. Procedures Surgical History Date Name Laterality Status Provider Name and Address Organization Details Recorded Time lumbar spinal fusion completed Love valera [place] - [facility] 05/31/2024 15:35:22 Breast reduction completed Love Dillard [facility] 05/31/2024 15:35:28 rhinoseptoplasty completed Love Dillard [facility] 05/31/2024 15:35:38 Imaging Results None recorded. [...] Details Last Updated DateTime 05/31/2024 167.64 cm 28458.26 g Love Dillard [place] - [facility] 05/31/2024 15:32:53 Social History None recorded. [...] ICD10 Code Diagnosis IMO Codes Diagnosis Note [id number] HA RODRIGUEZ MD [facility] [address] [place] [address] 05/31/2024 14:49:47 05/31/2024 15:55:16 Chronic rhinitis 20083554 J31.0 84780007 Z33.1 Chronic sinusitis 548926 00 J32.9 Health Concerns Section Related Observation LastModified by Organization Detai ls LastModified Time None Recorded Concern Status LastModified by Organization Details LastModified Time None Recorded Advance Directives Directive None Recorded Payers Insurance Date Sequence Insurance Name Policy Number Policy Billy Covered Member ID Billy Member ID Guarantor Name 05/31/2024 1 [employer] Stacia Botellocotte [id number] Stacia Elton 05/31/2024 1 [facility] [facility] [employer] [place] [employer] (MEDICAID HMO) [id number] Stacia Elton [id number] Stacia Elton Notes Date Note Type Note Provider Name and Address Organization Details Recorded Time 05/31/2024 text/html Hx of septorhinoplasty in [place] December 08, 2023. Sinus infections monthly before the SRP in [place]. Had been treated with multiple abx. Hx of strep around the time of surgery. [facility] well over [facility] [facility] Now 7 weeks . Seeing OBHaving morning sickness HA BRYANT MD [address] [place] [address], [place], [address], [facility] - [facility] 05/31/2024 15:54:09 OBGyn Episode No OBEpisode recorded.
--- NOTE | 2025-07-04 01:09 | HO.PSYADMNOT ---
HPI Date of Service: 07/04/25 Chief Complaint: Adjustment Disorder with Anxiety, Unspecified Depr HPI Narrative: pt is a 34 yo female, recently post- transferred from [facility] for psychiatric treatment after making suicidal comment on arrival to [facility], pt found to be in intractable pain (reportedly was on IV diluadid at [facility]) Hospitalist called grant writer to ask for transfer to medical floor to treat back pain; transfer done. Patient can be re-assessed by psych once pain is stabilized on med floor. Medical Evaluation Reviewed: Hospitalist Janelleal Pending [facility] Medical History (Updated 06/22/25 @ 17:02 by Carlos Quick MD) Sore throat History of frequent upper respiratory infection Recurrent streptococcal pharyngitis Surgical History (Updated 06/15/25 @ 13:20 by Carlos Quick MD) H/O section H/O spinal fusion Meds/Allergies Meds Home Medications ?Medication ?Instructions ?Recorded ?Confirmed ?Type gabapentin 800 mg tablet 800 mg PO TID 01/23/25 07/04/25 History lamotrigine 25 mg tablet (Lamictal) 25 mg PO DAILY 06/15/25 06/15/25 History buprenorphine HCl 75 mcg buccal mcg buccal BID 07/03/25 History film (Belbuca) meloxicam 15 mg tablet 15 mg PO DAILY 07/03/25 07/03/25 History alprazolam 0.5 mg tablet 0.5 mg PO DAILY PRN anxiety 07/04/25 07/04/25 History ibuprofen TID 07/04/25 History oxycodone PO QD-TID pain 07/04/25 History Allergies Allergies Allergy/AdvReac Type Severity Reaction Status Date / Time No Known Allergies Allergy Verified 06/27/25 11:16 Assessment & Plan Assessment & Plan (1) Anxiety with depression: Status: Acute Code(s): F41.8 - Other specified anxiety disorders (2) Cervicalgia: Status: Acute Code(s): M54.2 - Cervicalgia (3) Back pain: Status: Acute Code(s): M54.9 - Dorsalgia, unspecified Plan pt is a 34 yo female, recently post- transferred from [facility] for psychiatric treatment after making suicidal comment (?) on arrival to [facility], pt found to be in intractable pain (reportedly was on IV diluadid at [facility]) Hospitalist called grant writer to ask for transfer to medical floor to treat back pain; transfer done. Patient can be re-assessed by psych once pain is stabilized on med floor. Patient educated on: medical condition Reason for continued inpatient stay Substantial Risk for: other Statement Statement: I have reviewed the history and physical and performed a pertinent examination on my patient. No changes have occurred unless specified. If the History and Physical was not performed prior to admission, the Hospitalist's service will be consulted for completing the admission physical. Time Spent With Patient Time: Total time managing care of this patient today ____ minutes.
--- NOTE | 2025-07-04 01:09 | PM.PSYDC ---
DS: Providers Provider Date of Service: 07/11/25 Date of admission: 07/03/25 23:29 Date of discharge: 07/04/25 Primary care physician: Carlos Quick MD Consults: 07/03/25 23:47 Consult to Hospitalist Routine Comment: Consulting Provider: [facility] Hospitalists Reason For Exam: admission physical DS: Medications Discharge Medications Home Medications: Home Medications ?Medication ?Instructions ?Recorded ?Confirmed gabapentin 800 mg tablet 800 mg PO TID 01/23/25 07/04/25 lamotrigine 25 mg tablet (Lamictal) 25 mg PO DAILY 06/15/25 06/15/25 buprenorphine HCl 75 mcg buccal mcg buccal BID 07/03/25 film (Belbuca) meloxicam 15 mg tablet 15 mg PO DAILY 07/03/25 07/03/25 alprazolam 0.5 mg tablet 0.5 mg PO DAILY PRN anxiety 07/04/25 07/04/25 ibuprofen TID 07/04/25 oxycodone PO QD-TID pain 07/04/25 Previous Rx's ?Medication ?Instructions ?Recorded albuterol sulfate 90 mcg/actuation 2 puff inhalation Q4-6H PRN 04/03/25 aerosol inhaler shortness of breath or wheezing 30 days #8.5 grams metronidazole 0.75 % (37.5 mg/5 1 appful vaginal DAILY 5 days #70 04/04/25 gram) vaginal gel grams duloxetine 60 mg capsule,delayed 120 mg (2 x 60 mg) PO DAILY 90 04/19/25 release days #180 caps budesonide 90 mcg/actuation breath 1 inh inhalation BID #1 ea 05/22/25 activated powder inhaler (Pulmicort Flexhaler) meloxicam 15 mg tablet 15 mg PO DAILY 30 days #30 tabs 06/15/25 oxycodone-acetaminophen 5 mg-325 1 tab PO Q8H PRN pain 30 days #90 06/15/25 mg tablet (Percocet) tabs oxycodone 10 mg tablet,crush 10 mg PO Q12H 30 days #60 tabs 06/22/25 resistant,extended release 12 hr hydromorphone 2 mg tablet 2 mg PO BID PRN pain 3 days #6 tabs 06/29/25 (Dilaudid) naloxone 4 mg/actuation nasal 4 mg intranasal Q2M PRN opioid 06/30/25 spray (Narcan) overdose 30 days #2 ea DS: Summary Hospital Course Hospital Course: pt is a 34 yo female, recently post- transferred from [facility] for psychiatric treatment after making suicidal comment on arrival to [facility], pt found to be in intractable pain (reportedly was on IV diluadid at [facility]) Hospitalist called proposal manager writer to ask for transfer to medical floor to treat back pain; transfer done. Patient can be re-assessed by psych once pain is stabilized on med floor. Time Spent with Patient Time attestation: Total time managing care of this patient today ____ minutes. Discharge Plan Discharge Anticipated Discharge Date/Time: 07/04/25 01:08 Patient Disposition: Xfer Other Discharge Diagnosis: Back pain Referrals: Carlos Quick MD [Primary Care Provider, Internal Medicine] - 1 Week Discharge Medications: Continued albuterol sulfate 90 mcg/actuation HFA aerosol inhaler 2 puff inhalation Q4-6H PRN (Reason: shortness of breath or wheezing) 30 Days Qty: 8.5 0RF metronidazole 0.75 % (37.5mg/5 gram) gel 1 appful vaginal DAILY 5 Days Qty: 70 0RF duloxetine 60 mg capsule,delayed release(DR/EC) 120 mg PO DAILY 90 Days Qty: 180 3RF Pulmicort Flexhaler 90 mcg/actuation aerosol powdr breath activated 1 inh inhalation BID Qty: 1 1RF oxycodone 10 mg tablet,oral only,ext.rel.12 hr 10 mg PO Q12H 30 Days Qty: 60 0RF Rx Instructions: [place] Verified. Partial Fill upon patient request. hydromorphone [Dilaudid] 2 mg tablet 2 mg PO BID PRN (Reason: pain) 3 Days Qty: 6 0RF Rx Instructions: [place] Verified. Partial Fill upon patient request. naloxone [Narcan] 4 mg/actuation spray,non-aerosol 4 mg intranasal Q2M PRN (Reason: opioid overdose) 30 Days Qty: 2 2RF Rx Instructions: spray 1 dose into ONE nostril; alternate nostrils w each dose until help arrives meloxicam 15 mg tablet 15 mg PO DAILY buprenorphine HCl [Belbuca] 75 mcg film BUCCAL BID oxycodone 10 mg PO QD-TID alprazolam 0.5 mg tablet 0.5 mg PO DAILY PRN (Reason: anxiety) ibuprofen 600 mg TID gabapentin 800 mg tablet 800 mg PO TID Rx Instructions: 2-3 pills prn lamotrigine [Lamictal] 25 mg tablet 25 mg PO DAILY oxycodone-acetaminophen [Percocet] 5-325 mg tablet 1 tab PO Q8H PRN (Reason: pain) 30 Days Qty: 90 0RF Rx Instructions: Partial Fill upon patient request. meloxicam 15 mg tablet 15 mg PO DAILY 30 Days Qty: 30 2RF Discharge Orders: Discharge Order (Routine); Ordered 07/04/25 Ordered By: Ramiro Andujar Diet: Regular diet Activity on Discharge: As tolerated Stand Alone Forms: Patient Portal Discharge page Print Language: Belarusian Care Plan Goals: transfer to medical floor Health Concerns: transfer to medical floor Plan of Treatment: transfer to medical floor Assessment: transfer to medical floor
[2025-07-04 01:10] VITALS: BP 123/100; PULSE 123; RESP 18; O2SAT 94
--- NOTE | 2025-07-04 01:10 | PC.ADMIT ---
Addendum entered by Lisa Nava RN 07/04/25 01:34: admitted at 2357 on 07/03/25 - rechecked with [facility] on floor Addendum entered by Lisa Nava RN 07/04/25 01:25: Pt was admitted at 0000 on 07/04/25. Pt was seen by DUPLIGRAPH OPERATOR maria eugenia rai determined for pt to be moved to medical unit. Original Note: Stacia is a 34 y/o female that was admitted to at? 2345 from [facility] on 12b for treatment of depression and pain management .? Pt was in agonizing pain and could not take it anymore.? Pt stated ?I don?t want to live anymore? pt stated it was out of frustration and pain. Pt was screaming and yelling and crying in pain.? Alert and oriented x3.? Mood is frustrated,? Pt denied AVH, SI or HI.? Thought Process organized and linear.? Substance Issues denied Tox Screen not performed? Hx of etoh use. Has been sober from etoh for 6 years? Recent Stressors - fiances mother?s recently dx with Alzheimer's currently lives with pt. 6 month old child reports suffering from depression.? Medical Issues - Back surgery 06/08 - fusion of L5/S1 has pain/weakness/ decreased sensation in L leg. Some urinary incontinence. Multiple back surgeries.? Safety Checks 1:1 Pt stated she had ?high tolerance for pain meds? Seen by a hospitalist [facility] determined to transfer pt.
--- NOTE | 2025-07-04 01:37 | PC.NURSE ---
07/04/25 pt reported uncontrolled pain. Hospitalist POCKET ASSEMBLER maria eugenia rai made aware, determined that pt would be moved to medical.
--- NOTE | 2025-07-04 01:49 | PC.NURSE ---
RN to RN performed with ALEX Díaz from S3 going to room 377
== END 2025-07-04 01:52 | disposition other institution (70) | DRG 755 ==
PROVIDERS: Admitting Provider Psychiatry & Neurology Psychiatry; PCP Family Medicine; Visit Provider Psychiatry & Neurology Psychiatry
DX: F43.22 Adjustment disorder with anxiety (principal); M54.9 Dorsalgia, unspecified; Z79.899 Other long term (current) drug therapy

== ENCOUNTER → 2025-07-03 23:29 | Outpatient (BNV) | payer OTHER, SELFPAY | PROVIDERS: Admitting Provider Psychiatry & Neurology Psychiatry; PCP Family Medicine; Visit Provider Psychiatry & Neurology Psychiatry | DX: F41.8 Other specified anxiety disorders (principal); M54.2 Cervicalgia; M54.9 Dorsalgia, unspecified | CPT/HCPCS: 99238; 99499 ==

== ENCOUNTER 2025-07-04 01:38 | Inpatient (IN) | payer OTHER, SELFPAY ==
[2025-07-04] VITALS (11 sets, daily range): BP systolic 101–153; BP diastolic 56–95; PULSE 85–116; RESP 16–19; TEMP 36.2–36.7; O2SAT 96–99; BMI 27.2
--- NOTE | 2025-07-04 | ECG_ITS ---
Test Reason : Admission EKG Blood Pressure : */* mmHG Vent. Rate : 83 BPM Atrial Rate : 83 BPM P-R Int : 154 ms QRS Dur : 70 ms QT Int : 362 ms P-R-T Axes : 15 62 27 degrees QTcB Int : 425 ms Normal sinus rhythm Normal ECG No previous ECGs available Referred By: Dhara Ngo Electronically Signed By: Abelino Awan
--- NOTE | 2025-07-04 01:40 | PM.IMHP ---
History of Present Illness Date of Service: 07/04/25 Attending physician on admission: Torres Quinn Chief Complaint: severe back pain Patient is a 34-year-old female with past medical history degenerative disc disease, cervical spine stenosis, lumbar spondylolisthesis, lumbar L3-L4 diskectomy age [age], L4-L5 lumbar fusion 2020, L5-S1 fusion and removal of some hardware from L4-L5 fusion May 2025 in [place] done emergently, recently gave 6 months ago via with gestational diabetes, preeclampsia, placenta previa and depression/rage, currently on Mounjaro 7.5 mgs Wednesday since December 2024 for weight loss, mild constipation, IUD copper placed , 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 According to the psychiatric staff here at [facility], patient was accepted from [facility] to [facility] on a section 12 after patient made statements to include I do not want to live anymore having gone to the ED for ongoing back pain issues with worsening weakness and paresthesia. While at [facility] patient was noted to be screaming and yelling as well as crying in pain secondary to recent back surgery. Able to obtain records from [facility] and patient was seen by a neurosurgical PA after undergoing an MRI of lumbar spine. The MRI indicates postoperative changes with intact and healed surgical wounds and no obvious evidence of infection to include a normal white blood count, ESR and CRP. A fluid collection was noted in the soft tissues likely not infectious per the neurosurgical PA. Granulation tissue was found along the left nerve root at L5-S1 which could be contributing to patient's symptoms. After evaluation was completed recommendations included no acute neurosurgical intervention indicated given the MRI findings with no evidence of compressive lesion onto the cauda equina nerve roots that would correlate with patient's current symptoms. Patient should consult with pain management. It was recommended that patient reach out to the neurosurgeon in [place] who completed her last fusion for further postoperative evaluation of symptoms as needed. It should be noted that patient was seen at the [facility] spine clinic earlier in June. Conservative management was chosen at that time. In addition the PA from [facility] indicated no need for neurosurgical follow-up in our outpatient clinic. Patient was seen as an outpatient in the [facility] spine clinic to establish care after having emergency surgery in [place] in may 2025 with [facility] on 06/20/2025. Plan was for PCP to continue to manage pt's pain medication regimen, follow up in 6 weeks for wound care check and another set of xrays. In addition, plan was to order another Lumbar MRI with and without contrast to evaluate for continued left-sided nerve impingement at the L5-S1 given her continued leg pain and numbness noted at that office visit. That MRI had not yet been done prior to pt's arrival tot he ED 07/03. Upon patient's arrival to , patient continued screaming, crying and yelling out in pain. Psychiatric staff reached out the hospitalist group for assistance. After assessing patient and evaluating her current issues it appears that patient is extremely frustrated and overwhelmed with her current back issues, recently having a who is now a 6-month-old, learning that her soon to be [id number] has new onset moderate Alzheimer's, a father that recently underwent a renal transplant, and her fiance who can not currently ambulate without crutches is contributing to the overall picture of emotional hardship as well as pain associated with her current back issues. Patient did state that she has been drinking intermittently since the of her child and to clarify, patient is not . Patient did have an issue with alcohol in the past and has been sober for the last 6 years until after the of her baby. Patient does currently deny any SI, HI, hallucinations but is requesting help in the community to include therapy. This racebook writer discussed the case with Dr. Hale and felt strongly that patient will require medical care to help treat her current pain issues and should be transferred to a medical-surgical floor. This racebook writer does not believe patient needs to be sectioned at this time, as she denies any SI, HI or hallucintations but is having Psychiatry see the patient in the a.m.. To clarify, patient resides in [place] and was down in [place] for the christianity of her baby. While there patient experienced excruciating symptoms including pain, paresthesia and decreased sensation which prompted a visit to the emergency department and patient was admitted and had this last emergent L5-S1 fusion. This case was reviewed with Dr. Quinn, current overnight attending with the hospitalist group. Attending agreed with transfer and that patient does not require transfer to a higher level of care at this time. Review of Systems Review of Systems: Patient reports 05/18 in the lower back area, states that her left leg was the stronger leg and now is weaker than the right. Patient denies any falls. Patient currently denies any chest pain, shortness of breath at rest or with exertion, abdominal pain, nausea or vomiting. He is not having major issues with constipation while on Mounjaro but also has been taking narcotics including oxycodone at home. Patient states her last BM was 3 days ago. Patient denies any weight loss unexplained or weight gain. Patient has been using a walker to ambulate for more support. Yes all other systems are reviewed and are negative [facility] Medical History (Updated 07/04/25 @ 02:35 by MOY Ingram) CTS (carpal tunnel syndrome) Placenta previa Gestational diabetes depression ADHD Nicotine use Marijuana use Alcohol use disorder Smoker Hidradenitis suppurativa Mild intermittent asthma Neuropathy of right lower extremity Lumbar radiculopathy Cervical radiculopathy Fusion of spine of lumbosacral region Thrush, oral UTI symptoms 23 weeks gestation of Anxiety Sore throat History of frequent upper respiratory infection Recurrent streptococcal pharyngitis Cognitive capacity: Alert and orientated x3 Functional capacity: uses cane/walker Patient : No (Patient has a IUD hCG negative) Pertinent family history: Father history of renal transplant Surgical History (Updated 07/04/25 @ 02:30 by MOY Ingram) S/P lumbar and lumbosacral fusion by anterior technique H/O section H/O spinal fusion Social History (Updated 06/15/25 @ 13:10 by Jocelyn Gates [facility]) Household Members: Family Housing: House Do you presently have visiting nurse or other home services: No Alcohol intake: current Patient Tobacco Use Status: Current everyday Tobacco user Tobacco use type: Smokeless Tobacco Cigarettes Per Day: 2 Years Smoked: 17 Smoked in Last 30 Days: Yes e-Cigarette/Vaping Use: Currently Using Frequency of e-Cigarette/Vaping Use: daily Patient Interested in Nicotine Replacement: Yes Patient Given Instructions on How to Stop Smoking: No Second Hand Smoke Exposure: No Substance Use Type: Marijuana Have you been hit, kicked, punched, or otherwise hurt by someone within the past year? If so, by whom?: No Do you feel safe in your current relationship?: Yes Is there a partner from a previous relationship who is making you feel unsafe now?: No Are you made to feel afraid or neglected: No Advance Directives: No Advance Directives Information Provided: Yes Do you have a plan to hurt others: No Plan Recently lost weight without trying: No How much weight loss: Not applicable Eating poorly because of decreased appetite: No Nutrition screen score: 0 Nutrition Risks: No Nutritional Risk Patient : No (Patient has a IUD hCG negative) : No Poor oral hygiene: No service: No Current occupational status: employed Cognitive needs: No Hearing needs: No Vision needs: No Ebola Risk: Travel/Contact With Anyone From Affected Area/s: No Has Patient Experienced Ebola Symptoms: No Meds Allergies Allergy/AdvReac Type Severity Reaction Status Date / Time No Known Allergies Allergy Verified 06/27/25 11:16 Home Medications ?Medication ?Instructions ?Recorded ?Confirmed ?Last Taken ?Type gabapentin 800 mg tablet 800 mg PO TID 01/23/25 07/04/25 07/03/25 11:10 History lamotrigine 25 mg tablet (Lamictal) 25 mg PO DAILY 06/15/25 06/15/25 Unknown History buprenorphine HCl 75 mcg buccal mcg buccal BID 07/03/25 Unknown History film (Belbuca) meloxicam 15 mg tablet 15 mg PO DAILY 07/03/25 07/03/25 07/03/25 History alprazolam 0.5 mg tablet 0.5 mg PO DAILY PRN anxiety 07/04/25 07/04/25 07/03/25 11:10 History ibuprofen TID 07/04/25 07/03/25 11:10 History oxycodone PO QD-TID pain 07/04/25 07/03/25 11:10 History Physical Exam Vital Signs and Narrative: Alert and orientated X3, initially very frustrated, voice raised, anxious than when calm able to give good history. Neuro: visual acuity intact, cranial nerves 2-12 intact EYES: PERRLA, EOM intact, sclerae nonicteric, conjunctiva pink ENT: hearing intact, no issues with swallowing, uvula midline, lips moist, nares patent no epistaxis Cardiac: S1 S2 RRR, tachycardic 110, no murmur, no JVD, no edema in Lower ext Pulmonary: lungs clear to auscultation B Abdominal: BS active in all 4 quadrants, no guarding, tenderness, rebounding MSK: strength 5/5 upper extremities, 4/5 lower extremities, dorsiflexion and plantar flexion weak in both feet : no CVA tenderness no bladder distension Extremities: no edema in lower extremities, PT and DP pulses palpable +2 Psych: mood initially irate, frustrated then anxious, judgement and insight good Skin: To spinal vertical incisions intact and healed, no new rashes or lesions Results ECG Prior ECG tracings: not available for review Imaging Radiologist's Impressions: MRI spine done at [facility] 07/03/2025 IMPRESSION: 1. Degenerative and postoperative changes of the lumbar spine as detailed above. Granulation tissue surrounds the left S1 nerve roots. Enhancement of a pair of nerve roots within the left spinal canal correlates with the left S1 nerve roots. This may be due to previous compression/irritation/inflammation. 2. Minimal grade I anterolisthesis of L3 on L4 with L3 spondylolysis. 3. Small pocket of fluid within the left posterior subcutaneous fat at L4-L5 superficial to the dorsal lumbar fascia. This is probably related to recent surgery. This examination cannot distinguish between sterile and infected collections. Assessment and Plan (1) Back pain: Qualifiers: Back pain laterality: bilateral Back pain location: low back pain Chronicity: unspecified Sciatica laterality: sciatica of left side Sciatica presence: with sciatica Qualified Code(s): M54.42 - Lumbago with sciatica, left side Status: Acute (2) Alcohol use disorder: Status: Acute Plan Patient is a 34-year-old female with past medical history degenerative disc disease, cervical spine stenosis, lumbar spondylolisthesis, lumbar L3-L4 diskectomy age [age], L4-L5 lumbar fusion 2020, L5-S1 fusion and removal of some hardware from L4-L5 fusion May 2025 in [place], recently gave 6 months ago via with gestational diabetes, preeclampsia, placenta previa and depression/rage, currently on Mounjaro 7.5 mgs Wednesday since December 2024 for weight loss, mild constipation, IUD copper placed , 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 Patient was transferred from from [facility] on a section 12 for statements indicating possible SI. Patient extremely frustrated and angry noting the progression of her symptoms status post most recent L5-S1 fusion in May of 2025, done emergently in [place]. Case was discussed with Dr. Hale and plan was to transfer patient to medical-surgical floor for medical management of patient's current symptoms. Acute on chronic back pain with significant surgical history of the lumbar and sacral spine Pain mgmt to include IV dilaudid, toradol and one dose of decadron Neurosurgical consult vs outpatient follow up No loss of bowel or bladder control Tele noting tachycardia, ECG admission pending MRI done at [facility] 07/03/25: IMPRESSION: 1. Degenerative and postoperative changes of the lumbar spine as detailed above. Granulation tissue surrounds the left S1 nerve roots. Enhancement of a pair of nerve roots within the left spinal canal correlates with the left S1 nerve roots. This may be due to previous compression/irritation/inflammation. 2. Minimal grade I anterolisthesis of L3 on L4 with L3 spondylolysis. 3. Small pocket of fluid within the left posterior subcutaneous fat at L4-L5 superficial to the dorsal lumbar fascia. This is probably related to recent surgery. This examination cannot distinguish between sterile and infected collections. Pt was seen by Neurosurgical PA at [facility] prior to transfer (see HPI for assessment) Considering fluid collection noted on MRI, No obvious signs of sepsis or infection as WBC WNL, ESR and CRP WNL. Pt is afebrile. - no current indication to start ABX at this time Consider pain undercar specialist if available inpt PT/OT evaluations Continue to use walker, prevent falls Alcohol use disorder, previously in remission for 6 years Do not suspect pt will withdrawal during her admission CIWA is ordered No indication for phenobarbitol Thiamine and Folic acid ordered Addictions consulted Anxiety/ depression - rage Psychiatry consult placed No indication for section 12 at this time CM/SW consulted to help with making connections in the community for therapy and supportive care Valium prn for now Postpatum 6 months, C section Incision is fully healed Pt is not Pt has copper IUD in place HCG negative Psychiatry to see as above for depression/ rage Marijuana use Pt uses daily No issues with nausea or vomiting Nicotine use Nicotine patch and gum ordered Pt no longer smokes cigarettes but needs her nicotine via vaping Constipation associtated with chronic opiate use (oxycodone) and Monjouro Pt has been on Monjauro for 7 weeks to assist with wt loss after of child Patient educated that being on Mounjaro can increase the risk for anxiety, depression and even SI Bowel regimen initiated with MiraLax daily and senna at bedtime DVT prophylaxis: lovenox MED REC PENDING FULL CODE STATUS Patient will need at least a 2 midnight stay for expert consultation as indicated with psychiatry and possibly Neurosurgery if available, hemodynamic monitoring, and pain management for acute on chronic low back pain issues Quality Stroke Does the patient have a stroke diagnosis?: No VTE Prior VTE?: No VTE Risk Level:: Medical - moderate - high VTE Device Contraindication: N/A - Device Ordered VTE Drug Contraindication: N/A - Med Ordered
[2025-07-04 06:48] LABS: MANUAL DIFF FLAG NO
[2025-07-04 07:05] LABS: Hematocrit 36.4 % (37.0-47.0); Hemoglobin 11.7 g/dl (12.0-16.0); Imm Gran Abs Auto 0.04 X10*3/uL (0.00-0.03); Imm Gran Pct Auto 0.4 % (0.0-0.4); Lymphocytes Absolute Auto 0.9 X10*3/uL (1.2-4.9); Mean Corpuscular HGB Conc 32.1 g/dl (31.0-35.0); Mean Corpuscular Hemoglobin 27.9 pg (27.0-33.0); Mean Corpuscular Volume 86.9 fL (80.0-98.0); NRBC Abs Auto 0.000 X10*3/uL (0.0-0.012); NRBC Pct Auto 0.0 /100WBC (0.0-0.2); Platelet Count 527 X10*3/uL (160-400); Red Blood Count 4.19 X10*6/uL (4.20-5.50); White Blood Count 10.7 X10*3/uL (4.8-10.8)
--- NOTE | 2025-07-04 07:12 | HO.NEURO.PN ---
Neurosurgery Operative Note Date of Service: 07/04/25 Narrative: Ms. Conde is a 34-year-old female who had an extensive previous spinal surgical history. Last surgery was done in [place] for which she had no recovery of her symptoms. We saw the patient in our clinic as a courtesy for her primary care physician Dr. Quick. We ordered an MRI of the lumbar spine which was reviewed and shows no additional surgical cause for her symptoms. This patient has a history of chronic pain syndrome among other negative fact us in thoracic pain. We have no options for this patient. Consider pain management. This was discussed with my attending neurosurgeon Dr. Castellanos. Carl Castellanos MD,PhD [facility]
[2025-07-04 07:14] LABS: Alanine Aminotransferase 18 U/L (0-31); Albumin Level 4.3 g/dL (3.5-5.0); Alkaline Phosphatase 103 U/L (39-117); Anion Gap 14 (12-20); Aspartate Amino Transferase 27 U/L (5-31); Blood Urea Nitrogen 12 mg/dL (9-16); Calcium 9.3 mg/dL (8.4-10.2); Carbon Dioxide 20 mmol/L (22-29); Chloride 108 mmol/L (96-108); Creatinine Clr Calc Pharmacy 125.0; Estimated Glomerular Filt Rate > 60; Potassium 4.4 mmol/L (3.3-5.1); Sodium 138 mmol/L (135-145); Total Protein 6.7 g/dL (6.5-8.0)
[2025-07-04] MEDS: Nicotine 21 MG PATCH.TD24 TRANSDERMA (07:43)
[2025-07-04] MEDS: 0.9 % Sodium Chloride Flush 3 ML SYRINGE IVFLUSH ×3 (07:46→19:25)
--- NOTE | 2025-07-04 08:39 | PHA.MEDREC ---
Addendum entered by Eli Varghese RP 07/04/25 10:24: reviewed by [facility]. Addendum entered by Vandana Almonte 07/04/25 10:05: Spoke with pt and did a full run down of medications with her. Pt non compliant with taking Pulmicourt inhaler and states she tries to take it 1 puff BID when she remembers; has not taken that in a few days, her insurance has not been covering her BelVaultiveca films or her Oxycodone 10mg ER tablet and she was not able to start those, she ran out of her Hydromorphone a few days ago; pt only got a 3 day supply 06/29, she stopped the Lamotrigine ~1 month ago after 4 days of taking it; pt using it for a mood stabilizer but not effective for her, she stopped the Meloxicam due to it being ineffective for pt and she has been taking her Oxycodone-Acetaminophen 5mg-325mg 3-4 tabs Q4H PRn Pain and states she ran out of those in the last few days and took about 40 pills from a friend who wouldn't notice anyway's . Original Note: Pharmacy Consult ? Medication Reconciliation Pharmacy has completed the medication reconciliation. Pt transferred from M3 POD to S3 wing, utilized dc from M3; changed non-formulary meds to formulary and took off Oxycodone 10 po QD-TID pain, no pharmacy or PDMP claims.
[2025-07-04] MEDS: diazePAM 10 MG/2 ML CARTRIDGE 5 MG IVPUSH ×5 (09:29→19:25)
--- NOTE | 2025-07-04 09:45 | PC.NURSE ---
Addendum entered by Rosette Melgar RN 07/04/25 15:57: Per Psych pt does not need 1:1 sitter for safety, all belongings returned to pt except vape pens. Addendum entered by Rosette Melgar RN 07/04/25 11:50: Medication stored in Pharmacy. Two loose pills and two inhaler. Addendum entered by Rosette Melgar RN 07/04/25 10:28: Pt requesting money and cards be locked in upstairs locker on 4th floor with the rest of her belongings. Addendum entered by Rosette Melgar RN 07/04/25 10:27: Additional belongings collected from the bedside, per protocol. Pt states she understands. Vanessa pack and clothes included. $70.00 in [facility] and credit cards left at bedside. Charge nurse aware. Original Note: Blue vape stored in locker on 4th floor with pt water purification chemist bag.
--- NOTE | 2025-07-04 11:01 | PC.NURSE ---
Pt crying and yelling upset about previous care given her throughout her lifetime, MD Barlow at bedside, per MD liu to give 5mg IVP Valium now.
--- NOTE | 2025-07-04 12:56 | MHC.CM.PN ---
PATIENT LIVES IN A HOME W/ HER S.O., MOTHER IN LAW, 6 MONTH OLD BABY, AND 11 YO STEP SON. PER PATIENT, S.O. W/ MOBILITY ISSUES AT THIS TIME AND MIL W/ NEW DX DEMENTIA. FUNCTIONALLY INDEPENDENT, BUT REPORTS LONG HX BACK PAIN WHICH CAN INTERFERE W/ MOBILITY AT TIMES. PCP LATRICE LYNCH MD NO HCP. DECLINES TO COMPLETE AT THIS TIME. [facility] THROUGHOUT ASSESSMENT, PATIENT CRYING/YELLING. REPORTING DEPRESSION AND RAGE. SAYS SHE HAS A PSYCHIATRIST IN THE COMMUNITY, BUT DOES NOT FEEL THAT HE IS A GOOD FIT AND WOULD PREFER A FEMALE. HAS BEEN LOOKING FOR A NEW PSYCHIATRIST AND A THERAPIST AND HAS BEEN PUT ON WAIT LISTS. DENIES SI AT THIS TIME, BUT CONTINUES TO CRY AND REQUEST HELP WITH HER MENTAL HEALTH. DP: PENDING PT AND CARE TEAM EVAL WHEN MEDICALLY CLEARED. PATIENT'S GOAL IS RETURN TO [facility]. CM WILL CONTINUE TO FOLLOW.
--- NOTE | 2025-07-04 14:43 | PC.NURSE ---
MD Barlow made aware pt sobbing uncontrollably and screaming asking for increasing in pain medication, pt states she does not feel as though her pain control is adequate, PRN dilaudid given per MAR, see MAR for details. Per MD give ordered Gabapentin now and PRN IVP Valium. Medications administered as ordered, pending effectiveness.
--- NOTE | 2025-07-04 15:57 | HO.PM.IMPN ---
Subjective Subjective Date of Service: 07/04/25 Interval History: Mood extremely labile with fits of rage; essentially inconsolable Review of Systems Unable to obtain Physical Exam Vital Signs: Vital Signs: Last Vital Signs Temp 98.1 F 07/04/25 07:54 Pulse 96 07/04/25 13:37 Resp 16 07/04/25 07:54 BP 101/66 07/04/25 13:37 Pulse Ox 96 07/04/25 13:37 O2 Del Method Room Air 07/04/25 07:54 BMI result Body Mass Index 27.2 Const: Other: Awake alert no acute distress Resp: Other: Clear to auscultation bilaterally no rales rhonchi or wheezes Cardio: Other: No S4; positive S1-S2; no S3 murmurs rubs or gallops GI: Other: Soft nontender nondistended normoactive bowel sounds Neuro: Other: Moving all extremities with equal power. Objective Data Active Medications Acetaminophen (Acetaminophen 325 Mg Tablet) 650 mg PO Q6H PRN PRN Reason: Pain, Mild 1-3,fever,headache Albuterol/Ipratropium (Albuterol/Iprat 2.5/0.5mg 3 Ml Ampul.Neb) 3 ml INHALE Q4H PRN PRN Reason: Shortness of Breath/Wheezing Calcium Carbonate (Calcium Carbonate 750 Mg Tab.Chew) 750 mg PO Q4H PRN PRN Reason: Heartburn Diazepam (Diazepam 10 Mg/2 Ml Cartridge) 5 mg IVPUSH Q4H PRN PRN Reason: Anxiety Last Admin: 07/04/25 14:33 Dose: 5 mg Documented By: ANDRES Folic Acid (Folic Acid 1 Mg Tablet) 1 mg PO DAILY [facility] Last Admin: 07/04/25 07:43 Dose: 1 mg Documented By: LAURO Gabapentin (Gabapentin 600 Mg Tablet) 900 mg PO TID [facility] Last Admin: 07/04/25 14:04 Dose: 900 mg Documented By: LAURO Hydromorphone HCl (Hydromorphone Hcl 1 Mg/Ml Syringe) 1 mg IVPUSH Q3H PRN; Protocol PRN Reason: Pain, Moderate(Pain Scale 4-6) Last Admin: 07/04/25 15:11 Dose: 1 mg Documented By: LAURO Ketorolac Tromethamine (Ketorolac Tromethamine 15 Mg/Ml Vial) 15 mg IVPUSH Q6H PRN PRN Reason: Pain, Moderate(Pain Scale 4-6) Stop: 07/05/25 02:01 Last Admin: 07/04/25 13:51 Dose: 15 mg Documented By: ANDRES Magnesium Hydroxide (Milk Of Magnesia 30 Ml Oral.Susp) 30 ml PO DAILY PRN PRN Reason: Constipation Melatonin (Melatonin 3 Mg Tablet) 6 mg PO BEDTIME PRN PRN Reason: Insomnia Methylprednisolone Sodium Succinate (Methylprednisolone Sod Succ 125 Mg/2 Ml Vial) 60 mg IVPUSH Q6H [facility] Last Admin: 07/04/25 14:03 Dose: 60 mg Documented By: LAURO Naloxone HCl (Naloxone Hcl 0.4 Mg/Ml Vial) 0.04 mg IVPUSH Q5M PRN PRN Reason: Respiratory Rate < 10 Nicotine (Nicotine 21 Mg Patch.Td24) 21 mg TRANSDERMA DAILY [facility] Last Admin: 07/04/25 07:43 Dose: 21 mg Documented By: LAURO Nicotine Polacrilex (Nicotine Polacrilex 2 Mg Gum) 2 mg BUCCAL Q2H PRN PRN Reason: Nicotine Cravings Last Admin: 07/04/25 15:37 Dose: 2 mg Documented By: ANDRES Pt Own (Budesonide [ Pulmicort Flexhaler] 90 Mcg/Actuation Aerosol Powdr 1 inhalation INHALE RBID [facility] Ondansetron HCl (Ondansetron Hcl 4 Mg/2 Ml Vial) 4 mg IVPUSH Q8H PRN PRN Reason: Nausea and Vomiting Polyethylene Glycol (Polyethylene Glycol 3350 17 Gm Powd.Pack) 17 gm PO DAILY [facility] Last Admin: 07/04/25 07:44 Dose: 17 gm Documented By: LAURO Senna (Sennosides 8.6 Mg Tablet) 17.2 mg PO BEDTIME [facility] Senna/Docusate Sodium (Sennosides/Docusate Sodium Tablet) 2 tab PO BID [facility] Sodium Chloride (0.9 % Sodium Chloride Flush 3 Ml Syringe) 3 ml IVFLUSH QSHIFT [facility] Last Admin: 07/04/25 13:54 Dose: 3 ml Documented By: ANDRES Thiamine HCl (Thiamine Hcl 100 Mg Tablet) 100 mg PO DAILY [facility] Last Admin: 07/04/25 07:43 Dose: 100 mg Documented By: LAURO Labs 07/04/25 06:09 07/04/25 06:09 Labs: Laboratory Results - last 24 hr 07/04/25 07/04/25 02:34 06:09 MCV 86.9 MCH 27.9 MCHC 32.1 RDW 13.1 Plt Count 527 H D MPV 9.7 Immature Gran % (Auto) 0.4 Neut % (Auto) 87.6 H Lymph % (Auto) 8.1 L [place] % (Auto) 1.8 L Eos % (Auto) 1.7 Baso % (Auto) 0.4 Lymph # (Auto) 0.9 L [place] # (Auto) 0.2 Eos # (Auto) 0.2 Baso # (Auto) 0.0 Abs Immat Gran (auto) 0.04 H Absolute Neuts (auto) 9.4 H Absolute Nucleated RBC 0.000 Nucleated RBC % (auto) 0.0 Anion Gap 14 Estim Creat Clear Calc 125.0 Estimated GFR > 60 Random Glucose 76 Calcium 9.3 Total Bilirubin 0.4 AST 27 ALT 18 Alkaline Phosphatase 103 Total Protein 6.7 Albumin 4.3 Beta HCG, Quant 4 Assessment and Plan (1) Back pain: Status: Acute (2) Emotional dysregulation: Status: Acute Plan Patient is a 34-year-old female with past medical history degenerative disc disease, cervical spine stenosis, lumbar spondylolisthesis, lumbar L3-L4 diskectomy age [age], L4-L5 lumbar fusion 2020, L5-S1 fusion and removal of some hardware from L4-L5 fusion May 2025 in [place], recently gave 6 months ago via with gestational diabetes, preeclampsia, placenta previa and depression/rage, currently on Mounjaro 7.5 mgs Wednesday since December 2024 for weight loss, mild constipation, IUD copper placed , 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 Patient was transferred from from [facility] on a section 12 for statements indicating possible SI. Patient extremely frustrated and angry noting the progression of her symptoms status post most recent L5-S1 fusion in May of 2025, done emergently in [place]. Case was discussed with Dr. Hale and plan was to transfer patient to medical-surgical floor for medical management of patient's current symptoms. 1.Acute on chronic back pain with significant surgical history of the lumbar and sacral spine -MRIs from [facility] reviewed by neurosurgery... Nothing to offer from a surgical standpoint -Dilaudid/oxycodone for pain -pulse dose methylprednisolone 2.Alcohol use disorder, previously in remission for 6 years -no indication of alcohol withdrawal at this time -follow clinically 3.Anxiety/ depression - rage/inconsolable.. -Psychiatry consult appreciated -await formal recommendations on mood stabilizer -Valium prn for now lovenox FULL CODE STATUS Quality Stroke Does the patient have a stroke diagnosis?: No VTE Prior VTE?: No VTE Risk Level:: Medical - moderate - high VTE Device Contraindication: N/A - Device Ordered VTE Drug Contraindication: N/A - Med Ordered
--- NOTE | 2025-07-04 16:26 | P.CNPS_ITS ---
History of Present Illness Date of Service: 07/04/25 Chief Complaint: Severe Back Pain Sources of Information: patient interviewed, chart reviewed and crisis/core team assessment reviewed HPI Narrative: Mrs. Conde is a 34 year-old woman who initially was transferred from [facility] to due to suicidal statements in context of chronic back pain, labile mood post 6 months ago. Pt was transferred to the medical floor for further evaluation of chronic back pain and several surgeries. Pt was seen by orthosurgery and they do not recommend surgery but instead medication management. Pt also described as labile, yelling and screaming at staff. Pt seen in her room. She reports she has been through a lot. She describes excrutiating pain and feeling of frustration as she thinks healthcare providers have failed her. She also expresses frustration as she reports she was misunderstood when she said she would kill herself as she reports this statement was out of frustration and not true suicidality. She reports she has been treated for depression but she does have some insight that she has post rage and this may be indication of underlying Bipolar Disorder. She at some point is tearful and reports that her rage is affecting her relationship with her fiance and step son, and other family members. No hx of psychosis. No hx of delusions. She denies SI/HI. Past Psychiatric History: OP: Dr. Mota Past medication trials: cymbalta, latuda, lamictal No hx of suicide attempts. Medical Evaluation Reviewed: Yes [facility] Medical History (Updated 07/04/25 @ 16:27 by Sheba Briones NP) CTS (carpal tunnel syndrome) Placenta previa Gestational diabetes depression ADHD Nicotine use Marijuana use Alcohol use disorder Smoker Hidradenitis suppurativa Mild intermittent asthma Neuropathy of right lower extremity Lumbar radiculopathy Cervical radiculopathy Fusion of spine of lumbosacral region Thrush, oral UTI symptoms 23 weeks gestation of Anxiety Sore throat History of frequent upper respiratory infection Recurrent streptococcal pharyngitis Surgical History (Updated 07/04/25 @ 02:30 by MOY Ingram) S/P lumbar and lumbosacral fusion by anterior technique H/O section H/O spinal fusion Diagnostics Vital Signs (24Hr): Vital Signs - 24 hr 07/04/25 02:16 07/04/25 03:07 07/04/25 07:54 Temperature 97.7 F 97.5 F 98.1 F Pulse Rate 103 H 85 96 Respiratory Rate 18 18 16 Blood Pressure 115/75 110/56 L 101/66 Pulse Oximetry 98 99 96 Oxygen Delivery Method Room Air Room Air Room Air 07/04/25 13:37 07/04/25 16:00 07/04/25 16:12 Temperature 97.7 F Pulse Rate 96 116 H Respiratory Rate 19 Blood Pressure 101/66 153/95 H Pulse Oximetry 96 97 Oxygen Delivery Method Room Air BMI result Body Mass Index 27.2 Labs 07/04/25 06:09 07/04/25 06:09 Labs: Laboratory Results - last 48 hr 07/04/25 07/04/25 02:34 06:09 WBC 10.7 RBC 4.19 L Hgb 11.7 L Hct 36.4 L MCV 86.9 MCH 27.9 MCHC 32.1 RDW 13.1 Plt Count 527 H D MPV 9.7 Immature Gran % (Auto) 0.4 Neut % (Auto) 87.6 H Lymph % (Auto) 8.1 L [place] % (Auto) 1.8 L Eos % (Auto) 1.7 Baso % (Auto) 0.4 Lymph # (Auto) 0.9 L [place] # (Auto) 0.2 Eos # (Auto) 0.2 Baso # (Auto) 0.0 Abs Immat Gran (auto) 0.04 H Absolute Neuts (auto) 9.4 H Absolute Nucleated RBC 0.000 Nucleated RBC % (auto) 0.0 Sodium 138 Potassium 4.4 Chloride 108 Carbon Dioxide 20 L Anion Gap 14 BUN 12 Creatinine 0.65 Estim Creat Clear Calc 125.0 Estimated GFR > 60 Random Glucose 76 Calcium 9.3 Total Bilirubin 0.4 AST 27 ALT 18 Alkaline Phosphatase 103 Total Protein 6.7 Albumin 4.3 Beta HCG, Quant 4 Mental Status Exam Mental Status Exam Narrative: Appearance: wearing hospital gown, sitting, in NAD Behavior: guarded and irritable. Speech: clear, hyperverbal, spontaneous TP: mostly linear, difficult to interrupt TC: focused on pain and being mismanaged medically Mood: rage Affect: labile Si: denies HI; none VH/AH: none Delusions: none Insight/judgment: poor x 2. memory/cog: alert, oriented x 3. grossly intact to conversational testing Medications Medications Current Medications Acetaminophen (Acetaminophen 325 Mg Tablet) 650 mg PO Q6H PRN PRN Reason: Pain, Mild 1-3,fever,headache Albuterol/Ipratropium (Albuterol/Iprat 2.5/0.5mg 3 Ml Ampul.Neb) 3 ml INHALE Q4H PRN PRN Reason: Shortness of Breath/Wheezing Calcium Carbonate (Calcium Carbonate 750 Mg Tab.Chew) 750 mg PO Q4H PRN PRN Reason: Heartburn Diazepam (Diazepam 10 Mg/2 Ml Cartridge) 5 mg IVPUSH Q4H PRN PRN Reason: Anxiety Last Admin: 07/04/25 14:33 Dose: 5 mg Folic Acid (Folic Acid 1 Mg Tablet) 1 mg PO DAILY [facility] Last Admin: 07/04/25 07:43 Dose: 1 mg Gabapentin (Gabapentin 600 Mg Tablet) 900 mg PO TID [facility] Last Admin: 07/04/25 14:04 Dose: 900 mg Hydromorphone HCl (Hydromorphone Hcl 1 Mg/Ml Syringe) 1 mg IVPUSH Q3H PRN; Protocol PRN Reason: Pain, Moderate(Pain Scale 4-6) Last Admin: 07/04/25 15:11 Dose: 1 mg Ketorolac Tromethamine (Ketorolac Tromethamine 15 Mg/Ml Vial) 15 mg IVPUSH Q6H PRN PRN Reason: Pain, Moderate(Pain Scale 4-6) Stop: 07/05/25 02:01 Last Admin: 07/04/25 13:51 Dose: 15 mg Magnesium Hydroxide (Milk Of Magnesia 30 Ml Oral.Susp) 30 ml PO DAILY PRN PRN Reason: Constipation Melatonin (Melatonin 3 Mg Tablet) 6 mg PO BEDTIME PRN PRN Reason: Insomnia Methylprednisolone Sodium Succinate (Methylprednisolone Sod Succ 125 Mg/2 Ml Vial) 60 mg IVPUSH Q6H [facility] Last Admin: 07/04/25 14:03 Dose: 60 mg Naloxone HCl (Naloxone Hcl 0.4 Mg/Ml Vial) 0.04 mg IVPUSH Q5M PRN PRN Reason: Respiratory Rate < 10 Nicotine (Nicotine 21 Mg Patch.Td24) 21 mg TRANSDERMA DAILY [facility] Last Admin: 07/04/25 07:43 Dose: 21 mg Nicotine Polacrilex (Nicotine Polacrilex 2 Mg Gum) 2 mg BUCCAL Q2H PRN PRN Reason: Nicotine Cravings Last Admin: 07/04/25 15:37 Dose: 2 mg Pt Own (Budesonide [ Pulmicort Flexhaler] 90 Mcg/Actuation Aerosol Powdr 1 inhalation INHALE RBID [facility] Ondansetron HCl (Ondansetron Hcl 4 Mg/2 Ml Vial) 4 mg IVPUSH Q8H PRN PRN Reason: Nausea and Vomiting Polyethylene Glycol (Polyethylene Glycol 3350 17 Gm Powd.Pack) 17 gm PO DAILY [facility] Last Admin: 07/04/25 07:44 Dose: 17 gm Senna (Sennosides 8.6 Mg Tablet) 17.2 mg PO BEDTIME JT Senna/Docusate Sodium (Sennosides/Docusate Sodium Tablet) 2 tab PO BID [facility] Sodium Chloride (0.9 % Sodium Chloride Flush 3 Ml Syringe) 3 ml IVFLUSH QSHIFT [facility] Last Admin: 07/04/25 13:54 Dose: 3 ml Thiamine HCl (Thiamine Hcl 100 Mg Tablet) 100 mg PO DAILY [facility] Last Admin: 07/04/25 07:43 Dose: 100 mg Allergies Allergies Allergy/AdvReac Type Severity Reaction Status Date / Time No Known Allergies Allergy Verified 06/27/25 11:16 Assessment & Plan Assessment & Plan (1) Mood disorder: Status: Acute Code(s): F39 - Unspecified mood [affective] disorder Plan Mrs. Conde is a 34 year-old woman who was initially transferred from [facility] to due suicidal statement. Pt transferred to medical floor due to concerns of back pain and potential need for surgery. Pt presents as labile. She does have some awareness about this and thinks needs tx for Bipolar Disorder. She is not suicidal or homicidal. No signs of psychosis or delusions. We discussed risks, benefits and alternative treatment options. we discussed possibility of 3 different mood stabilizer- lithium, depakote and carbamazepine. She reported father was on lithium and taken off due to kidney disease. She does not want to try depakote as she is concern about weight gain. She agrees to try carbamazepine- we discussed potential side effects including hyponatremia, interaction with other medications. PLAN 1. Start carbamazepine 200mg po BID. continue prn valium 5mg IM or PO q6h prn agitation. 2. No imminent safety in terms of SI or HI. Pt may benefit from inpatient admission on voluntary basis and if in agreement, which she is not at this moment. Total time managing care of this patient today ____ minutes.
--- NOTE | 2025-07-04 17:37 | MHC.RECOVRN ---
Addendum entered by Ashlee Ayala RN 07/04/25 18:03: Pt agreed to information on [facility] for telehealth or in person therapy and psychiatry. Original Note: Consult placed to Addiction Medicine for pt with previous AUD, in remission for 6yrs, with recent return to use after of child. On approach, pt was was sitting in bed, texting on her cell phone. Pt was irritable, visibly upset, and just ended a visit with her mother and child per primary RN When nature of the visit was disclosed pt responded, We'll I'm not addicted to anything and I don't need recovery Pt was hyperverbal and spoke at length about poor care, a horrible health care system, lack of being heard and understood, frustration about not receiving the back surgery, and lack of therapy or psychiatric help. Pt was offered a list of local therapists/counselors which she declined. She again stated there was no need to meet as she does not feel her alcohol use is problematic. Recovery assessment was declined. ACS team available if needed
[2025-07-05] VITALS (7 sets, daily range): BP systolic 108–128; BP diastolic 64–86; PULSE 84–101; RESP 16–20; TEMP 36.4–36.8; O2SAT 97–100
[2025-07-05] MEDS: diazePAM 10 MG/2 ML CARTRIDGE 5 MG IVPUSH ×4 (06:10→18:36)
[2025-07-05] MEDS: 0.9 % Sodium Chloride Flush 3 ML SYRINGE IVFLUSH ×3 (08:06→20:06)
[2025-07-05] MEDS: Nicotine 21 MG PATCH.TD24 TRANSDERMA (08:26)
--- NOTE | 2025-07-05 09:09 | PC.NURSE ---
Patient crying,anxious ,asking for anxiety med,Valium not due yet , Dr. Cherry notified
--- NOTE | 2025-07-05 09:28 | PC.NURSE ---
Patient crying and screaming,very anxious,attempted to reassure patient with no effect,priority message sent to dr. Cherry to come and see patient
[2025-07-05] MEDS: oxyCODONE HCl Immed Release 5 MG TABLET 10 MG PO ×3 (10:18→18:36)
[2025-07-05] MEDS: oxyCODONE HCl ER 10 MG TAB.ER.12H PO ×2 (11:45→20:04)
--- NOTE | 2025-07-05 12:44 | HO.PM.IMPN ---
Subjective Subjective Date of Service: 07/05/25 Interval History: pt c/o anxiety, rage; notes severe back pain radiating down L leg; states her nerve is getting killed and is fixated on how she has been wronged by her doctors in [place], her PCP, and the medical system in general; states she needs an EMG Review of Systems Review of Systems: Yes all other systems are reviewed and are negative Physical Exam Vital Signs: Vital Signs: Last Vital Signs Temp 98.2 F 07/05/25 07:45 Pulse 101 H 07/05/25 08:01 Resp 20 07/05/25 08:01 BP 128/86 07/05/25 07:45 Pulse Ox 99 07/05/25 07:45 O2 Del Method Room Air 07/05/25 07:45 BMI result Body Mass Index 27.2 Gen: teary, agitated HEENT: sclera anicteric, moist mucus membranes Neck: supple Lungs: clear to auscultation bilaterally Heart: regular rate and rhythm, no murmurs Abd: soft, non-tender, non-distended Ext: no edema Skin: warm/well-perfused Neuro: alert and oriented x3 Psych: anxious, pressured speech Objective Data Active Medications Acetaminophen (Acetaminophen 325 Mg Tablet) 650 mg PO Q6H PRN PRN Reason: Pain, Mild 1-3,fever,headache Albuterol/Ipratropium (Albuterol/Iprat 2.5/0.5mg 3 Ml Ampul.Neb) 3 ml INHALE Q4H PRN PRN Reason: Shortness of Breath/Wheezing Calcium Carbonate (Calcium Carbonate 750 Mg Tab.Chew) 750 mg PO Q4H PRN PRN Reason: Heartburn Carbamazepine (Carbamazepine 200 Mg Tablet) 200 mg PO BID [facility] Last Admin: 07/05/25 08:28 Dose: 200 mg Documented By: HIMANSHU Diazepam (Diazepam 10 Mg/2 Ml Cartridge) 5 mg IVPUSH Q4H PRN PRN Reason: Anxiety Last Admin: 07/05/25 10:12 Dose: 5 mg Documented By: HIMANSHU Duloxetine HCl (Duloxetine Hcl 60 Mg Capsule.) 120 mg PO DAILY [facility] Last Admin: 07/05/25 08:45 Dose: 120 mg Documented By: HIMANSHU Folic Acid (Folic Acid 1 Mg Tablet) 1 mg PO DAILY [facility] Last Admin: 07/05/25 08:28 Dose: 1 mg Documented By: HIMANSHU Gabapentin (Gabapentin 600 Mg Tablet) 900 mg PO TID [facility] Last Admin: 07/05/25 08:28 Dose: 900 mg Documented By: HIMANSHU Magnesium Hydroxide (Milk Of Magnesia 30 Ml Oral.Susp) 30 ml PO DAILY PRN PRN Reason: Constipation Melatonin (Melatonin 3 Mg Tablet) 6 mg PO BEDTIME PRN PRN Reason: Insomnia Methylprednisolone Sodium Succinate (Methylprednisolone Sod Succ 125 Mg/2 Ml Vial) 60 mg IVPUSH Q6H [facility] Last Admin: 07/05/25 08:22 Dose: 60 mg Documented By: HIMANSHU Naloxone HCl (Naloxone Hcl 0.4 Mg/Ml Vial) 0.04 mg IVPUSH Q5M PRN PRN Reason: Respiratory Rate < 10 Nicotine (Nicotine 21 Mg Patch.Td24) 21 mg TRANSDERMA DAILY [facility] Last Admin: 07/05/25 08:26 Dose: 21 mg Documented By: HIMANSHU Nicotine Polacrilex (Nicotine Polacrilex 2 Mg Gum) 2 mg BUCCAL Q2H PRN PRN Reason: Nicotine Cravings Last Admin: 07/04/25 15:37 Dose: 2 mg Documented By: ANDRES Pt Own (Budesonide [ Pulmicort Flexhaler] 90 Mcg/Actuation Aerosol Powdr 1 inhalation INHALE RBID [facility] Last Admin: 07/05/25 08:00 Dose: 1 inhalation Documented By: DIMITRIS Ondansetron HCl (Ondansetron Hcl 4 Mg/2 Ml Vial) 4 mg IVPUSH Q8H PRN PRN Reason: Nausea and Vomiting Oxycodone HCl (Oxycodone Hcl Immed Release 5 Mg Tablet) 10 mg PO Q4H PRN PRN Reason: Pain, Moderate(Pain Scale 4-6) Last Admin: 07/05/25 10:18 Dose: 10 mg Documented By: HIMANSHU Oxycodone HCl (Oxycodone Hcl Er 10 Mg Tab.Er.12h) 10 mg PO BID [facility] Last Admin: 07/05/25 11:45 Dose: 10 mg Documented By: HIMANSHU Polyethylene Glycol (Polyethylene Glycol 3350 17 Gm Powd.Pack) 17 gm PO DAILY [facility] Last Admin: 07/05/25 08:29 Dose: 17 gm Documented By: HIMANSHU Senna (Sennosides 8.6 Mg Tablet) 17.2 mg PO BEDTIME [facility] Last Admin: 07/04/25 20:46 Dose: 17.2 mg Documented By: STANLEY Senna/Docusate Sodium (Sennosides/Docusate Sodium Tablet) 2 tab PO BID [facility] Last Admin: 07/05/25 08:29 Dose: 2 tab Documented By: HIMANSHU Sodium Chloride (0.9 % Sodium Chloride Flush 3 Ml Syringe) 3 ml IVFLUSH QSHIFT [facility] Last Admin: 07/05/25 08:06 Dose: 3 ml Documented By: HIMANSHU Thiamine HCl (Thiamine Hcl 100 Mg Tablet) 100 mg PO DAILY [facility] Last Admin: 07/05/25 08:29 Dose: 100 mg Documented By: HIMANSHU Labs 07/04/25 06:09 07/04/25 06:09 Assessment and Plan (1) Back pain: Status: Acute (2) Emotional dysregulation: Status: Acute Plan d3, 34yo F with degenerative disk disease s/p L3-L4 diskectomy in 2016, L4-L5 fusion in 2020, L5-S1 fusion with removal of hardware in May 2025 in [place], gestational DM, preeclampsia, placenta previa, depression/rage, AUD, marijuana + tobacco abuse, ADHD, SARAH who was transferred from [facility] [place] to on a section 12 for SI but then transferred to the hospitalist service for control of chronic pain chronic pain syndrome - restart Cymbalta - restarted gabapentin - d/c IV Dilaudid; start OxyContin [PCP working on PA] 10 mg bid and oxycodone 10 mg q4h prn - started on methylprednisolone - Neurosurgery consulted 07/04, no surgical options available anxiety/depression, possible bipolar disorder - Psychiatry consulted, started Tegretol, does not meet IPLOC - prn Valium AUD - Addiction Medicine consultation, thiamine, folate VTE ppx - SCDs dispo - eventual home with outpatient PT [eval done] In my clinical judgment, the patient requires continued inpatient hospitalization for the following reasons: pain control Total time managing care of this patient today: 35 minutes. Quality Stroke Does the patient have a stroke diagnosis?: No VTE Prior VTE?: No VTE Risk Level:: Medical - moderate - high VTE Device Contraindication: N/A - Device Ordered VTE Drug Contraindication: N/A - Med Ordered
--- NOTE | 2025-07-05 22:05 | PM.EVENT ---
Event Note Date of Service: 07/05/25 Event Note: Nursing reported pt wanted to see provider as her IV dilaudid was discontinued. Pt seen promptly and knowing pt from admission, pt was very reasonable when explaining the IV meds were stopped in anticiaption of DC tomorrow most likely. Pt is currently on po oxycodone and methylprednisolone. Offered toradol and pt accepted this medicaiton. Reassurance provider and pt was able to rest comfortably, cooperative with care currently. Pt states she does have an appt with her pain specialiast next . Time Spent With Patient Time: Total time managing care of this patient today ____ minutes.
[2025-07-06] VITALS (7 sets, daily range): BP systolic 113–140; BP diastolic 64–110; PULSE 75–101; RESP 16–19; TEMP 36.4–36.8; O2SAT 95–100
[2025-07-06] MEDS: oxyCODONE HCl Immed Release 5 MG TABLET 10 MG PO ×3 (00:09→11:00)
[2025-07-06] MEDS: diazePAM 10 MG/2 ML CARTRIDGE 5 MG IVPUSH ×2 (00:11→07:08)
[2025-07-06] MEDS: oxyCODONE HCl ER 10 MG TAB.ER.12H PO (07:09)
[2025-07-06] MEDS: 0.9 % Sodium Chloride Flush 3 ML SYRINGE IVFLUSH ×3 (07:09→20:10)
--- NOTE | 2025-07-06 11:16 | PC.NURSE ---
patient currently refusing all fall risk precautions and camera
--- NOTE | 2025-07-06 15:12 | P.PNIM_ITS ---
Subjective Subjective Date of Service: 07/06/25 Interval History: c/o no difference in her back pain radiating down L leg very anxious Review of Systems Review of Systems: Yes all other systems are reviewed and are negative Physical Exam 2 Vital Signs: Vital Signs: Last Vital Signs Temp 97.8 F 07/06/25 08:00 Pulse 82 07/06/25 08:00 Resp 16 07/06/25 08:00 BP 113/64 07/06/25 08:00 Pulse Ox 95 07/06/25 08:00 O2 Del Method Room Air 07/06/25 08:00 BMI result Body Mass Index 27.2 Gen: anxious HEENT: sclera anicteric, moist mucus membranes Neck: supple Lungs: clear to auscultation bilaterally Heart: regular rate and rhythm, no murmurs Abd: soft, non-tender, non-distended Ext: no edema Skin: warm/well-perfused Neuro: alert and oriented x3 Psych: anxious, pressured speech Objective Data Active Medications Acetaminophen (Acetaminophen 325 Mg Tablet) 650 mg PO Q6H PRN PRN Reason: Pain, Mild 1-3,fever,headache Last Admin: 07/06/25 02:40 Dose: 650 mg Albuterol/Ipratropium (Albuterol/Iprat 2.5/0.5mg 3 Ml Ampul.Neb) 3 ml INHALE Q4H PRN PRN Reason: Shortness of Breath/Wheezing Calcium Carbonate (Calcium Carbonate 750 Mg Tab.Chew) 750 mg PO Q4H PRN PRN Reason: Heartburn Carbamazepine (Carbamazepine 200 Mg Tablet) 200 mg PO BID [facility] Last Admin: 07/06/25 07:09 Dose: 200 mg Documented By: YUNI Duloxetine HCl (Duloxetine Hcl 60 Mg Capsule.) 120 mg PO DAILY [facility] Last Admin: 07/06/25 07:09 Dose: 120 mg Documented By: YUNI Folic Acid (Folic Acid 1 Mg Tablet) 1 mg PO DAILY [facility] Last Admin: 07/06/25 07:10 Dose: 1 mg Documented By: YUNI Gabapentin (Gabapentin 600 Mg Tablet) 900 mg PO TID [facility] Last Admin: 07/06/25 13:56 Dose: 900 mg Documented By: YUNI Hydromorphone HCl (Hydromorphone Hcl 2 Mg/Ml Vial) 1.5 mg IVPUSH Q4H PRN; Protocol PRN Reason: Pain, Severe (Pain Scale 7-10) Stop: 07/07/25 17:00 Ketorolac Tromethamine (Ketorolac Tromethamine 30 Mg/Ml Vial) 30 mg IVPUSH Q6H [facility] Stop: 07/07/25 09:16 Lorazepam (Lorazepam 1 Mg Tablet) 1 mg PO TID PRN PRN Reason: agitation/anxiety Last Admin: 07/06/25 12:16 Dose: 1 mg Documented By: YUNI Magnesium Hydroxide (Milk Of Magnesia 30 Ml Oral.Susp) 30 ml PO DAILY PRN PRN Reason: Constipation Melatonin (Melatonin 3 Mg Tablet) 6 mg PO BEDTIME PRN PRN Reason: Insomnia Last Admin: 07/05/25 20:06 Dose: 6 mg Documented By: STANLEY Naloxone HCl (Naloxone Hcl 0.4 Mg/Ml Vial) 0.04 mg IVPUSH Q5M PRN PRN Reason: Respiratory Rate < 10 Nicotine (Nicotine 21 Mg Patch.Td24) 21 mg TRANSDERMA DAILY [facility] Last Admin: 07/06/25 07:08 Dose: Not Given Documented By: YUNI Non-Admin Reason: Patient Refused Nicotine Polacrilex (Nicotine Polacrilex 2 Mg Gum) 2 mg BUCCAL Q2H PRN PRN Reason: Nicotine Cravings Last Admin: 07/04/25 15:37 Dose: 2 mg Documented By: ANDRES Atwood (Budesonide [ Pulmicort Flexhaler] 90 Mcg/Actuation Aerosol Powdr 1 inhalation INHALE RBID [facility] Last Admin: 07/06/25 08:11 Dose: Not Given Documented By: PATRICIA Non-Admin Reason: Patient Refused Ondansetron HCl (Ondansetron Hcl 4 Mg/2 Ml Vial) 4 mg IVPUSH Q8H PRN PRN Reason: Nausea and Vomiting Oxycodone HCl (Oxycodone Hcl Immed Release 5 Mg Tablet) 10 mg PO Q4H PRN PRN Reason: Pain, Moderate(Pain Scale 4-6) Last Admin: 07/06/25 11:00 Dose: 10 mg Documented By: YUNI Polyethylene Glycol (Polyethylene Glycol 3350 17 Gm Powd.Pack) 17 gm PO DAILY [facility] Last Admin: 07/06/25 07:10 Dose: 17 gm Documented By: YUNI Prednisone (Prednisone 20 Mg Tablet) 40 mg PO DAILY [facility] Last Admin: 07/06/25 12:16 Dose: 40 mg Documented By: YUNI Senna (Sennosides 8.6 Mg Tablet) 17.2 mg PO BEDTIME [facility] Last Admin: 07/05/25 20:05 Dose: 17.2 mg Documented By: STANLEY Senna/Docusate Sodium (Sennosides/Docusate Sodium Tablet) 2 tab PO BID [facility] Last Admin: 07/06/25 07:09 Dose: 2 tab Documented By: YUNI Sodium Chloride (0.9 % Sodium Chloride Flush 3 Ml Syringe) 3 ml IVFLUSH QSHIFT [facility] Last Admin: 07/06/25 07:09 Dose: 3 ml Documented By: YUNI Thiamine HCl (Thiamine Hcl 100 Mg Tablet) 100 mg PO DAILY [facility] Last Admin: 07/06/25 07:09 Dose: 100 mg Documented By: YUNI Labs 07/04/25 06:09 07/04/25 06:09 Assessment and Plan (1) Back pain: Status: Acute (2) Emotional dysregulation: Status: Acute Plan d4, 34yo F with degenerative disk disease s/p L3-L4 diskectomy in 2016, L4-L5 fusion in 2020, L5-S1 fusion with removal of hardware in May 2025 in [place], gestational DM, preeclampsia, placenta previa, depression/rage, AUD, marijuana + tobacco abuse, ADHD, SARAH who was transferred from [facility] [place] to on a section 12 for SI but then transferred to the hospitalist service for control of chronic pain chronic pain syndrome - restarted Cymbalta - restarted gabapentin - per pharmacy, PA not approved for OxyContin; will d/c OxyContin and continue oxycodone 10 mg q4h prn mod pain; IV Dilaudid 1.5 mg q4h prn sev pain x 24h; also give Toradol 30 mg q6h x4 doses - continue prednisone - Neurosurgery consulted 07/04, no surgical options available; pt has outpatient Pain Mgmt consultation on 07/12 anxiety/depression, possible bipolar disorder - Psychiatry consulted, started Tegretol, does not meet IPLOC - prn Ativan AUD - Addiction Medicine consulted, thiamine, folate VTE ppx - SCDs dispo - eventual home with outpatient PT [eval done] In my clinical judgment, the patient requires continued inpatient hospitalization for the following reasons: pain control Total time managing care of this patient today: 35 minutes. Quality Stroke Does the patient have a stroke diagnosis?: No VTE Prior VTE?: No VTE Risk Level:: Medical - moderate - high VTE Device Contraindication: N/A - Device Ordered VTE Drug Contraindication: N/A - Med Ordered
--- NOTE | 2025-07-06 16:22 | MHC.CM.PN ---
REBEKAH ESPARZA MET WITH PT MULTIPLE TIMES THROUGHOUT THE DAY PT REPORTS FRUSTRATION THAT HER PAIN IS NOT BEING TREATED SHE SAYS SHE FEELS LIKE THE DOCTORS ARE TREATING HER LIKE SHE IS PSYCH AND NOT TRULY IN PAIN SHE SAYS SHE DOES NOT KNOW WHAT TO DO FROM HERE SHE IS THINKING ABOUT LEAVING AND GOING TO [place] WHERE SHE FEELS SHE MAY BE TAKEN MORE SERIOUSLY AND MDS MAY ORDER THE RIGHT TESTS BUT IS ALSO WORRIED THAT IF SHE GOES SHE MAY MISS HER PAIN MANAGEMENT APPT ON WEDNESDAY SHE AGAIN STATES SHE HAS BEEN ON PAIN MEDS ON AND OFF SINCE HER EARLY 20'S DUE TO MULTIPLE BACK PROBLEMS AND FEELS SHE KNOWS WHAT WORKS AND WHAT DOES NOT PTS MOTHER ALSO PRESENTED BEDSIDE AND STATED SHE FEELS THE PT IS GOING THROUGH SOME ISSUES, AND MAY BE BETTER ABLE TO ADVOCATE FOR HERSELF IF THESE THINGS WERE ADDRESSED THEY ARE ASKING FOR UPDATES ON WHEN DC MAY BE AND ASK THAT IF PT IS DISCHARGED, SHE BE PROVIDED WITH ENOUGH MEDICATION TO LAST A COUPLE WEEKS THE PAIN MANAGEMENT DOCTOR WILL ALSO PROBABLY HAVE TO GET PA FOR ANYTHING THEY PRESCRIBE.
[2025-07-07] MEDS: 0.9 % Sodium Chloride Flush 3 ML SYRINGE IVFLUSH ×3 (07:58→20:13)
[2025-07-07 08:23] VITALS: BP 127/76; PULSE 79; RESP 18; TEMP 36.4; O2SAT 99
[2025-07-07 08:39] VITALS: PULSE 80; RESP 16
[2025-07-07] MEDS: oxyCODONE HCl Immed Release 5 MG TABLET 10 MG PO ×2 (09:02→20:11)
--- NOTE | 2025-07-07 11:22 | HO.PM.IMPN ---
Subjective Subjective Date of Service: 07/07/25 Interval History: states pain has improved with IV Dilaudid and Toradol; pain shoots down LLE and c/o decreased sensation posteriorly Review of Systems Review of Systems: Yes all other systems are reviewed and are negative Physical Exam Vital Signs: Vital Signs: Last Vital Signs Temp 97.6 F 07/07/25 08:23 Pulse 80 07/07/25 08:39 Resp 16 07/07/25 08:39 BP 127/76 07/07/25 08:23 Pulse Ox 99 07/07/25 08:23 O2 Del Method Room Air 07/07/25 08:23 BMI result Body Mass Index 27.2 Gen: anxious HEENT: sclera anicteric, moist mucus membranes Neck: supple Lungs: clear to auscultation bilaterally Heart: regular rate and rhythm, no murmurs Abd: soft, non-tender, non-distended Ext: no edema Skin: warm/well-perfused Neuro: alert and oriented x3 Psych: anxious Objective Data Active Medications Acetaminophen (Acetaminophen 325 Mg Tablet) 650 mg PO Q6H PRN PRN Reason: Pain, Mild 1-3,fever,headache Last Admin: 07/06/25 02:40 Dose: 650 mg Albuterol/Ipratropium (Albuterol/Iprat 2.5/0.5mg 3 Ml Ampul.Neb) 3 ml INHALE Q4H PRN PRN Reason: Shortness of Breath/Wheezing Calcium Carbonate (Calcium Carbonate 750 Mg Tab.Chew) 750 mg PO Q4H PRN PRN Reason: Heartburn Carbamazepine (Carbamazepine 200 Mg Tablet) 200 mg PO BID [facility] Last Admin: 07/07/25 07:57 Dose: 200 mg Documented By: JULIANNE Duloxetine HCl (Duloxetine Hcl 60 Mg Capsule.Dr) 120 mg PO DAILY [facility] Last Admin: 07/07/25 07:53 Dose: 120 mg Documented By: JULIANNE Folic Acid (Folic Acid 1 Mg Tablet) 1 mg PO DAILY [facility] Last Admin: 07/07/25 07:53 Dose: 1 mg Documented By: JULIANNE Gabapentin (Gabapentin 600 Mg Tablet) 900 mg PO TID [facility] Last Admin: 07/07/25 07:53 Dose: 900 mg Documented By: JULIANNE Hydromorphone HCl (Hydromorphone Hcl 2 Mg/Ml Vial) 1.5 mg IVPUSH Q4H PRN; Protocol PRN Reason: Pain, Severe (Pain Scale 7-10) Stop: 07/07/25 17:00 Last Admin: 07/07/25 07:58 Dose: 1.5 mg Documented By: JULIANNE Lorazepam (Lorazepam 1 Mg Tablet) 1 mg PO TID PRN PRN Reason: agitation/anxiety Last Admin: 07/07/25 09:02 Dose: 1 mg Documented By: YUNI Magnesium Hydroxide (Milk Of Magnesia 30 Ml Oral.Susp) 30 ml PO DAILY PRN PRN Reason: Constipation Melatonin (Melatonin 3 Mg Tablet) 6 mg PO BEDTIME PRN PRN Reason: Insomnia Last Admin: 07/05/25 20:06 Dose: 6 mg Documented By: STANLEY Naloxone HCl (Naloxone Hcl 0.4 Mg/Ml Vial) 0.04 mg IVPUSH Q5M PRN PRN Reason: Respiratory Rate < 10 Nicotine (Nicotine 21 Mg Patch.Td24) 21 mg TRANSDERMA DAILY [facility] Last Admin: 07/07/25 08:04 Dose: Not Given Documented By: JULIANNE Non-Admin Reason: Patient Refused Nicotine Polacrilex (Nicotine Polacrilex 2 Mg Gum) 2 mg BUCCAL Q2H PRN PRN Reason: Nicotine Cravings Last Admin: 07/04/25 15:37 Dose: 2 mg Documented By: ANDRES Atwood (Budesonide [ Pulmicort Flexhaler] 90 Mcg/Actuation Aerosol Powdr 1 inhalation INHALE RBID [facility] Last Admin: 07/07/25 08:16 Dose: 1 inhalation Documented By: MARION Ondansetron HCl (Ondansetron Hcl 4 Mg/2 Ml Vial) 4 mg IVPUSH Q8H PRN PRN Reason: Nausea and Vomiting Oxycodone HCl (Oxycodone Hcl Immed Release 5 Mg Tablet) 10 mg PO Q4H PRN PRN Reason: Pain, Moderate(Pain Scale 4-6) Last Admin: 07/07/25 09:02 Dose: 10 mg Documented By: YUNI Polyethylene Glycol (Polyethylene Glycol 3350 17 Gm Powd.Pack) 17 gm PO DAILY [facility] Last Admin: 07/07/25 08:01 Dose: 17 gm Documented By: JULIANNE Prednisone (Prednisone 20 Mg Tablet) 40 mg PO DAILY [facility] Last Admin: 07/07/25 07:53 Dose: 40 mg Documented By: JULIANNE Senna (Sennosides 8.6 Mg Tablet) 17.2 mg PO BEDTIME [facility] Last Admin: 07/06/25 20:08 Dose: 17.2 mg Documented By: YVES Senna/Docusate Sodium (Sennosides/Docusate Sodium Tablet) 2 tab PO BID [facility] Last Admin: 07/07/25 07:56 Dose: 2 tab Documented By: JULIANNE Sodium Chloride (0.9 % Sodium Chloride Flush 3 Ml Syringe) 3 ml IVFLUSH QSHIFT [facility] Last Admin: 07/07/25 07:58 Dose: 3 ml Documented By: JULIANNE Thiamine HCl (Thiamine Hcl 100 Mg Tablet) 100 mg PO DAILY [facility] Last Admin: 07/07/25 07:57 Dose: 100 mg Documented By: JULIANNE Labs 07/04/25 06:09 07/04/25 06:09 Assessment and Plan (1) Back pain: Status: Acute (2) Emotional dysregulation: Status: Acute Plan d5, 34yo F with degenerative disk disease s/p L3-L4 diskectomy in 2016, L4-L5 fusion in 2020, L5-S1 fusion with removal of hardware in May 2025 in [place], gestational DM, preeclampsia, placenta previa, depression/rage, AUD, marijuana + tobacco abuse, ADHD, SARAH who was transferred [place] [facility] [place] on a section 12 for SI but then transferred to the hospitalist service for control of chronic pain chronic pain syndrome - restarted Cymbalta - restarted gabapentin - per pharmacy, PA not approved for OxyContin; d/c'ed OxyContin and continue oxycodone 10 mg q4h prn mod pain; giving IV Dilaudid 1.5 mg q4h prn sev pain x 24h; also give Toradol 30 mg q6h x24h - continue prednisone, taper upon discharge - Neurosurgery consulted 07/04, no surgical options available; pt has outpatient Pain Mgmt consultation on 07/12; pt also wishes to seek 2nd opinion [place] [facility] [place] anxiety/depression, possible bipolar disorder - Psychiatry consulted, started Tegretol, does not meet IPLOC - prn Ativan AUD - Addiction Medicine consulted, thiamine, folate VTE ppx - SCDs dispo - eventual home with outpatient PT [eval done] In my clinical judgment, the patient requires continued inpatient hospitalization for the following reasons: pain control Total time managing care of this patient today: 35 minutes. Quality Stroke Does the patient have a stroke diagnosis?: No VTE Prior VTE?: No VTE Risk Level:: Medical - moderate - high VTE Device Contraindication: N/A - Device Ordered VTE Drug Contraindication: N/A - Med Ordered
[2025-07-07 15:49] VITALS: BP 141/99; PULSE 126; RESP 20; TEMP 36.6; O2SAT 97
[2025-07-07 16:15] VITALS: PULSE 108
--- NOTE | 2025-07-07 16:15 | PC.NURSE ---
Pt refuses bed alarms, ambulating with walker to BR and around room. Pt verbalizes pain to BLE and back. IV Dilaudid, po oxycodone and ativan administered per MAR with some effect. Tolerating po well. Case management Viky in to speak with pt and pt mother.
[2025-07-07 19:26] VITALS: BP 136/76; PULSE 90; RESP 16; TEMP 36.3; O2SAT 98
--- NOTE | 2025-07-07 21:19 | PC.NURSE ---
pt c/o apin 04/18 to hip/leg asking for pain med, note; prn iv dilaudid d/c'd on previous shift. 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 will cont to monitor
[2025-07-08] MEDS: oxyCODONE HCl Immed Release 5 MG TABLET 10 MG PO ×2 (02:37→11:25)
--- NOTE | 2025-07-08 02:48 | PC.NURSE ---
pt c/o pain 04/18, prn tylenol and oxy per pt request, pt asking for muscle relaxer d/t pain related to muscle tightness? 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 will cont to monitor
--- NOTE | 2025-07-08 10:14 | PC.NURSE ---
Pt sleeping and appears comfortable. No audible moaning heard while asleep. Per Dr Cherry, ok to allow pt to sleep and obtain vs once awake. Dr Cherry requested text when pt awakens.
[2025-07-08 11:10] VITALS: PULSE 90; RESP 16
[2025-07-08] MEDS: 0.9 % Sodium Chloride Flush 3 ML SYRINGE IVFLUSH (11:17)
[2025-07-08 11:24] VITALS: BP 109/86; PULSE 108; RESP 15; TEMP 37; O2SAT 100
--- NOTE | 2025-07-08 12:38 | PM.DS ---
DS: Providers Provider Date of Service: 07/08/25 Date of admission: 07/04/25 01:38 Date of discharge: 07/08/25 Primary care physician: Unknown Physician Consults: 07/04/25 02:00 Consult to Neurosurgery Routine Consulting Provider: Justin Castellanos Reason for consultation: significant lower back pain, weakness BLEs Has provider been notified: No Consult to Psychiatry Routine Consulting Provider: [facility] [place] Psych Covering Reason for consultation: clear pt as pt was transferred to psych here fro SI Has provider been notified: No 07/04/25 02:57 Addiction Medicine Provider Routine Consulting Provider: Addiction Covering Reason for consultation: previous AUD remission 6 yrs, baby 6 mths old, using since intermitte 07/05/25 10:18 Consult to Psychiatry Stat Consulting Provider: [facility] [place] Psych Covering Reason for consultation: bipolar, rage, transfer to psychiatry In CARE Team Crisis Consult Stat Comment: Reason for consultation: primary issue is psychiatric not medical DS: Diagnosis Discharge Diagnosis (1) Back pain: Status: Acute (2) Mood disorder: Status: Acute (3) Chronic pain: Status: Acute (4) Radiculopathy: Status: Acute DS: Summary Hospital Course Hospital Course: From the history and physical by the admitting hospitalist, DAT Rodriguez, 07/04/25: 'Patient is a 34-year-old female with past medical history degenerative disc disease, cervical spine stenosis, lumbar spondylolisthesis, lumbar L3-L4 diskectomy age [age], L4-L5 lumbar fusion 2020, L5-S1 fusion and removal of some hardware from L4-L5 fusion May 2025 in [place] done emergently, recently gave 6 months ago via with gestational diabetes, preeclampsia, placenta previa and depression/rage, currently on Mounjaro 7.5 mgs Wednesday since December 2024 for weight loss, mild constipation, IUD copper placed , 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 According to the psychiatric staff here at [facility], patient was accepted from [facility] to [facility] on a section 12 after patient made statements to include I do not want to live anymore having gone to the ED for ongoing back pain issues with worsening weakness and paresthesia. While at [facility] patient was noted to be screaming and yelling as well as crying in pain secondary to recent back surgery. Able to obtain records from [facility] and patient was seen by a neurosurgical PA after undergoing an MRI of lumbar spine. The MRI indicates postoperative changes with intact and healed surgical wounds and no obvious evidence of infection to include a normal white blood count, ESR and CRP. A fluid collection was noted in the soft tissues likely not infectious per the neurosurgical PA. Granulation tissue was found along the left nerve root at L5-S1 which could be contributing to patient's symptoms. After evaluation was completed recommendations included no acute neurosurgical intervention indicated given the MRI findings with no evidence of compressive lesion onto the cauda equina nerve roots that would correlate with patient's current symptoms. Patient should consult with pain management. It was recommended that patient reach out to the neurosurgeon in [place] who completed her last fusion for further postoperative evaluation of symptoms as needed. It should be noted that patient was seen at the [facility] spine clinic earlier in June. Conservative management was chosen at that time. In addition the PA from [facility] indicated no need for neurosurgical follow-up in our outpatient clinic. Patient was seen as an outpatient in the [facility] spine clinic to establish care after having emergency surgery in [place] in may 2025 with DAT Birmingham on 06/20/2025. Plan was for PCP to continue to manage pt's pain medication regimen, follow up in 6 weeks for wound care check and another set of xrays. In addition, plan was to order another Lumbar MRI with and without contrast to evaluate for continued left-sided nerve impingement at the L5-S1 given her continued leg pain and numbness noted at that office visit. That MRI had not yet been done prior to pt's arrival tot he ED 07/03. Upon patient's arrival to , patient continued screaming, crying and yelling out in pain. Psychiatric staff reached out the hospitalist group for assistance. After assessing patient and evaluating her current issues it appears that patient is extremely frustrated and overwhelmed with her current back issues, recently having a who is now a 6-month-old, learning that her soon to be [id number] has new onset moderate Alzheimer's, a father that recently underwent a renal transplant, and her fiance who can not currently ambulate without crutches is contributing to the overall picture of emotional hardship as well as pain associated with her current back issues. Patient did state that she has been drinking intermittently since the of her child and to clarify, patient is not . Patient did have an issue with alcohol in the past and has been sober for the last 6 years until after the of her baby. Patient does currently deny any SI, HI, hallucinations but is requesting help in the community to include therapy. This proposal writer discussed the case with Dr. Hale and felt strongly that patient will require medical care to help treat her current pain issues and should be transferred to a medical-surgical floor. This proposal writer does not believe patient needs to be sectioned at this time, as she denies any SI, HI or hallucintations but is having Psychiatry see the patient in the a.m.. To clarify, patient resides in [place] and was down in [place] for the orthodoxy of her baby. While there patient experienced excruciating symptoms including pain, paresthesia and decreased sensation which prompted a visit to the emergency department and patient was admitted and had this last emergent L5-S1 fusion. This case was reviewed with Dr. Quinn, current overnight attending with the hospitalist group. Attending agreed with transfer and that patient does not require transfer to a higher level of care at this time.' 34yo F with degenerative disk disease s/p L3-L4 diskectomy in 2016, L4-L5 fusion in 2020, L5-S1 fusion with removal of hardware in May 2025 in [place], gestational DM, preeclampsia, placenta previa, depression/rage, AUD, marijuana + tobacco abuse, ADHD, SARAH who was transferred from [facility] to on a section 12 for SI but then transferred to the hospitalist service for control of chronic pain chronic pain syndrome/radiculopathy - Neurosurgery consulted 07/04, no surgical options available per their opinion. Restarted Cymbalta and gabapentin. Pain difficult to treat and ultimately got IV Dilaudid. Investigated PA for OxyContin initiated by PCP, and per pharmacy, PA not approved; transitioned to short-acting oxycodone 5-10 mg q6h upon discharge. Received several doses of IV Toradol. Also treated with IV, then PO steroids and discharged on prednisone taper. She will keep her appointment with [facility] [place] [place] Pain Management on 07/12/25. She also plans to seek a second neurosurgical opinion at [facility] [place] in [place]. anxiety/depression, possible bipolar disorder, rage - Psychiatry consulted, started carbamazepine; also treated with benzodiazepines. deemed not to meet criteria for returning to inpatient psychiatry level of care and also declined returning there on a voluntary basis. Also referred to [facility] for telehealth or in person therapy and psychiatry as the patient would like to find a new psychiatrist. In the meanwhile, she should follow-up with her own psychiatrist. Discharged on carbamazepine as well as as-needed lorazepam. AUD - Consult placed to Addiction Medicine for pt with previous AUD, in remission for 6yrs, with recent return to use after of child. She denied problematic alcohol intake and declined recovery support tobacco abuse - Started on nicotine replacement therapy. Time Attestation Discharge Coordination Time (in mins): 40 Quality: Safe Use of Opioids Does Pt have an Active Cancer Diagnosis on the Problem List?: No Quality: Stroke Does the patient have a stroke diagnosis?: No Physical Exam Vital Signs: Vital Signs: Last Vital Signs Temp 98.6 F 07/08/25 11:24 Pulse 108 H 07/08/25 11:24 Resp 15 07/08/25 11:24 BP 109/86 07/08/25 11:24 Pulse Ox 100 07/08/25 11:24 O2 Del Method Room Air 07/08/25 11:24 BMI result Body Mass Index 27.2 Gen: anxious HEENT: sclera anicteric, moist mucus membranes Neck: supple Lungs: clear to auscultation bilaterally Heart: regular rate and rhythm, no murmurs Abd: soft, non-tender, non-distended Ext: no edema Skin: warm/well-perfused Neuro: alert and oriented x3 Psych: anxious DS: Data Data Completed and Pending Completed studies during hospitalization [Text1]: Laboratory Results WBC 10.7 X10*3/uL (4.8-10.8) 07/04/25 06:09 RBC 4.19 X10*6/uL (4.20-5.50) L 07/04/25 06:09 Hgb 11.7 g/dl (12.0-16.0) L 07/04/25 06:09 Hct 36.4 % (37.0-47.0) L 07/04/25 06:09 MCV 86.9 fL (80.0-98.0) 07/04/25 06:09 MCH 27.9 pg (27.0-33.0) 07/04/25 06:09 MCHC 32.1 g/dl (31.0-35.0) 07/04/25 06:09 RDW 13.1 % (11.0-16.0) 07/04/25 06:09 Plt Count 527 X10*3/uL (160-400) H D 07/04/25 06:09 MPV 9.7 fL (9.4-12.3) 07/04/25 06:09 Immature Gran % (Auto) 0.4 % (0.0-0.4) 07/04/25 06:09 Neut % (Auto) 87.6 % (45-73) H 07/04/25 06:09 Lymph % (Auto) 8.1 % (20-40) L 07/04/25 06:09 Amelia % (Auto) 1.8 % (2-11) L 07/04/25 06:09 Eos % (Auto) 1.7 % (0-4) 07/04/25 06:09 Baso % (Auto) 0.4 % (0-2) 07/04/25 06:09 Lymph # (Auto) 0.9 X10*3/uL (1.2-4.9) L 07/04/25 06:09 Amelia # (Auto) 0.2 X10*3/uL (0.1-1.2) 07/04/25 06:09 Eos # (Auto) 0.2 X10*3/uL (0.0-0.4) 07/04/25 06:09 Baso # (Auto) 0.0 X10*3/uL (0.0-0.2) 07/04/25 06:09 Abs Immat Gran (auto) 0.04 X10*3/uL (0.00-0.03) H 07/04/25 06:09 Absolute Neuts (auto) 9.4 x10*3/uL (2.0-8.3) H 07/04/25 06:09 Absolute Nucleated RBC 0.000 X10*3/uL (0.0-0.012) 07/04/25 06:09 Nucleated RBC % (auto) 0.0 /100WBC (0.0-0.2) 07/04/25 06:09 Sodium 138 mmol/L (135-145) 07/04/25 06:09 Potassium 4.4 mmol/L (3.3-5.1) 07/04/25 06:09 Chloride 108 mmol/L (96-108) 07/04/25 06:09 Carbon Dioxide 20 mmol/L (22-29) L 07/04/25 06:09 Anion Gap 14 (12-20) 07/04/25 06:09 BUN 12 mg/dL (9-16) 07/04/25 06:09 Creatinine 0.65 mg/dL (0.5-1.4) 07/04/25 06:09 Estim Creat Clear Calc 125.0 07/04/25 06:09 Estimated GFR > 60 07/04/25 06:09 Random Glucose 76 mg/dL (60-115) 07/04/25 06:09 Calcium 9.3 mg/dL (8.4-10.2) 07/04/25 06:09 Total Bilirubin 0.4 mg/dL (0.0-1.0) 07/04/25 06:09 AST 27 U/L (5-31) 07/04/25 06:09 ALT 18 U/L (0-31) 07/04/25 06:09 Alkaline Phosphatase 103 U/L (39-117) 07/04/25 06:09 Total Protein 6.7 g/dL (6.5-8.0) 07/04/25 06:09 Albumin 4.3 g/dL (3.5-5.0) 07/04/25 06:09 Beta HCG, Quant 4 mIU/mL 07/04/25 02:34 Discharge Plan Discharge Anticipated Discharge Date/Time: 07/08/25 12:03 Patient Disposition: Home, Self-Care Discharge Diagnosis: chronic back pain, rage Referrals: [facility] [Outside] - 1 Week Physical Therapy - [facility] [Outside] - 1 Week Carlos Quick MD [Physician, Internal Medicine] - 1 Week Krista Lechuga MD [Physician, Neurosurgery] - 1 Week Discharge Medications: New carbamazepine 200 mg Tablet 200 mg PO BID Qty: 60 0RF nicotine 21 mg/24 hr Patch 24 Hour 21 mg transdermal DAILY Qty: 30 0RF prednisone 10 mg tablet See Rx Instructions .ROUTE .COMPLEX Qty: 13 0RF Rx Instructions: 30 mg daily x 2 days, then 20 mg daily x 2 days, then 10 mg daily x 2 days, then 5 mg daily x 2 days, then stop oxycodone 5 mg tablet 5 - 10 mg PO Q6H Qty: 30 0RF Rx Instructions: Partial Fill upon patient request. naloxone [Narcan] 4 mg/actuation spray,non-aerosol 4 mg intranasal Q2M PRN (Reason: opioid overdose) Qty: 2 0RF Rx Instructions: spray 1 dose into ONE nostril; alternate nostrils w each dose until help arrives lorazepam 0.5 mg tablet 0.5 mg PO BID PRN (Reason: anxiety) Qty: 8 0RF Continued duloxetine 60 mg capsule,delayed release(DR/EC) 120 mg PO DAILY 90 Days Qty: 180 3RF Pulmicort Flexhaler 90 mcg/actuation aerosol powdr breath activated 1 inh inhalation BID Qty: 1 1RF sennosides-docusate sodium [Stool Softener-Stimulant Laxat] 8.6-50 mg tablet 2 tab PO BID hydroxyzine HCl 25 mg tablet 25 mg PO BEDTIME PRN (Reason: anxiety) gabapentin 800 mg tablet 800 mg PO TID Rx Instructions: 2-3 pills prn Discontinued oxycodone-acetaminophen [Percocet] 5-325 mg tablet 1 tab PO Q8H PRN (Reason: pain) Patient Comments: Pt has been taking 3-4 tabs Q4H, pt ran out of medication in last few days. Rx Instructions: Partial Fill upon patient request. Discharge Orders: Discharge Order (Routine); Ordered 07/08/25 Ordered By: Michael Cherry Diet: Advance to usual diet Activity on Discharge: As tolerated Stand Alone Forms: Patient Portal Discharge page Print Language: Korean Care Plan Goals: pain control Health Concerns: chronic back pain, rage Plan of Treatment: for pain control, take acetaminophen 350-625 mg every 4-6 hours as needed for mild pain; oxycodone 5-10 mg every 6 hours as needed for moderate-severe pain; continue Cymbalta 120 mg daily; continue gabapentin 800 mg 3x a day; take prednisone taper [30 mg daily x 2 days, then 20 mg daily x 2 days, then 10 mg daily x 2 days, then 5 mg daily x 2 days] no driving while taking opioid pain medications; naloxone prescribed in case of accidental overdose follow up with [facility] [place] [place] Pain Management as scheduled 07/12/25 referral to [facility] [place] [place] Physical Therapy referral to [facility] for 2nd neurosurgical opinion started carbamazepine 200 mg twice daily use lorazepam 0.5 mg twice daily as needed for anxiety no driving while taking benzodiazepines follow up with your psychiatrist within 1-2 weeks quit smoking; use nicotine patch to help Please follow up with your primary care doctor within 1 week. Return to the hospital if you experience recurrent or worsening symptoms. Assessment: See Discharge Summary. Discharge Date/Time: 07/08/25 13:50
[2025-07-08 13:00] VITALS: BP 128/61; PULSE 98; RESP 16; TEMP 36.6; O2SAT 99
--- NOTE | 2025-07-08 14:21 | MHC.CM.PN ---
CM MET WITH PT MULTIPLE TIMES YESTERDAY AND TODAY PT CONTINUES TO EXPRESS FRUSTRATION STATING SHE FEELS LIKE NO ONE IS LISTENING SHE ALSO REPORTS INCREASED EMOTIONAL DYSREGULATION DUE TO PAIN SHE ALSO REPORTS WANTING TO GET OFF CYMBALTA WHICH SHE HAS BEEN ON FOR 6 YEARS SHE DID REVIEW OPTIONS SUCH IPL[facility], BUT STATES SHE CANNOT TAKE THE CHANCE THAT THEY WILL NOT TAKE HER PAIN SERIOUSLY EITHER AND SHE WILL BE LOCKED IN THERE. SHE ALSO NOTES SHE DOES NOT WANT TO MISS HER PAIN MANAGEMENT APPT ON WEDNESDAY SHE WILL DISCUSS CHANGING MEDS WITH HER OUTPATIENT PSYCH PROVIDER, SHE DID NOTE BEING HAPPY THAT THE PSYCH CONSULT HERE RESULTED IN A COUPLE NEW MEDS THAT MAY BE HELPFUL SHE KNOWS SHE WILL DC TODAY AND SAYS SHE IS GOING TO GO BACK TO HER HOME AND JUST STAY ON THE SECOND FLOOR ALONE UNTIL THINGS IMPROVE SHE DOES HAVE A PLAN TO REACH OUT TO A THERAPIST, BUT CANNOT GET AN APPT UNTIL HER INSURANCE CHANGES ON 08/09/25 PTS MOTHER WILL TRANSPORT AT DC
== END 2025-07-08 13:50 | disposition home or self-care (01) | DRG 861 ==
LOC: HO.EDOVER 01:53 → HO.S3 02:21
PROVIDERS: Nurse Practitioner Family; Admitting Provider Internal Medicine; PCP Family Medicine; Visit Provider Family Medicine
DX: G89.4 Chronic pain syndrome (principal); F10.90 Alcohol use, unspecified, uncomplicated; F31.9 Bipolar disorder, unspecified; M51.16 Intervertebral disc disorders with radiculopathy, lumbar region; F17.210 Nicotine dependence, cigarettes, uncomplicated; T38.3X5A Adverse effect of insulin and oral hypoglycemic [antidiabetic] drugs, initial encounter; K59.03 Drug induced constipation; Z71.6 Tobacco abuse counseling; O99.345 Other mental disorders complicating the puerperium; F53.0 Postpartum depression; Z79.891 Long term (current) use of opiate analgesic; Z79.899 Other long term (current) drug therapy
CPT/HCPCS: 36415; 80053; 84702; 85025; 93005; 94640; 97163; 97165; 97530; 99221; J1100; J1171; J1885; J2919; J3360

== ENCOUNTER 2025-07-04 01:38 | Outpatient (BNV) | payer OTHER, SELFPAY | END 2025-07-04 03:18 | PROVIDERS: Admitting Provider Internal Medicine; Visit Provider Internal Medicine Cardiovascular Disease | DX: Z13.6 Encounter for screening for cardiovascular disorders (principal) | CPT/HCPCS: 93010 ==

== ENCOUNTER → 2025-07-04 01:38 | Outpatient (BNV) | payer OTHER, SELFPAY | PROVIDERS: Admitting Provider Internal Medicine; Visit Provider Social Worker | DX: F39 Unspecified mood [affective] disorder (principal) | CPT/HCPCS: 99499 ==

== ENCOUNTER → 2025-07-04 01:38 | Outpatient (BNV) | payer OTHER, SELFPAY | PROVIDERS: Admitting Provider Internal Medicine; Visit Provider Physician Assistant | DX: Z48.89 Encounter for other specified surgical aftercare (principal) | CPT/HCPCS: 99024; 99222 ==

== ENCOUNTER → 2025-07-04 01:38 | Outpatient (BNV) | payer OTHER, SELFPAY | PROVIDERS: Admitting Provider Internal Medicine; Visit Provider Nurse Practitioner Family | DX: M54.42 Lumbago with sciatica, left side (principal); R45.89 Other symptoms and signs involving emotional state | CPT/HCPCS: 99232; 99499 ==

== ENCOUNTER 2025-07-12 10:17 | Outpatient (AMB) | payer OTHER, SELFPAY ==
--- NOTE | 2025-07-12 10:20 | A.OFFVIS_ITS ---
Vital Signs 07/12/25 10:29 Height 5 ft 6 in Weight 175 lb BMI 28.2 BP 177/114 H Blood Pressure Location Rt brachial Position Sitting Pulse 112 H Pulse Source Pulse Oximeter Pulse Oximetry (%) 100 Oxygen Delivery Method Room Air Intake Visit Reasons: Radiculopathy, lumbar region Intake Note: Pain today 04/18 Sales Account Leader Required: No Accompanied by: Mother Allergies No Known Allergies Allergy (Verified 07/12/25 10:26) HPI Comments Details: The patient is a 34-year-old female presenting for an initial evaluation of chronic low back pain with radiculopathy. She has an extensive and complex medical, mental and surgical and cosmetic surgical history, and underwent previous L3-L4 discectomy in 2016 and an L4-L5 fusion in 2020. Most recently, she underwent an L5-S1 fusion with hardware removal in May 2025 for a large disc herniation, severe left leg pain, and left foot drop. Since that surgery, she reports her left-sided leg pain worse than before, and she continues to have numbness down the posterior aspect of her left leg. Due to severe, uncontrolled pain, the patient has been to the emergency room multiple times and was recently hospitalized for suicidal ideation. She was hospitalized from [facility] [place] [facility] [place] to 07/08/25, initially on a medical- surgical floor for intractable pain and then transferred to a psychiatric unit. The patient states she made a comment about self-harm out of frustration with her pain and that the Section 12 psychiatric hold was removed shortly after her transfer to [facility]. She denies any SI/HI or hallucinations. Her past medical history is significant for gestational diabetes, preeclampsia, placenta previa, severe depression with rage, ADHD, mood disorder and anxiety. She also has a history of alcohol use disorder (in remission for 6 years with a recent relapse ), marijuana vape use, and tobacco abuse. A lumbar spine MRI on 06/28/25 showed postoperative changes, moderate bilateral foraminal stenosis at L3-L4 with disc bulging, and grade 1 anterolisthesis at L4-L5 with mild foraminal stenosis; the study was limited due to artifact. She was recently seen by Neurosurgery at [facility], who offered no mitra gical option at that time, and she plans to seek a second Neurosurgical opinion at [facility] in [place]. Her current medications include gabapentin and Cymbalta, and she recently tried a prednisone taper. A review of her prescription history shows multiple opioid fills, including OxyContin 10 mg, Percocet 5/325, and oxycodone 5 mg in the past month. She reports a high tolerance to opioids, stating 5 mg of Percocet is ineffective and that she needs 15-20 mg of oxycodone to achieve any pain relief. Patient reports she was also prescribed Belbuca film but insurance denied prior authorization. Patient notes that she was Dilaudid at [facility] and reports Dilaudid 4 mg every 4-6 hours and Oxycontin 20 mg controls her pain most effectively but her insurance will not approve Oxycontin and she has met challenges with providers to prescribe her Dilaudid. I have informed patient that our office does not offer chronic opioid prescribing. - Onset and Character: The patient reports chronic, severe, and uncontrolled low back pain with radiculopathy that has become progressively worse since her spinal fusion surgery in May 2025. - Location and Radiation: Pain is in the low back and radiates down both legs. - Quality: Constant pulsing, throbbing, cramping, tingling, numbness, tightness, radiating, tiring, fearful. - Symptom Shift: She notes her symptoms have swapped places since her most recent surgery; previously her right leg was weak with nerve damage, and now her left leg is a 1000 times worse. Pain is constant and rated 7-9/10, most severe at night and mornings. - Associated Symptoms: She has numbness in the left leg from the heel up to the buttock and an inability to squeeze her left gluteal muscles, which she describes as butt. - Exacerbating Factors: Pain is worsened by daily activities, including lifting and carrying her baby. - Relieving Factors: She reports that only opioid medications provide relief, stating that 15-20 mg of oxycodone will help subside the pain. - Interference with Function: The pain is debilitating and interferes with her ability to perform daily tasks like washing a dish or holding her child. - Affect: The patient is very frustrated, anxious, and feels hopeless due to her uncontrolled pain. - She has also been dealing with severe rage, depression, OCD, and anxiety. - Her pain led to a recent hospitalization for suicidal ideation, though she states the comment was made out of frustration. - Analgesia: The patient is currently taking gabapentin and Cymbalta. - She reports a high tolerance to opioids, stating 10 mg of oxycodone does not touch her pain and she requires 15-20 mg to get it to subside. - She expresses that opioids are the only thing that allows her to function and care for her child. - Adverse Effects: Not discussed in detail. - Activities of Daily Living: Her pain is debilitating and severely impacts her ability to care for her infant, wash a dish, or hold her child. - Aberrant Drug-Related Behaviors: The patient has a history of alcohol, marijuana, and tobacco abuse, with a recent return to alcohol use . - A [facility] review noted multiple opioid prescriptions in the last month as well as previous months, and the provider expressed concern about the patient running out of a 30-pill prescription in under a week, though the patient clarified she meant she was out of refills, not out of pills. Oswestry Low Back Pain Disability Score=41 [facility] Medical History (Updated 07/12/25 @ 14:06 by DINESH Albarado) Mood disorder Emotional dysregulation CTS (carpal tunnel syndrome) Placenta previa Gestational diabetes depression ADHD Nicotine use Marijuana use Alcohol use disorder Smoker Hidradenitis suppurativa Mild intermittent asthma Neuropathy of right lower extremity Lumbar radiculopathy Cervical radiculopathy Fusion of spine of lumbosacral region Thrush, oral UTI symptoms 23 weeks gestation of Anxiety Sore throat History of frequent upper respiratory infection Recurrent streptococcal pharyngitis Surgical History (Updated 07/12/25 @ 13:02 by DINESH Albarado) H/O cosmetic plastic surgery (~10/2022) History of appendectomy (~01/2018) History of eyelid surgery (~12/2023) H/O nasal septoplasty (~12/2023) H/O bilateral breast reduction surgery (~04/2023) S/P lumbar and lumbosacral fusion by anterior technique H/O section (~12/2024) H/O spinal fusion (~05/2025) Social History Household Members: Family Housing: House Do you presently have visiting nurse or other home services: No Alcohol intake: current Alcohol type: wine Patient Tobacco Use Status: Current everyday Tobacco user Tobacco use type: Smokeless Tobacco Cigarettes Per Day: 2 Years Smoked: 17 e-Cigarette/Vaping Use: Currently Using Second Hand Smoke Exposure: No Substance Use Type: Marijuana Substance Use Frequency: Daily service: No Current occupational status: employed Cognitive needs: No Hearing needs: No Vision needs: No Review of Systems Const Details: - Musculoskeletal: Reports severe low back and left leg pain. - Neurological: Reports pain radiating to both legs, worse on the left. - She reports new-onset numbness in the left leg from the heel to the buttock since her last surgery. - Reports a history of nerve damage and weakness in the right leg. - She reports feeling of weakness in her gluteal muscles. - Psychiatric: Reports feeling frustrated, hopeless, and anxious. - She reports experiencing severe rage, depression, and mood disorder - She confirms a recent hospitalization for suicidal ideation but disputes the intent, attributing it to a statement of frustration. - Social History: Denies significant alcohol use, stating she drinks maybe once a month. All systems reviewed & are unremarkable except as noted in HPI and below Physical Exam Vital Signs: Last Vital Signs Pulse 112 H 07/12/25 10:29 BP 177/114 H 07/12/25 10:29 Pulse Ox 100 07/12/25 10:29 Oxygen Delivery Method Room Air 07/12/25 10:29 BMI result Body Mass Index 28.2 General: Appears afebrile. Alert and oriented. Mood and affect appropriate. Anxious. Follows and participates in conversation appropriately. Respiratory effort is unlabored. No cough. Able to transition from sit to stand unassisted. Uses walker with ambulation and transfers, demonstrates difficulty getting up from sitting position. Able to stand and walk on toes (L5-S1) and heels (L4-L5) Eyes Pupils: Equal, round and reactive pupils present General: Yes no CVA tenderness Back/Spine/Pelvis Other: Limited lumbar ROM due to pain with lumbar flexion and extension. Demonstrates 5/5 right and 4/5 left strength of quadriceps bilaterally as well as flexion/dorsiflexion of bilateral feet against resistance. 2+ pedal pulses bilaterally. Straight leg rise with dorsiflexion positive on the bilaterally. +3 patellar and +1 achilles reflexes bilaterally. Facet loading test positive bilaterally. Errol?s, Pelvic compression and Stinchfield tests are positive bilaterally. No groin pain with I/E hip rotations. Valsalva maneuver negative. Back: no CVA tenderness Cervical Spine: cervical ROM normal, cervical muscular tenderness, pain with cervical ROM, cervical spasm and No Cervical spine tenderness Thoracic/Lumbar Spine: thoracic and lumbar spine normal to inspection, Thoracic/lumbar spine scar(s) (well healed incisions), Lasegue's sign positive bilateral and diffuse, pain with thoraco-lumbar ROM, paraspinal muscle tenderness, thoraco-lumbar ROM limited, No thoracic spinal tenderness and lumbar spinal tenderness (L4-S1) Sacroiliac joints: bilaterally tender to palpation Neuro General: Normal light touch and pain sensation and CN's II-XI intact bilaterally Cranial nerves: Yes Equal, round and reactive pupils present Cognition (Neuro): normal cognition Gait exam (Neuro): Antalgic gait present and Assistive device used Motor exam (neuro): 5/5 motor strength present throughout and no tremor noted Deep tendon reflexes (DTR's): Right patellar reflex intensity grade: 3+, Left patellar reflex intensity grade: 3+, Right ankle reflex intensity grade: 2+ and Left ankle reflex intensity grade: 2+ Extrem General: Yes capillary refill normal, Yes no clubbing, cyanosis or edema and Yes no calf tenderness Psych Appearance: grossly normal Mental Status: mental status grossly normal Speech and movement: Normal speech and movement present Affect: normal affect, Sad affect present and Anxious affect present Thought process: Normal thought process present and Circumstantial thought process present Thought content: Normal thought content present, suicidality (none), no homicidality, no hallucinations, Depressive thoughts present (due to chronic pain), no compulsions and no obsessions Insight: Good insight present (Psych) Judgement: Good judgement present (Psych) Results Reviewed Results Reviewed: MR lumbar spine wo/w con 06/28/25 CLINICAL HISTORY: M54.16 - Radiculopathy, lumbar region --- Additional Notes or Special Instructions: Patient has left leg pain and left leg numbness s p L5-S1 lumbar fusion Comparison: DX/KY/SR - XR LUMBAR SPINE 4 OR MORE VIEWS - 06/20/25 14:57 EST Findings: Postoperative changes including posterior hardware fusion from L4-S1 resulting in susceptibility artifact and disc prosthesis at L4-5 and L5-S1. Mild grade 1 anterolisthesis at L4-5 and otherwise alignment is maintained. Vertebral body height is maintained. No definite bone marrow edema. L1-2 and L2-3 discs are unremarkable. At L3-4 there is disc desiccation and mild degeneration. Distal conus appears unremarkable terminating at L1-2. L1-2 and L2-3 levels are unremarkable. At L3-4 spondylotic disc bulge and facet arthropathy resulting in moderate bilateral neural foraminal stenosis. At L4-5 grade 1 anterolisthesis with no significant disc bulge or focal disc herniation with mild bilateral foraminal stenosis. At L5-S1 disc bulge with no focal disc herniation. Mild stenosis of right neural foramen. Evaluation of left neural foramen limited by susceptibility artifact. Postcontrast images demonstrate no abnormal enhancement in the spinal canal. Evaluation however is limited in the operative levels from susceptibility artifact. Paraspinal soft tissues within normal limits. IMPRESSION: 1. Postoperative changes including L4-S1 posterior hardware fusion resulting in significant susceptibility artifact and L4-5 and L5-S1 disc prosthesis. 2. Within this limitation no focal disc herniation is identified. 3. L3-4 disc bulge with moderate bilateral foraminal stenosis. 4. L4-5 grade 1 anterolisthesis and mild bilateral foraminal stenosis. 5. Evaluation for abnormal enhancement is significantly limited due to the artifact. XR LUMBOSACRAL SPINE 4 VIEW 06/20/25 CLINICAL INFORMATION: M54.16 - Radiculopathy, lumbar region COMPARISON: Previous x-ray September 2022 TECHNIQUE: AP, lateral and flexion and extension views FINDINGS: There is postsurgical change with posterior fusion hardware and bilateral transpedicular screws at L4, L5 and S1 and disc interspace appears at the L4-5 and L5-S1 levels. Postsurgical changes at L5-S1 are new in the interval from 2022. There is mild anterior subluxation of L5 4 with respect to L5 measuring 5 mm. This is similar to prior exam and similar on flexion and extension views. There is 6 mm anterior subluxation of L3 with respect to L4. This is new or increased from previous exam. This is similar on flexion and extension views. Bone alignment is otherwise normal. No fracture or dislocation. Disc spaces otherwise normal. IMPRESSION: Postsurgical changes from L4 to S1. Mild 5 mm anterior subluxation of L4 with respect to L5 similar to September 2022 exam. This is stable on flexion and extension views. New or increased 6 mm anterior subluxation of L3 with respect to L4 that is stable on flexion and extension views. Assessment & Plan Assessment & Plan (1) Lumbar post-laminectomy syndrome: Code(s): M96.1 - Postlaminectomy syndrome, not elsewhere classified Category: Medical (2) Chronic radicular low back pain: Code(s): M54.16 - Radiculopathy, lumbar region; G89.29 - Other chronic pain Category: Medical (3) Sacroiliac joint pain: Code(s): M53.3 - Sacrococcygeal disorders, not elsewhere classified Category: Medical (4) Chronic pain syndrome: Code(s): G89.4 - Chronic pain syndrome Category: Medical (5) Lumbar degenerative disc disease: Code(s): M51.369 - Other intervertebral disc degeneration, lumbar region without mention of lumbar back pain or lower extremity pain Category: Medical (6) Lumbosacral spondylosis: Code(s): M47.817 - Spondylosis without myelopathy or radiculopathy, lumbosacral region Category: Medical (7) Spondylolisthesis, lumbar region: Code(s): M43.16 - Spondylolisthesis, lumbar region Category: Medical Plan The patient presents with a complex history of chronic low back pain and failed back surgery, consistent with post-laminectomy syndrome. To further evaluate her symptoms of left leg numbness and weakness, an EMG and NVC studies will be ordered. A caudal epidural steroid injection (MIN) under sedation and fluoroscopy is planned to provide temporary pain relief. Expectations, risks and benefits were reviewed. Patient is aware she will be contacted to schedule this procedure. Opioid medication management will remain under the purview of her primary care provider, Dr. Quick, as this practice does not prescribe chronic opioids at this time. Patient was encouraged to follow up with PCP for Belbuca prior authorization (PA) status denial and consider re-submitting for another PA as she has tried and failed many opioids, although Dilaudid and Oxycontin were most effective. All opioids and other non-opioid and non-pharmacological treatments should be considered when submitting Belbuca PA. Given patient's opiod tolerance and chronic opioid intake, recommend starting Belbuca at 150 mcg BID (most recen t QTC interval per EKG was WNL) and Percocet for breakthrough pain. The patient also plans to seek a second Neurosurgical opinion at [facility], given her worsening symptoms. A referral to physical therapy is also warranted to assess her functional status and limitations. All questions and concerns have been answered and patient agreed with the treatment plan. Follow up after injection/neurodiagnostic study review and sooner as needed. Patient was informed and verbally consented to the use of an ambient scribe for clinic note documentation during this visit. I hereby testify that I spent 36 minutes in conversation with this patient and 20 minutes with planning and coordinating care for this patient and organizing this note. Orders: Orders NE electromyogram (EMG) Today G89.29 - Other chronic pain, M54.16 - Radiculopathy, lumbar region, M96.1 - Postlaminectomy syndrome, not elsewhere classified NE nerve conduction velocity Today G89.29 - Other chronic pain, M54.16 - Radiculopathy, lumbar region, M96.1 - Postlaminectomy syndrome, not elsewhere classified Coding Level of Care Code New Pt Level 5 (35682) Diagnoses Lumbar post-laminectomy syndrome M96.1 Chronic radicular low back pain M54.16; G89.29 Sacroiliac joint pain M53.3 Chronic pain syndrome G89.4 Lumbar degenerative disc disease M51.369 Lumbosacral spondylosis M47.817 Spondylolisthesis, lumbar region M43.16
[2025-07-12 10:29] VITALS: BP 177/114; PULSE 112; O2SAT 100; BMI 28.2
--- OUTSIDE RECORDS SUMMARY | 2025-07-12 12:27 | XMS_ITS | Clinical Summary ---
Author Organization [facility] Prior to 01/06/25 Address [address] [place] [address] Care Team Providers Care Programmer Engineering And Scientific Name Role Phone Unavailable Primary Care Provider [...] this topic Medical Devices Implanted Type Area Assembly Operator Device Identifier Shelf Expiration Date Model / Serial / Lot Shell Short Flarehawk 25mm Fh9 [id number] - [id number] Implanted:Qty: 1 on 06/17/2021 by Asa Guaman MD at [facility] Posterior: Spine Lumbar [employer] [id number] / / Cage Spinal Flarehawk 6 D L23 [facility] [id number] - [id number] Implanted:Qty: 1 on 06/17/2021 by Asa Guaman MD at [facility] Posterior: Spine Lumbar [employer] [id number] / / Bone Alrgft Can Chip 1-8 15cc Stry-Obio [id number] - [id number] Implanted:Qty: 1 on 06/17/2021 by Asa Guaman MD at [facility] Posterior: Spine Lumbar [employer] 11/03/2025 [id number] / [id number] / Erick Spnl Contr 5.5x45mm Stry-K2m [id number] - [id number] Implanted:Qty: 2 on 06/17/2021 by Asa Guaman MD at [facility] Posterior: Spine Lumbar [employer] [id number] / / Screw Set Horatio Stry-K2m [id number] - [id number] Implanted:Qty: 4 on 06/17/2021 by Asa Guaman MD at [facility] Posterior: Spine Lumbar [employer] [id number] / / Screw Spnl Poly 6.5x45mm Stry-K2m [id number] - [id number] Implanted:Qty: 2 on 06/17/2021 by Asa Guaman MD at [facility] Posterior: Spine Lumbar [employer] [id number] / / Screw Spnl Poly 6.5x50mm Stry-K2m [id number] - [id number] Implanted:Qty: 2 on 06/17/2021 by Asa Guaman MD at [facility] Posterior: Spine Lumbar [employer] [id number] / / Explanted Type Area Assembly Operator Device Identifier Shelf Expiration Date Model / Serial / Lot Screw Schanz Disposable Ao 4mm [facility] [id number] - [id number] Explanted:Qty: 2 on 06/17/2021 by Asa Guaman MD at [facility] Right Posterior: Hip [id number] / / Advance Directives For more information, please contact: [phone] Latest Code Status on File Code Status Date Activated Date Inactivated Comments Full Code 06/17/2021 9:31 AM 06/18/2021 7:00 PM This code status was ascertained in the following way: discussion with patient .
--- OUTSIDE RECORDS SUMMARY | 2025-07-12 12:27 | XMS_ITS | Clinical Summary ---
Author Organization [facility] Address [address] [place] [address] Phone Care Team Providers Care Principal Military Analyst Name Role Phone Carlos Quick MD Primary Care Provider Encounters Date Type Department Care Team Description 07/09/2025 Telephone [facility] Neurosurgery [address], [address], [address] [place] [address] Unknown, Unknown, from Last 3 Months Social History Tobacco Use Types Packs/Day Years Used Date Smoking Tobacco: Never Assessed Comments Unknown Sex and Gender Information Value Date Recorded Sex Assigned at Female 07/09/2025 10:03 AM EST Legal Sex Female 9:54 AM EST Gender Identity Female 07/09/2025 10:03 AM EST Sexual Orientation Straight 07/09/2025 10 :03 AM EST Plan of Treatment Not on file Medical Devices Not on file Insurance WELLSENSE NON NSPG PCP CLARITY COMMERCIAL WELLSENSE NON NSPG PCP CLARITY COMMERCIAL PALMERENSE NON NSPG PCP CLARITY COMMERCIAL WELLSENSE NON NSPG PCP CLARITY COMMERCIAL WELLSENSE NON NSPG PCP CLARITY COMMERCIAL [facility] NON NSPG PCP CLARITY COMMERCIAL Care Teams Principal Military Analyst Relationship Specialty Start Date End Date Carlos Quick MD [address] [place] [id number] PCP - General Family Medicine 07/09/25 Additional Source Comments The information contained in this document represents components of the legal health record. It is not the complete legal health record.[facility]
--- OUTSIDE RECORDS SUMMARY | 2025-07-12 12:27 | XMS_ITS | Encounter Summary ---
Author Organization [facility] Address [address] [place] [address] [address] [place] [address] Phone Care Team Providers Care Blueprint Processor Name Role Phone Carlos Quick MD Primary Care Provider Encounter Details Date Type Department Care Team (Late st Contact Info) Description 07/09/2025 Telephone [facility] Neurosurgery [address] [place] [address], 7[address] Floor, [address] [place] [address] Unknown, Unknown, Social History Tobacco Use Types Packs/Day Years Used Date Smoking Tobacco: Never Assessed Comments Unknown Sex and Gender Information Value Date Recorded Sex Assigned at Female 07/09/2025 10:03 AM EST Legal Sex Female 9:54 AM EST Gender Identity Female 07/09/2025 10:03 AM EST Sexual Orientation Straight 07/09/2025 10 :03 AM EST documented as of this encounter Progress Notes * Oanh Pena - 07/09/2025 11:40 AM EST [facility] Neurosurgery received a phone call. Caller's name: Stacia Reason for call: apt Specialty referred to: Spine Direct referral to provider: no If yes, which provider? Referring provider/facility: If no, self-referral? self Are recent evaluation/treatment notes available: yes Is imaging available: no If yes, what imaging? Next steps: Discussed referral process and what is needed. documented in this encounter Plan of Treatment Not on file documented as of this encounter Visit Diagnoses Not on filedocumented in this encounter Care Teams Blueprint Processor Relationship Specialty Start Date End Date Carlos Quick MD [address] [place] [address] PCP - General Family Medicine 07/09/25 documented as of this encounter Additional Source Comments The information contained in this document represents components of the legal health record. It is not the complete legal health record.[facility]
--- OUTSIDE RECORDS SUMMARY | 2025-07-12 12:27 | XMS_ITS | Clinical Summary ---
Author Organization Formerly [facility] Address [address] [place] [address] Care Team Providers Care Terrazzo Tile Maker Name Role Phone Juancarlos Tatiana Cruz APRN Primary Care Provider [phone]- [phone] Allergies No known active allergies Medications diclofenac [...] patient's age to complete this topic Insurance [facility] - PPO Care Teams Terrazzo Tile Maker Relationship Specialty Start Date End Date Tatiana Bauer APRN PCP - General Emergency Medicine 02/28/21
--- OUTSIDE RECORDS SUMMARY | 2025-07-12 12:28 | XMS_ITS | Clinical Summary ---
Author Organization [facility] [address] [facility] lding Address [address] [place] [address] Phone Care Team Providers Care Check Grader Name Role Phone Miguel Angel Cuellar MD [...] management several weeks prior to delivery. Because [facility] does not admit patients for management transfer to [facility] is recommended at this time. Carpal [...] 3- hr GTT Forward chart to P [id number] ([facility]): completed Nutrition: November 02 at 2:30pm with Fariba Domingo RD Diabetic teaching and visit with diabetic provider (Adrian or Nery): Adrian Bird CNM at [address] [place] [id number]. 4 times per day testing (fasting and 2 hour postprandial) to be reviewed weekly Goals: fasting <95, 2 hr PP <120 If > or = 1/3 elevated, send to diabetic provider for insulin therapy IF DIAGNOSED ON EARLY SCREENING: order a echocardiogram between 22-24 weeks: n/a Serial growth ultrasounds after diagnosis: [employer] on shoulder dystocia Deliver by 40 6/7 [...] 06/20/2024 12/04/2024 Overview (07/07/2024): 1. [facility] site: [place] 2. Delivery site: [facility] 3. Mobile Mommas: NO 4. [...] Administration Dates Next Due DTP 12/09/1993, 0,04/23/1989,02/19,1988 COvU-[id number]-[id number] (Pentacel) 2mo to less than 5yo 04/29/1990 [...] Surgery Date Site/Laterality Comments APPENDECTOMY 2018 PROCEDURE: MI APPENDECTOMY OTHER SURGICAL HISTORY 2017 PROCEDURE: DECOMPRESS DISC RF LUMBAR BREAST REDUCTION 04/2023 Bilateral PROCEDURE: MI BREAST REDUCTION OTHER SURGICAL HISTORY PROCEDURE: MI RHINOPLASTY PRIMARY W/MAJOR SEPTAL REPAIR OTHER SURGICAL HISTORY PROCEDURE: MI UNLISTED PROCEDURE EYELIDS; COMMENT: eyelid lift OTHER SURGICAL HISTORY 2023 PROCEDURE: MI SUCTION ASSISTED LIPECTOMY TRUNK Medical History Medical [...] Status Comments Brother 1 Brother 2 Alive [id number] [facility] Father Alive [id number] Father's side Aunt Alive Maternal Grandfather Maternal Grandmother Mother Alive [phone] Paternal Grandfather Paternal Grandmother Alive Social History [...] care for your loved ones. 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 Not on file Not on file Not on file Obstetrics History Para Term AB IAB SAB Ectopic Multiple Livin g Live Births 2 1 0 1 0 0 1 1 Date Outcome GA Total Labor Labor/2nd/3rd Weight Sex Type Anes PTL Swapna A1 A5 Name Clin 025 34w 6d 3033 g (107 oz) F CS-LT ranv Livin g Parrish Delivery Location:Hospital A ([facility]) Summary Episode Dates Number of Fetuses Estimated Date of Delivery 12/27/2024 - Present (07/12/2025) Unknown Dating Summary Based On DEANNE GA Diff Last Menstrual Period on 04/11/2024 (Exact Date) 01/16/2025 Vitals Pregravid Weight Height TWG (As of 07/12/2025) Pregrav id BMI 1.676 m (66 ) [...] almost 6 weeks s/p PCS delivery at [facility] due to previa. She is bottle [...] has decided to start ketamine transf[facility] health. 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 Had been in partial inpatient at [place], no current meds. Currently in couns [facility] PETS: 2 cats/ 1 dog 03/24/2013 IS now back in the same unhealthy relationship off & on x 4yrs. Cont to receive outpatient counseling as needed. No current homicidal/suicidal thoughts. [facility] [employer] 04/17/2015 In a new relationship x 12 mo , denies ant issues of IPV 06/08/19: She lives with her parents she just moved back from [place] in March. She has started to see her ex boyfriend for the past year, feels safe in her relationship, denies IPV. She is currently working for [employer]. She does smoke cigarettes daily, denies drug use, she is sober from alcohol. Currently being referred out to [facility] for her anxiety/depression. 08/16/2020: Just got new puppy; She lives with her parents. Working from [employer] for [employer]. She is in an on and off again relationship with one male partner for the past 6 years. She feels safe and happy in her relationship, denies IPV. She is not exercising routinely. 11/11/2023: She lives home with her parents, feels safe and happy. She is in a new relationship for about 1 month feels safe. She has her own [employer] and health insurance. Trying to exercise more, [...] with: 1. Contraception-has Copper IUD placed at [facility] 2. Discussed nutrition, exercise, sexual activity, control methods, pole river care, S&S of PPD and referral information. [...] BP check 4. AE in one year Viola Depression Scale: In the Past 7 Days [...] harming myself has occurred to me.: Never Viola Depression Scale Total: 18 Adrian Bird CNM [...] thinks she has psychosis. Living with her nrnuku-bo-vow who has dementia and is challenging to [...] for ketamine tx on Wednesday. Going to [place] this weekend to get away from jxvceh-om-yzv and hoping she will feel better 2) Taking Nifedipine 30mg daily as rx'd by [facility], Bps at home have been slightly [...] that getting some time away from her kqxhbx-bk-kia may be beneficial. Advised to keep appt with psychiatrist on Wednesday to discuss medication mgmt. Pt verbalized understanding and agreement with plan. Progress Notes - Hospital En counter - 12/29/2024 - [place]: 12/29/2024 - Kristie Martel LSW Risk Prevention Engineer- Progress Note Patient continues to require acute level hospital care. DEANNE: 12/29/24 Barriers: none Disposition: HOME HEALTH- [facility] secured for wound care management. instructional services specialist will remain available to assess, support, provide [...] is being discharged home with referral to nephrology social worker for home wound care. She [...] incision. S/p via pfannensteil on 12/11 (at [facility]). Noticed some swelling on her incision [...] 12/29/2024 11:04 AM EDT Plan of Treatment Upcoming Encounters Date Type Department Care Team (Late st Contact Info) Description 07/23/2025 9:45 AM EST Office Visit Obstetrics [place]ne[facility] [address] [place] [address] Julianne Mckeon, RIKKI [address] [place] [address] Health Maintenance Due Date Last Done Comments [...] this topic Medical Devices Implanted Type Area Television Service Engineer Device Identifier Shelf Expiration Date Model / Serial / Lot Shell Short Flarehawk 25mm Fh9 Intg-Manu [id number] Implanted:Qty: 1 on 06/17/2021 by Asa Guaman MD N/A: Spine Lumbar [employer] [id number] / / Cage Spinal Flarehawk 6 D L23 Intg-[facility] [id number] Implanted:Qty: 1 on 06/17/2021 by Asa Guaman MD N/A: Spine Lumbar [employer] [id number] / / Bone Alrgft Canc Chip 1-8 15cc Stry-Obio [id number] - [id number] Implanted:Qty: 1 on 06/17/2021 by Asa Guaman MD N/A: Spine Lumbar [employer] 11/03/2025 [id number] / [id number] 2 / Erick Spnl Contr 5.5x45mm Stry-K2m [id number] Implanted:Qty: 2 on 06/17/2021 by Asa Guaman MD N/A: Spine Lumbar [employer] [id number] / / Screw Set [place] Stry-K2m [id number] Implanted:Qty: 4 on 06/17/2021 by Asa Guaman MD N/A: Spine Lumbar [employer] [id number] / / Screw Spnl Poly 6.5x45mm Stry-K2m [id number] Implanted:Qty: 2 on 06/17/2021 by Asa Guaman MD N/A: Spine Lumbar [employer] [id number] / / Screw Spnl Poly 6.5x50mm Stry-K2m [id number] Implanted:Qty: 2 on 06/17/2021 by Asa Guaman MD N/A: Spine Lumbar [employer] [id number] / / Procedures Procedure Name Priority Date/Time [...] LAB CHEMISTRY METHOD 06/20/2024 5:16 PM EST [facility] Blood Venous blood specimen / Unknown Venipuncture / Unknown 06/20/2024 2:16 PM EST 06/20/2024 2:16 PM EST us Adrian CONKLIN LAB BLOOD ORDERABLES Final Res ult [facility] [address] [place] [address], [place] [phone] * HIV 1,2 antibody, p24 antigen with reflex to differentiation (06/20/2024 2:16 PM EST) HIV Combo AB/AG Negative Negative LAB CHEMISTRY METHOD 06/20/2024 5:17 PM EST [facility] Blood Venous blood specimen / Unknown Venipuncture / Unknown 06/20/2024 2:16 PM EST 06/20/2024 2:16 PM EST Narrative [facility] [place] - 06/20/2024 5:17 PM EST [...] CNM LAB BLOOD ORDERABLES Final Res ult [facility] ([facility] [address] [place] [address], [place] [phone] * Cervical Cancer Screening: HPV (11/11/2023) [facility] Cervical Cancer Screening: HPV abstracted, negative Historical Provider HEALTH MAINTENANCE Final Result * (ABNORMAL) Lipid panel (09/05/2015) [facility] LDL/HDL Ratio 3 0 - 4 Triglycerides [...] [facility] Care Teams Check Grader Relationship Specialty Start Date End Date Miguel Angel Cuellar MD [address] [place] [address] PCP - General Internal Medicine 03/16/19
== END 2025-07-12 11:14 | disposition home or self-care (01) ==
LOC: HO.PMC 10:18
PROVIDERS: PCP Family Medicine; Visit Provider Nurse Practitioner Family
DX: M96.1 Postlaminectomy syndrome, not elsewhere classified (principal); M54.16 Radiculopathy, lumbar region; G89.29 Other chronic pain; M53.3 Sacrococcygeal disorders, not elsewhere classified; G89.4 Chronic pain syndrome; M51.369 Other intervertebral disc degeneration, lumbar region without mention of lumbar back pain or lower extremity pain; M47.817 Spondylosis without myelopathy or radiculopathy, lumbosacral region; M43.16 Spondylolisthesis, lumbar region
CPT/HCPCS: 99204

== ENCOUNTER → 2025-07-12 10:17 | Outpatient (BNVA) | payer OTHER, SELFPAY | PROVIDERS: PCP Family Medicine; Visit Provider Nurse Practitioner Family | DX: M96.1 Postlaminectomy syndrome, not elsewhere classified (principal); M54.16 Radiculopathy, lumbar region; G89.4 Chronic pain syndrome; M51.369 Other intervertebral disc degeneration, lumbar region without mention of lumbar back pain or lower extremity pain; M47.817 Spondylosis without myelopathy or radiculopathy, lumbosacral region; M43.16 Spondylolisthesis, lumbar region | CPT/HCPCS: 99202 ==

== ENCOUNTER 2025-07-13 10:47 | Outpatient (AMB) | payer OTHER, SELFPAY ==
--- NOTE | 2025-07-13 11:12 | A.OFFPC_ITS ---
Vital Signs 07/13/25 11:17 Height 5 ft 6 in Weight 175 lb BMI 28.2 BP 122/80 Blood Pressure Location Rt brachial Position Sitting Respiration 16 Pulse 102 H Pulse Source Pulse Oximeter Temp 98.1 F Temp Source Temporal Artery Scan Pulse Oximetry (%) 98 Oxygen Delivery Method Room Air Intake Visit Reasons: f/u on pain management Intake Note: Stacia presents in the office today to follow up to pain management. Manager Lvn Required: No Is last menstrual period known: No Post menopausal: No Patient : No Allergies No Known Allergies Allergy (Verified 07/14/25 17:05) Tobacco use date assessed: 07/13/25 Dental Screening Dental Screen Date: 07/13/25 Did you have a dental visit in the last 12 months?: Yes Did you have a dental problem in the last 6 months where you did not have access to dental care?: No Was dental information given to patient?: Patient has dentist HPI f/u on pain management HPI Details 34 y/o female presents to f/u chronic ms in. Patient has had additional visits to [facility] and also [facility] for psychiatric distress as well as chronic pain. Some concern for alcohol use disorder which she has had in the past. Patient denies that this is a current problem. Have been trying to get patient a reasonable regimen of long-acting pain medication along with some short-acting pain medication for breakthrough pain. Her insurance company has declined any long-acting medications which is not in accordance with [facility] or [place] guidelines. I have her in a letter in support of an approach that is more in line these guidelines. Has seen pain management and they are discussing other modalities of pain control. Hx of anxiety/depression, depression. Notes she has a therapist. She is on duloxetine 120mg daily, lorazepam 0.5mg b.i.d. p.r.n. [facility] Medical History (Updated 07/15/25 @ 00:31 by Kath Linares DO) Mood disorder Emotional dysregulation CTS (carpal tunnel syndrome) Placenta previa Gestational diabetes depression ADHD Nicotine use Marijuana use Alcohol use disorder Smoker Hidradenitis suppurativa Mild intermittent asthma Neuropathy of right lower extremity Lumbar radiculopathy Cervical radiculopathy Fusion of spine of lumbosacral region Thrush, oral UTI symptoms 23 weeks gestation of Anxiety Sore throat History of frequent upper respiratory infection Recurrent streptococcal pharyngitis Surgical History (Updated 07/12/25 @ 13:02 by DINESH Albarado) H/O cosmetic plastic surgery (~10/2022) History of appendectomy (~01/2018) History of eyelid surgery (~12/2023) H/O nasal septoplasty (~12/2023) H/O bilateral breast reduction surgery (~04/2023) S/P lumbar and lumbosacral fusion by anterior technique H/O section (~12/2024) H/O spinal fusion (~05/2025) Social History (Updated 07/13/25 @ 11:17 by Jocelyn Gates CMA) Household Members: Family Housing: House Do you presently have visiting nurse or other home services: No Alcohol intake: current Alcohol type: wine Patient Tobacco Use Status: Current everyday Tobacco user Tobacco use type: Smokeless Tobacco Cigarettes Per Day: 2 Years Smoked: 17 e-Cigarette/Vaping Use: Currently Using Second Hand Smoke Exposure: No Substance Use Type: Marijuana service: No Current occupational status: employed Cognitive needs: No Hearing needs: No Vision needs: No Questionnaire Thrive Questionnaire Date Thrive assessed: 07/04/25 I am a: Patient What is your living situation today?: I have a steady place to live Within the past 12 months, did the food you bought not last and you didn't have the money to get more?: Never true Within the past 12 months, did you worry whether your food would run out before you got money to buy more?: Never true Do you have trouble paying for medicines?: No Do you have trouble getting transportation to medical appointments?: No Do you have trouble paying your heating and electricity bill?: No Do you have trouble taking care of your child, family member or friend?: No Do you have trouble with day-to-day activities such as bathing, preparing meals, shopping, managing finances, etc.?: No Are you currently unemployed and looking for a job?: No Are you interested in more education?: No Please select the resources that you would like help with: None Currently or been in a relationship where the following occur: No concerns reported THRIVE Score: 0 SARAH-7 AMB Questionnaire SARAH-7 Date SARAH - 7 assessed: 08/14/22 Source: Developed by Drs. Adonay LLatesha Aguirre, Bairon Stanford and colleagues, with an educational elizabeth from [employer]. Review of Systems Const Denies chills, Denies fatigue, Denies fever(s), Denies headache(s) and Denies weakness ENT Denies dizziness and Denies headache(s) Card Denies dyspnea Resp Denies cough, Denies dyspnea, Denies wheezing and Denies other (shortness of breath) Musc Denies numbness and Denies tingling Neuro Denies dizziness, Denies headache(s), Denies numbness, Denies tingling and Denies weakness Psych Reports anxiety and Reports depression Endo Denies fatigue Aller/Immun Denies wheezing Physical exam (Primary Care) Vital Signs: Last Vital Signs Temp 98.1 F 07/13/25 11:17 Pulse 102 H 07/13/25 11:17 Resp 16 07/13/25 11:17 BP 122/80 07/13/25 11:17 Pulse Ox 98 07/13/25 11:17 Oxygen Delivery Method Room Air 07/13/25 11:17 BMI result Body Mass Index 28.2 Tobacco/Smoking Status: Tobacco use Status Tobacco use date assessed 07/13/25 07/13/25 11:25 Patient Tobacco Use Status Current everyday Tobacco 07/13/25 11:17 Tobacco use type Smokeless Tobacco 07/13/25 11:17 e-Cigarette/Vaping Use Currently Using 07/13/25 11:17 Thrive Assessment: Date of Thrive Assessment Date Thrive assessed 07/04/25 07/13/25 11:14 Currently or been in a relationship where the following occur: No concerns reported Const General: well developed; No acute distress Nutritional Appearance: well nourished Orientation/consciousness: patient oriented x3 [facility] Head: Yes normocephalic and Yes atraumatic Eyes General: appearance normal, both eyes and all related structures Pupils: Equal, round and reactive pupils present EOM: EOMs intact bilaterally Resp Effort & Inspection: normal respiratory effort Neuro General: patient oriented x3 and gait normal Cranial nerves: Yes Equal, round and reactive pupils present Psych Affect: Anxious affect present Coding Level of Care Code Est Pt Level 3 (09029) Diagnoses Chronic pain syndrome G89.4 Anxiety with depression F41.8 Assessment & Plan Assessment & Plan (1) Chronic pain syndrome: Code(s): G89.4 - Chronic pain syndrome Category: Medical (2) Anxiety with depression: Code(s): F41.8 - Other specified anxiety disorders Category: Medical Plan Ongoing complaints of chronic pain and MRI imaging shows objective findings. We discussed that she has quite a few risk factors for abuse or addiction and patient understands. She agrees that she should be working on a Multi-Modal approach to pain. She is following with a therapist and taking her medication for anxiety depression as well I have written a letter regarding a more appropriate pain medication regimen to try to get approval for a long-acting opioid medication. Patient has signed a pain contract and will also have urine drug screening and pill counts. Patient is aware agrees. She will continue to follow with pain management and also has seen neuro spine. She will continue to follow with psychiatry and a therapist. Close follow-up; she will return 1 month for anxiety, depression and chronic pain.
[2025-07-13 11:17] VITALS: BP 122/80; PULSE 102; RESP 16; TEMP 36.7; O2SAT 98; BMI 28.2
== END 2025-07-13 12:30 | disposition home or self-care (01) ==
LOC: HO.HMCFM 10:48
PROVIDERS: PCP Family Medicine; Visit Provider Family Medicine
DX: G89.4 Chronic pain syndrome (principal); F41.8 Other specified anxiety disorders

== ENCOUNTER → 2025-07-13 10:47 | Outpatient (BNVA) | payer OTHER, SELFPAY | PROVIDERS: PCP Family Medicine; Visit Provider Family Medicine | DX: G89.4 Chronic pain syndrome (principal); F41.8 Other specified anxiety disorders | CPT/HCPCS: 99212 ==

== ENCOUNTER 2025-07-14 16:54 | Emergency (ER) | payer OTHER, SELFPAY ==
--- NOTE | ~2025-07-14 | XR_ITS ---
CLINICAL HISTORY: pain s p lumbar fusion 3 views lumbar spine Comparison: MR/PA/SR - MR LUMBAR SPINE WO/W CON - 06/28/25 15:06 EST DX/PA/SR - XR LUMBAR SPINE 4 OR MORE VIEWS - 06/20/25 14:57 EST Findings: Postsurgical changes related to L4-S1 posterior spinal fusion. Trace anterolisthesis L3 with suspected pars defect. No acute fractures or dislocation. No significant degenerative change. IMPRESSION: No acute findings. Postsurgical changes related to L4-S1 posterior spinal fusion. Trace anterolisthesis L3 with suspected pars defect. This document has been electronically signed by: Jameson Araujo MD on 07/14/2025 18:28:52
[2025-07-14 17:00] VITALS: BP 170/99; PULSE 108; RESP 18; TEMP 36.6; O2SAT 99; BMI 28.2
--- NOTE | 2025-07-14 17:02 | ED_ITS ---
HPI - General Adult General Chief complaint: Back Pain/Injury Stated complaint: losing feeling in left leg Time Seen by Provider: 07/14/25 21:03 Source: patient Mode of arrival: ambulatory Limitations: no limitations History of Present Illness ED Provider: Dr. Kath Linares HPI narrative: 34-year-old female with a long history of degenerative disc disease, multiple lumbar spinal surgeries (three total, most recent a revision fusion of L4?L5 and new fusion of L5?S1 performed in [place] on 06/08/25), and post-laminectomy syndrome presents for worsening pain and progressive neurological symptoms. She reports left-leg numbness and weakness that began approximately four days before 2024 and has progressed despite prior hospital admission and outpatient follow-up. She states the numbness/weakness is now worse and that she has ?no strength? in either leg, with right-sided pain now ?a thousand times worse? than the left. She was discharged from this hospital on 07/08/25 after admission for suicidal ideation related to uncontrolled pain; no surgical intervention was recommended at that time. She attended pain management on 07/12/25 where an EMG and possible cortisone injection were ordered; the clinic does not prescribe opioids. Her PCP is managing an opioid contract but did not provide a planned prescription at her appointment on 07/14/25, leaving her without pain medication at home. Last documented prescriptions (per [employer]) were on 07/08/25: 8 ? 0.5 mg lorazepam and 30 ? 5 mg oxycodone (both 5-day supplies), now finished. She denies new trauma or IV drug use. She is frustrated that her worsening leg symptoms have not been addressed and requests pain control and further evaluation. Most recent MRI on 06/28/25 showed no changes in her chronic degenerative disc disease/nerve impingement. Related Data Home Medications ?Medication ?Instructions ?Recorded ?Confirmed gabapentin 800 mg tablet 800 mg PO TID 01/23/2507/04 hydroxyzine HCl 25 mg tablet 25 mg PO BEDTIME PRN anxi ety 07/04/25 07/04/25 sennosides 8.6 mg-docusate sodium 2 tab PO BID 5 07/04/25 50 mg tablet (Stool Softener-Stimulant Laxative) Previous Rx's ?Medication ?Instructions ?Recorded duloxetine 60 mg capsule,delayed 120 mg (2 x 60 mg) PO DAILY 90 04/19/25 release days #180 caps budesonide 90 mcg/actuation breath 1 inh inhalation BI D #1 ea 05/22/25 activated powder inhaler (Pulmicort Flexhaler) carbamazepine 200 mg tablet 200 mg PO BID #60 tabs naloxone 4 mg/actuation nasal 4 mg intranasal Q2M PRN opioid 07/08/25 spray (Narcan) overdose #2 ea nicotine 21 mg/24 hr daily 21 mg transdermal DAILY #30 ea 07/08/25 transdermal patch lorazepam 0.5 mg tablet 0.5 mg PO BID PRN anxiety 15 days 07/16/25 #30 tabs famotidine 20 mg tablet 20 mg PO DAILY PRN Reflux 30 days 07/19/25 #30 tabs oxycodone 10 mg tablet,crush 10 mg PO Q12H 30 days #60 tabs 07/19/25 resistant,extended release 12 hr oxycodone 5 mg tablet 5 - 7.5 mg (1 - 1.5 x 5 mg) PO Q6H 07/19/25 PRN Breakthru pain 7 days #42 tabs prednisone 10 mg tablet See Rx Instructions PO DAILY 10 07/20/25 days #28 tabs Allergies Allergy/AdvReac Type Severity Reaction Status Date / Time No Known Allergies Allergy Verified 07/19/25 09:13 Review of Systems 2 Review of Systems: as per HPI, full review of systems performed and negative but for the above mentioned pertinent positives and negatives. PMFSH Past Medical History Medical History Lumbar radiculopathy Mood disorder Emotional dysregulation CTS (carpal tunnel syndrome) Placenta previa Gestational diabetes depression ADHD Nicotine use Marijuana use Alcohol use disorder Smoker Hidradenitis suppurativa Mild intermittent asthma Neuropathy of right lower extremity Cervical radiculopathy Fusion of spine of lumbosacral region Thrush, oral UTI symptoms 23 weeks gestation of Anxiety Sore throat History of frequent upper respiratory infection Recurrent streptococcal pharyngitis Surgical History H/O cosmetic plastic surgery (~10/2022) History of appendectomy (~01/2018) History of eyelid surgery (~12/2023) H/O nasal septoplasty (~12/2023) H/O bilateral breast reduction surgery (~04/2023) S/P lumbar and lumbosacral fusion by anterior technique H/O section (~12/2024) H/O spinal fusion (~05/2025) Social History Social History Household Members: Family Housing: House Do you presently have visiting nurse or other home services: No Alcohol intake: current Alcohol type: wine Patient Tobacco Use Status: Current everyday Tobacco user Tobacco use type: Smokeless Tobacco Cigarettes Per Day: 2 Years Smoked: 17 Packs per year/per ci.70 e-Cigarette/Vaping Use: Currently Using Second Hand Smoke Exposure: No Substance Use Type: Marijuana service: No Current occupational status: employed Cognitive needs: No Hearing needs: No Vision needs: No Physical Exam ED Exam Exam: GENERAL: Anxious, tearful. SKIN: Normal skin color for ethnicity, warm, dry, intact, no rashes noted. HEENT: Normocephalic, atraumatic, no stridor, posterior oropharynx nonerythematous, dentition intact, EOMI. NECK: Soft, supple, full ROM, midline structures nontender, no step-offs, no deformities, no lymphadenopathy. CHEST: Heart regular tachycardia, no murmurs, symmetric chest rise and fall, no crepitus. PULMONARY: Clear to auscultation bilaterally, no labored breathing, no wheezes/rhales/ rhonchi. ABDOMINAL: Soft, nondistended, nontender, positive bowel sounds in all quadrants. : Deferred. MUSCULOSKELETAL: Normal tone, full range of motion, no deformities, no peripheral edema. NEURO: Alert and oriented x3, CN II through XII intact, equal strength and sensation bilateral upper and lower extremities, no focal neurologic deficits. PSYCHIATRIC: Anxious affect, tearful, fluid speech, good eye contact and appropriate demeanor. Vital Signs: Vital Signs - 24 hr 07/14/25 17:00 07/14/25 21:52 07/15/25 00:46 Temperature 98 F 97.7 F 98.0 F Pulse Rate 108 H 93 81 Respiratory Rate 18 18 18 Blood Pressure 170/99 H 144/104 H 140/89 H Pulse Oximetry 99 100 97 Oxygen Delivery Method Room Air Room Air Room Air 07/15/25 01:11 Temperature 98.0 F Pulse Rate 81 Respiratory Rate 18 Blood Pressure 140/89 H Pulse Oximetry 97 Oxygen Delivery Method Room Air BMI result Body Mass Index 28.2 Course Course Course Narrative: This is a Rapid Medical Examination (RME) performed by Mario Belcher PA-C in triage. Full HPI, ROS, assessment and treatment plan per primary provider in the Main ED. Hx: 34 yo F hx alcohol use disorder, chronic low back pain and failed back surgery, consistent with post-laminectomy syndrome, here w/ continued back pain and LLE pain/numbness. Patient has a quite complicated history - reports recent emergent spinal fusion in [place], returned and had f/u with PCP. she is on a pain contract however pain meds are being denied at pharmacy. she has been attempting to contact their office, has not heard back. having continued pain/numbness to LLE which has been present since before surgery. took a lorazepam [employer]. currently on a steroid taper. Plan: labs, UA, xr - will need pain control. Reevaluation(s) Reevaluation #1: 2:57 PM 07/15/2025 (Paula Frances PA-C): Pharmacy called, stating that they do not have Dilaudid, therefore sent over morphine 15 mg immediate release quantity 10. Medications Administered Discontinued Medications Generic Name Dose Route Start Last Admin Trade Name Selene PRN Reason Stop Dose Admin Acetaminophen 975 mg 07/14/25 22:11 07/14/25 22:26 Acetaminophen 325 Mg Tablet PO 07/14/25 22:12 975 mg ONCE ONE Administration Dexamethasone Sodium Phosphate 10 mg 07/14/25 22:11 07/14/25 22:26 Dexamethasone Sod Phosphate 10 Mg/Ml Vial IM 07/14/25 22:12 10 mg ONCE ONE Administration Diazepam 5 mg 07/14/25 22:11 07/14/25 22:26 Diazepam 5 Mg Tablet PO 07/14/25 22:12 5 mg ONCE ONE Administration Hydromorphone HCl 2 mg 07/15/25 00:24 07/15/25 01:01 Hydromorphone Hcl 2 Mg Tablet PO 07/15/25 00:25 2 mg ONCE ONE Administration Oxycodone HCl 15 mg 07/14/25 22:11 07/14/25 22:27 Oxycodone Hcl Immed Release 15 Mg Tablet PO 07/14/25 22:12 15 mg ONCE ONE Administration Medical Decision Making Medical Decision Making [facility] Narrative: 34-year-old female with chronic post-laminectomy low-back pain and continued lower-extremity neurological symptoms. Differential diagnosis includes musculoskeletal pain, osseous abnormality such as fracture or tumor, infection, spinal cord pathology such as cauda equina syndrome, ligamentous or disc pathology, vascular abnormalities, among many others. I reviewed the list of red flag features such as trauma, weight loss, abnormal neurological findings such as weakness, bowel or bladder incontinence, saddle paresthesia, as well as history of cancer, IV drug abuse, fever, to list a few. Based on history and physical examination, workup was initiated and results were reviewed. Extensive prior workup including recent MRI and neurosurgical evaluation shows no current surgical indication, but patient reports worsening deficits. Goal in ED is symptomatic pain control and safe disposition with follow-up for repeat imaging and specialist review. Problem #1: Post-laminectomy syndrome / chronic low-back pain with worsening radiculopathy Assessment: Long-standing degenerative spine disease status-post multiple fusions; now reports progressive bilateral leg weakness/numbness. Prior MRI 06/28/25 unchanged from previous; neurosurgery previously deferred surgery. Plan: - Pain control in ED with IM and oral medications. Problem #2: Severe pain, acute exacerbation Assessment: Patient reports she is unable to ambulate due to pain after waiting five hours; pain uncontrolled since ran out of prior prescriptions; however, objectively, patient is able to ambulate, moves legs freely on my exam without issue (crossing and uncrossing her legs in the wheelchair), no focal neurologic deficits on exam with normal patellar DTRs bilaterally. I see no evidence of cauda equina. She needs to have better outpatient pain control and I've discussed this with her at length. After multiple doses of pain medications in the ED using multiple modalities and targeting different pain receptors, patient is able to ambulate and is tolerating her pain much better. Using shared decision making, plan for discharge home to follow-up with primary care and/or specialist.? Patient understands and agrees with plan for discharge.? Discharged home in stable condition. Differential Diagnosis Differential Diagnoses: The differential diagnosis associated with the presentation includes (as above) Admission/Observation Consideration of admission/observation: Escalation of care including admission/observation considered Lab Data [facility] Lab Attestation statement: I reviewed the patient's lab results. 07/14/25 17:37 07/14/25 17:37 Labs: Lab Results 07/14/25 07/15/25 Range/Units 17:37 00:10 WBC 10.7 (4.8-10.8) X10*3/uL RBC 3.93 L (4.20-5.50) X10*6/uL Hgb 11.1 L (12.0-16.0) g/dl Hct 34.0 L (37.0-47.0) % MCV 86.5 (80.0-98.0) fL MCH 28.2 (27.0-33.0) pg MCHC 32.6 (31.0-35.0) g/dl RDW 13.2 (11.0-16.0) % Plt Count 315 D (160-400) X10*3/uL MPV 10.0 (9.4-12.3) fL Immature Gran % (Auto) 0.4 (0.0-0.4) % Neut % (Auto) 66.2 (45-73) % Lymph % (Auto) 22.2 (20-40) % [place] % (Auto) 6.2 (2-11) % Eos % (Auto) 4.5 H (0-4) % Baso % (Auto) 0.5 (0-2) % Lymph # (Auto) 2.4 (1.2-4.9) X10*3/uL [place] # (Auto) 0.7 (0.1-1.2) X10*3/uL Eos # (Auto) 0.5 H (0.0-0.4) X10*3/uL Baso # (Auto) 0.1 (0.0-0.2) X10*3/uL Abs Immat Gran (auto) 0.04 H (0.00-0.03) X10*3/uL Absolute Neuts (auto) 7.1 (2.0-8.3) x10*3/uL Absolute Nucleated RBC 0.000 (0.0-0.012) X10*3/uL Nucleated RBC % (auto) 0.0 (0.0-0.2) /100WBC Sodium 142 (135-145) mmol/L Potassium 4.2 (3.3-5.1) mmol/L Chloride 108 (96-108) mmol/L Carbon Dioxide 26 (22-29) mmol/L Anion Gap 12 (12-20) BUN 8 L (9-16) mg/dL Creatinine 0.63 (0.5-1.4) mg/dL Estim Creat Clear Calc 131.2 Estimated GFR > 60 Random Glucose 73 (60-115) mg/dL Calcium 9.1 (8.4-10.2) mg/dL Magnesium 2.1 (1.6-2.6) mg/dL Total Bilirubin 0.1 (0.0-1.0) mg/dL AST 16 (5-31) U/L ALT 16 (0-31) U/L Alkaline Phosphatase 88 (39-117) U/L Total Protein 6.4 L (6.5-8.0) g/dL Albumin 4.1 (3.5-5.0) g/dL Beta HCG, Quant 3 mIU/mL Urine Color Yellow Urine Appearance Clear Urine pH 7.0 (5.0-9.0) Ur Specific [place] 1.010 (1.005-1.025) Urine Protein Negative (Neg-Trace) mg/dL Urine Glucose (UA) Negative (Negative) mg/dL Urine Ketones Negative (Negative) mg/dL Urine Blood Negative (Negative) Urine Nitrite Negative (Negative) Ur Leukocyte Esterase Negative (Negative) Ethyl Alcohol < 10 mg/dL Independent Interpretation I performed an independent interpretation of an: Plain X-Ray Radiology Impression Discussion of test interpretation with radiology: I have reviewed the radiologist's reading. Independent Historian Clinical information obtained from an independent historian. History obtained from or confirmed by: Parent External Record Review External record reviewed: Inpatient record and Prior outpatient radiology Prescription Management I considered prescription management with: Pain Medication Chronic Conditions Patient?s care impacted by: Other (chronic pain, DDD) Social Determinants Patient?s care significantly limited by Social Determinants of Health including: Other Social Determinant of Health Discharge Plan Discharge Clinical Impression: Chronic radicular low back pain, Lumbar degenerative disc disease, Spondylolisthesis, lumbar region, Anxiety with depression Patient Disposition: Home, Self-Care Instructions: Chronic Pain (ED) Additional Instructions: Please call the neurosurgeon, Dr. Liya Hay on Wednesday in follow-up. Take oral Dilaudid as needed for pain up to 3 times a day. This medication accompanied by duloxetine and gabapentin should help your pain. The steroid you were given today is strong and will last approximately 48 hours. Return to the emergency department immediately with any new or worsening symptoms including: Fevers greater than 100?, worsening numbness or weakness, inability to urinate, any new symptom that concerns you. Call 911 with any medical emergency. Prescriptions: No Action duloxetine 60 mg capsule,delayed release(DR/EC) 120 mg PO DAILY 90 Days Qty: 180 3RF Pulmicort Flexhaler 90 mcg/actuation aerosol powdr breath activated 1 inh inhalation BID Qty: 1 1RF oxycodone 10 mg tablet,oral only,ext.rel.12 hr 10 mg PO Q12H 30 Days Qty: 60 0RF Rx Instructions: Mass[employer] Verified. Partial Fill upon patient request. oxycodone 5 mg tablet 5 - 7.5 mg PO Q6H PRN (Reason: Breakthru pain) 7 Days Qty: 42 0RF Rx Instructions: Partial Fill upon patient request. prednisone 10 mg tablet See Rx Instructions PO DAILY 10 Days Qty: 28 0RF Rx Instructions: 4 tabs daily for 4 days, 3 tabs daily for 2 days, 2 tabs daily for 2 days, 1 tab daily for 2 days PO daily; sennosides-docusate sodium [Stool Softener-Stimulant Laxat] 8.6-50 mg tablet 2 tab PO BID hydroxyzine HCl 25 mg tablet 25 mg PO BEDTIME PRN (Reason: anxiety) carbamazepine 200 mg Tablet 200 mg PO BID Qty: 60 0RF nicotine 21 mg/24 hr Patch 24 Hour 21 mg transdermal DAILY Qty: 30 0RF naloxone [Narcan] 4 mg/actuation spray,non-aerosol 4 mg intranasal Q2M PRN (Reason: opioid overdose) Qty: 2 0RF Rx Instructions: spray 1 dose into ONE nostril; alternate nostrils w each dose until help arrives gabapentin 800 mg tablet 800 mg PO TID Rx Instructions: 2-3 pills prn lorazepam 0.5 mg tablet 0.5 mg PO BID PRN (Reason: anxiety) 15 Days Qty: 30 0RF famotidine 20 mg tablet 20 mg PO DAILY PRN (Reason: Reflux) 30 Days Qty: 30 3RF Referrals: Liya Hay MD [Physician, Neurology] Interventions: ED Discharge Assessment Last Done: 07/15/25 01:11 Discharge Date/Time: 07/15/25 01:13 Print Language: Spanish
[2025-07-14 17:59] LABS: MANUAL DIFF FLAG NO
[2025-07-14 18:00] LABS: Hematocrit 34.0 % (37.0-47.0); Hemoglobin 11.1 g/dl (12.0-16.0); Imm Gran Abs Auto 0.04 X10*3/uL (0.00-0.03); Imm Gran Pct Auto 0.4 % (0.0-0.4); Lymphocytes Absolute Auto 2.4 X10*3/uL (1.2-4.9); Mean Corpuscular HGB Conc 32.6 g/dl (31.0-35.0); Mean Corpuscular Hemoglobin 28.2 pg (27.0-33.0); Mean Corpuscular Volume 86.5 fL (80.0-98.0); NRBC Abs Auto 0.000 X10*3/uL (0.0-0.012); NRBC Pct Auto 0.0 /100WBC (0.0-0.2); Platelet Count 315 X10*3/uL (160-400); Red Blood Count 3.93 X10*6/uL (4.20-5.50); White Blood Count 10.7 X10*3/uL (4.8-10.8)
[2025-07-14 18:17] LABS: Alanine Aminotransferase 16 U/L (0-31); Albumin Level 4.1 g/dL (3.5-5.0); Alkaline Phosphatase 88 U/L (39-117); Anion Gap 12 (12-20); Aspartate Amino Transferase 16 U/L (5-31); Blood Urea Nitrogen 8 mg/dL (9-16); Calcium 9.1 mg/dL (8.4-10.2); Carbon Dioxide 26 mmol/L (22-29); Chloride 108 mmol/L (96-108); Creatinine Clr Calc Pharmacy 131.2; Estimated Glomerular Filt Rate > 60; Magnesium 2.1 mg/dL (1.6-2.6); Potassium 4.2 mmol/L (3.3-5.1); Sodium 142 mmol/L (135-145); Total Protein 6.4 g/dL (6.5-8.0)
--- OUTSIDE RECORDS SUMMARY | 2025-07-14 20:12 | XMS_ITS | Data Portability ---
Author Organization [place] [facility], Allergy Address [address] [address] Care Team Providers Care Parlor Chaperone Name Role Phone KIMBERLITARIQEMMYANGUS Primary Care Provider Assessment Encounter Date Assessment Date Assessment LastModified by Organization Details LastModified Time 05/31/2024 05/31/2024 Patient with recurrent sinus and pharyngeal infections which were persisted before she had a septorhinoplasty in [place] in December. Over the summer she was well. Recent trip to [facility] and increased congestion. Examination shows no polyps or colored nasal discharge. She is now 7 weeks so we cannot perform any radiographs and try to avoid antibiotics. At the present time I do not see any need for any antibiotics have suggested saline irrigations twice daily with distilled water. We will check an immune panel. She will discuss with the dental scheduler whether she can utilize budesonide nasal spray. [email or web address] Not available 05/31/2024 15:52:05 Plan of Treatment Reminders Order Date Submit Date Provider Last Modified By Organization Details Last Modified Time Details Appointments None recorded. Lab haemophilus influenzae B IgG Ab, quantitativ e, serum, immunoassay 2023 MAGNUS [facility] (Centralized Electronic Ordering - All Locations), Patient Can Go To The Location Of Their Choice, [address] 11:45:58 unlisted lab - pneumococca l Ab (23 serotype) 2023 [facility] (Centralized Electronic Ordering - All Locations), Patient Can Go To The Location Of Their Choice, [address] 11:45:58 unlisted lab - tetanus toxoid Ag response* 2023 gilmar s32 [facility] (Centralized Electronic Ordering - All Locations), Patient Can Go To The Location Of Their Choice, [address] 12:24:19 CBC w/ auto diff 2023 [facility] (Centralized Electronic Ordering - All Locations), Patient Can Go To The Location Of Their Choice, 11:45:57 ige, total, serum 2023 [place] [facility] (Centralized Electronic Ordering - All Locations), Patient Can Go To The Location Of Their Choice, 11:45:59 immunoglobu sujatha iga+igg+igm , quantitativ e, serum 2023 [place] [facility] (Centralized Electronic Ordering - All Locations), [...] /uL 3.4-10 .8 normal Not Available [facility] ([facility]) [address] [place], [address], 06/07/2024 11:45:57 05/31/2006/01/2024 CBC WITH DIFFE RENTI AL/PL ATELE T RBC 4.29 x10e6 /uL 3.77-5 .28 normal Not Available [facility] ([facility]) [address] [facility], [place], [address], 06/07/2024 11:45:57 05/31/2006/01/2024 CBC WITH DIFFE RENTI AL/PL ATELE T hemoglobin 13.0 g/dL 11.1-1 5.9 normal Not Available [facility] ([facility]) [address] [place], [address], 06/07/2024 11:45:57 05/31/2006/01/2024 CBC WITH DIFFE RENTI AL/PL ATELE T hematocrit 39.3 % 34.0-4 6.6 normal Not Available [facility] ([facility]) [address] [facility], [place], [address], 06/07/2024 11:45:57 05/31/2006/01/2024 CBC WITH DIFFE RENTI AL/PL ATELE T MCV 92 fL 79-97 normal Not Available [facility] ([facility]) [address] [facility], [place], [address], 06/07/2024 11:45:57 05/31/2006/01/2024 CBC WITH DIFFE RENTI AL/PL ATELE T MCH 30.3 pg 26.6-3 3.0 normal Not Available [facility] ([facility]) [address] [place], [address], 06/07/2024 11:45:57 05/31/2006/01/2024 CBC WITH DIFFE RENTI AL/PL ATELE T MCHC 33.1 g/dL 31.5-3 5.7 normal Not Available [facility] ([facility]) [address] [place], [address], 06/07/2024 11:45:57 05/31/2006/01/2024 CBC WITH DIFFE RENTI AL/PL ATELE T RDW 12.8 % 11.7-1 5.4 Not Available [facility] ([facility]) [address] [place], [address], 06/07/2024 11:45:57 05/31/2006/01/2024 CBC WITH DIFFE RENTI AL/PL ATELE T platelets 354 x10e3 /uL 150-45 0 normal Not Available [facility] ([facility]) [address] [facility], [place], [address], 06/07/2024 11:45:57 05/31/2006/01/2024 CBC WITH DIFFE RENTI AL/PL ATELE T neutrophils 57 % not estab. normal Not Available [facility] ([facility]) [address] [facility], [place], [address], 06/07/2024 11:45:57 05/31/2006/01/2024 CBC WITH DIFFE RENTI AL/PL ATELE T lymphs 29 % not estab. normal Not Available [facility] ([facility]) [address] [facility], [place], [address], 06/07/2024 11:45:57 05/31/2006/01/2024 CBC WITH DIFFE RENTI AL/PL ATELE T monocytes 9 % not estab. normal Not Available [facility] ([facility]) [address] [facility], [place], [address], 06/07/2024 11:45:57 05/31/2006/01/2024 CBC WITH DIFFE RENTI AL/PL ATELE T eos 5 % not estab. normal Not Available [facility] ([facility]) [address] [facility], [place], [address], 06/07/2024 11:45:57 05/31/2006/01/2024 CBC WITH DIFFE RENTI AL/PL ATELE T basos 0 % not estab. normal Not Available [facility] ([facility]) [address] [facility], [place], [address], 06/07/2024 11:45:57 05/31/2006/01/2024 CBC WITH DIFFE RENTI AL/PL ATELE T immature cells MEDICAL DELIVERY TECHNICIAN Not Available [facility] ([facility]) [address] [facility], [place], [address], 06/07/2024 11:45:57 05/31/2006/01/2024 CBC WITH DIFFE RENTI AL/PL ATELE T neutrophils (absolute) 5.6 x10e3 /uL 1.4-7. 0 normal Not Available [facility] ([facility]) [address] [place], [address], 06/07/2024 11:45:57 05/31/2006/01/2024 CBC WITH DIFFE RENTI AL/PL ATELE T lymphs (absolute) 2.9 x10e3 /uL 0.7-3. 1 normal Not Available [facility] ([facility]) [address] [place], [address], 06/07/2024 11:45:57 05/31/2006/01/2024 CBC WITH DIFFE RENTI AL/PL ATELE T monocytes(ab solute) 0.9 x10e3 /uL 0.1-0. 9 normal Not Available [facility] ([facility]) [address] [facility], [place], [address], 06/07/2024 11:45:57 05/31/2006/01/2024 CBC WITH DIFFE RENTI AL/PL ATELE T eos (absolute) 0.5 x10e3 /uL 0.0-0. 4 above high normal Not Available [facility] ([facility]) [address] [place], [address], 06/07/2024 11:45:57 05/31/2006/01/2024 CBC WITH DIFFE RENTI AL/PL ATELE T baso (absolute) 0.0 x10e3 /uL 0.0-0. 2 normal Not Available [facility] ([facility]) [address] [place], [address], 06/07/2024 11:45:57 05/31/2006/01/2024 CBC WITH DIFFE RENTI AL/PL ATELE T immature granulocytes 0 % not estab. Not Available [facility] ([facility]) [address] [facility], [place], [address], 06/07/2024 11:45:57 05/31/2006/01/2024 CBC WITH DIFFE RENTI AL/PL ATELE T immature grans (abs) 0.0 x10e3 /uL 0.0-0. 1 Not Available [facility] ([facility]) [address] [facility], [place], [address], 06/07/2024 11:45:57 05/31/2006/01/2024 CBC WITH DIFFE RENTI AL/PL ATELE T NRBC MEDICAL DELIVERY TECHNICIAN Not Available [facility] ([facility]) [address] [facility], [place], [address], 06/07/2024 11:45:57 05/31/2006/01/2024 CBC WITH DIFFE RENTI AL/PL ATELE T hematology comments: MEDICAL DELIVERY TECHNICIAN Not Available [facility] ([facility]) [address] [facility], [place], [address], 06/07/2024 11:45:57 05/31/2006/07/2024 PNEUM OCOCC AL AB (23 SEROT YPE) pneumo Ab type 1* <0.1 ug/mL >1.3 below low normal Not Available [facility] [address] [place], [address], 06/07/2024 11:45:58 05/31/2006/07/2024 PNEUM OCOCC AL AB (23 SEROT YPE) pneumo Ab type 3* <0.1 ug/mL >1.3 below low normal Not Available [facility] [address] [place], [address], 06/07/2024 11:45:58 05/31/2006/07/2024 PNEUM OCOCC AL AB (23 SEROT YPE) pneumo Ab type 4* <0.1 ug/mL >1.3 below low normal Not Available [facility] [address] [place], [address], 06/07/2024 11:45:58 05/31/2006/07/2024 PNEUM OCOCC AL AB (23 SEROT YPE) pneumo Ab type 8* <0.3 ug/mL >1.3 below low normal Not Available [facility] [address] [place], [address], 06/07/2024 11:45:58 05/31/2006/07/2024 PNEUM OCOCC AL AB (23 SEROT YPE) pneumo Ab type 9 (9N)* <0.1 ug/mL >1.3 below low normal Not Available [facility] [address] [place], [address], 06/07/2024 11:45:58 05/31/2006/07/2024 PNEUM OCOCC AL AB (23 SEROT YPE) pneumo Ab type 12 (12F)* <0.1 ug/mL >1.3 below low normal Not Available [facility] [address] [place], [address], 06/07/2024 11:45:58 05/31/2006/07/2024 PNEUM OCOCC AL AB (23 SEROT YPE) pneumo Ab type 14* 7.4 ug/mL >1.3 Not Available [facility] [address] [place], [address], 06/07/2024 11:45:58 05/31/2006/07/2024 PNEUM OCOCC AL AB (23 SEROT YPE) pneumo Ab type 17 (17F)* <0.1 ug/mL >1.3 below low normal Not Available [facility] [address] [place], [address], 06/07/2024 11:45:58 05/31/2006/07/2024 PNEUM OCOCC AL AB (23 SEROT YPE) pneumo Ab type 19 (19F)* 0.4 ug/mL >1.3 below low normal Not Available [facility] [address] [place], [address], 06/07/2024 11:45:58 05/31/2006/07/2024 PNEUM OCOCC AL AB (23 SEROT YPE) pneumo Ab type 2* <0.2 ug/mL >1.3 below low normal Not Available [facility] [address] [place], [address], 06/07/2024 11:45:58 05/31/2006/07/2024 PNEUM OCOCC AL AB (23 SEROT YPE) pneumo Ab type 20* <0.2 ug/mL >1.3 below low normal Not Available [facility] [place], [address], 06/07/2024 11:45:58 05/31/2006/07/2024 PNEUM OCOCC AL AB (23 SEROT YPE) pneumo Ab type 22 (22F)* <0.1 ug/mL >1.3 below low normal Not Available [facility] [address] [place], [address], 06/07/2024 11:45:58 05/31/2006/07/2024 PNEUM OCOCC AL AB (23 SEROT YPE) pneumo Ab type 23 (23F)* 0.8 ug/mL >1.3 below low normal Not Available [facility] [address] [place], [address], 06/07/2024 11:45:58 05/31/20 24 06/07/2024 PNEUM OCOCC AL AB (23 SEROT YPE) pneumo Ab type 26 (6B)* <0.1 ug/mL >1.3 below low normal Not Available [facility] [address] [place], [address], 06/07/2024 11:45:58 05/31/2006/07/2024 PNEUM OCOCC AL AB (23 SEROT YPE) pneumo Ab type 34 (10A)* 0.1 ug/mL >1.3 below low normal Not Available [facility] [address] [place], [address], 06/07/2024 11:45:58 05/31/2006/07/2024 PNEUM OCOCC AL AB (23 SEROT YPE) pneumo Ab type 43 (11A)* 0.2 ug/mL >1.3 below low normal Not Available [facility] [address] [place], [address], 06/07/2024 11:45:58 05/31/2006/07/2024 PNEUM OCOCC AL AB (23 SEROT YPE) pneumo Ab type 5* <0.1 ug/mL >1.3 below low normal Not Available [facility] [address] [place], [address], 06/07/2024 11:45:58 05/31/2006/07/2024 PNEUM OCOCC AL AB (23 SEROT YPE) pneumo Ab type 51 (7F)* <0.1 ug/mL >1.3 below low normal Not Available [facility] [address] [place], [address], 06/07/2024 11:45:58 05/31/2006/07/2024 PNEUM OCOCC AL AB (23 SEROT YPE) pneumo Ab type 54 (15B)* 11.1 ug/mL >1.3 Not Available [facility] [address] [place], [address], 06/07/2024 11:45:58 05/31/2006/07/2024 PNEUM OCOCC AL AB (23 SEROT YPE) pneumo Ab type 56 (18C)* <0.1 ug/mL >1.3 below low normal Not Available [facility] [address] [place], [address], 06/07/2024 11:45:58 05/31/2006/07/2024 PNEUM OCOCC AL AB (23 SEROT YPE) pneumo Ab type 57 (19A)* 0.2 ug/mL >1.3 below low normal Not Available [facility] [address] [place], [address], 06/07/2024 11:45:58 05/31/2006/07/2024 PNEUM OCOCC AL AB (23 SEROT YPE) pneumo Ab type 68 (9V)* <0.1 ug/mL >1.3 below low normal Not Available [facility] [address] [place], [address], 06/07/2024 11:45:58 05/31/2006/07/2024 PNEUM OCOCC AL AB [...] Laboratories [address] [place], [address], 06/07/2024 11:45:58 05/31/2006/01/2024 IMMUN OGLOB ULINS A/G/M , QN, SER immunoglobul in g, qn, serum 803 mg/dL 586-16 02 Not Available [facility] ([facility]) [address] [facility], [place], [address], 06/07/2024 11:45:58 05/31/2006/01/2024 IMMUN OGLOB ULINS A/G/M , QN, SER immunoglobul in A, qn, serum 160 mg/dL 87-352 normal Not Available [facility] ([facility]) [address] [facility], [place], [address], 06/07/2024 11:45:58 05/31/2006/01/2024 IMMUN OGLOB ULINS A/G/M , QN, SER immunoglobul in M, qn, serum 234 mg/dL 26-217 above high normal Not Available [facility] ([facility]) [address] [facility], [place], [address], 06/07/2024 11:45:58 05/31/2006/01/2024 HAEMO PHILU S INFLU ENZAE B IGG haemophilus influenzae B IgG <0.15 ug/mL NOTE: An anti- Hib level of 0.15 ug/mL is gener ally accep sachi as the minim um level for prote ction . Optim al prote ction post- vacci natio n requi res a level great er than 1.00 ug/mL . Not Available [facility] ([facility]) [address] [facility], [place], [address], 06/07/2024 11:45:58 05/31/2006/06/2024 IMMUN OGLOB ULIN E, TOTAL immunoglobul in E, total 66 IU/mL 6-495 Not Available [facility] ([facility]) [address] [facility], [place], [address], 06/07/2024 11:45:59 05/31/2006/07/2024 TETAN US TOXOI D AG RESPO NSE* tetanus toxoid Ag response* COMMEN T %_X_1 00 Test Not Perfo rmed. The reque sted test was omitt tarik aguilar the weight recorder proce ss and the speci men [...] Laboratories [address] [place], [address], 06/07/2024 14:13:14 05/31/20 24 06/07/[address] PROBL EM request problem COMMEN T Test Not Perfo rmed. The reque sted test was omitt tarik aguilar the weight recorder proce ss and the speci men is no longe r avail able for testi ng. [facility] will conta ct your patie nt to sched ule a time for recol lecti on. Shoul d we be unabl e to make conta ct with your patie nt, your offic e will be notif ied. TEST: 60150 9 Tetan us Toxoi d Ag respo nse* Not Available [facility] ([facility]) [address] [facility], [place], [address], 06/07/2024 14:13:16 06/08/20 24 06/14/2024 TETAN US [...] Laboratories [address] [place], [address], 06/14/2024 14:25:50 Result Notes None recorded. Problems Name Problem SNOMED Code Status Onset Date Resolution Date Notes Provider Name and Address Organization Details Recorded Time Chronic rhinitis 94902001 Active 2023 HA SCHAEFFER MD [address] [place] [address], [phone], [facility] - [facility] 15:50:02 Chronic sinusitis 11316414 Active 2023 HA SCHAEFFER MD [address] [facility] [address], [place], [address], [facility] - [facility] 15:50:34 Immunodeficien cy disorder 868339512 Active 2023 HA SCHAEFFER MD [address] [facility] [address], [place], [address], [facility] [place] 12:51:35 Problem Notes None recorded. Procedures Surgical History Date Name Laterality Status Provider Name and Address Organization Details Recorded Time lumbar spinal fusion completed Love valera [place] - [facility] 05/31/2024 15:35:22 Breast reduction completed Love Dillard [facility] 05/31/2024 15:35:28 rhinoseptoplasty completed Love Dillard [facility] 05/31/2024 15:35:38 Imaging Results None recorded. Procedure [...] Details Last Updated DateTime 05/31/2024 167.64 cm 50241.26 g Love Dillard [place] - [facility] 05/31/2024 15:32:53 Social History None recorded. Functional Status None recorded. Mental Status None recorded. Family History Nothing Reported. Medical History Condition Response Anxiety Y Depression Y Arthritis Y Gynecological HistoryNo gynecological history recorded. Obstetrics History GPAL:G 0 P 0 0 0 0 Past Encounters Encounter ID Performer Location Encounter Start Date Encounter Closed Date Diagnosis/Indication Diagnosis SNOMED-CT Code Diagnosis ICD10 Code Diagnosis IMO Codes Diagnosis Note [id number] HA RODRIGUEZ MD [facility] [address] [place] [address] 05/31/2024 14:49:47 05/31/2024 15:55:16 Chronic rhinitis 63147652 J31.0 45066483 Z33.1 Chronic sinusitis 799622 00 J32.9 Health Concerns Section Related Observation LastModified by Organization Detai ls LastModified Time None Recorded Concern Status LastModified by Organization Details LastModified Time None Recorded Advance Directives Directive None Recorded Payers Insurance Date Sequence Insurance Name Policy Number Policy Billy Covered Member ID Billy Member ID Guarantor Name 05/31/2024 1 [employer] Stacia Botellocotte [id number] Stacia Elton 05/31/2024 1 [facility] - HEALTH NET PLAN (MEDICAID HMO) [id number] Stacia Elton [id number] Stacia Elton Notes Date Note Type Note Provider Name and Address Organization Details Recorded Time 05/31/2024 text/html Hx of septorhinoplasty in [place] December 08, 2023. Sinus infections monthly before the SRP in [place]. Had been treated with multiple abx. Hx of strep around the time of surgery. [facility] [facility] Now 7 weeks . Seeing OBHaving morning sickness HA BRYANT MD [address] [place] [address], [place], [address], [facility] - [facility] 05/31/2024 15:54:09 OBGyn Episode No OBEpisode recorded.
--- OUTSIDE RECORDS SUMMARY | 2025-07-14 20:12 | XMS_ITS | Clinical Summary ---
Author Organization [facility] Prior to 01/06/25 Address [address] [place] [address] Care Team Providers Care Cell Manager Name Role Phone Unavailable Primary Care Provider [...] this topic Medical Devices Implanted Type Area Inspector Of Weights And Measures Device Identifier Shelf Expiration Date Model / Serial / Lot Shell Short Flarehawk 25mm Fh9 [facility] [id number] - [id number] Implanted:Qty: 1 on 06/17/2021 by Asa Guaman MD at [facility] Posterior: Spine Lumbar [employer] [id number] / / Cage Spinal Flarehawk 6 D L23 [facility] [id number] - [id number] Implanted:Qty: 1 on 06/17/2021 by Asa Guaman MD at [facility] and [facility] Posterior: Spine Lumbar [employer] [id number] / / Bone Alrgft Can Chip 1-8 15cc Stry-Obio [id number] - [id number] Implanted:Qty: 1 on 06/17/2021 by Asa Guaman MD at [facility] and [facility] Posterior: Spine Lumbar [employer] 11/03/2025 [id number] / [id number] / Erick Spnl Contr 5.5x45mm Stry-K2m [id number] - [id number] Implanted:Qty: 2 on 06/17/2021 by Asa Guaman MD at [facility] and [facility] Posterior: Spine Lumbar [employer] [id number] / / Screw Set [place] Stry-K2m [id number] - [id number] Implanted:Qty: 4 on 06/17/2021 by Asa Guaman MD at [facility] and [facility] Posterior: Spine Lumbar [employer] [id number] / / Screw Spnl Poly 6.5x45mm Stry-K2m [id number] - [id number] Implanted:Qty: 2 on 06/17/2021 by Asa Guaman MD at [facility] and [facility] Posterior: Spine Lumbar [employer] [id number] / / Screw Spnl Poly 6.5x50mm Stry-K2m [id number] - [id number] Implanted:Qty: 2 on 06/17/2021 by Asa Guaman MD at [facility] and [facility] Posterior: Spine Lumbar [employer] [id number] / / Explanted Type Area Inspector Of Weights And Measures Device Identifier Shelf Expiration Date Model / Serial / Lot Screw Schanz Disposable Ao 4mm [facility] [id number] - [id number] Explanted:Qty: 2 on 06/17/2021 by Asa Guaman MD at [facility] and [facility] Right Posterior: Hip [employer] [id number] / / Advance Directives For more information, please contact: [phone] Latest Code Status on File Code Status Date Activated Date Inactivated Comments Full Code 06/17/2021 9:31 AM 06/18/2021 7:00 PM This code status was ascertained in the following way: discussion with patient .
--- OUTSIDE RECORDS SUMMARY | 2025-07-14 20:12 | XMS_ITS | Encounter Summary ---
Author Organization [facility] Address [address] [place] [address] [address] [place] [address] Phone Care Team Providers Care Lead Cytogenetic Technologist Name Role Phone Carlos Quick MD Primary Care Provider Encounter Details Date Type Department Care Team (Late st Contact Info) Description 07/09/2025 Telephone [facility] Neurosurgery [address] [place] [address], 7th Floor, [address] [place] [address] Unknown, Unknown, Social History Tobacco Use Types [...] Oanh Pena - 07/09/2025 11:40 AM EST [facility] received a phone call. Caller's name: [...] on filedocumented in this encounter Care Teams Lead Cytogenetic Technologist Relationship Specialty Start Date End Date Carlos Quick MD [address] [place] [address] PCP - General Family Medicine 07/09/25 documented as of this encounter Additional Source Comments The information contained in this document represents components of the legal health record. It is not the complete legal health record.[facility]
--- OUTSIDE RECORDS SUMMARY | 2025-07-14 20:12 | XMS_ITS | Clinical Summary ---
Author Organization [facility] Address [address] [place] [address] [place] [address] Phone Care Team Providers Care Tube Making Machine Operator Name Role Phone Carlos Quick MD Primary Care Provider Encounters Date Type Department Care Team Description 07/12/2025 Telephone [facility] Neurosurgery [address] [facility], 7th Floor, [address] [place] [address] Unknown, Unknown, 07/09/2025 Telephone [facility] Neurosurgery [address] [facility], 7th [address], [address] [place] [address] Unknown, Unknown, from Last 3 Months Social [...] file Medical Devices Not on file Insurance [facility] NON NSPG PCP [employer] NON NSPG PCP [employer] NON NSPG PCP [employer] NON NSPG PCP [employer] COMMERCIAL [facility] NON NSPG PCP [employer] COMMERCIAL [facility] NON NSPG PCP [employer] COMMERCIAL Care Teams Tube Making Machine Operator Relationship Specialty Start Date End Date Carlos Quick MD [address] [place] [address] [id number] PCP - General Family Medicine 07/09/25 Additional Source Comments The information contained in this document represents components of the legal health record. It is not the complete legal health record.[facility]
--- OUTSIDE RECORDS SUMMARY | 2025-07-14 20:12 | XMS_ITS | Clinical Summary ---
Author Organization Formerly [facility] Address [address] [place] [address] Care Team Providers Care Academic Services Coordinator Name Role Phone Juancarlos Tatiana Cruz APRN Primary Care Provider [phone] Allergies No known active allergies Medications diclofenac [...] patient's age to complete this topic Insurance [facility] - PPO Care Teams Academic Services Coordinator Relationship Specialty Start Date End Date Tatiana Bauer APRN PCP - General Emergency Medicine 02/28/21
--- OUTSIDE RECORDS SUMMARY | 2025-07-14 20:12 | XMS_ITS | Encounter Summary ---
Author Organization [facility] Address [address] [place] [address] [address] [place] [address] Phone Care Team Providers Care Control Valve Mechanic Name Role Phone Carlos Quick MD Primary Care Provider Encounter Details Date Type Department Care Team ([facility] st Contact Info) Description 07/12/2025 Telephone [facility] [place] [address] [facility], 7th Floor, [address] [place] [address] Unknown, Unknown, Social History Tobacco Use Types [...] encounter Progress Notes * Oanh Pena - 07/12/2025 1:23 PM EST IN: 2025-07-12 11:33 am MB PATIENTS CALL PTS DATE OF : 86 PTS NAME: ROSALVA CONDE CLRS NAME: SAME DO THEY HAVE MRN?: UNKNOWN TEL# [phone] MSG WOULD LIKE TO MAKE AN APPT WILLING TO PAY OUT OF POCKET Left for call back documented in this encounter Plan of Treatment Not on file documented as of this encounter Visit Diagnoses Not on filedocumented in this encounter Care Teams Control Valve Mechanic Relationship Specialty Start Date End Date Carlos Quick MD [address] [place] [address] PCP - General Family Medicine 07/09/25 documented as of this encounter Additional Source Comments The information contained in this document represents components of the legal health record. It is not the complete legal health record.[facility]
--- OUTSIDE RECORDS SUMMARY | 2025-07-14 20:12 | XMS_ITS | Clinical Summary ---
Author Organization [facility] [address] [facility] Address [address] [place] [address] Phone Care Team Providers Care Assistant Clinical Director Name Role Phone Miguel Angel Cuellar MD [...] several weeks prior to delivery. Because [facility] does not admit patients for management transfer to [facility] is recommended at this time. Carpal [...] 3- hr GTT Forward chart to P [id number] ([facility]): completed Nutrition: November 02 at 2:30pm with Fariba Domingo RD Diabetic teaching and visit with diabetic provider (Adrian or Nery): Adrian Bird CNM at [address] [place] [id number]. 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 [facility] site: [place] 2. Delivery site: [facility] 3. Mobile Mommas: NO 4. Dating [...] Administration Dates Next Due DTP 12/09/1993, 0,04/23/1989,02/19,1988 [id number] (Pentacel) 2mo to less than 5yo 04/29/1990 [...] Surgery Date Site/Laterality Comments APPENDECTOMY 2018 PROCEDURE: [place] APPENDECTOMY OTHER SURGICAL HISTORY 2017 PROCEDURE: DECOMPRESS DISC RF LUMBAR BREAST REDUCTION 04/2023 Bilateral PROCEDURE: [place] BREAST REDUCTION OTHER SURGICAL HISTORY PROCEDURE: [place] RHINOPLASTY PRIMARY W/MAJOR SEPTAL REPAIR OTHER SURGICAL HISTORY PROCEDURE: [place] UNLISTED PROCEDURE EYELIDS; COMMENT: eyelid lift OTHER SURGICAL HISTORY 2023 PROCEDURE: [place] SUCTION ASSISTED LIPECTOMY TRUNK Medical History Medical [...] deficit hyperactivity disorder) Alcohol abuse, episodic drin akty behavior 11/17/2016 DX:Alcohol abuse, episodic d rinking [...] Status Comments Brother 1 Brother 2 Alive [id number] [facility] Father Alive [phone] Father's side Aunt Alive Maternal Grandfather Maternal Grandmother Mother Alive [phone] Paternal Grandfather Paternal Grandmother Alive Social History [...] for your loved ones. For example, child life therapist or elderly care for an older adult? [...] ranv Livin g Parrish Delivery Location:Hospital A ([facility]) Summary Episode Dates Number of Fetuses Estimated Date of Delivery 12/27/2024 - Present (07/14/2025) Unknown Dating Summary Based On DEANNE GA Diff Last Menstrual Period on 04/11/2024 (Exact Date) 01/16/2025 Vitals Pregravid Weight Height TWG (As of 07/14/2025) Pregrav id BMI 1.676 m (66 ) [...] almost 6 weeks s/p PCS delivery at [facility] due to previa. She is bottle feeding without difficulty. Lochia stopped but then she started her menstrual cycle she has Copper IUD in place. Has not yet had intercourse. Mood is okay EPDS 18 no thoughts of harming herself or others. She has been seeing her psychiatrist who confirmed she was not in PP psychosis. Patient has decided to start ketamine transfusions at [facility] for her mental health. 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 Had been in partial inpatient at [facility], no current meds. Currently in couns [facility] PETS: 2 cats/ 1 dog 03/24/2013 IS now back in the same unhealthy relationship off & on x 4yrs. Cont to receive outpatient counseling as needed. No current homicidal/suicidal thoughts. [facility] 04/17/2015 In a new relationship x 12 mo , denies ant issues of IPV 06/08/19: She lives with her parents she just moved back from [place] in March. She has started to see her ex boyfriend for the past year, feels safe in her relationship, denies IPV. She is currently working for [employer]. She does smoke cigarettes daily, denies drug use, she is sober from alcohol. Currently being referred out to [facility] for her anxiety/depression. 08/16/2020: Just got new puppy; She lives with her parents. Working from [employer] for [employer]. She is in an on and off again relationship with one male partner for the past 6 years. She feels safe and happy in her relationship, denies IPV. She is not exercising routinely. 11/11/2023: She lives home with her parents, feels safe and happy. She is in a new relationship for about 1 month feels safe. 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 Trying to exercise more, [...] with: 1. Contraception-has Copper IUD placed at [facility] 2. Discussed nutrition, exercise, sexual activity, control methods, operator electronic warfare care, S&S of PPD and referral information. [...] BP check 4. AE in one year [place] Depression Scale: In the Past 7 Days [...] harming myself has occurred to me.: Never [place] Depression Scale Total: 18 Adrian Bird CNM [...] thinks she has psychosis. Living with her jhrgkh-cq-gxb who has dementia and is challenging to [...] for ketamine tx on Wednesday. Going to [place] this weekend to get away from qewtui-ci-jic and hoping she will feel better 2) Taking Nifedipine 30mg daily as rx'd by [facility], Bps at home have been slightly [...] that getting some time away from her awrstz-cw-bfb may be beneficial. Advised to keep appt with psychiatrist on Wednesday to discuss medication mgmt. Pt verbalized understanding and agreement with plan. Progress Notes - Hospital En counter - 12/29/2024 - GA: 12/29/2024 - Kristie Martel LSW Armored Service Technician- Progress Note Patient continues to require acute level hospital care. DEANNE: 12/29/24 Barriers: none Disposition: HOME HEALTH- [facility] secured for wound care management. volunteer services coordinator will remain available to assess, [...] is being discharged home with referral to manager social for home wound care. She is given [...] incision. S/p via pfannensteil on 12/11 (at [facility]). Noticed some swelling on her incision [...] AM EST Office Visit Obstetrics and Gynecology [facility] [address] [place] [address] Julianne Mckeon, RIKKI [address] [place] [address] Health Maintenance Due Date Last Done Comments [...] this topic Medical Devices Implanted Type Area Environmental Resource Specialist Device Identifier Shelf Expiration Date Model / Serial / Lot Shell Short Flarehawk 25mm Fh9 Intg-Manu [id number] Implanted:Qty: 1 on 06/17/2021 by Asa Guaman MD N/A: Spine Lumbar [employer] [id number] / / Cage Spinal Flarehawk 6 D L23 Intg-[facility] [id number] Implanted:Qty: 1 on 06/17/2021 by Asa Guaman MD N/A: Spine Lumbar [employer] [id number] / / Bone Alrgft Canc Chip 1-8 15cc Stry-Obio [id number] - [id number] Implanted:Qty: 1 on 06/17/2021 by Asa Guaman MD N/A: Spine Lumbar [employer] 11/03/2025 [id number] / [id number] / Erick Spnl Contr 5.5x45mm Stry-K2m [id number] Implanted:Qty: 2 on 06/17/2021 by Asa Guaman MD N/A: Spine Lumbar [employer] [id number] / / Screw Set [place] Stry-K2m [id number] Implanted:Qty: 4 on 06/17/2021 by Asa Guaman MD N/A: Spine Lumbar [employer] [id number] / / Screw Spnl Poly 6.5x45mm Stry-K2m [id number] Implanted:Qty: 2 on 06/17/2021 by Asa Guaman MD N/A: Spine Lumbar [employer] [id number] / / Screw Spnl Poly 6.5x50mm Stry-K2m [id number] Implanted:Qty: 2 on 06/17/2021 by Asa Guaman MD N/A: Spine Lumbar [employer] [id number] / / Procedures Procedure Name Priority Date/Time [...] LAB CHEMISTRY METHOD 06/20/2024 5:16 PM EST [facility] Blood Venous blood specimen / Unknown Venipuncture / Unknown 06/20/2024 2:16 PM EST 06/20/2024 2:16 PM EST us Adrian CONKLIN LAB BLOOD ORDERABLES Final Res ult [facility] [address] [place] [address], [place] [phone] * HIV 1,2 antibody, p24 antigen with reflex to differentiation (06/20/2024 2:16 PM EST) HIV Combo AB/AG Negative Negative LAB CHEMISTRY METHOD 06/20/2024 5:17 PM EST [facility] Blood Venous blood specimen / Unknown Venipuncture / Unknown 06/20/2024 2:16 PM EST 06/20/2024 2:16 PM EST [facility]ative [facility] - 06/20/2024 5:17 [...] CNM LAB BLOOD ORDERABLES Final Res ult [facility] [address] [place] [address], [place] [phone] * Cervical Cancer Screening: HPV (11/11/2023) [facility] Cervical Cancer Screening: HPV abstracted, negative Historical Provider HEALTH MAINTENANCE Final Result * (ABNORMAL) Lipid panel (09/05/2015) [facility] LDL/HDL Ratio 3 0 - 4 Triglycerides 108 0 - 150 mg/dL Cholesterol 195 0 - 200 mg/dL HDL 66 >=40 mg/dL LDL Cholesterol 107(A) 0 - 100 mg/dL Blood Venous blood specimen / Unknown Historical Provider LAB BLOOD ORDERABLES Jessica l Result from Last 3 Months or Most Recently Relevant to Health Maintenance Insurance [facility] Care Teams Assistant Clinical Director Relationship Specialty Start Date End Date Miguel Angel Cuellar MD [address] [place] [address] PCP - General Internal Medicine 03/16/19
[2025-07-14 21:52] VITALS: BP 144/104; PULSE 93; RESP 18; TEMP 36.5; O2SAT 100
--- NOTE | 2025-07-14 21:52 | PC.NURSE ---
Registration reported to this RN that Pt was ambulating to the bathroom with walker and lowered herself to her knees. Pt A&Ox3, reports her left leg gave out, denies any LOC/dizziness/head strike.
[2025-07-14] MEDS: oxyCODONE HCl Immed Release 15 MG TABLET PO (22:27)
--- NOTE | 2025-07-15 00:11 | PC.NURSE ---
pt ambulated to bathroom independently with walker. Urine sample collected and sent to lab.
[2025-07-15 00:22] LABS: Appearance Urine Clear; Glucose Urine UA Negative (Negative); PH 7.0 (5.0-9.0); Specific Gravity - Urine 1.010 (1.005-1.025)
[2025-07-15 00:46] VITALS: BP 140/89; PULSE 81; RESP 18; TEMP 36.7; O2SAT 97
[2025-07-15 01:11] VITALS: BP 140/89; PULSE 81; RESP 18; TEMP 36.7; O2SAT 97
== END 2025-07-15 01:13 | disposition home or self-care (01) ==
PROVIDERS: Physician Assistant Medical; Emergency Provider Emergency Medicine; PCP Family Medicine
DX: M51.369 Other intervertebral disc degeneration, lumbar region without mention of lumbar back pain or lower extremity pain (principal); M54.50 Low back pain, unspecified; M43.16 Spondylolisthesis, lumbar region; F33.1 Major depressive disorder, recurrent, moderate; F41.9 Anxiety disorder, unspecified; Z51.81 Encounter for therapeutic drug level monitoring; Z79.899 Other long term (current) drug therapy
CPT/HCPCS: 36415; 72100; 80053; 80307; 81003; 83735; 84702; 85025; 96372; 99284; J1100

== ENCOUNTER → 2025-07-14 17:07 | Outpatient (BNV) | payer OTHER, SELFPAY | PROVIDERS: PCP Family Medicine; Visit Provider Student in an Organized Health Care Education/Training Program | DX: M54.50 Low back pain, unspecified (principal) | CPT/HCPCS: 72100 ==

== ENCOUNTER 2025-07-19 09:04 | Outpatient (AMB) | payer OTHER, SELFPAY ==
--- NOTE | 2025-07-19 09:07 | MHC.PC.OV ---
Vital Signs 07/19/25 09:14 BMI Reason not done Patient refused/unable BP 112/76 Blood Pressure Location Lt brachial Position Sitting Respiration 20 Pulse 113 H Pulse Source Pulse Oximeter Temp 97.8 F Temp Source Oral Pulse Oximetry (%) 99 Oxygen Delivery Method Room Air Intake Visit Reasons: issues with meds Intake Note: Patient present because she is having issues with medication. Fisher Mussel Required: No Accompanied by: Self / Same As Patient Allergies No Known Allergies Allergy (Verified 07/19/25 09:13) Tobacco use date assessed: 07/13/25 Dental Screening Dental Screen Date: 07/13/25 HPI issues with meds HPI Details 34 y/o female presents to f/u chronic conditions. Reports ongoing chronic pain syndrome, chronic radicular low back pain, lumbar post-laminectomy syndrome. Reports worsening symptoms. Pt was at the emergency department over the weekend due to inability to obtain her meds. Pt notes episode of GERD which had gotten so significant it had caused her an anxiety attack and had fallen. Pt does report tremors. Has issues with sleep. [facility] Medical History Lumbar radiculopathy Mood disorder Emotional dysregulation CTS (carpal tunnel syndrome) Placenta previa Gestational diabetes depression ADHD Nicotine use Marijuana use Alcohol use disorder Smoker Hidradenitis suppurativa Mild intermittent asthma Neuropathy of right lower extremity Cervical radiculopathy Fusion of spine of lumbosacral region Thrush, oral UTI symptoms 23 weeks gestation of Anxiety Sore throat History of frequent upper respiratory infection Recurrent streptococcal pharyngitis Surgical History H/O cosmetic plastic surgery (~10/2022) History of appendectomy (~01/2018) History of eyelid surgery (~12/2023) H/O nasal septoplasty (~12/2023) H/O bilateral breast reduction surgery (~04/2023) S/P lumbar and lumbosacral fusion by anterior technique H/O section (~12/2024) H/O spinal fusion (~05/2025) Social History (Updated 07/13/25 @ 11:17 by Jocelyn Gates CMA) Household Members: Family Housing: House Do you presently have visiting nurse or other home services: No Alcohol intake: current Alcohol type: wine Patient Tobacco Use Status: Current everyday Tobacco user Tobacco use type: Smokeless Tobacco Cigarettes Per Day: 2 Years Smoked: 17 e-Cigarette/Vaping Use: Currently Using Second Hand Smoke Exposure: No Substance Use Type: Marijuana service: No Current occupational status: employed Cognitive needs: No Hearing needs: No Vision needs: No Questionnaire PHQ-9 Over the last 2 weeks, how often have you been bothered by any of the following problems? 1. Little interest or pleasure in doing things: not at all 2. Feeling down, depressed, or hopeless: not at all 3. Trouble falling or staying asleep, or sleeping too much: more than half the days 4. Feeling tired or having little energy: nearly every day 5. Poor appetite or overeating: not at all 6. Feeling bad about yourself - or that you are a failure or have let yourself or your family down: not at all 7. Trouble concentrating on things, such as reading the newspaper or watching television: several days 8. Moving or speaking so slowly that other people could have noticed. Or the opposite - being so fidgety or restless that you have been moving around a lot more than usual: not at all 9. Thoughts that you would be better off or of hurting yourself in some way: not at all Total score: 6 Depression Screening Interpretation: Negative Depression Screening Done: Yes 42109 - PHQ-9 Billing: Yes Source: Developed by Drs. Adonay Asencio, Latesha Martel, Bairon Stanford and colleagues, with an educational elizabeth from [employer]. Thrive Questionnaire Date Thrive assessed: 07/04/25 I am a: Patient What is your living situation today?: I have a steady place to live Within the past 12 months, did the food you bought not last and you didn't have the money to get more?: Never true Within the past 12 months, did you worry whether your food would run out before you got money to buy more?: Never true Do you have trouble paying for medicines?: No Do you have trouble getting transportation to medical appointments?: No Do you have trouble paying your heating and electricity bill?: No Do you have trouble taking care of your child, family member or friend?: No Do you have trouble with day-to-day activities such as bathing, preparing meals, shopping, managing finances, etc.?: No Are you currently unemployed and looking for a job?: No Are you interested in more education?: No Please select the resources that you would like help with: None Currently or been in a relationship where the following occur: No concerns reported THRIVE Score: 0 AUDIT C Alcohol Use Questionnaire (AUDIT-C) 3. How often do you have six or more drinks on one occasion?: Never Total Score: 0 SARAH-7 AMB Questionnaire SARAH-7 Date SARAH - 7 assessed: 08/14/22 Source: Developed by Drs. Adonay Asencio, Latesha Martel, Bairon Stanford and colleagues, with an educational elizabeth from [employer]. Review of Systems Const Denies chills, Denies fatigue, Denies fever(s), Denies headache(s) and Denies weakness ENT Denies dizziness and Denies headache(s) Card Denies dyspnea Resp Denies cough, Denies dyspnea, Denies wheezing and Denies other (shortness of breath) Musc Denies numbness and Denies tingling Neuro Denies dizziness, Denies headache(s), Denies numbness, Denies tingling and Denies weakness Psych Reports anxiety and Reports depression Endo Denies fatigue Aller/Immun Denies wheezing Physical exam (Primary Care) Vital Signs: Last Vital Signs Temp 97.8 F 07/19/25 09:14 Pulse 113 H 07/19/25 09:14 Resp 20 07/19/25 09:14 BP 112/76 07/19/25 09:14 Pulse Ox 99 07/19/25 09:14 Oxygen Delivery Method Room Air 07/19/25 09:14 Tobacco/Smoking Status: Tobacco use Status Tobacco use date assessed 07/13/25 07/19/25 09:11 Patient Tobacco Use Status Current everyday Tobacco 07/19/25 09:11 Tobacco use type Smokeless Tobacco 07/19/25 09:11 e-Cigarette/Vaping Use Currently Using 07/19/25 09:11 PHQ-9: PHQ-9 Score PHQ-9: Total score 6 07/19/25 09:28 Depression Screening Interpretation: Negative Thrive Assessment: Date of Thrive Assessment Date Thrive assessed 07/04/25 07/19/25 09:11 Currently or been in a relationship where the following occur: No concerns reported Const General: well developed; No acute distress Nutritional Appearance: well nourished Orientation/consciousness: patient oriented x3 HENMT Head: Yes normocephalic and Yes atraumatic Eyes General: appearance normal, both eyes and all related structures Pupils: Equal, round and reactive pupils present EOM: EOMs intact bilaterally Resp Effort & Inspection: normal respiratory effort Auscultation: clear to auscultation bilaterally Cardio Rate: regular rate Rhythm: regular rhythm Heart sounds: S1 normal heart sound present, S2 normal heart sound present, no gallops, no murmurs and no rubs Neuro General: patient oriented x3 and gait normal Cranial nerves: Yes Equal, round and reactive pupils present Psych Affect: normal affect Coding Level of Care Code Est Pt Level 4 (81076) Diagnoses Chronic pain syndrome G89.4 Anxiety with depression F41.8 Chronic radicular low back pain M54.16; G89.29 GERD (gastroesophageal reflux disease) K21.9 Tremor R25.1 Additional Codes PHQ-9 - 58437 - PHQ-9 Billing: Yes ([id number]) Assessment & Plan Assessment & Plan (1) Chronic pain syndrome: Code(s): G89.4 - Chronic pain syndrome Category: Medical Plan: Ongoing, chronic and severe pain. Patient was at the emergency department over the weekend due to inability to obtain her medication Still has an ongoing issue with insurance not covering any long-acting medications for her chronic pain. I have written letters to her insurance company regarding this and we are awaiting reply Patient at this point is willing to pay [id number] for this month. Resent medications. She will try to pick them up right away and if the pharmacy needs confirmation, I will confirm. (2) Anxiety with depression: Code(s): F41.8 - Other specified anxiety disorders Category: Medical Plan: Followed by psychiatry They just started Risperdal and are planning to wean down duloxetine Follow-up with your psychiatrist as recommended (3) Chronic radicular low back pain: Code(s): M54.16 - Radiculopathy, lumbar region; G89.29 - Other chronic pain Category: Medical Plan: As above (4) GERD (gastroesophageal reflux disease): Code(s): K21.9 - Gastro-esophageal reflux disease without esophagitis Category: Medical Plan: Severe GERD She used Tums and can continue to do so Will also give her famotidine which she take intermittently (5) Tremor: Code(s): R25.1 - Tremor, unspecified Category: Medical Plan: Patient has complaints of tremor. Follow-up with psychiatry as well as Neurology. She has an EMG scheduled by pain management Follow-up with pain management as well Medications: New famotidine 20 mg PO DAILY PRN 30 tabs 3RF Reflux 30 days Discontinued hydromorphone (Dilaudid) Partial Fill upon patient request. Discontinued Reason: Doctor's Order 2 mg PO Q8H PRN 10 tabs 0RF pain
[2025-07-19 09:14] VITALS: BP 112/76; PULSE 113; RESP 20; TEMP 36.6; O2SAT 99
== END 2025-07-19 09:43 | disposition home or self-care (01) ==
LOC: HO.HMCFM 09:04
PROVIDERS: PCP Family Medicine; Visit Provider Family Medicine
DX: G89.4 Chronic pain syndrome (principal); F41.8 Other specified anxiety disorders; M54.16 Radiculopathy, lumbar region; G89.29 Other chronic pain; K21.9 Gastro-esophageal reflux disease without esophagitis; R25.1 Tremor, unspecified

== ENCOUNTER → 2025-07-19 09:04 | Outpatient (BNVA) | payer OTHER, SELFPAY | PROVIDERS: PCP Family Medicine; Visit Provider Family Medicine | DX: G89.4 Chronic pain syndrome (principal); F41.8 Other specified anxiety disorders; M54.16 Radiculopathy, lumbar region; K21.9 Gastro-esophageal reflux disease without esophagitis; Z13.31 Encounter for screening for depression | CPT/HCPCS: 96127; 99212 ==